=== PATIENT | female | born 1980 | race Caucasian/White ===

== ENCOUNTER 2017-01-31 19:18 | Emergency (ER) | payer OTHER ==
[2017-01-31 20:02] VITALS: BP 104/50
[2017-01-31] MEDS ORDERED: HYDROcodone/ACETAMIN 5-325 MG* 1 TAB PO ONE (20:24)
[2017-01-31] MEDS ORDERED: Ondansetron ODT TAB* 4 MG PO ONE (20:24)
--- NOTE | 2017-01-31 20:37 | UC ---
Complaint Female HPI - HPI Summary HPI Summary: 36 yo female with severe right flank pain and fever T max 103 nausea but no vomitng hx frequent kidney stones - History Of Current Complaint Chief Complaint: UCGeneralIllness Stated Complaint: RIGHT SIDE ABDOMINAL PAIN/BLOOD IN URINE Time Seen by Provider: 01/31/17 20:15 Hx Obtained From: Patient Hx Last Menstrual Period: 12/2014 Onset/Duration: Gradual Onset, Lasting Weeks, Worse Since - today markely worsened Timing: Constant, Lasting Hours Severity Initially: Mild Severity Currently: Severe Pain Intensity: 9 Pain Scale Used: 0-10 Numeric Character: Colicy Aggravating Factor(s): Nothing Associated Signs And Symptoms: Positive: Fever, Back Pain, Nausea - Allergies/Home Medications Allergies/Adverse Reactions: Allergies Allergy/AdvReac Type Severity Reaction Status Date / Time Acesulfame Potassium Allergy Intermediate Swelling Verified 01/31/17 20:02 [From Suboxone] Buprenorphine [From Suboxone] Allergy Intermediate Swelling Verified 01/31/17 20 :02 Cephalexin [From Keflex] Allergy Intermediate "MESSES Verified 01/31/17 20:02 WITH MY BREATHING" Fluoxetine [From Prozac] Allergy Intermediate Hallucinati Verified 01/31/17 20: 02 ons Ketorolac Tromethamine Allergy Intermediate "TONGUE Verified 01/31/17 20:02 [From Toradol] SWELL" Naloxone [From Suboxone] Allergy Intermediate Swelling Verified 01/31/17 20:02 Nitrofurantoin Allergy Intermediate "MESSES Verified 01/31/17 20:02 [From Macrobid] WITH MY BREATHING" Penicillins Allergy Mild Rash Verified 01/31/17 20:02 Tramadol [From Ultram] Allergy Mild Rash Verified 01/31/17 20:02 Hydromorphone Allergy Hives/Diff. Verified 01/31/17 20:02 Breathing/I tching Trazodone Allergy Difficulty Verified 01/31/17 20:02 Breathing/Wheezing PMH/Surg Hx/FS Hx/Imm Hx Previously Healthy: Yes Endocrine History Of: Denies: Diabetes, Thyroid Disease, Hyperthyroidism, Hypothyroidism, Dyslipidemia Cardiovascular History Of: Denies: Cardiac Disorders, Hypertension, Pacemaker/ICD, Myocardial Infarction , Congestive Heart Failure, Atrial Fibrillation, Deep Vein Thrombosis, Bleeding Disorders Respiratory History Of: Reports: Asthma Denies: COPD GI/ History Of: Reports: Gastroesophageal Reflux - She had Rommel's esophagitis, but had a fundoplication and off Rx., Kidney Stones Denies: Ulcer, Gastrointestinal Bleed, Gall Bladder Disease, Diverticulitis, Renal Disease, Urosepsis Neurological History Of: 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 She sees a therapist. Cancer History Of: Denies: Lung Cancer, Colorectal Cancer, Breast Cancer, Prostate Cancer, Cervical Cancer Other History Of: Negative For: HIV, Hepatitis B, Hepatitis C, Anticoagulant Therapy - Surgical History Surgical History: Yes Surgery Procedure, Year, and Place: CHOLECYSTECTOMY, L4 L5 REMOVAL, APPENDECTOMY, TONSILLECTOMY, FULL FACIAL RECONSTRUCTION/LASER SURGERY RENAL STONE recent abd surgery 01/2014 - [facility] FUNDOPLICATION;Hysterectomy 01/11/15; Rt PINKY - AMPULATED TO 1ST KNUCKLE - Family History Known Family History: Positive: Cardiac Disease, Hypertension, Diabetes, Other - kidney stones - Social History Alcohol Use: Rare Substance Use Type: Marijuana Substance Use Comment - Amount & Last Used: [facility] Smoking Status (MU): Heavy Every Day Tobacco Smoker Type: Cigarettes Amount Used/How Often: 1 ppd Length of Time of Smoking/Using Tobacco: >20 years Have You Smoked in the Last Year: Yes Household Exposure Type: Cigarettes - Immunization History Most Recent Influenza Vaccination: Review of Systems Constitutional: Fever, Chills Skin: Negative Eyes: Negative ENT: Negative Respiratory: Negative Cardiovascular: Negative Gastrointestinal: Abdominal Pain Genitourinary: Hematuria, Frequency Motor: Negative Neurovascular: Negative Musculoskeletal: Negative Neurological: Negative Psychological: Negative All Other Systems Reviewed And Are Negative: Yes Physical Exam Triage Information Reviewed: Yes Appearance: Well-Appearing, Well-Nourished, Pain Distress Vital Signs: Initial Vital Signs Temp 100.1 F 01/31/17 19:55 Pulse 61 01/31/17 19:55 Resp 18 01/31/17 19:55 BP 104/50 01/31/17 19:55 Pulse Ox 100 01/31/17 19:55 Vital Signs Reviewed: Yes Eyes: Positive: Conjunctiva Clear ENT: Positive: Hearing grossly normal. Negative: Nasal congestion, Nasal drainage, Trismus, Muffled/hoarse voice Neck: Positive: Supple, Nontender Respiratory: Positive: Lungs clear, Normal breath sounds, No respiratory distress, No accessory muscle use Cardiovascular: Positive: RRR, No Murmur Abdomen Description: Positive: CVA Tenderness (R). Negative: Nontender - tenderness rlq Bowel Sounds: Positive: Present Musculoskeletal: Positive: ROM Intact, No Edema Neurological: Positive: Alert Psychological Exam: Normal Skin Exam: Normal Complaint Female Dx - Course Course Of Treatment: declines EMS transfer. d/w ED physcian [facility]- no urologist application tester tonight , suggests pt go to facility with urologist - Differential Dx/Diagnosis Provider Diagnoses: rigth flank pain/hematuria. ? infected urolithiasis Discharge - Discharge Plan Condition: Stable Disposition: AGAINST MEDICAL ADVICE Referrals: Angelika Gomez MD [Primary Care Provider] -
== END 2017-01-31 20:45 | disposition left against medical advice (07) ==
LOC: UCCORT 19:18
DX: R10.31 Right lower quadrant pain (principal); R31.9 Hematuria, unspecified; R50.9 Fever, unspecified; R11.0 Nausea; Z87.442 Personal history of urinary calculi; Z32.02 Encounter for pregnancy test, result negative; J45.909 Unspecified asthma, uncomplicated; K21.9 Gastro-esophageal reflux disease without esophagitis; Z86.73 Personal history of transient ischemic attack (TIA), and cerebral infarction without residual deficits; Z90.49 Acquired absence of other specified parts of digestive tract; Z89.021 Acquired absence of right finger(s); Z88.1 Allergy status to other antibiotic agents; Z88.5 Allergy status to narcotic agent; Z88.0 Allergy status to penicillin; F17.210 Nicotine dependence, cigarettes, uncomplicated
CPT/HCPCS: 81003; 84702; 99213; G0463

== ENCOUNTER 2017-06-09 17:30 | Emergency (ER) | payer OTHER ==
--- NOTE | 2017-06-09 17:39 | UC ---
Dental HPI - HPI Summary HPI Summary: 36 YEAR OLD FEMALE PRESENTS WITH COMPLAINS OF MULTIPLE LOWER MOLAR ABSCESS - History of Current Complaint Stated Complaint: DENTAL COMPLAINT Time Seen by Provider: 06/09/17 17:33 Hx Obtained From: Patient Hx Last Menstrual Period: 12/2014 Onset/Duration: Gradual Onset Severity: Moderate Pain Scale Used: 0-10 Numeric - 7 Aggravating: Chewing Alleviating: Nothing - Allergies/Home Medications Allergies/Adverse Reactions: Allergies Allergy/AdvReac Type Severity Reaction Status Date / Time Acesulfame Potassium Allergy Intermediate Swelling Verified 06/09/17 17:40 [From Suboxone] Buprenorphine [From Suboxone] Allergy Intermediate Swelling Verified 06/09/17 17 :40 Cephalexin [From Keflex] Allergy Intermediate "MESSES Verified 06/09/17 17:40 WITH MY BREATHING" Fluoxetine [From Prozac] Allergy Intermediate Hallucinati Verified 06/09/17 17: 40 ons Naloxone [From Suboxone] Allergy Intermediate Swelling Verified 06/09/17 17:40 Nitrofurantoin Allergy Intermediate "MESSES Verified 06/09/17 17:40 [From Macrobid] WITH MY BREATHING" Penicillins Allergy Mild Rash Verified 06/09/17 17:40 Tramadol [From Ultram] Allergy Mild Rash Verified 06/09/17 17:40 Hydromorphone Allergy Hives/Diff. Verified 06/09/17 17:40 Breathing/I tching Trazodone Allergy Difficulty Verified 01/31/17 20:02 Breathing/Wheezing PMH/Surg Hx/FS Hx/Imm Hx Previously Healthy: Yes Other History Of: Negative For: HIV, Hepatitis B, Hepatitis C, Anticoagulant Therapy - Surgical History Surgical History: Yes Surgery Procedure, Year, and Place: CHOLECYSTECTOMY, L4 L5 REMOVAL, APPENDECTOMY, TONSILLECTOMY, FULL FACIAL RECONSTRUCTION/LASER SURGERY RENAL STONE recent abd surgery 01/2014 - [facility] FUNDOPLICATION;Hysterectomy 01/11/15; Rt PINKY - AMPULATED TO 1ST KNUCKLE - Family History Known Family History: Positive: Cardiac Disease, Hypertension, Diabetes, Other - kidney stones - Social History Alcohol Use: Rare Substance Use Type: Marijuana Substance Use Comment - Amount & Last Used: [facility] Smoking Status (MU): Heavy Every Day Tobacco Smoker Type: Cigarettes Amount Used/How Often: 1 ppd Length of Time of Smoking/Using Tobacco: >20 years Have You Smoked in the Last Year: Yes Household Exposure Type: Cigarettes - Immunization History Most Recent Influenza Vaccination: Review of Systems Constitutional: Negative Skin: Negative Eyes: Negative ENT: Dental Pain Respiratory: Negative Cardiovascular: Negative Gastrointestinal: Negative Genitourinary: Negative Motor: Negative Neurovascular: Negative Musculoskeletal: Negative Neurological: Negative Psychological: Negative All Other Systems Reviewed And Are Negative: Yes Physical Exam Triage Information Reviewed: Yes Eye Exam: Normal ENT Exam: Normal Dental: Positive: Abscess @ Neck exam: Normal Neck: Positive: 1 Respiratory Exam: Normal Cardiovascular Exam: Normal Abdominal Exam: Normal Musculoskeletal Exam: Normal Neurological Exam: Normal Psychological Exam: Normal Skin Exam: Normal Dental Complaint Course/Dx - Differential Dx/Diagnosis Differential Diagnosis/Dx: Dental Abscess Provider Diagnoses: DENTAL ABSCESS Discharge - Discharge Plan Condition: Stable Disposition: HOME Prescriptions: Acetaminophen [Tylenol] 650 mg PO Q6H PRN #100 cap PRN Reason: Pain Chlorhexidine MW 0.12% 473ML* [Peridex Mouth Wash 0.12%] 15 ml MT TID PC #1 btl Erythromycin TAB* 500 mg PO QID #40 tab Patient Education Materials: Dental Abscess (ED) Referrals: Angelika Gomez MD [Medical Doctor] - If Needed
[2017-06-09 17:56] VITALS: BP 119/72
== END 2017-06-09 18:03 | disposition home or self-care (01) ==
LOC: UCCORT 17:30
DX: K04.7 Periapical abscess without sinus (principal); Z88.1 Allergy status to other antibiotic agents; Z90.49 Acquired absence of other specified parts of digestive tract; Z88.5 Allergy status to narcotic agent; Z88.0 Allergy status to penicillin; Z88.8 Allergy status to other drugs, medicaments and biological substances; F12.90 Cannabis use, unspecified, uncomplicated; F17.210 Nicotine dependence, cigarettes, uncomplicated
CPT/HCPCS: 99212; G0463

== ENCOUNTER 2017-07-07 12:06 | Emergency (ER) | payer OTHER ==
[2017-07-07 12:26] VITALS: BP 128/81
--- NOTE | 2017-07-07 12:30 | UC ---
Respiratory Complaint HPI - HPI Summary HPI Summary: 36 year old female who smokes. Pt here w/ cough getting worse x1 week. States today she was short of breath from coughing. States about 2 weeks ago she had cold-like sx, runny nose/cough. Also had tooth pulled about 2 weeks ago and was rx'd penicillin. Used albuterol inhaler this morning 0830 w/ some relief- states she needs refill on inhaler. Also taking robitussin w/ no relief and nyquil qpm w/ some relief. Had another round of PCN 2 days ago and since then has had worsened cough and sinus pressure. No fever. Cough is the biggest concern she has. [ End ] - History of Current Complaint Chief Complaint: UCRespiratory Stated Complaint: SOB,COUGH,CONGESTION Time Seen by Provider: 07/07/17 12:27 Hx Obtained From: Patient Hx Last Menstrual Period: 12/2014 Onset/Duration: Gradual Onset Severity Initially: Mild Severity Currently: Moderate Aggravating Factors: Exertion Alleviating Factors: Bronchodilator - Allergies/Home Medications Allergies/Adverse Reactions: Allergies Allergy/AdvReac Type Severity Reaction Status Date / Time Acesulfame Potassium Allergy Intermediate Swelling Verified 07/07/17 12:18 [From Suboxone] Buprenorphine [From Suboxone] Allergy Intermediate Swelling Verified 07/07/17 12 :18 Cephalexin [From Keflex] Allergy Intermediate "MESSES Verified 07/07/17 12:18 WITH MY BREATHING" Fluoxetine [From Prozac] Allergy Intermediate Hallucinati Verified 07/07/17 12: 18 ons Naloxone [From Suboxone] Allergy Intermediate Swelling Verified 07/07/17 12:18 Nitrofurantoin Allergy Intermediate "MESSES Verified 07/07/17 12:18 [From Macrobid] WITH MY BREATHING" Tramadol [From Ultram] Allergy Mild Rash Verified 07/07/17 12:18 Hydromorphone Allergy Hives/Diff. Verified 07/07/17 12:18 Breathing/I tching Trazodone Allergy Difficulty Verified 07/07/17 12:18 Breathing/Wheezing PMH/Surg Hx/FS Hx/Imm Hx Previously Healthy: Yes Other History Of: Negative For: HIV, Hepatitis B, Hepatitis C, Anticoagulant Therapy - Surgical History Surgical History: Yes Surgery Procedure, Year, and Place: CHOLECYSTECTOMY, L4 L5 REMOVAL, APPENDECTOMY, TONSILLECTOMY, FULL FACIAL RECONSTRUCTION/LASER SURGERY RENAL STONE recent abd surgery 01/2014 - [facility] FUNDOPLICATION;Hysterectomy 01/11/15; Rt PINKY - AMPULATED TO [address] [place] [address] - Family History Known Family History: Positive: Cardiac Disease, Hypertension, Diabetes, Other - kidney stones - Social History Occupation: Unemployed Alcohol Use: Rare Substance Use Type: None Substance Use Comment - Amount & Last Used: "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 Smoking Status (MU): Heavy Every Day Tobacco Smoker Type: Cigarettes Amount Used/How Often: 1/2 ppd Length of Time of Smoking/Using Tobacco: >20 years Have You Smoked in the Last Year: Yes Household Exposure Type: Cigarettes Cessation Counseling: Patient Advised to Stop - Immunization History Most Recent Influenza Vaccination: NONE 2016 Review of Systems Constitutional: Fatigue ENT: Sore Throat, Ear Ache, Nasal Discharge, Sinus Congestion, Sinus Pain/ Tenderness Respiratory: Shortness Of Breath, Cough All Other Systems Reviewed And Are Negative: Yes Physical Exam Triage Information Reviewed: Yes Appearance: Well-Appearing, No Pain Distress, Well-Nourished Vital Signs: Initial Vital Signs Temp 96.6 F 07/07/17 12:19 Pulse 63 07/07/17 12:19 Resp 18 07/07/17 12:19 BP 128/81 07/07/17 12:19 Pulse Ox 100 07/07/17 12:19 Vital Signs Reviewed: Yes Eye Exam: Normal ENT Exam: Normal Dental Exam: Normal Neck exam: Normal Neck: Positive: 1 Respiratory Exam: Normal Cardiovascular Exam: Normal Musculoskeletal Exam: Normal Neurological Exam: Normal Psychological Exam: Normal Skin Exam: Normal UC Diagnostic Evaluation - Laboratory O2 Sat by Pulse Oximetry: 100 Respiratory Course/Dx - Course Course Of Treatment: essentially here for cough and med refil -- offer at this time and if Sx worsen then go to ED -- she is concerned about the ight time wheeze and requests medrol at this time as well -- she will start with the ANURADHA and tessalon and if warranted can start medrol - Differential Dx/Diagnosis Provider Diagnoses: asthma Discharge - Discharge Plan Condition: Good Disposition: HOME Prescriptions: Albuterol HFA INHALER* [Ventolin HFA Inhaler*] 1 puff INH Q6H PRN #1 mdi PRN Reason: Wheezing Benzonatate [TESSALON 200 MG CAP] 200 mg PO TID #20 cap Fluticasone NASAL SPRAY 50MCG* [Flonase NASAL SPRAY 50MCG*] 2 spray BOTH NARES DAILY #1 btl Methylprednisolone [Medrol Dosepak 4 MG*] 0 mg PO .SEE GARRET INSTRUCTION #1 tab Patient Education Materials: Asthma (ED) Referrals: ALIYAH Zimmerman [Primary Care Provider] - 3 Days
== END 2017-07-07 13:01 | disposition home or self-care (01) ==
LOC: UCCORT 12:06
DX: J45.909 Unspecified asthma, uncomplicated (principal); F17.210 Nicotine dependence, cigarettes, uncomplicated; Z88.5 Allergy status to narcotic agent; Z71.6 Tobacco abuse counseling
CPT/HCPCS: 99212; G0463

== ENCOUNTER 2017-08-01 20:27 | Emergency (ER) | payer OTHER ==
[2017-08-01 22:24] VITALS: BP 112/72
--- NOTE | 2017-08-01 22:25 | UC ---
Respiratory Complaint HPI - HPI Summary HPI Summary: Pt with a h/o asthma, tobacco use presents with cough and wheeze. pt states was treated approx 1 month ago for uri with medrol dose pack and tessalon pearls. Pt states felt better after approx 5 days. pt states over last 2 weeks sx return. Pt reports green, thick sputum, wheeze, cough. + sinus congestin and ear pain. Pt ahs used otc robitussin with little affect. Pt has an MDI at home. Pt denies rash. + sick contact. States was on pcn for tooth that did not help cough pt's meds reviewed this visit - History of Current Complaint Chief Complaint: UCRespiratory Stated Complaint: COUGH Time Seen by Provider: 08/01/17 22:25 Hx Obtained From: Patient Hx Last Menstrual Period: n/a Timing: Constant Severity Initially: Mild Severity Currently: Mild Character: Cough: Productive Alleviating Factors: Bronchodilator Associated Signs And Symptoms: Positive: Fever, URI, Nasal Congestion - Allergies/Home Medications Allergies/Adverse Reactions: Allergies Allergy/AdvReac Type Severity Reaction Status Date / Time Acesulfame Potassium Allergy Intermediate Swelling Verified 08/01/17 20:51 [From Suboxone] Buprenorphine [From Suboxone] Allergy Intermediate Swelling Verified 08/01/17 20 :51 Cephalexin [From Keflex] Allergy Intermediate "MESSES Verified 08/01/17 20:51 WITH MY BREATHING" Fluoxetine [From Prozac] Allergy Intermediate Hallucinati Verified 08/01/17 20: 51 ons Naloxone [From Suboxone] Allergy Intermediate Swelling Verified 08/01/17 20:51 Nitrofurantoin Allergy Intermediate "MESSES Verified 08/01/17 20:51 [From Macrobid] WITH MY BREATHING" Tramadol [From Ultram] Allergy Mild Rash Verified 08/01/17 20:51 Hydromorphone Allergy Hives/Diff. Verified 08/01/17 20:51 Breathing/I tching Trazodone Allergy Difficulty Verified 08/01/17 20:51 Breathing/Wheezing PMH/Surg Hx/FS Hx/Imm Hx Previously Healthy: Yes Respiratory History: Asthma Other History Of: Negative For: HIV, Hepatitis B, Hepatitis C, Anticoagulant Therapy - Surgical History Surgical History: Yes Surgery Procedure, Year, and Place: CHOLECYSTECTOMY, L4 L5 REMOVAL, APPENDECTOMY, TONSILLECTOMY, FULL FACIAL RECONSTRUCTION/LASER SURGERY RENAL STONE recent abd surgery 4//2014 - [facility] FUNDOPLICATION;Hysterectomy 01/11/15; Rt PINKY - AMPULATED TO 1ST KNUCKLE - Family History Known Family History: Positive: Cardiac Disease, Hypertension, Diabetes, Other - kidney stones - Social History Occupation: Employed Full-time Lives: With Family Alcohol Use: Rare Substance Use Type: None Substance Use Comment - Amount & Last Used: "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 Smoking Status (MU): Heavy Every Day Tobacco Smoker Type: Cigarettes Amount Used/How Often: 1/2 ppd Length of Time of Smoking/Using Tobacco: >20 years Have You Smoked in the Last Year: Yes Household Exposure Type: Cigarettes - Immunization History Most Recent Influenza Vaccination: NONE 2016 Review of Systems Constitutional: Fever ENT: Sore Throat, Sinus Congestion, Sinus Pain/Tenderness Respiratory: Cough, Other - wheeze Cardiovascular: Negative Musculoskeletal: Negative All Other Systems Reviewed And Are Negative: Yes Physical Exam Triage Information Reviewed: Yes Appearance: Well-Appearing - congested, No Pain Distress Vital Signs: Initial Vital Signs Temp 98 F 08/01/17 20:46 Pulse 70 08/01/17 20:46 Resp 18 08/01/17 20:46 BP 127/65 08/01/17 20:46 Pulse Ox 99 08/01/17 20:46 Eye Exam: Normal Eyes: Positive: Conjunctiva Clear ENT: Positive: Nasal congestion, TMs normal Dental Exam: Normal Neck exam: Normal Neck: Positive: Supple, Nontender Respiratory: Positive: Chest non-tender - coarsem intermittent cough, No respiratory distress, No accessory muscle use, Wheezing Cardiovascular Exam: Normal Abdominal Exam: Normal Abdomen Description: Positive: Nontender, No Organomegaly Musculoskeletal Exam: Normal Neurological Exam: Normal Psychological Exam: Normal Psychological: Positive: Normal Response To Family Skin Exam: Normal UC Diagnostic Evaluation - Laboratory O2 Sat by Pulse Oximetry: 99 Respiratory Course/Dx - Course Course Of Treatment: pt with productive cough and wheeze ongoing x 2 weeks. pt with history or tobacco use. recently ise PCN for dental infection. will start doxy, pred, mdi, tessaltasneem mathis - Differential Dx/Diagnosis Provider Diagnoses: acute bronchitis Discharge - Discharge Plan Condition: Stable Disposition: HOME Prescriptions: Benzonatate CAP* [Tessalon 100 MG CAP*] 100 mg PO TID PRN #15 cap PRN Reason: coughing DOXYcycline CAP(*) [DOXYcycline 100MG CAP(*)] 100 mg PO BID #13 cap predniSONE TAB* [Deltasone TAB*] 40 mg PO DAILY #8 tab Patient Education Materials: Acute Bronchitis (ED) Referrals: ALIYAH Zimmerman [Primary Care Provider] - Additional Instructions: - stay well hydrated. Drink plenty of non-alcoholic, non-caffinated beverages - Okay to take Robitussion or tessalon pearls for coughing - Take antibiotics as prescribed until gone - Take prednisone as prescribed - Use your inhaler every 4 today and tomorrow, and then as needed - work to decrease cigarette smoke - These infections are spread by oral secretions. Do not share eating or drinking utensils. Frequent hand washing is important. Clean items that may get your secretions on them such as cell phones, ipads, computer mouse, television remotes - - After you have been on antibiotics for 2 days - change your toothbrush and your pillowcase - contact your doctor to schedule a follow-up appointment.
[2017-08-01] MEDS ORDERED: DOXYcycline CAP(*) 100 MG PO ONE (22:32)
[2017-08-01] MEDS ORDERED: predniSONE TAB* 20 MG PO ONE (22:33)
== END 2017-08-01 22:44 | disposition home or self-care (01) ==
LOC: UCCORT 20:27
DX: J20.9 Acute bronchitis, unspecified (principal); J45.909 Unspecified asthma, uncomplicated; Z88.1 Allergy status to other antibiotic agents; Z88.5 Allergy status to narcotic agent; Z88.8 Allergy status to other drugs, medicaments and biological substances; F17.210 Nicotine dependence, cigarettes, uncomplicated
CPT/HCPCS: 99212; A9270-GY; G0463; J7512

== ENCOUNTER 2017-12-02 17:13 | Emergency (ER) | payer OTHER ==
[2017-12-02 20:00] VITALS: BP 129/74
--- NOTE | 2017-12-02 20:45 | UC ---
Respiratory Complaint HPI - HPI Summary HPI Summary: 37 yo female with a two day hx of cough/sore throat/right earache/myalgias and fever/chills - History of Current Complaint Chief Complaint: UCEar Stated Complaint: SORE THROAT, EAR PAIN Time Seen by Provider: 12/02/17 20:14 Hx Obtained From: Patient Hx Last Menstrual Period: 2 yr Onset/Duration: Sudden Onset, Lasting Days Severity Initially: Moderate Severity Currently: Severe Pain Intensity: 10 Pain Scale Used: 0-10 Numeric Character: Cough: Nonproductive Aggravating Factors: Nothing Alleviating Factors: Nothing Associated Signs And Symptoms: Positive: Fever, Chills, Nasal Congestion, Sinus Discomfort - Allergies/Home Medications Allergies/Adverse Reactions: Allergies Allergy/AdvReac Type Severity Reaction Status Date / Time MS Acesulfame Potassium Allergy Intermediate Swelling Verified 12/02/17 19:33 [From Suboxone] MS Buprenorphine Allergy Intermediate Swelling Verified 12/02/17 19:33 [From Suboxone] MS Cephalexin [From Keflex] Allergy Intermediate "MESSES Verified 12/02/17 19:33 WITH MY BREATHING" MS Fluoxetine [From Prozac] Allergy Intermediate Hallucinati Verified 12/02/17 19:33 ons MS Naloxone [From Suboxone] Allergy Intermediate Swelling Verified 12/02/17 19: 33 MS Nitrofurantoin Allergy Intermediate "MESSES Verified 12/02/17 19:33 [From Macrobid] WITH MY BREATHING" MS Tramadol [From Ultram] Allergy Mild Rash Verified 12/02/17 19:33 MS Hydromorphone Allergy Hives/Diff. Verified 12/02/17 19:33 [Hydromorphone] Breathing/I tching MS Trazodone [Trazodone] Allergy Difficulty Verified 12/02/17 19:33 Breathing/Wheezing Home Medications: Home Medications Ibuprofen TAB* [Motrin TAB* 400 MG] 400 mg PO Q6H PRN 12/02/17 [History Confirmed 12/02/17] PMH/Surg Hx/FS Hx/Imm Hx Previously Healthy: Yes Other History Of: Negative For: HIV, Hepatitis B, Hepatitis C, Anticoagulant Therapy - Surgical History Surgical History: Yes Surgery Procedure, Year, and Place: CHOLECYSTECTOMY, L4 L5 REMOVAL, APPENDECTOMY, TONSILLECTOMY, FULL FACIAL RECONSTRUCTION/LASER SURGERY RENAL STONE recent abd surgery 01/2014 - KATHY FUNDOPLICATION;Hysterectomy 01/11/15; Rt PINKY - AMPULATED TO 1ST KNUCKLE - Family History Known Family History: Positive: Cardiac Disease, Hypertension, Diabetes, Other - kidney stones - Social History Alcohol Use: Rare Substance Use Type: None Substance Use Comment - Amount & Last Used: "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 Smoking Status (MU): Heavy Every Day Tobacco Smoker Type: Cigarettes Amount Used/How Often: 1/2 ppd Length of Time of Smoking/Using Tobacco: >20 years Have You Smoked in the Last Year: Yes Household Exposure Type: Cigarettes - Immunization History Most Recent Influenza Vaccination: NONE 2016 Review of Systems Constitutional: Fever Skin: Negative Eyes: Negative ENT: Sore Throat, Ear Ache, Nasal Discharge, Sinus Congestion Respiratory: Cough Cardiovascular: Negative Gastrointestinal: Negative Genitourinary: Negative Motor: Negative Neurovascular: Negative Musculoskeletal: Myalgia Neurological: Negative Psychological: Negative Is Patient Immunocompromised?: No All Other Systems Reviewed And Are Negative: Yes Physical Exam Triage Information Reviewed: Yes Appearance: Well-Appearing, No Pain Distress, Well-Nourished Vital Signs: Initial Vital Signs Temp 98.5 F 12/02/17 19:39 Pulse 57 12/02/17 19:39 Resp 18 12/02/17 19:39 BP 129/74 12/02/17 19:39 Pulse Ox 100 12/02/17 19:39 Eyes: Positive: Conjunctiva Clear ENT: Positive: Hearing grossly normal, Pharyngeal erythema, Nasal congestion, TMs normal, Uvula midline. Negative: Tonsillar swelling, Tonsillar exudate, Trismus, Muffled voice, Hoarse voice Neck: Positive: Supple, Nontender, Enlarged Nodes @ - ant cerv Respiratory: Positive: Lungs clear, Normal breath sounds, No respiratory distress, No accessory muscle use Cardiovascular: Positive: RRR, No Murmur Musculoskeletal: Positive: ROM Intact, No Edema Neurological: Positive: Alert Psychological Exam: Normal Skin Exam: Normal UC Diagnostic Evaluation - Laboratory O2 Sat by Pulse Oximetry: 100 - normal/not hypoxic Respiratory Course/Dx - Course Course Of Treatment: rapid flu (-). strep(-) - Differential Dx/Diagnosis Provider Diagnoses: bronchitis Discharge - Discharge Plan Condition: Stable Disposition: HOME Patient Education Materials: Acute Bronchitis (ED) Referrals: ALIYAH Zimmerman [Primary Care Provider] - 4 Days (if not better)
[2017-12-02] MEDS ORDERED: Azithromycin TAB* 250 MG PO ONE (21:19)
== END 2017-12-02 21:57 | disposition home or self-care (01) ==
LOC: UCCORT 17:13
DX: J40 Bronchitis, not specified as acute or chronic (principal); F17.210 Nicotine dependence, cigarettes, uncomplicated
CPT/HCPCS: 87502; 87651; 99212; A9270-GY; G0463

== ENCOUNTER 2018-01-02 16:44 | Emergency (ER) | payer OTHER ==
[2018-01-02 17:51] VITALS: BP 116/66
--- NOTE | 2018-01-02 18:37 | UC ---
Knee Pain HPI - HPI Summary HPI Summary: Pt with right knee pain x 7 days. Pt states was walking down stairs at [facility] [place] and felt pain in right knee no fall. Pt states has had pain on lateral edge since. Pts states feels like it "might give out" Pt reports intermittent parenthesis down leg. No back or hip pain. no pain in ankle, hip, back. Pt has been applying heat. Pt walking with limp. No fall. taking motrin with little relief. no h/o similar injury Pt's medications reviewed this visit - History of Current Complaint Chief Complaint: UCLowerExtremity Stated Complaint: RIGHT KNEE COMPLAINT Time Seen by Provider: 01/02/18 18:11 Hx Obtained From: Patient Hx Last Menstrual Period: unknown ?: No Onset/Duration: Gradual Onset Severity Initially: Moderate Severity Currently: Moderate Pain Intensity: 8 Pain Scale Used: 0-10 Numeric Character: Sharp, Throbbing, Stiffness Aggravating Factor(s): Movement, Weight Bearing Alleviating Factor(s): Rest, Nothing Associated Signs And Symptoms: Positive: Weakness, Tingling. Negative: Swelling , Numbness - Allergies/Home Medications Allergies/Adverse Reactions: Allergies Allergy/AdvReac Type Severity Reaction Status Date / Time buprenorphine [From Suboxone] Allergy Swelling Verified 01/02/18 17:44 cephalexin [From Keflex] Allergy Difficulty Verified 01/02/18 17:44 Breathing/Wheezing fluoxetine [From Prozac] Allergy Hallucinati Verified 01/02/18 17:44 ons hydromorphone Allergy Hives/Diff. Verified 01/02/18 17:44 Breathing/I tching naloxone [From Suboxone] Allergy Swelling Verified 01/02/18 17:44 nitrofurantoin Allergy Difficulty Verified 01/02/18 17:44 [From Macrobid] Breathing tramadol [From Ultram] Allergy Rash Verified 01/02/18 17:44 trazodone Allergy Difficulty Verified 01/02/18 17:44 Breathing/Wheezing PMH/Surg Hx/FS Hx/Imm Hx Previously Healthy: Yes Other History Of: Negative For: HIV, Hepatitis B, Hepatitis C, Anticoagulant Therapy - Surgical History Surgical History: Yes Surgery Procedure, Year, and Place: CHOLECYSTECTOMY, L4 L5 REMOVAL, APPENDECTOMY, TONSILLECTOMY, FULL FACIAL RECONSTRUCTION/LASER SURGERY RENAL STONE recent abd surgery 01/2014 - [facility] FUNDOPLICATION;Hysterectomy 01/11/15; Rt PINKY - AMPULATED TO 1ST KNUCKLE - Family History Known Family History: Positive: Cardiac Disease, Hypertension, Diabetes, Other - kidney stones - Social History Occupation: Student Lives: With Family Alcohol Use: Rare Substance Use Type: None Substance Use Comment - Amount & Last Used: "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 Smoking Status (MU): Heavy Every Day Tobacco Smoker Type: Cigarettes Amount Used/How Often: 1/2 ppd Length of Time of Smoking/Using Tobacco: >20 years Have You Smoked in the Last Year: Yes Household Exposure Type: Cigarettes - Immunization History Most Recent Influenza Vaccination: NONE 2016 Review of Systems Constitutional: Negative Musculoskeletal: Decreased ROM, Other: - knee pain Neurological: Paresthesia All Other Systems Reviewed And Are Negative: Yes Physical Exam Triage Information Reviewed: Yes Appearance: Well-Appearing, No Pain Distress, Well-Nourished Vital Signs: Initial Vital Signs Temp 97.8 F 01/02/18 17:44 Pulse 55 01/02/18 17:44 Resp 16 01/02/18 17:44 BP 116/66 01/02/18 17:44 Pulse Ox 98 01/02/18 17:44 Vital Signs Reviewed: Yes Eye Exam: Normal Eyes: Positive: Conjunctiva Clear ENT: Positive: Hearing grossly normal Neck: Positive: Supple Respiratory: Positive: No respiratory distress, No accessory muscle use Cardiovascular: Positive: Other: - 2+ Dp, PT CBT <2 sec Musculoskeletal: Positive: Other: - + SLE + pain with flexion knee > 45 + flex.ext ankle without difficult Pain with palp along lateral joint line Neg anterior/posterior drawer Neurological Exam: Normal Neurological: Positive: Other: - + gross sensation throughout foot Psychological Exam: Normal Psychological: Positive: Normal Response To Family Skin Exam: Normal Diagnostics - Radiology No standard instances Radiology Interpretation Completed By: Radiologist - no acute Knee Pain Course/Dx - Course Course Of Treatment: Pt presents with pain in lateral aspect of right knee after feeling pull walking down step, no fall. pt with palpation lateral joint line. slight limp with ambulation. limited flexion second to pain. imaging. ice. steve. crutches. ortho f/u. motrin - Differential Dx/Diagnosis Provider Diagnoses: knee sprain Discharge - Discharge Plan Condition: Stable Disposition: HOME Patient Education Materials: Knee Sprain (ED) Referrals: ALIYAH Zimmerman [Primary Care Provider] - Cristóbal Charles MD [Medical Doctor] - Additional Instructions: -Okay to take ibuprofen (Advil, Motrin) every 6 hours for pain. Take with food. Do NOT take for more than 4-5 days - Use crutches until you can walk without pain or a limp or ar released by the orthopedic provider - wear steve wrap for support -Apply ice (20 min at a time) every 4 hours for 15 minutes while awake today and tomorrow - Keep leg elevated - this will help with swelling and pain -contact the orthopedic provider to schedule a follow-up appointment. Indicate you would like to be evaluated in the [place] office if this continues to be your preference
--- NOTE | 2018-01-02 18:49 | RAD ---
INDICATION: Right knee pain and buckling. TECHNIQUE: 4 views of the right knee were obtained. FINDINGS: The bones are in normal alignment. No joint effusion or fracture is seen. Joint spaces appear maintained. IMPRESSION: NO EVIDENCE FOR FRACTURE.
== END 2018-01-02 19:00 | disposition home or self-care (01) ==
LOC: UCCORT 16:44
DX: S83.91XA Sprain of unspecified site of right knee, initial encounter (principal); X58.XXXA Exposure to other specified factors, initial encounter; Y93.9 Activity, unspecified; Y92.9 Unspecified place or not applicable; R20.2 Paresthesia of skin; Z88.1 Allergy status to other antibiotic agents; Z88.5 Allergy status to narcotic agent; Z88.8 Allergy status to other drugs, medicaments and biological substances; F17.210 Nicotine dependence, cigarettes, uncomplicated
CPT/HCPCS: 99213; G0463

== ENCOUNTER 2018-01-15 10:51 | Emergency (ER) | payer OTHER ==
[2018-01-15 12:08] VITALS: BP 135/65
--- NOTE | 2018-01-15 12:26 | UC ---
General HPI - HPI Summary HPI Summary: pt is c/o "BV", describes as a discharge with odor x 3 days. hx BV in past and this is the same. denies risk/concern for std. also notes"my ovaries ache like i 'm due for aperiord". pt states had hysterectomy but still gets this pain x 3 days as well. pt states "i have stress hives as well" onset within past week. "i 've had them before". she attributes this to her father being ill. no fever, sob , cough. - History of Current Complaint Chief Complaint: UCGeneralIllness Stated Complaint: ABDOMINAL PAIN/SKIN COMPLAINT Time Seen by Provider: 01/15/18 12:17 Hx Obtained From: Patient Hx Last Menstrual Period: HYSTERECTOMY Onset/Duration: Gradual Onset Timing: Constant Pain Intensity: 4 Alleviating: nothing Associated Signs & Symptoms: Positive: Abdominal Pain - "ovaries". Negative: Back Pain, Cough, Dysuria, Fever, Nausea, SOB, Wheezing - Allergy/Home Medications Allergies/Adverse Reactions: Allergies Allergy/AdvReac Type Severity Reaction Status Date / Time buprenorphine [From Suboxone] Allergy Swelling Verified 01/02/18 17:44 cephalexin [From Keflex] Allergy Difficulty Verified 01/02/18 17:44 Breathing/Wheezing fluoxetine [From Prozac] Allergy Hallucinati Verified 01/02/18 17:44 ons hydromorphone Allergy Hives/Diff. Verified 01/02/18 17:44 Breathing/I tching naloxone [From Suboxone] Allergy Swelling Verified 01/02/18 17:44 nitrofurantoin Allergy Difficulty Verified 01/02/18 17:44 [From Macrobid] Breathing tramadol [From Ultram] Allergy Rash Verified 01/02/18 17:44 trazodone Allergy Difficulty Verified 01/02/18 17:44 Breathing/Wheezing Home Medications: Home Medications Albuterol HFA INHALER* [Ventolin HFA Inhaler*] 01/15/18 [History] Multivitamin with Minerals [One Daily Complete] 01/15/18 [History] PMH/Surg Hx/FS Hx/Imm Hx - Additional Past Medical History Additional PMH: BV, urticaria Other History Of: Negative For: HIV, Hepatitis B, Hepatitis C, Anticoagulant Therapy - Surgical History Surgical History: Yes Surgery Procedure, Year, and Place: CHOLECYSTECTOMY, L5 DISC REMOVAL, APPENDECTOMY, TONSILLECTOMY, FULL FACIAL RECONSTRUCTION/LASER SURGERY RENAL STONE recent abd surgery 01/2014 - KATH[facility] FUNDOPLICATION;Hysterectomy 01/11/15; Rt PINKY - AMPULATED TO 1ST KNUCKLE - Family History Known Family History: Positive: Cardiac Disease, Hypertension, Diabetes, Other - kidney stones - Social History Lives: With Family Alcohol Use: Rare Substance Use Type: None Substance Use Comment - Amount & Last Used: "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 Smoking Status (MU): Heavy Every Day Tobacco Smoker Type: Cigarettes Amount Used/How Often: 1/2 ppd Length of Time of Smoking/Using Tobacco: >20 years Have You Smoked in the Last Year: Yes Household Exposure Type: Cigarettes - Immunization History Most Recent Influenza Vaccination: NONE 2017 Vaccination Up to Date: Yes Review of Systems Constitutional: Negative Skin: Rash Eyes: Negative ENT: Negative Respiratory: Negative Cardiovascular: Negative Gastrointestinal: Negative Genitourinary: Vaginal/Penile Discharge Motor: Negative Neurovascular: Negative Musculoskeletal: Negative Neurological: Negative Psychological: Negative Is Patient Immunocompromised?: No All Other Systems Reviewed And Are Negative: Yes Physical Exam Triage Information Reviewed: Yes Appearance: Well-Appearing Vital Signs: Initial Vital Signs Temp 98.0 F 01/15/18 12:00 Pulse 51 01/15/18 12:00 Resp 18 01/15/18 12:00 BP 135/65 01/15/18 12:00 Pulse Ox 100 01/15/18 12:00 Vital Signs Reviewed: Yes Eye Exam: Normal ENT: Positive: Pharynx normal, TMs normal. Negative: Nasal congestion, Nasal drainage Neck: Positive: Supple, Nontender, No Lymphadenopathy Respiratory: Positive: Lungs clear, Normal breath sounds, No respiratory distress Cardiovascular: Positive: RRR, No Murmur, Pulses Normal Abdomen Description: Positive: Nontender, No Organomegaly, Soft. Negative: CVA Tenderness (R), CVA Tenderness (L), Distended, Guarding Bowel Sounds: Positive: Present Pelvic Exam: Positive: Other - PT REFUSED Musculoskeletal: Positive: ROM Intact Neurological: Positive: Alert Psychological: Positive: Age Appropriate Behavior Skin: Positive: rashes - scattered red raised wheels that maria g. no blistering , peeling and not petechial. skin otherwise pink, warm dry. Diagnostics - Laboratory Diagnostic Studies Completed/Ordered: u/a=trace blood Course/Dx - Course Course Of Treatment: non toxic. no acute abdomen. pt declined pelvic exam despite risk for missed pathology and denies any risk/concer std thus does not want testing. pt is s/p hysterectomy. rash is c/w hives and is very mild thus will tx otc benadryl. will tx for presumptive BV given subjective s/s's. no concern for uti. - Differential Dx - Multi-Symptom Provider Diagnoses: 1. BV by hx 2. hives 3. pelvic pain Discharge - Sign-Out/Discharge Documenting (check all that apply): Discharge - Discharge Plan Condition: Stable Disposition: HOME Prescriptions: metroNIDAZOLE VAGINAL 0.75%* 1 applic VAGINAL BEDTIME #1 tube Patient Education Materials: Bacterial Vaginosis (ED), Urticaria (ED), Pelvic Pain in Women (ED) Referrals: ALIYAH Zimmerman [Primary Care Provider] - 5 Days Additional Instructions: TAKE BENADRYL OVER THE COUNTER NEEDED FOR HIVES, RECHECK IMMEDIATELY FOR ANY WORSENING - Billing Disposition and Condition Condition: STABLE Disposition: HOME
== END 2018-01-15 12:53 | disposition home or self-care (01) ==
LOC: UCCORT 10:51
DX: N76.0 Acute vaginitis (principal); L50.9 Urticaria, unspecified; R10.2 Pelvic and perineal pain; Z88.1 Allergy status to other antibiotic agents; Z88.5 Allergy status to narcotic agent; Z88.8 Allergy status to other drugs, medicaments and biological substances; F17.210 Nicotine dependence, cigarettes, uncomplicated
CPT/HCPCS: 81003; 99212; G0463

== ENCOUNTER 2018-02-11 18:29 | Emergency (ER) | payer OTHER ==
--- OUTSIDE RECORDS SUMMARY | 2018-02-11 18:57 | XMS REPORT ---
:1980 External Reference #:[id number] Author Organization [facility] Address [address] [address] Phone [phone] Care Team Providers Name Role Phone Miguel Andrew MD Care Team Information Supervisor Blood Donor Recruiters Unavailable Hermilo Boucher PA Primary Care Physician Unavailable Payers Type Date Identification Numbers Payment Provider Subscriber Commercial Effective: Policy Number: Robert Tubbs 2011 [id number] Group Number: [id number] PayID: [id number] [place] [address] Problems Date Description Provider Status Onset: 01/25/2018 Current tear of medial cartilage AND/OR Ros Yo MD Active meniscus of knee Family History Date Family Member(s) Problem(s) Comments General Pancreatic Cancer General Hypertension General Diabetes General Osteoporosis General Thyroid Disease General Colon Cancer General Kidney Disease General Heart Disease Social History Type Date Description Comments Lives With Alone Occupation Currently Working ETOH Use Denies alcohol use Smoking Patient is a current smoker, smokes every day Exercise Type/Frequency Exercises sporadically Allergies, Adverse Reactions, Alerts Date Description Reaction Status Severity Comments 08/29/2011 Toradol active Breathing Difficulties 01/25/2018 Keflex active 01/25/2018 Penicillin active 01/25/2018 Suboxone active Medications Medication Date Status Form Strength Qnty SIG Indications Ordering Provider Proair HFA / Active Aerosol 108(90Bas As needed Ajann, 0000 e) JORGE Byrnes mcg/Act Epipen 2-Adilson / Active Solution 0.3mg/0.3 as directed Nolan, 0000 Auto-Inject ML MD Kartik Depo-Provera / Active Suspension 400mg/ml intramuscular Unknown 0000 q3mon Ibuprofen 00/00/ Active Tablets 200mg 400-600mg Unknown 200 0000 every 6 hours as needed for pain. Robaxin-750 08/29/ Hx Tablets 750mg 50tab 1-2 po q 8 hrs Thai M. 2010 - prn muscle Zupruk, M.D. 2013 Percocet 03/30/ Hx Tablets 5-325mg 40tab 1-2 po q4h prn Thai M. 2010 - pain Zupruk, M.D. 2013 [place] 02/09/ Hx Tablets 5-325mg 40tab 1-2 po q4h prn Thai M. 2010 - pain Zupruk, M.D. 2013 Dilaudid 02/02/ Hx Tablets 2mg 50tab 1-3 po q4h prn Thai M. 2010 pain Zupruk, M.D. 2013 Loratadine / Hx Tablets 10mg 1 po qd.. Bradley 0000 - Nhan 01/24/ JORGE Crews 2017 Vital Signs Date Vital Result Comment 01/25/2018 Height 67 inches 5'7" Weight 250.00 lb BP Systolic 122 mmHg BP Diastolic 76 mmHg Respiratory Rate 20 /min Body Temperature 97.0 F Pain Level 6 BMI (Body Mass Index) 39.2 kg/m2 07/09/2014 Height 67 inches 5'7" Weight 252.00 lb Heart Rate 58 /min BP Systolic Sitting 114 mmHg BP Diastolic Sitting 72 mmHg BMI (Body Mass Index) 39.5 kg/m2 Results Test Date Test Result H/L Range Note Laboratory test finding 03/03/2011 (HCG) Serum NEGATIVE Negative 1, 2 CBC No Diff 03/03/2011 White Blood Count 7.4 CUMM 4.8-10.8 1 Red Cell Count 4.44 CUMM 4.2-5.4 1 Hemoglobin 13.5 g/dL 12.0-16.0 1 Hematocrit 39 % 35-47 1 Mean Corpuscular Volume 89 um3 79-97 1 Mean Corpuscular Hemoglob 30 pg 27-31 1 Mean Corpuscular HGB Cone 34 g/dL 32-36 1 Redcell Distribution WDTH 15 % 10.5-15 1 Platelet Count 250 CUMM 150-450 1 Mean Platelet Volume 8.6 um3 7.4-10.4 1 Basic Metabolic Panel 03/03/2011 Sodium 139 mmol/L 135-145 1 Potassium 4.2 mmol/L 3.5-5.0 1 Chloride 108 mmol/L 101-111 1 Co2 (Carbon Dioxide) 25.0 mmol/L 22-32 1 Anion Gap 6.0 mmol/L 2-11 1, 3 Glucose 85 mg/dL 70-100 1 BUN 11 mg/dL 6-24 1 Creatinine 0.80 mg/dL 0.50-1.40 1 One Over Creatinine 1.20 1 BUN/Creatinine Ratio 13.8 8-20 1 Calcium 9.2 mg/dL 8.1-9.9 1 eGFR Non- 83.1 > 60 1 eGFR 106.9 > 60 1, 4 Protime 03/03/2011 Inr 1.03 0.82-1.17 1, 5 Protime 12.2 SEC 10.2-14.8 1, 6 Type And Screen (Pre-Adm) 03/03/2011 Patient Blood Type A NEGATIVE 1 Antibody Screen NEGATIVE 1 Specimen Discard Date 03/17/11 1, 7 Laboratory test finding 03/03/2011 PTT (Aptt) 28.7 25.15-38.53 1 Ua Stat 06/20/2009 Ua Color RED Appearance-Urine CLOUDY Specific [place]idental-Ur 1.026 1.010-1.030 Esterase-Urine 1+ Negative Nitrite NEGATIVE Negative Wyvjuxlmpavg-Qr-IEP NEGATIVE Negative Protein-Urine 3+ Negative PH-Urine 5.5 5-9 Blood-Urine 3+ Negative Ketones-Urine NEGATIVE Negative Bilirubin-Ur NEGATIVE Negative Glucose-Urine NEGATIVE Negative Ursc-1 06/20/2009 Ampicillin <=2 Amikacin <=2 Ciprofloxacin <=0.25 Ceftriaxone <=1 Cefazolin <=4 Nitrofurantoin <=16 Gentamicin <=1 Imipenem <=1 Levofloxacin <=0.12 Trimeth-Sulfa <=20 Ceftazidime <=1 Tigecycline <=0.5 Piperacillin/Tazobactam <=4 Urinalysis W/Microscopic Stat 06/20/2009 Ua Color RED Appearance-Urine CLOUDY Specific [place]-Ur 1.026 1.010-1.030 Esterase-Urine 1+ Negative Nitrite NEGATIVE Negative Vlxpkwgrbcbn-Zm-KNS NEGATIVE Negative Protein-Urine 3+ Negative PH-Urine 5.5 5-9 Blood-Urine 3+ Negative Ketones-Urine NEGATIVE Negative Bilirubin-Ur NEGATIVE Negative Glucose-Urine NEGATIVE Negative WBC-Urine 5-10 0-5 RBC-Urine TNTC 0-2 Epith Cells-Ur RARE Bacteria-Urine 3+ Ua Comments YEAST CBC With Electronic Diff Stat 06/20/2009 White Blood Count 14.6 CUMM High 4.8-10.8 Red Cell Count 4.83 CUMM 4.2-5.4 Hemoglobin 14.3 g/dL 12.0-16.0 Hematocrit 42 % 35-47 Mean Corpuscular Volume 86 um3 79-97 Mean Corpuscular Hemoglob 30 pg 27-31 Mean Corpuscular HGB Cone 35 g/dL 32-36 Redcell Distribution WDTH 13 % 10.5-15 Platelet Count 335 CUMM 150-450 Mean Platelet Volume 8.1 um3 7.4-10.4 Gran % 73.1 % 38-83 Lymph % 17.3 % Low 25-47 Mononuclear % 7.1 % 1-9 Eosinophil % 0.7 % 0-6 Basophil % 1.8 % 0-2 Abs Lymphs 2.5 1.0-4.8 Abs Mononuclear 1.0 High 0-0.8 Absolute Neutrophil Count 10.7 High 1.5-7.7 Abs Eosinophils 0.1 0-0.6 Abs Basophils 0.3 High 0-0.2 CMP Panel Stat 06/20/2009 Sodium 138 mmol/L 135-145 Potassium 3.8 mmol/L 3.5-5.0 Chloride 105 mmol/L 101-111 Co2 (Carbon Dioxide) 23.0 mmol/L 22-32 Anion Gap 10.0 mmol/L 2-11 8 Glucose 99 mg/dL 70-100 9 BUN 9 mg/dL 6-24 Creatinine 0.80 mg/dL 0.50-1.40 One Over Creatinine 1.20 BUN/Creatinine Ratio 11.3 8-20 Calcium 8.9 mg/dL 8.1-9.9 10 Total Protein 6.7 GM/DL 6.2-8.1 Albumin 4.0 GM/DL 3.6-5.4 Globulin 2.7 GM/DL 2-4 Albumin/Globulin Ratio 1.5 1-3 Bilirubin Total 0.4 mg/dL 0.4-1.5 11 Alkaline Phosphatase 66 U/L 30-110 Alt (SGPT) 14 U/L 14-54 Ast (Sgot) 14 U/L 12-42 eGFR Non- 89.5 > 60 eGFR 108.3 > 60 12 HCG Qualitative Stat 06/20/2009 Serum Qual HCG NEGATIVE Negative 13 Urine Culture & 06/20/2009 Urine Culture ESCHERICHIA COLI 14 Sensitivi Sensitivi Urine Qual 06/10/2009 Specific Occidental 1.020 1.010-1.030 Urine NEGATIVE Negative 15 Urinalysis W/Microscopic Stat 06/10/2009 Ua Color YELLOW Appearance-Urine TURBID Specific [place]-Ur 1.020 1.010-1.030 Esterase-Urine 1+ Negative Nitrite NEGATIVE Negative Watgkignxwbp-Tr-LXO NEGATIVE Negative Protein-Urine TRACE Negative PH-Urine 7.5 5-9 Blood-Urine 3+ Negative Ketones-Urine NEGATIVE Negative Bilirubin-Ur NEGATIVE Negative Glucose-Urine NEGATIVE Negative WBC-Urine 2-5 0-5 RBC-Urine 5-10 0-2 Epith Cells-Ur MODERATE Urine Culture & Sensitivi 06/10/2009 Urine Culture Sensitivi NF1 16 Urinalysis W/Microscopic Stat 06/08/2009 Ua Color YELLOW Appearance-Urine CLEAR Specific [place]-Ur 1.029 1.010-1.030 Esterase-Urine NEGATIVE Negative Nitrite NEGATIVE Negative Ndqaurvfjlwo-Nh-UDN NEGATIVE Negative Protein-Urine NEGATIVE Negative PH-Urine 5.5 5-9 Blood-Urine 2+ Negative Ketones-Urine TRACE Negative Bilirubin-Ur NEGATIVE Negative Glucose-Urine NEGATIVE Negative WBC-Urine 5-10 0-5 RBC-Urine 2-5 0-2 Mucus Urine SMALL Epith Cells-Ur MANY Bacteria-Urine 1+ Amorphous Sed-U TRACE CBC With Manual Diff Stat 06/08/2009 White Blood Count 13.6 CUMM High 4.8- 10.8 Red Cell Count 4.48 CUMM 4.2-5.4 Hemoglobin 13.3 g/dL 12.0-16.0 Hematocrit 39 % 35-47 Mean Corpuscular Volume 87 um3 79-97 Mean Corpuscular Hemoglob 30 pg 27-31 Mean Corpuscular HGB Cone 34 g/dL 32-36 Redcell Distribution WDTH 14 % 10.5-15 Platelet Count 299 CUMM 150-450 Mean Platelet Volume 8.0 um3 7.4-10.4 Polysegmented Neutrophil 74 % 38-83 Lymphocyte 24 % Low 25-47 Monocyte 1 % 0-13 Eosenophil 1 % 0-6 Absolute Neutrophil Count 10.0 Anisocytosis SLIGHT Comp Metabolic Panel 06/08/2009 Sodium 146 mmol/L High 135-145 Potassium 3.9 mmol/L 3.5-5.0 Chloride 114 mmol/L High 101-111 Co2 (Carbon Dioxide) 25.0 mmol/L 22-32 Anion Gap 7.0 mmol/L 2-11 17 Glucose 100 mg/dL 70-100 18 BUN 13 mg/dL 6-24 Creatinine 0.85 mg/dL 0.50-1.40 One Over Creatinine 1.10 BUN/Creatinine Ratio 15.3 8-20 Calcium 8.6 mg/dL 8.1-9.9 19 Total Protein 7.0 GM/DL 6.2-8.1 Albumin 3.7 GM/DL 3.6-5.4 Globulin 3.3 GM/DL 2-4 Albumin/Globulin Ratio 1.1 1-3 Bilirubin Total 0.5 mg/dL 0.4-1.5 20 Alkaline Phosphatase 58 U/L 30-110 Alt (SGPT) 15 U/L 14-54 Ast (Sgot) 25 U/L 12-42 eGFR Non- 83.5 > 60 eGFR 101.0 > 60 21 Basic Metabolic Panel Stat 05/07/2009 Sodium 140 mmol/L 135-145 Potassium 3.5 mmol/L 3.5-5.0 Chloride 106 mmol/L 101-111 Co2 (Carbon Dioxide) 26.0 mmol/L 22-32 Anion Gap 8.0 mmol/L 2-11 22 Glucose 103 mg/dL High 70-100 23 BUN 7 mg/dL 6-24 Creatinine 0.80 mg/dL 0.50-1.40 One Over Creatinine 1.20 BUN/Creatinine Ratio 8.8 8-20 Calcium 8.8 mg/dL 8.1-9.9 24 eGFR Non- 89.5 > 60 eGFR 108.3 > 60 25 CBC With Manual Diff Stat 05/07/2009 White Blood Count 11.3 CUMM High 4.8- 10.8 Red Cell Count 4.36 CUMM 4.2-5.4 Hemoglobin 12.6 g/dL 12.0-16.0 Hematocrit 38 % 35-47 Mean Corpuscular Volume 86 um3 79-97 Mean Corpuscular Hemoglob 29 pg 27-31 Mean Corpuscular HGB Cone 34 g/dL 32-36 Redcell Distribution WDTH 14 % 10.5-15 Platelet Count 257 CUMM 150-450 Mean Platelet Volume 7.8 um3 7.4-10.4 Polysegmented Neutrophil 79 % 38-83 Band Neutrophil 1 % 0-8 Lymphocyte 11 % Low 25-47 Monocyte 8 % 0-13 Atypical Lymph 1 % 0-6 Absolute Neutrophil Count 9.0 Anisocytosis SLIGHT Urinalysis W/Microscopic Stat 05/07/2009 Ua Color YELLOW Appearance-Urine CLEAR Specific [place]-Ur 1.015 1.010-1.030 Esterase-Urine NEGATIVE Negative Nitrite NEGATIVE Negative Smipisyxbtwt-Rw-XBZ NEGATIVE Negative Protein-Urine NEGATIVE Negative PH-Urine 6.0 5-9 Blood-Urine TRACE Negative Ketones-Urine NEGATIVE Negative Bilirubin-Ur NEGATIVE Negative Glucose-Urine NEGATIVE Negative WBC-Urine 0-2 0-5 RBC-Urine RARE 0-2 Mucus Urine SMALL Epith Cells-Ur MODERATE Bacteria-Urine 1+ Ua Stat 05/07/2009 Ua Color YELLOW Appearance-Urine CLEAR Specific [place]-Ur 1.015 1.010-1.030 Esterase-Urine NEGATIVE Negative Nitrite NEGATIVE Negative Hzbhtijxjkyn-St-HOO NEGATIVE Negative Protein-Urine NEGATIVE Negative PH-Urine 6.0 5-9 Blood-Urine TRACE Negative Ketones-Urine NEGATIVE Negative Bilirubin-Ur NEGATIVE Negative Glucose-Urine NEGATIVE Negative CBC With Manual Diff 03/29/2009 White Blood Count 9.0 CUMM 4.8-10.8 Red Cell Count 4.45 CUMM 4.2-5.4 Hemoglobin 12.8 g/dL 12.0-16.0 Hematocrit 38 % 35-47 Mean Corpuscular Volume 84 um3 79-97 Mean Corpuscular Hemoglob 29 pg 27-31 Mean Corpuscular HGB Cone 34 g/dL 32-36 Redcell Distribution WDTH 14 % 10.5-15 Platelet Count 308 CUMM 150-450 Mean Platelet Volume 8.0 um3 7.4-10.4 Polysegmented Neutrophil 67 % 38-83 Lymphocyte 25 % 25-47 Monocyte 6 % 0-13 Eosenophil 1 % 0-6 Basophil 1 % 0-2 Absolute Neutrophil Count 6.0 RBC Morphology NORMAL P33S 03/29/2009 Sodium 138 mmol/L 135-145 Potassium 4.7 mmol/L 3.5-5.0 Chloride 111 mmol/L 101-111 Co2 (Carbon Dioxide) 22.0 mmol/L 22-32 Anion Gap 5.0 mmol/L 2-11 26 Glucose 97 mg/dL 70-100 27 BUN 8 mg/dL 6-24 Creatinine 0.80 mg/dL 0.50-1.40 One Over Creatinine 1.20 BUN/Creatinine Ratio 10.0 8-20 Calcium 8.9 mg/dL 8.1-9.9 28 Total Protein 6.0 GM/DL Low 6.2-8.1 Albumin 3.7 GM/DL 3.6-5.4 Globulin 2.3 GM/DL 2-4 Albumin/Globulin Ratio 1.6 1-3 Bilirubin Total 0.5 mg/dL 0.4-1.5 29 Alkaline Phosphatase 61 U/L 30-110 Alt (SGPT) 11 U/L Low 14-54 Ast (Sgot) 13 U/L 12-42 Ua Stat 03/29/2009 Ua Color YELLOW Appearance-Urine CLOUDY Specific [place]-Ur 1.016 1.010-1.030 Esterase-Urine 1+ Negative Nitrite NEGATIVE Negative Dxppespxesev-Xd-VZK NEGATIVE Negative Protein-Urine NEGATIVE Negative PH-Urine 5.0 5-9 Blood-Urine TRACE Negative Ketones-Urine NEGATIVE Negative Bilirubin-Ur NEGATIVE Negative Glucose-Urine NEGATIVE Negative Urinalysis W/Microscopic Stat 03/29/2009 Ua Color YELLOW Appearance-Urine CLOUDY Specific [place]-Ur 1.016 1.010-1.030 Esterase-Urine 1+ Negative Nitrite NEGATIVE Negative Ivhrucqmruen-Ar-CES NEGATIVE Negative Protein-Urine NEGATIVE Negative PH-Urine 5.0 5-9 Blood-Urine TRACE Negative Ketones-Urine NEGATIVE Negative Bilirubin-Ur NEGATIVE Negative Glucose-Urine NEGATIVE Negative WBC-Urine 2-4 0-5 RBC-Urine 1-3 0-2 Mucus Urine SMALL Epith Cells-Ur 1-3 Bacteria-Urine 1+ Urine Culture & 03/29/2009 Urine Culture NF1 30 Sensitivi Sensitivi CBC With Electronic Diff 03/24/2009 White Blood Count 12.0 CUMM High 4.8- 10.8 31 Stat Red Cell Count 4.49 CUMM 4.2-5.4 31 Hemoglobin 12.7 g/dL 12.0-16.0 31 Hematocrit 38 % 35-47 31 Mean Corpuscular Volume 84 um3 79-97 31 Mean Corpuscular Hemoglob 28 pg 27-31 31 Mean Corpuscular HGB Cone 34 g/dL 32-36 31 Redcell Distribution WDTH 13 % 10.5-15 31 Platelet Count 315 CUMM 150-450 31 Mean Platelet Volume 8.0 um3 7.4-10.4 31 Gran % 68.3 % 38-83 31 Lymph % 22.3 % Low 25-47 31 Mononuclear % 8.1 % 1-9 31 Eosinophil % 0.9 % 0-6 31 Basophil % 0.4 % 0-2 31 Abs Lymphs 2.7 1.0-4.8 31 Abs Mononuclear 1.0 High 0-0.8 31 Absolute Neutrophil Count 8.2 High 1.5-7.7 31 Abs Eosinophils 0.1 0-0.6 31 Abs Basophils 0 0-0.2 31 Basic Metabolic Panel Stat 03/24/2009 Sodium 143 mmol/L 135-145 31 Potassium 3.9 mmol/L 3.5-5.0 31 Chloride 111 mmol/L 101-111 31 Co2 (Carbon Dioxide) 26.0 mmol/L 22-32 31 Anion Gap 6.0 mmol/L 2-11 31, 32 Glucose 119 mg/dL High 70-100 31, 33 BUN 10 mg/dL 6-24 31 Creatinine 0.90 mg/dL 0.50-1.40 31 One Over Creatinine 1.10 31 BUN/Creatinine Ratio 11.1 8-20 31 Calcium 8.6 mg/dL 8.1-9.9 31, 34 Urinalysis W/Microscopic Stat 03/24/2009 Ua Color RED Appearance-Urine TURBID Specific [place]-Ur 1.026 1.010-1.030 Esterase-Urine 3+ Negative Nitrite POSITIVE Negative Imrvjpxmtthm-Kk-YTQ NEGATIVE Negative Protein-Urine 3+ Negative PH-Urine 5.5 5-9 Blood-Urine 3+ Negative Ketones-Urine 2+ Negative Ictotest-Urine NEGATIVE Glucose-Urine NEGATIVE Negative WBC-Urine TNTC 0-5 RBC-Urine TNTC 0-2 Epith Cells-Ur FEW Laboratory test finding 03/24/2009 Urine Culture Sensitivi ESCHERICHIA COLI Ursc-1 03/24/2009 Ampicillin <=2 Amikacin <=2 Ciprofloxacin <=0.25 Cefazolin <=4 Nitrofurantoin <=16 Gentamicin <=1 Imipenem <=1 Levofloxacin <=0.25 Meropenem <=0.25 Trimeth-Sulfa <=20 Ceftazidime <=1 Tigecycline <=0.5 Piperacillin/Tazobactam <=4 CBC With Electronic Diff Stat 12/22/2008 White Blood Count 5.3 CUMM 4.8- 10.8 Red Cell Count 4.68 CUMM 4.2-5.4 Hemoglobin 13.6 g/dL 12.0-16.0 Hematocrit 39 % 35-47 Mean Corpuscular Volume 83 um3 79-97 Mean Corpuscular Hemoglob 29 pg 27-31 Mean Corpuscular HGB Cone 35 g/dL 32-36 Redcell Distribution WDTH 13 % 10.5-15 Platelet Count 252 CUMM 150-450 Mean Platelet Volume 8.0 um3 7.4-10.4 Gran % 56.3 % 38-83 Lymph % 29.6 % 25-47 Mononuclear % 12.6 % High 1-9 Eosinophil % 1.2 % 0-6 Basophil % 0.3 % 0-2 Abs Lymphs 1.6 1.0-4.8 Abs Mononuclear 0.7 0-0.8 Absolute Neutrophil Count 3.0 1.5-7.7 Abs Eosinophils 0.1 0-0.6 Abs Basophils 0 0-0.2 P33S 12/22/2008 Sodium 138 mmol/L 135-145 Potassium 3.3 mmol/L Low 3.5-5.0 Chloride 105 mmol/L 101-111 Co2 (Carbon Dioxide) 26.0 mmol/L 22-32 Anion Gap 7.0 mmol/L 2-11 35 Glucose 94 mg/dL 70-100 36 BUN 12 mg/dL 6-24 Creatinine 0.80 mg/dL 0.50-1.40 One Over Creatinine 1.20 BUN/Creatinine Ratio 15.0 8-20 Calcium 8.6 mg/dL 8.1-9.9 37 Total Protein 6.9 GM/DL 6.2-8.1 Albumin 3.5 GM/DL Low 3.6-5.4 Globulin 3.4 GM/DL 2-4 Albumin/Globulin Ratio 1.0 1-3 Bilirubin Total 0.5 mg/dL 0.4-1.5 Alkaline Phosphatase 51 U/L 30-110 Alt (SGPT) 21 U/L 14-54 Ast (Sgot) 20 U/L 12-42 Amylase Stat 12/22/2008 Amylase 32 U/L 30-125 Laboratory test finding 12/22/2008 Lipase 24 U/L 22-51 CBC With Manual Diff Stat 11/16/2008 White Blood Count 8.7 CUMM 4.8-10.8 Red Cell Count 4.49 CUMM 4.2-5.4 Hemoglobin 13.2 g/dL 12.0-16.0 Hematocrit 38 % 35-47 Mean Corpuscular Volume 84 um3 79-97 Mean Corpuscular Hemoglob 29 pg 27-31 Mean Corpuscular HGB Cone 35 g/dL 32-36 Redcell Distribution WDTH 14 % 10.5-15 Platelet Count 315 CUMM 150-450 Mean Platelet Volume 7.5 um3 7.4-10.4 Polysegmented Neutrophil 60 % 38-83 Lymphocyte 29 % 25-47 Monocyte 8 % 0-13 Eosenophil 1 % 0-6 Basophil 1 % 0-2 Atypical Lymph 1 % 0-6 Absolute Neutrophil Count 5.2 RBC Morphology NORMAL Laboratory test finding 11/16/2008 Troponin-I (TnI) 0.09 NG/ML High 0- 0.06 38 P33S 11/16/2008 Sodium 138 mmol/L 135-145 Potassium 3.9 mmol/L 3.5-5.0 Chloride 106 mmol/L 101-111 Co2 (Carbon Dioxide) 27.0 mmol/L 22-32 Anion Gap 5.0 mmol/L 2-11 39 Glucose 109 mg/dL High 70-100 40 BUN 14 mg/dL 6-24 Creatinine 0.65 mg/dL 0.50-1.40 One Over Creatinine 1.50 BUN/Creatinine Ratio 21.5 High 8-20 Calcium 8.7 mg/dL 8.1-9.9 41 Total Protein 6.7 GM/DL 6.2-8.1 Albumin 4.0 GM/DL 3.6-5.4 Globulin 2.7 GM/DL 2-4 Albumin/Globulin Ratio 1.5 1-3 Bilirubin Total 0.5 mg/dL 0.4-1.5 Alkaline Phosphatase 61 U/L 30-110 Alt (SGPT) 14 U/L 14-54 Ast (Sgot) 17 U/L 12-42 Laboratory test finding 11/16/2008 PTT (Aptt) Stat 22.8 20.1-28.2 42 Protime Stat 11/16/2008 Protime 11.8 10.9-13.3 Inr 0.95 43 Laboratory test finding 08/27/2008 Lipase 28 U/L 22-51 Ua Stat 08/27/2008 Ua Color YELLOW Appearance-Urine CLOUDY Specific [place]-Ur 1.033 High 1.010-1.030 Esterase-Urine NEGATIVE Negative Nitrite NEGATIVE Negative Erjkgtsocbuq-Mn-JST NEGATIVE Negative Protein-Urine NEGATIVE Negative PH-Urine 5.0 5-9 Blood-Urine 3+ Negative Ketones-Urine NEGATIVE Negative Bilirubin-Ur NEGATIVE Negative Glucose-Urine NEGATIVE Negative Urinalysis W/Microscopic Stat 08/27/2008 Ua Color YELLOW Appearance-Urine CLOUDY Specific [place]-Ur 1.033 High 1.010-1.030 Esterase-Urine NEGATIVE Negative Nitrite NEGATIVE Negative Wjfmbhpkvmdb-Dm-SMN NEGATIVE Negative Protein-Urine NEGATIVE Negative PH-Urine 5.0 5-9 Blood-Urine 3+ Negative Ketones-Urine NEGATIVE Negative Bilirubin-Ur NEGATIVE Negative Glucose-Urine NEGATIVE Negative WBC-Urine 0-2 0-5 RBC-Urine 10-15 0-2 Epith Cells-Ur FEW Bacteria-Urine 2+ P33S 08/27/2008 Sodium 137 mmol/L 135-145 Potassium 3.5 mmol/L 3.5-5.0 Chloride 103 mmol/L 101-111 Co2 (Carbon Dioxide) 26.0 mmol/L 22-32 Anion Gap 8.0 mmol/L 2-11 44 Glucose 104 mg/dL High 70-100 45 BUN 8 mg/dL 6-24 Creatinine 0.70 mg/dL 0.50-1.40 One Over Creatinine 1.40 BUN/Creatinine Ratio 11.4 8-20 Calcium 8.6 mg/dL 8.1-9.9 46 Total Protein 6.6 GM/DL 6.2-8.1 Albumin 3.7 GM/DL 3.6-5.4 Globulin 2.9 GM/DL 2-4 Albumin/Globulin Ratio 1.3 1-3 Bilirubin Total 0.7 mg/dL 0.4-1.5 Alkaline Phosphatase 67 U/L 30-110 Alt (SGPT) 16 U/L 14-54 Ast (Sgot) 18 U/L 12-42 CBC With Electronic Diff Stat 08/27/2008 White Blood Count 9.1 CUMM 4.8- 10.8 Red Cell Count 4.29 CUMM 4.2-5.4 Hemoglobin 12.4 g/dL 12.0-16.0 Hematocrit 36 % 35-47 Mean Corpuscular Volume 84 um3 79-97 Mean Corpuscular Hemoglob 29 pg 27-31 Mean Corpuscular HGB Cone 35 g/dL 32-36 Redcell Distribution WDTH 14 % 10.5-15 Platelet Count 306 CUMM 150-450 Mean Platelet Volume 7.8 um3 7.4-10.4 Gran % 68.7 % 38-83 Lymph % 20.3 % 20-45 Mononuclear % 9.1 % High 1-9 Eosinophil % 1.4 % 0-6 Basophil % 0.5 % 0-2 Abs Lymphs 1.9 1.0-4.8 Abs Mononuclear 0.8 0-0.8 Absolute Neutrophil Count 6.3 1.5-7.7 Abs Eosinophils 0.1 0-0.6 Abs Basophils 0 0-0.2 CBC With Manual Diff Stat 08/11/2008 White Blood Count 11.5 CUMM High 4.8- 10.8 Red Cell Count 4.61 CUMM 4.2-5.4 Hemoglobin 13.4 g/dL 12.0-16.0 Hematocrit 39 % 35-47 Mean Corpuscular Volume 83 um3 79-97 Mean Corpuscular Hemoglob 29 pg 27-31 Mean Corpuscular HGB Cone 35 g/dL 32-36 Redcell Distribution WDTH 14 % 10.5-15 Platelet Count 340 CUMM 150-450 Mean Platelet Volume 8.0 um3 7.4-10.4 Polysegmented Neutrophil 72 % 38-83 Band Neutrophil 2 % 0-8 Lymphocyte 23 % 5-47 Monocyte 1 % 0-13 Atypical Lymph 2 % 0-6 Absolute Neutrophil Count 8.5 RBC Morphology NORMAL Urinalysis W/Microscopic Stat 08/11/2008 Ua Color YELLOW Appearance-Urine CLEAR Specific [place]-Ur 1.014 1.010-1.030 Esterase-Urine NEGATIVE Negative Nitrite NEGATIVE Negative Nljbpqbvmixl-Ep-MJM NEGATIVE Negative Protein-Urine NEGATIVE Negative PH-Urine 7.0 5-9 Blood-Urine 1+ Negative Ketones-Urine NEGATIVE Negative Bilirubin-Ur NEGATIVE Negative Glucose-Urine NEGATIVE Negative WBC-Urine 5-10 0-5 RBC-Urine 0-2 0-2 Epith Cells-Ur MODERATE Bacteria-Urine 2+ Ua Stat 08/11/2008 Ua Color YELLOW Appearance-Urine CLEAR Specific [place]-Ur 1.014 1.010-1.030 Esterase-Urine NEGATIVE Negative Nitrite NEGATIVE Negative Ouyzrmsrcudr-Kv-ZQJ NEGATIVE Negative Protein-Urine NEGATIVE Negative PH-Urine 7.0 5-9 Blood-Urine 1+ Negative Ketones-Urine NEGATIVE Negative Bilirubin-Ur NEGATIVE Negative Glucose-Urine NEGATIVE Negative Basic Metabolic Panel Stat 08/11/2008 Sodium 140 mmol/L 135-145 Potassium 3.7 mmol/L 3.5-5.0 Chloride 107 mmol/L 101-111 Co2 (Carbon Dioxide) 25.0 mmol/L 22-32 Anion Gap 8.0 mmol/L 2-11 47 Glucose 98 mg/dL 70-100 48 BUN 10 mg/dL 6-24 Creatinine 1.0 mg/dL 0.5-1.4 One Over Creatinine 1.00 BUN/Creatinine Ratio 10.0 8-20 Calcium 8.6 mg/dL 8.1-9.9 49 1 SDS 18 2 If is still suspected, please repeat test after 48 to 72 hours. . 3 Anion gap measurement may be of limited value in the presence of any alkalosis, especially in a combined acid base disorder. . 4 Because ethnic data is not always readily available, this report includes an eGFR for both -Americans and non- Americans. The National Kidney Disease Education Program (NKDEP) does not endorse the use of the MDRD equation for patients that are not between the ages of 18 and 70, are , have extremes of body size, muscle mass, or nutritional status, or are non- or non-. According to the National Kidney Foundation, irrespective of diagnosis, the stage of the disease is based on the level of kidney function: Stage Description GFR(mL/min/1.73 m(2)) 1 Kidney damage with normal or decreased GFR 90 2 Kidney damage with mild decrease in GFR 60-89 3 Moderate decrease in GFR 30-59 4 Severe decrease in GFR 15-29 5 Kidney failure <15 (or dialysis) 5 Recommended INR for Patients on Oral Anticoagulants Prophylaxis 2.0 - 3.0 Treatment of thrombosis 2.0 - 3.0 Prevention of embolism 2.0 - 3.0 Prevention of embolism from prosthetic heart valves 2.5 - 3.5 6 DIAGNOSIS,TREATMENT,AND THERAPY MUST BE BASED ON THE INR VALUE ALONE. 7 PREADMISSION TESTING SAMPLES FOR BLOOD BANK WILL BE HELD FOR 14 DAYS FROM THE DATE OF COLLECTION *IF* THE FOLLOWING CRITERIA ARE MET: 1) THE PATIENT HAS *NOT* BEEN IN THE LAST 3 MONTHS. 2) THE PATIENT HAS *NOT* BEEN TRANSFUSED IN THE LAST 3 MONTHS. PREADMISSION TESTING SAMPLES WILL *NOT* BE HELD FOR 14 DAYS FROM PATIENTS WHO IN THE LAST 3 MONTHS: 1) HAVE BEEN 2) HAVE BEEN TRANSFUSED THESE PATIENTS *MUST* BE COLLECTED WITHIN 3 DAYS OF THE SURGERY DATE. 8 Anion gap measurement may be of limited value in the presence of any alkalosis, especially in a combined acid base disorder. . 9 Note change in reference range as of 06/12/08. The change was based on recommendations from the [place] [employer]. 10 Please note change in reference range effective 08 . 11 A metabolite of Naproxen, O-desmethylnaproxen, has been shown to interfere with the [place] method for measuring total bilirubin. Samples from patients who have taken Naproxen have shown spurious elevation in total bilirubin levels. 12 Because ethnic data is not always readily available, this report includes an eGFR for both -Americans and non- Americans. The National Kidney Disease Education Program (NKDEP) does not endorse the use of the MDRD equation for patients that are not between the ages of 18 and 70, are , have extremes of body size, muscle mass, or nutritional status, or are non- or non-. According to the [employer], irrespective of diagnosis, the stage of the disease is based on the level of kidney function: Stage Description GFR(mL/min/1.73 m(2)) 1 Kidney damage with normal or decreased GFR 90 2 Kidney damage with mild decrease in GFR 60-89 3 Moderate decrease in GFR 30-59 4 Severe decrease in GFR 15-29 5 Kidney failure <15 (or dialysis) 13 If is still suspected, please repeat test after 48 to 72 hours. . 14 CULTURE UNDER INCUBATION 15 If is still suspected, please repeat test after 48 to 72 hours. . 16 SPECIMEN CONTAINS NORMAL URETHRAL OR PERINEAL NARDA AND DOES NOT SUGGEST URINARY TRACT INFECTION 17 Anion gap measurement may be of limited value in the presence of any alkalosis, especially in a combined acid base disorder. . 18 Note change in reference range as of 06/12/08. The change was based on recommendations from the [place] [employer]. 19 Please note change in reference range effective 08 . 20 A metabolite of Naproxen, O-desmethylnaproxen, has been shown to interfere with the Jendrassik-Dirk method for measuring total bilirubin. Samples from patients who have taken Naproxen have shown spurious elevation in total bilirubin levels. 21 Because ethnic data is not always readily available, this report includes an eGFR for both -Americans and non- Americans. The National Kidney Disease Education Program (NKDEP) does not endorse the use of the MDRD equation for patients that are not between the ages of 18 and 70, are , have extremes of body size, muscle mass, or nutritional status, or are non- or non-. According to the National Kidney Foundation, irrespective of diagnosis, the stage of the disease is based on the level of kidney function: Stage Description GFR(mL/min/1.73 m(2)) 1 Kidney damage with normal or decreased GFR 90 2 Kidney damage with mild decrease in GFR 60-89 3 Moderate decrease in GFR 30-59 4 Severe decrease in GFR 15-29 5 Kidney failure <15 (or dialysis) 22 Anion gap measurement may be of limited value in the presence of any alkalosis, especially in a combined acid base disorder. . 23 Note change in reference range as of 06/12/08. The change was based on recommendations from the [place] [employer]. 24 Please note change in reference range effective 08 . 25 Because ethnic data is not always readily available, this report includes an eGFR for both -Americans and non- Americans. The National Kidney Disease Education Program (NKDEP) does not endorse the use of the MDRD equation for patients that are not between the ages of 18 and 70, are , have extremes of body size, muscle mass, or nutritional status, or are non- or non-. According to the National Kidney Foundation, irrespective of diagnosis, the stage of the disease is based on the level of kidney function: Stage Description GFR(mL/min/1.73 m(2)) 1 Kidney damage with normal or decreased GFR 90 2 Kidney damage with mild decrease in GFR 60-89 3 Moderate decrease in GFR 30-59 4 Severe decrease in GFR 15-29 5 Kidney failure <15 (or dialysis) 26 Anion gap measurement may be of limited value in the presence of any alkalosis, especially in a combined acid base disorder. . 27 Note change in reference range as of 06/12/08. The change was based on recommendations from the [place] [employer]. 28 Please note change in reference range effective 08 . 29 A metabolite of Naproxen, O-desmethylnaproxen, has been shown to interfere with the Jendrassik-[place] method for measuring total bilirubin. Samples from patients who have taken Naproxen have shown spurious elevation in total bilirubin levels. 30 SPECIMEN CONTAINS NORMAL URETHRAL OR PERINEAL NARDA AND DOES NOT SUGGEST URINARY TRACT INFECTION 31 COMMENTS? LOWER ABD PRESSURE, HX KIDNEY STONES 32 Anion gap measurement may be of limited value in the presence of any alkalosis, especially in a combined acid base disorder. . 33 Note change in reference range as of 06/12/08. The change was based on recommendations from the [place] [employer]. 34 Please note change in reference range effective 08 . 35 Anion gap measurement may be of limited value in the presence of any alkalosis, especially in a combined acid base disorder. . 36 Note change in reference range as of 06/12/08. The change was based on recommendations from the [place] [employer]. 37 Please note change in reference range effective 08 . 38 RESULTS VERIFIED BY REPEAT ANALYSIS ON THE SAME SAMPLE. REPEATED RESULT IS:0.07 VERBAL TO SHELIA BY LINETTE at 0846 on 11/16/08. Results read back accurately. New Reference Range and Interpretation effective 07/26/02 TnI (ng/ml) INTERPRETATION <0.06 ng/ml NOT SUPPORTIVE OF DIAGNOSIS OF MS 0.06 - 0.50 ng/ml INDETERMINATE: SUGGEST SERIAL STUDIES IF CLINICALLY INDICATED. > 0.5 ng/ml CONSISTENT WITH DIAGNOSIS OF MS . 39 Anion gap measurement may be of limited value in the presence of any alkalosis, especially in a combined acid base disorder. . 40 Note change in reference range as of 06/12/08. The change was based on recommendations from the [place] [employer]. 41 Please note change in reference range effective 08 . 42 PLEASE NOTE NEW REFERENCE RANGE EFFECTIVE 08. 43 JULIANNA VALUE=2.01 ( OF 09/28/07 Recommended INR for Patients on Oral Anticoagulants Prophylaxis 2.0 - 3.0 Treatment of thrombosis 2.0 - 3.0 Prevention of embolism 2.0 - 3.0 Prevention of embolism from prosthetic heart valves 2.5 - 3.5 44 Anion gap measurement may be of limited value in the presence of any alkalosis, especially in a combined acid base disorder. . 45 Note change in reference range as of 06/12/08. The change was based on recommendations from the [place] [employer]. 46 Please note change in reference range effective 08 . 47 Anion gap measurement may be of limited value in the presence of any alkalosis, especially in a combined acid base disorder. . 48 Note change in reference range as of 06/12/08. The change was based on recommendations from the [place] [employer]. 49 Please note change in reference range effective 08 . Procedures Date CPT Code Description Status 12/07/2013 35573 Treadmill Interp/Report Only Completed 12/07/2013 32458 Stress Test Supervsn W/Out I/R Completed 05/09/2013 92019 Nerve Conduction 03-04 Studies Completed 05/09/2013 96670 Needle Electromyography Each Extremity W/Related Completed Paraspinal Areas 03/09/2011 32064 Laminotomy W/Decomp NRV RT,One Interspace,Lumbar Completed Encounters Type Date Location Provider CPT E/M Dx Office Visit 01/25/2018 [facility] [place] [address] S83.241A 2:30p C.M.A. Office Visit 07/09/2014 [facility] Na[facility]enca 41165 722.52 11:30a Of [facility].DFany Office Visit 12/07/2013 [facility], 7[address] 786.50 10:47a arielle Tan [facility] N.PFany 530.85 300.4 V11.1 Office Visit 05/09/2013 3:00p [place] [place], 46195 782.0 [facility] Of Html Web Developer M.Daisy 728.85 723.1 346.10 Office Visit 02/28/2013 10:00a [place] [place], 03628 346.01 Neurolog[facility] Serv Of Html Web Developer M.Daisy 782.0 Office Visit 11/09/2011 9:15a [facility] [place], 16963 724.2 Bijan Gomez 723.1 338.4 Office Visit 09/29/2011 10:30a [facility] [place], 36301 724.2 Bijan Gomez 723.1 Office Visit 08/29/2011 3:00p [facility] [place] [address] 847.2 Pamela Garzon Office Visit 08/29/2011 10:00a [facility] [place], 63175 847.2 Of Bijan M.Daisy Office Visit 08/24/2011 2:30p [facility] [place], 98216 724.3 Of Bijan M.Daisy Office Visit 02/24/2011 2:30p [facility] [place], 25754 722.10 Of Bijan Gomez Office Visit 02/02/2011 2:15p [facility] [place], 39407 722.10 Of Bijan Gomez 305.1 Office Visit 01/12/2011 8:30a [facility] M.D. 31097 724.4 C.MArt Plan of Care Future Appointment(s):03/13/2018 11:15 am - [facility] MD at [facility] C.MArt01/25/2018 - Ros Yo, [id number] Oth tear of medial meniscus, current injury, r knee, initNew Therapy:Physical TherapyFollow up: Follow up: 1 month
[2018-02-11] MEDS ORDERED: NS 0.9% 1000 ML* 1,000 ML IV ONE (20:14)
[2018-02-11] MEDS ORDERED: Ondansetron INJ* 2 MG/ML VIAL IV ONE (20:14)
[2018-02-11] MEDS ORDERED: Ketorolac INJ* 30 MG/ML 1 ML VIAL IV PUSH ONE (20:14)
[2018-02-11 20:51] LABS: ABS Basophils 0.2 10^3/ul (0-0.2); ABS Eosinophils 0.1 10^3/ul (0-0.6); ABS Lymphocytes 3.8 10^3/ul (1.0-4.8); ABS Monocytes 1.1 10^3/ul (0-0.8); ABS Neutrophils 7.9 10^3/ul (1.5-7.7); ABS Nucleated RBC 0 10^3/ul; Eosinophil % 1.1 % (0-6); Hematocrit 38 % (35-47); Hemoglobin 12.8 g/dl (12.0-16.0); Lymphocyte % 28.7 % (25-47); Mean Corpuscular HGB Conc 34 g/dl (31-36); Mean Corpuscular Hemoglobin 30 pg (27-31); Mean Corpuscular Volume 88 fL (80-97); Mean Platelet Volume 7.9 um3 (7.4-10.4); Nucleated Red Blood Cells % 0; Platelet Count 258 10^3/ul (150-450); Red Blood Count 4.34 10^6/ul (4.0-5.4); Red Cell Distribution Width 14 % (10.5-15); White Blood Count 13.1 10^3/ul (3.5-10.8)
[2018-02-11 21:12] LABS: EGFR Non-African American 72.5 (>60)
--- NOTE | 2018-02-11 22:06 | RAD ---
Indication: Right flank pain. CT of the abdomen and pelvis was performed without oral or IV contrast administration. Coronal and sagittal reconstructed images were obtained. Comparison is made with previous exam dated April 06, 2005. The lung bases demonstrate no pleural fluid, nodules or masses. Heart is of normal size without evidence of pericardial effusion. Liver is normal in size. No focal lesions or intrahepatic ductal dilatation is noted. The patient is status post cholecystectomy. The spleen is normal in size. Calcification is noted in the dome of the spleen. Pancreas indicates no mass effect or ductal dilatation. The common duct is not dilated. No adrenal lesions are noted. The kidneys demonstrate no hydronephrosis. The retroperitoneal lymphadenopathy is noted. Dilated loops of bowel are noted. CT of the pelvis demonstrates no evidence of appendix. Small mesenteric lymph nodes are noted in the right lower quadrant. These were present as far back as April 06, 2005. No dilated loops of bowel are noted. No hernias are noted. There is right ovarian cyst measuring up to 18 mm. No free fluid is identified. Patient status post hysterectomy. IMPRESSION: No evidence of obstructive uropathy is noted. Patient has had a appendectomy. Right ovarian cyst measuring up to 18 mm. Mesenteric lymph nodes of uncertain significance in the right lower quadrant near the cecum. These were present as far back as April 06, 2005.
[2018-02-11 22:13] LABS: Urine Appearance Cloudy; Urine Blood 3+ (Negative); Urine Color Yellow; Urine Ketones Trace (Negative); Urine Protein Negative (Negative); Urine Specific Gravity 1.028 (1.010-1.030); Urine Urobilinogen Negative (Negative)
[2018-02-11] MEDS ORDERED: oxyCODONE/Acetamin 5/325 MG* TAB PO ONE (22:13)
[2018-02-11] MEDS ORDERED: Levofloxacin TAB* 250 MG PO ONE (22:14)
[2018-02-11 23:05] VITALS: BP 119/57
--- NOTE | 2018-02-12 05:00 | ED ---
Bryan Charles Nikita, scribed for Michael Hackett MD on 02/11/18 at 2026 . Abdominal Pain/Female - HPI Summary HPI Summary: This patient is a 37 year old F presenting to ED with a chief complaint of vomiting and abdominal pain since yesterday morning. The CC is described as starting with pain in the R flank yesterday morning that is radiating to the back and stabbing and in the LLQ that feels like pressure. The patient rates the pain 9/10 in severity. Symptoms aggravated by nothing. Symptoms alleviated by nothing. Patient reports nausea, vomiting since this morning), fever (103.2, took Ibuprofen), dysuria, and dark urine. Patient denies diarrhea and constipation. Patient reports she had PSHx for gall bladder and appendix. - History of Current Complaint Chief Complaint: EDFlankPain Stated Complaint: VOMITING/ABM PAIN Time Seen by Provider: 02/11/18 19:54 Hx Obtained From: Patient Hx Last Menstrual Period: HYSTERECTOMY Onset/Duration: Sudden Onset, Lasting Days, Still Present Timing: Constant Severity Initially: Severe Severity Currently: Severe Pain Intensity: 9 Pain Scale Used: 0-10 Numeric Location: Discrete At: LLQ, Flank - R Radiates to: Back - R flank radiates to the back Character: Sharp, Other: - pressure Aggravating Factor(s): Nothing Alleviating Factor(s): Nothing - took Ibuprofen for fever Associated Signs and Symptoms: Positive: Other: - Patient reports nausea, vomiting since this morning), fever (103.2, took Ibuprofen), dysuria, and dark urine. Patient denies diarrhea and constipation. Allergies/Adverse Reactions: Allergies Allergy/AdvReac Type Severity Reaction Status Date / Time buprenorphine [From Suboxone] Allergy Swelling Verified 02/11/18 18:42 cephalexin [From Keflex] Allergy Difficulty Verified 02/11/18 18:42 Breathing/Wheezing fluoxetine [From Prozac] Allergy Hallucinati Verified 02/11/18 18:42 ons ketorolac [From Toradol] Allergy Hives/Diff. Verified 02/11/18 18:42 Breathing/I tching naloxone [From Suboxone] Allergy Swelling Verified 02/11/18 18:42 nitrofurantoin Allergy Difficulty Verified 02/11/18 18:42 [From Macrobid] Breathing tramadol [From Ultram] Allergy Rash Verified 02/11/18 18:42 trazodone Allergy Difficulty Verified 02/11/18 18:42 Breathing/Wheezing PMH/Surg Hx/FS Hx/Imm Hx Endocrine/Hematology History: Reports: Hx Thyroid Disease - LUMP SHE IS SEEING SONYA FOR Denies: Hx Anticoagulant Therapy, Hx Diabetes Cardiovascular History: Reports: Hx Angina Denies: Hx Congestive Heart Failure, Hx Deep Vein Thrombosis, Hx Hypertension , Hx Myocardial Infarction, Hx Pacemaker/ICD Respiratory History: Reports: Hx Asthma Denies: Hx Chronic Obstructive Pulmonary Disease (COPD), Hx Lung Cancer GI History: Reports: Other GI Disorders - gerd barretts esophagus Denies: Hx Gall Bladder Disease, Hx Gastrointestinal Bleed, Hx Ulcer, Hx Urosepsis History: Reports: Hx Kidney Stones, Other Problems/Disorders - renal stones Denies: Hx Renal Disease Musculoskeletal History: Reports: Hx Back Problems Denies: Hx Rheumatoid Arthritis, Hx Osteoporosis Sensory History: Denies: Hx Hearing Aid Neurological History: Reports: Other Neuro Impairments/Disorders - anxiety and depression Denies: Hx Dementia, Hx Headaches, Hx Migraine, Hx Seizures, Hx Transient Ischemic Attacks (TIA) Psychiatric History: Reports: Hx Anxiety, Hx Depression - She has been off meds x 2 years. She sees a therapist., Hx Substance Abuse - Narcotics,heroin,cocaine : sober since 05/03 Denies: Hx Panic Disorder - Cancer History Cancer Type, Location and Year: Pre-cancer of espophagus-Tx with oral medication , Barretts Esophagus - RESOLVED WITH KATHY FUNDOPLICATION - Surgical History Surgery Procedure, Year, and Place: CHOLECYSTECTOMY, L5 DISC REMOVAL, APPENDECTOMY, TONSILLECTOMY, FULL FACIAL RECONSTRUCTION/LASER SURGERY RENAL STONE recent abd surgery 01/2014 - KATHY FUNDOPLICATION;Hysterectomy 01/11/15; Rt PINKY - AMPULATED TO [address] [place], [place] [id number] - Immunization History Date of Tetanus Vaccine: PT STATES UNSURE Date of Influenza Vaccine: NONE Infectious Disease History: Yes Infectious Disease History: Reports: Hx of Known/Suspected MRSA Denies: Hx Clostridium Difficile, Hx Hepatitis, Hx Human Immunodeficiency Virus (HIV), Hx Shingles, Hx Tuberculosis, History Other Infectious Disease, Traveled Outside the [place] in Last 30 Days - Family History Known Family History: Positive: Cardiac Disease, Hypertension, Diabetes, Other - kidney stones - Social History Alcohol Use: Rare Substance Use Type: Reports: None Substance Use Comment - Amount & Last Used: "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 Hx Tobacco Use: Yes Smoking Status (MU): Heavy Every Day Tobacco Smoker Type: Cigarettes Amount Used/How Often: 1/2 ppd Length of Time of Smoking/Using Tobacco: >20 years Have You Smoked in the Last Year: Yes Review of Systems Positive: Fever Positive: Abdominal Pain - R flank radiating to the back and LLQ pain, Vomiting , Nausea, Other - denies constipation. Negative: Diarrhea Positive: dysuria, other - dark urine All Other Systems Reviewed And Are Negative: Yes Physical Exam - Summary Physical Exam Summary: Appearance: Well appearing, no pain distress Skin: warm, dry, reflects adequate perfusion Head/face: normal Eyes: EOMI, DOMINGO ENT: normal, mucous membranes are normal Neck: supple, non-tender Respiratory: CTA, breath sounds present Cardiovascular: RRR, pulses symmetrical Abdomen: soft, mild R-sided CVA tenderness, mild R mid-abdominal pain Bowel Sounds: present Musculoskeletal: normal, strength/ROM intact Neuro: normal, sensory motor intact, A&Ox3 Triage Information Reviewed: Yes Vital Signs On Initial Exam: Initial Vitals Temp Pulse Resp BP Pulse Ox 98.1 F 66 16 131/72 93 02/11/18 18:43 02/11/18 18:43 02/11/18 18:43 02/11/18 18:43 02/11/18 18:43 Vital Signs Reviewed: Yes Diagnostics - Vital Signs Vital Signs Temp Pulse Resp BP Pulse Ox 02/11/18 18:43 98.1 F 66 16 131/72 93 - Laboratory Lab Results: Lab Results 02/11/18 02/11/18 02/11/18 Range/Units 20:40 20:40 20:40 WBC 13.1 H (3.5-10.8) 10^3/ul RBC 4.34 (4.0-5.4) 10^6/ul Hgb 12.8 (12.0-16.0) g/dl Hct 38 (35-47) % MCV 88 (80-97) fL MCH 30 (27-31) pg MCHC 34 (31-36) g/dl RDW 14 (10.5-15) % Plt Count 258 (150-450) 10^3/ul MPV 7.9 (7.4-10.4) um3 Neut % (Auto) 60.4 (38-83) % Lymph % (Auto) 28.7 (25-47) % Colbert % (Auto) 8.3 H (0-7) % Eos % (Auto) 1.1 (0-6) % Baso % (Auto) 1.5 (0-2) % Absolute Neuts (auto) 7.9 H (1.5-7.7) 10^3/ul Absolute Lymphs (auto) 3.8 (1.0-4.8) 10^3/ul Absolute Monos (auto) 1.1 H (0-0.8) 10^3/ul Absolute Eos (auto) 0.1 (0-0.6) 10^3/ul Absolute Basos (auto) 0.2 (0-0.2) 10^3/ul Absolute Nucleated RBC 0 10^3/ul Nucleated RBC % 0 Sodium 141 (139-145) mmol/L Potassium 3.8 (3.5-5.0) mmol/L Chloride 109 (101-111) mmol/L Carbon Dioxide 22 (22-32) mmol/L Anion Gap 10 (2-11) mmol/L BUN 15 (6-24) mg/dL Creatinine 0.87 (0.51-0.95) mg/dL Est GFR ( Amer) 93.2 (>60) Est GFR (Non-Af Amer) 72.5 (>60) BUN/Creatinine Ratio 17.2 (8-20) Glucose 95 (70-100) mg/dL Lactic Acid 0.6 (0.5-2.0) mmol/L Calcium 8.9 (8.6-10.3) mg/dL Total Bilirubin 0.20 (0.2-1.0) mg/dL AST 9 L (13-39) U/L ALT 7 (7-52) U/L Alkaline Phosphatase 48 (34-104) U/L C-Reactive Protein 14.59 H (< 5.00) mg/L Total Protein 6.3 L (6.4-8.9) g/dL Albumin 3.7 (3.2-5.2) g/dL Globulin 2.6 (2-4) g/dL Albumin/Globulin Ratio 1.4 (1-3) Lipase 26 (11.0-82.0) U/L Urine Color Urine Appearance Urine pH (5-9) Ur Specific [place] (1.010-1.030) Urine Protein (Negative) Urine Ketones (Negative) Urine Blood (Negative) Urine Nitrate (Negative) Urine Bilirubin (Negative) Urine Urobilinogen (Negative) Ur Leukocyte Esterase (Negative) Urine WBC (Auto) (Absent) Urine RBC (Auto) (Absent) Ur Squamous Epith Cells (Absent) Urine Bacteria (Absent) Urine Glucose (Negative) 02/11/18 Range/Units 21:50 WBC (3.5-10.8) 10^3/ul RBC (4.0-5.4) 10^6/ul Hgb (12.0-16.0) g/dl Hct (35-47) % MCV (80-97) fL MCH (27-31) pg MCHC (31-36) g/dl RDW (10.5-15) % Plt Count (150-450) 10^3/ul MPV (7.4-10.4) um3 Neut % (Auto) (38-83) % Lymph % (Auto) (25-47) % Colbert % (Auto) (0-7) % Eos % (Auto) (0-6) % Baso % (Auto) (0-2) % Absolute Neuts (auto) (1.5-7.7) 10^3/ul Absolute Lymphs (auto) (1.0-4.8) 10^3/ul Absolute Monos (auto) (0-0.8) 10^3/ul Absolute Eos (auto) (0-0.6) 10^3/ul Absolute Basos (auto) (0-0.2) 10^3/ul Absolute Nucleated RBC 10^3/ul Nucleated RBC % Sodium (139-145) mmol/L Potassium (3.5-5.0) mmol/L Chloride (101-111) mmol/L Carbon Dioxide (22-32) mmol/L Anion Gap (2-11) mmol/L BUN (6-24) mg/dL Creatinine (0.51-0.95) mg/dL Est GFR ( Amer) (>60) Est GFR (Non-Af Amer) (>60) BUN/Creatinine Ratio (8-20) Glucose (70-100) mg/dL Lactic Acid (0.5-2.0) mmol/L Calcium (8.6-10.3) mg/dL Total Bilirubin (0.2-1.0) mg/dL AST (13-39) U/L ALT (7-52) U/L Alkaline Phosphatase (34-104) U/L C-Reactive Protein (< 5.00) mg/L Total Protein (6.4-8.9) g/dL Albumin (3.2-5.2) g/dL Globulin (2-4) g/dL Albumin/Globulin Ratio (1-3) Lipase (11.0-82.0) U/L Urine Color Yellow Urine Appearance Cloudy Urine pH 5.0 (5-9) Ur Specific [place] 1.028 (1.010-1.030) Urine Protein Negative (Negative) Urine Ketones Trace A (Negative) Urine Blood 3+ A (Negative) Urine Nitrate Positive A (Negative) Urine Bilirubin Negative (Negative) Urine Urobilinogen Negative (Negative) Ur Leukocyte Esterase Negative (Negative) Urine WBC (Auto) Trace(0-5/hpf) (Absent) Urine RBC (Auto) 3+(>10/hpf) A (Absent) Ur Squamous Epith Cells Present A (Absent) Urine Bacteria 3+ A (Absent) Urine Glucose Negative (Negative) Result Diagrams: 02/11/18 20:40 02/11/18 20:40 Lab Statement: Any lab studies that have been ordered have been reviewed, and results considered in the medical decision making process. - CT abd/pel CT Interpretation Completed By: Radiologist - No evidence of obstructive uropathy is noted. Patient has had a appendectomy. Right ovarian cyst measuring up to 18 mm. Mesenteric lymph nodes of uncertain significance in the right lower quadrant near the cecum. These were present as far back as April 06, 2005. ED physician has reviewed this radiology report. Re-Evaluation - Re-Evaluation First Eval Re-Evaluation Time: 22:48 Comment: Discussed results and discharge plan with the patient. The patient feels better and would like a school note. Abdominal Pain Fem Course/Dx - Course Course Of Treatment: pt with mult allergies and apparent opiate dependency in past. Freq visits. States flank pain and fever with urinary sx. +UTI. Started Levaquin here. [place] much better following tx. CT neg for acute stone or perinephric stranding that would be c/w pyelo. D/C to f/u closely PMD. - Diagnoses Differential Diagnosis: Positive: Ovarian Cyst, Urinary Tract Infection, Other - generalized abdominal pain; pyelo; SBO Provider Diagnoses: Generalized abdominal pain, UTI (urinary tract infection) Discharge - Sign-Out/Discharge Documenting (check all that apply): Discharge - Discharge Plan Condition: Good Disposition: HOME Prescriptions: Levofloxacin TAB* [Levaquin TAB*] 500 mg PO DAILY #5 tab Phenazopyridine 200 mg (NF) [Pyridium 200 MG tab *] 200 mg PO TID #9 tab Patient Education Materials: Urinary Tract Infection in Women (ED) Forms: *School Release Referrals: ALIYAH Zimmerman [Primary Care Provider] - Additional Instructions: Drink plenty of water. Tylenol for fever. Return with fever, vomiting, worse or other concerns as discussed. The documentation as recorded by the Bryan orozco Nikita accurately reflects the service I personally performed and the decisions made by , Michael Hackett MD.
--- NOTE | 2018-02-14 12:46 | ED ---
Progress - Progress Note Progress Note: Patient's preliminary urine culture reveals greater than 100,000 Klebsiella pneumoniae. Patient was discharged on Levaquin. Pending final results. Re-Evaluation - Re-Evaluation First Eval Re-Evaluation Time: 22:48 Comment: Discussed results and discharge plan with the patient. The patient feels better and would like a school note. Course/Dx - Course Course Of Treatment: pt with mult allergies and apparent opiate dependency in past. Freq visits. States flank pain and fever with urinary sx. +UTI. Started Levaquin here. [place] much better following tx. CT neg for acute stone or perinephric stranding that would be c/w pyelo. D/C to f/u closely PMD. - Diagnoses Provider Diagnoses: Generalized abdominal pain, UTI (urinary tract infection) Discharge - Sign-Out/Discharge Documenting (check all that apply): Post-Discharge Follow Up - Discharge Plan Condition: Good Disposition: HOME Prescriptions: Levofloxacin TAB* [Levaquin TAB*] 500 mg PO DAILY #5 tab Phenazopyridine 200 mg (NF) [Pyridium 200 MG tab *] 200 mg PO TID #9 tab Patient Education Materials: Urinary Tract Infection in Women (ED) Forms: *School Release Referrals: ALIYAH Zimmerman [Primary Care Provider] - Additional Instructions: Drink plenty of water. Tylenol for fever. Return with fever, vomiting, worse or other concerns as discussed. - Billing Disposition and Condition Condition: GOOD Disposition: HOME
== END 2018-02-11 23:04 | disposition home or self-care (01) ==
LOC: ED 18:29
DX: N39.0 Urinary tract infection, site not specified (principal); R10.84 Generalized abdominal pain; F17.210 Nicotine dependence, cigarettes, uncomplicated; E07.9 Disorder of thyroid, unspecified; J45.909 Unspecified asthma, uncomplicated
CPT/HCPCS: 36415; 74176; 80053; 81003; 81015; 83605; 83690; 85025; 86140; 87077; 87086; 87186; 96360; 96374; 96375; 99283; A9270-GY; J1885; J2405

== ENCOUNTER 2018-03-03 09:24 | Emergency (ER) | payer OTHER ==
[2018-03-03] MEDS ORDERED: NS 0.9% 1000 ML* 2,000 ML IV ONE (09:51)
--- NOTE | 2018-03-03 10:12 | ED ---
Abdominal Pain/Female - HPI Summary HPI Summary: Patient here with nausea vomiting and diarrhea 4 days. She reports she is "peeing out of her butt". She is not sure where the water is coming from as she 's not had much to drink. She is bloated and gassy. Reports she had a fever today however took ibuprofen prior to arrival - temperature appears to be within normal limits this time. Tried Imodium yesterday for diarrhea however she reports the pill came out of rectum in its complete form. Has abdominal cramping and discomfort as soon as she eats or drinks anything followed by urgency to move her bowels. Discomfort is diffuse. Admits to mild vaginal irritation yesterday which she felt this was from stool splashing up into her vaginal area. Denies itching or irritation today. Denies vaginal discharge, urinary urgency, frequency, itching, flank pain. She does have a history of urinary tract infections however does not have symptoms that correlate with this today. She is status post hysterectomy sparing her ovaries. No sick contacts however she does admit she is under a good deal of stress. 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 She is status post cholecystectomy and appendectomy and no history of colitis. She has a remote history of significant GERD requiring Pravin fundoplication. Admits this is the first time she's vomited since that surgery. - History of Current Complaint Chief Complaint: EDAbdPain Stated Complaint: VOMITTING/FEVER Time Seen by Provider: 03/03/18 09:53 Hx Obtained From: Patient Hx Last Menstrual Period: HYSTERECTOMY Pain Intensity: 7 Allergies/Adverse Reactions: Allergies Allergy/AdvReac Type Severity Reaction Status Date / Time buprenorphine [From Suboxone] Allergy Swelling Verified 03/03/18 09:27 cephalexin [From Keflex] Allergy Difficulty Verified 03/03/18 09:27 Breathing/Wheezing fluoxetine [From Prozac] Allergy Hallucinati Verified 03/03/18 09:27 ons ketorolac [From Toradol] Allergy Hives/Diff. Verified 03/03/18 09:27 Breathing/I tching naloxone [From Suboxone] Allergy Swelling Verified 03/03/18 09:27 nitrofurantoin Allergy Difficulty Verified 03/03/18 09:27 [From Macrobid] Breathing tramadol [From Ultram] Allergy Rash Verified 03/03/18 09:27 trazodone Allergy Difficulty Verified 03/03/18 09:27 Breathing/Wheezing PMH/Surg Hx/FS Hx/Imm Hx Previously Healthy: Yes Endocrine/Hematology History: Reports: Hx Thyroid Disease - LUMP SHE IS SEEING SONYA FOR Denies: Hx Anticoagulant Therapy, Hx Diabetes Cardiovascular History: Reports: Hx Angina Denies: Hx Congestive Heart Failure, Hx Deep Vein Thrombosis, Hx Hypertension , Hx Myocardial Infarction, Hx Pacemaker/ICD Respiratory History: Reports: Hx Asthma Denies: Hx Chronic Obstructive Pulmonary Disease (COPD), Hx Lung Cancer GI History: Reports: Hx Gastroesophageal Reflux Disease - s/p Kathy Fundoplication, Other GI Disorders - gerd barretts esophagus Denies: Hx Gall Bladder Disease, Hx Gastrointestinal Bleed, Hx Ulcer, Hx Urosepsis History: Reports: Hx Kidney Stones - follows w/ urology, Other Problems/ Disorders - renal stones; uterine hysterectomy - ovaries still present Denies: Hx Renal Disease Musculoskeletal History: Reports: Hx Back Problems Denies: Hx Rheumatoid Arthritis, Hx Osteoporosis Sensory History: Denies: Hx Hearing Aid Neurological History: Reports: Other Neuro Impairments/Disorders - anxiety and depression Denies: Hx Dementia, Hx Headaches, Hx Migraine, Hx Seizures, Hx Transient Ischemic Attacks (TIA) Psychiatric History: Reports: Hx Anxiety, Hx Depression - She has been off meds x 2 years. She sees a therapist., Hx Substance Abuse - Narcotics,heroin,cocaine : sober since 05/03 Denies: Hx Panic Disorder - Cancer History Cancer Type, Location and Year: Pre-cancer of espophagus-Tx with oral medication , Barretts Esophagus - RESOLVED WITH KATHY FUNDOPLICATION - Surgical History Surgery Procedure, Year, and Place: CHOLECYSTECTOMY, L5 DISC REMOVAL, APPENDECTOMY, TONSILLECTOMY, FULL FACIAL RECONSTRUCTION/LASER SURGERY RENAL STONE recent abd surgery 01/2014 - KATHY FUNDOPLICATION;Hysterectomy 01/11/15; Rt PINKY - [facility] - Immunization History Date of Tetanus Vaccine: PT STATES UNSURE Date of Influenza Vaccine: NONE Infectious Disease History: No Infectious Disease History: Reports: Hx of Known/Suspected MRSA Denies: Hx Clostridium Difficile, Hx Hepatitis, Hx Human Immunodeficiency Virus (HIV), Hx Shingles, Hx Tuberculosis, History Other Infectious Disease, Traveled Outside the [place] in Last 30 Days - Family History Known Family History: Positive: Cardiac Disease, Hypertension, Diabetes, Other - kidney stones; mom - pancreatic CA - Social History Occupation: Student Alcohol Use: None Hx Substance Use: Yes Substance Use Type: Reports: Cocaine - "I prefer uppers", Heroin Substance Use Comment - Amount & Last Used: "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 Hx Tobacco Use: Yes Smoking Status (MU): Current Every Day Smoker Type: Cigarettes Amount Used/How Often: 1/2 ppd Length of Time of Smoking/Using Tobacco: >20 years Have You Smoked in the Last Year: Yes Review of Systems Positive: Fever. Negative: Chills, Fatigue Eyes: Negative ENT: Negative Cardiovascular: Negative Respiratory: Negative Positive: Abdominal Pain, Vomiting, Diarrhea, Nausea Musculoskeletal: Negative Skin: Negative Neurological: Negative Psychological: Other - stress All Other Systems Reviewed And Are Negative: Yes Physical Exam Triage Information Reviewed: Yes Vital Signs On Initial Exam: Initial Vitals Temp Pulse Resp BP Pulse Ox 97.4 F 61 16 134/67 99 03/03/18 09:27 03/03/18 09:27 03/03/18 09:27 03/03/18 09:27 03/03/18 09:27 Vital Signs Reviewed: Yes Appearance: Positive: Well-Appearing, Pain Distress - mild, Obese Skin: Positive: Skin Color Reflects Adequate Perfusion, Dry Head/Face: Positive: Normal Head/Face Inspection Eyes: Positive: Normal, EOMI, Conjunctiva Clear - anicteric sclera ENT: Positive: Normal ENT inspection, Hearing grossly normal, Pharynx normal - mucosa somewhat dry. Negative: Nasal congestion, Nasal drainage Neck: Positive: Supple Respiratory/Lung Sounds: Positive: Clear to Auscultation, Breath Sounds Present. Negative: Rales, Rhonchi, Wheezes Cardiovascular: Positive: Normal, RRR, S1, S2 Abdomen Description: Positive: Soft, Distended, Other: - diffuse mild TTP - no rebounding Bowel Sounds: Positive: Present Musculoskeletal: Positive: Normal, Strength/ROM Intact Neurological: Positive: Normal, Sensory/Motor Intact, Alert, Oriented to Person Place, Time, CN Intact II-III Psychiatric: Positive: Normal Diagnostics - Vital Signs Vital Signs Temp Pulse Resp BP Pulse Ox 03/03/18 09:58 97.7 F 03/03/18 09:27 97.4 F 61 16 134/67 99 - Laboratory Result Diagrams: 03/03/18 10:15 03/03/18 10:15 Lab Statement: Any lab studies that have been ordered have been reviewed, and results considered in the medical decision making process. Re-Evaluation - Re-Evaluation First Eval Change: Improved Second Eval Change: Improved - tolerating PO w/o difficulty Abdominal Pain Fem Course/Dx - Course Course Of Treatment: Patient presents with 4 day history of nausea vomiting diarrhea. She reports she had a fever today and took ibuprofen which has helped her fever. She continues to have abdominal bloating and excess gassiness. She was given Zofran ODT while here and after 500 mL of normal saline, she reports she's feeling much better like to try eating, perhaps some crackers. She declines further medication at this time as trying crackers seems to be more of a priority. Her labs are without acute findings and with symptoms improving, she may go home. Suspect viral GI infection. Encouraged supportive care and reviewed danger signs and symptoms of when to return to the emergency department. Patient agrees with plan. NOTE: Patient may have developed a secondary UTI - Will start Bactrim and sent for culture. Additionally patient was not able to provide a stool culture while here today. We'll give her supplies to collect this at home if diarrhea persists. - Diagnoses Provider Diagnoses: Viral gastroenteritis, UTI (urinary tract infection) Discharge - Sign-Out/Discharge Documenting (check all that apply): Discharge/Admit/Transfer - Discharge Plan Condition: Stable Disposition: HOME Prescriptions: Ondansetron ODT TAB* [Zofran 4 MG Odt TAB*] 8 mg PO Q8H PRN #6 tab.odt PRN Reason: Nausea Sulfamethox/Trimethoprim DS* [Bactrim DS 800/160 TAB*] 1 tab PO BID #6 tab Patient Education Materials: Urinary Tract Infection in Women (ED), Gastroenteritis (ED) Referrals: ALIYAH Zimmerman [Primary Care Provider] - Additional Instructions: You appear to have a viral infection of her gastrointestinal tract. This may be treated with supportive care such as sipping clear liquids (i.e. apple juice , water, Gatorade, lizzy jean-pierre, etc.). If you're able to tolerate these, he can advance to a bland diet such as saltine crackers, bananas, rice, applesauce, toast - they should help you to for a stool. She continued to have diarrhea, please collect a sample taken to PCPs office for testing. In addition to your gastrointestinal infection, he may have developed a secondary UTI. An antibiotic has been sent to your pharmacy. Please complete as directed. If urinary tract symptoms persist, follow up with her PCP for further testing. *You develop fever, chills, intractable vomiting or diarrhea, chest pain, abdominal pain, bloody stools, return to the emergency department - Billing Disposition and Condition Condition: STABLE Disposition: HOME
[2018-03-03 10:29] LABS: ABS Basophils 0 10^3/ul (0-0.2); ABS Eosinophils 0.1 10^3/ul (0-0.6); ABS Lymphocytes 1.1 10^3/ul (1.0-4.8); ABS Monocytes 1.1 10^3/ul (0-0.8); ABS Neutrophils 3.5 10^3/ul (1.5-7.7); ABS Nucleated RBC 0 10^3/ul; Eosinophil % 1.3 % (0-6); Hematocrit 39 % (35-47); Hemoglobin 13.3 g/dl (12.0-16.0); Lymphocyte % 19.6 % (25-47); Mean Corpuscular HGB Conc 35 g/dl (31-36); Mean Corpuscular Hemoglobin 30 pg (27-31); Mean Corpuscular Volume 86 fL (80-97); Mean Platelet Volume 8.4 um3 (7.4-10.4); Nucleated Red Blood Cells % 0; Platelet Count 191 10^3/ul (150-450); Red Blood Count 4.47 10^6/ul (4.0-5.4); Red Cell Distribution Width 14 % (10.5-15); White Blood Count 5.8 10^3/ul (3.5-10.8)
[2018-03-03 10:37] LABS: INR 1.06 (0.77-1.02)
[2018-03-03 10:48] LABS: EGFR Non-African American 79.9 (>60)
[2018-03-03] MEDS ORDERED: Ondansetron ODT TAB* 4 MG PO ONE (10:52)
[2018-03-03 11:16] LABS: Urine Appearance Cloudy; Urine Blood 3+ (Negative); Urine Color Amber; Urine Ketones Negative (Negative); Urine Protein 1+(30 mg/dL) (Negative); Urine Specific Gravity 1.029 (1.010-1.030); Urine Urobilinogen Negative (Negative)
[2018-03-03 12:09] VITALS: BP 118/63
--- NOTE | 2018-03-05 07:31 | PN ---
Progress Note - Progress Note Date of Service: 03/03/18 Note: Pt. seen in ER 03/03 for abd. pain. Urinalysis was suggestive of UTI and he was placed on Bactrim. Preliminary culture today is growing 75-100K klebsiella. Will wait for final susceptibility.
--- NOTE | 2018-03-06 08:34 | ED ---
Progress - Progress Note Progress Note: Patient's urine culture reveals 75-100,000 Klebsiella pneumoniae. She was prescribed Bactrim which appears to be effective against organism. No further treatment at this time. Re-Evaluation - Re-Evaluation First Eval Change: Improved Second Eval Change: Improved - tolerating PO w/o difficulty Course/Dx - Course Course Of Treatment: Patient presents with 4 day history of nausea vomiting diarrhea. She reports she had a fever today and took ibuprofen which has helped her fever. She continues to have abdominal bloating and excess gassiness. She was given Zofran ODT while here and after 500 mL of normal saline, she reports she's feeling much better like to try eating, perhaps some crackers. She declines further medication at this time as trying crackers seems to be more of a priority. Her labs are without acute findings and with symptoms improving, she may go home. Suspect viral GI infection. Encouraged supportive care and reviewed danger signs and symptoms of when to return to the emergency department. Patient agrees with plan. NOTE: Patient may have developed a secondary UTI - Will start Bactrim and sent for culture. Additionally patient was not able to provide a stool culture while here today. We'll give her supplies to collect this at home if diarrhea persists. - Diagnoses Provider Diagnoses: Viral gastroenteritis, UTI (urinary tract infection) Discharge - Sign-Out/Discharge Documenting (check all that apply): Post-Discharge Follow Up - Discharge Plan Condition: Stable Disposition: HOME Prescriptions: Ondansetron ODT TAB* [Zofran 4 MG Odt TAB*] 8 mg PO Q8H PRN #6 tab.odt PRN Reason: Nausea Sulfamethox/Trimethoprim DS* [Bactrim DS 800/160 TAB*] 1 tab PO BID #6 tab Patient Education Materials: Urinary Tract Infection in Women (ED), Gastroenteritis (ED) Referrals: ALIYAH Zimmerman [Primary Care Provider] - Additional Instructions: You appear to have a viral infection of her gastrointestinal tract. This may be treated with supportive care such as sipping clear liquids (i.e. apple juice , water, Gatorade, lizzy jean-pierre, etc.). If you're able to tolerate these, he can advance to a bland diet such as saltine crackers, bananas, rice, applesauce, toast - they should help you to for a stool. She continued to have diarrhea, please collect a sample taken to PCPs office for testing. In addition to your gastrointestinal infection, he may have developed a secondary UTI. An antibiotic has been sent to your pharmacy. Please complete as directed. If urinary tract symptoms persist, follow up with her PCP for further testing. *You develop fever, chills, intractable vomiting or diarrhea, chest pain, abdominal pain, bloody stools, return to the emergency department - Billing Disposition and Condition Condition: STABLE Disposition: HOME
== END 2018-03-03 12:07 | disposition home or self-care (01) ==
LOC: ED 09:24
DX: A08.4 Viral intestinal infection, unspecified (principal); N39.0 Urinary tract infection, site not specified; F17.210 Nicotine dependence, cigarettes, uncomplicated; Z88.5 Allergy status to narcotic agent; Z88.3 Allergy status to other anti-infective agents; Z88.8 Allergy status to other drugs, medicaments and biological substances
CPT/HCPCS: 36415; 80053; 81003; 81015; 82150; 83605; 83690; 84702; 85025; 85610; 85730; 86140; 86308; 87077; 87086; 87186; 96360; 99282; A9270-GY

== ENCOUNTER 2018-05-01 18:19 | Emergency (ER) | payer OTHER ==
--- NOTE | 2018-05-01 19:25 | ED ---
HPI Chest Pain - HPI Summary HPI Summary: Pt is 37 y/o F c/o CP located in the central chest radiating to the L upper back and jaw. Sudden pain onset a couple of hours ago. Associated Sxs: SOB. Pt reports she has had similar pains in the past. States last stress test was 2015 (2 years ago); Test was Negative. Pt has lots of stressors: She is a student; Dad in the hospital. - History of Current Complaint Chief Complaint: EDChestPainROMI Time Seen by Provider: 05/01/18 19:23 Hx Obtained From: Patient Hx Last Menstrual Period: HYSTERECTOMY Onset/Duration: Started Hours Ago - couple of hours ago, Still Present Timing: Constant Current Severity: Severe Pain Intensity: 8 Pain Scale Used: 0-10 Numeric Chest Pain Location: Mid Sternal Chest Pain Radiates: Yes Chest Pain Radiates To:: Back - LUQ, Jaw Aggravating Factor(s): Nothing Alleviating Factor(s): Nothing Associated Signs and Symptoms: Positive: Shortness of Breath - Allergy/Home Medications Allergies/Adverse Reactions: Allergies Allergy/AdvReac Type Severity Reaction Status Date / Time buprenorphine [From Suboxone] Allergy Swelling Verified 05/01/18 18:31 cephalexin [From Keflex] Allergy Difficulty Verified 05/01/18 18:31 Breathing/Wheezing fluoxetine [From Prozac] Allergy Hallucinati Verified 05/01/18 18:31 ons ketorolac [From Toradol] Allergy Hives/Diff. Verified 05/01/18 18:31 Breathing/I tching naloxone [From Suboxone] Allergy Swelling Verified 05/01/18 18:31 nitrofurantoin Allergy Difficulty Verified 05/01/18 18:31 [From Macrobid] Breathing tramadol [From Ultram] Allergy Rash Verified 05/01/18 18:31 trazodone Allergy Difficulty Verified 05/01/18 18:31 Breathing/Wheezing Home Medications: Home Medications NK [No Home Medications Reported] 05/01/18 [History Confirmed 05/01/18] PMH/Surg Hx/FS Hx/Imm Hx Endocrine/Hematology History: Reports: Hx Thyroid Disease - LUMP SHE IS SEEING SONYA FOR Denies: Hx Anticoagulant Therapy, Hx Diabetes Cardiovascular History: Reports: Hx Angina Denies: Hx Congestive Heart Failure, Hx Deep Vein Thrombosis, Hx Hypertension , Hx Myocardial Infarction, Hx Pacemaker/ICD Respiratory History: Reports: Hx Asthma Denies: Hx Chronic Obstructive Pulmonary Disease (COPD), Hx Lung Cancer GI History: Reports: Hx Gastroesophageal Reflux Disease - s/p Anthony Fundoplication, Other GI Disorders - gerd barretts esophagus Denies: Hx Gall Bladder Disease, Hx Gastrointestinal Bleed, Hx Ulcer, Hx Urosepsis History: Reports: Hx Kidney Stones - follows w/ urology, Other Problems/ Disorders - renal stones; uterine hysterectomy - ovaries still present Denies: Hx Renal Disease Musculoskeletal History: Reports: Hx Back Problems Denies: Hx Rheumatoid Arthritis, Hx Osteoporosis Sensory History: Denies: Hx Hearing Aid Neurological History: Reports: Other Neuro Impairments/Disorders - anxiety and depression Denies: Hx Dementia, Hx Headaches, Hx Migraine, Hx Seizures, Hx Transient Ischemic Attacks (TIA) Psychiatric History: Reports: Hx Anxiety, Hx Depression - She has been off meds x 2 years. She sees a therapist., Hx Substance Abuse - Narcotics,heroin,cocaine : sober since 05/03 Denies: Hx Panic Disorder - Cancer History Cancer Type, Location and Year: Pre-cancer of espophagus-Tx with oral medication , Barretts Esophagus - RESOLVED WITH ANTHONY FUNDOPLICATION - Surgical History Surgery Procedure, Year, and Place: CHOLECYSTECTOMY, L5 DISC REMOVAL, APPENDECTOMY, TONSILLECTOMY, FULL FACIAL RECONSTRUCTION/LASER SURGERY RENAL STONE recent abd surgery 01/2014 - ANTHONY FUNDOPLICATION;Hysterectomy 01/11/15; Rt PINKY - AMPULATED TO [address] [place] [address] - Immunization History Date of Tetanus Vaccine: PT STATES UNSURE Date of Influenza Vaccine: NONE Infectious Disease History: Yes Infectious Disease History: Reports: Hx of Known/Suspected MRSA Denies: Hx Clostridium Difficile, Hx Hepatitis, Hx Human Immunodeficiency Virus (HIV), Hx Shingles, Hx Tuberculosis, History Other Infectious Disease, Traveled Outside the [place] in Last 30 Days - Family History Known Family History: Positive: Cardiac Disease, Hypertension, Diabetes, Other - kidney stones; mom - pancreatic CA - Social History Occupation: Unemployed Lives: Dormitory/Roommates - friend Alcohol Use: None Hx Substance Use: Yes Substance Use Type: Reports: Cocaine - "I prefer uppers", Heroin Substance Use Comment - Amount & Last Used: "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 Hx Tobacco Use: Yes Smoking Status (MU): Current Every Day Smoker Type: Cigarettes Amount Used/How Often: 1/2 ppd Length of Time of Smoking/Using Tobacco: >20 years Have You Smoked in the Last Year: Yes Review of Systems Negative: Fever Positive: Chest Pain - central chest Positive: Shortness Of Breath All Other Systems Reviewed And Are Negative: Yes Physical Exam - Summary Physical Exam Summary: VITAL SIGNS: Reviewed. GENERAL: Patient is a well-developed and nourished female who is lying comfortable in the stretcher. Patient is not in any acute respiratory distress. HEAD AND FACE: No signs of trauma. No ecchymosis, hematomas or skull depressions. No sinus tenderness. EYES: PERRLA, EOMI x 2, No injected conjunctiva, no nystagmus. EARS: Hearing grossly intact. Ear canals and tympanic membranes are within normal limits. MOUTH: Oropharynx within normal limits. NECK: Supple, trachea is midline, no adenopathy, no JVD, no carotid bruit, no c- spine tenderness, neck with full ROM. CHEST: Symmetric, no tenderness at palpation LUNGS: Clear to auscultation bilaterally. No wheezing or crackles. CVS: Regular rate and rhythm, S1 and S2 present, no murmurs or gallops appreciated. ABDOMEN: Soft, non-tender. No signs of distention. No rebound no guarding, and no masses palpated. Bowel sounds are normal. EXTREMITIES: FROM in all major joints, no edema, no cyanosis or clubbing. NEURO: Alert and oriented x 3. No acute neurological deficits. Speech is normal and follows commands. SKIN: Dry and warm Psych: anxious Triage Information Reviewed: Yes Vital Signs On Initial Exam: Initial Vitals Temp Pulse Resp BP Pulse Ox 97.5 F 71 16 141/66 96 05/01/18 18:29 05/01/18 18:29 05/01/18 18:29 05/01/18 18:29 05/01/18 18:29 Vital Signs Reviewed: Yes Diagnostics - Vital Signs Vital Signs Temp Pulse Resp BP Pulse Ox 05/01/18 18:29 97.5 F 71 16 141/66 96 - Laboratory Lab Statement: Any lab studies that have been ordered have been reviewed, and results considered in the medical decision making process. - EKG 1824 Cardiac Rate: NL - 66 bpm EKG Rhythm: Sinus Rhythm Ectopy: PVCs EKG Interpretation: nml axis, nml interval, no ischemic changes Chest Pain Course/Dx - Course Assessment/Plan: Pt is 37 year-old F presents to the ED with a CC of midsternal CP radiating to jaw and upper back. Pt has had similar Sx's in past. Associated Sxs: SOB. An EKG reveals nml axis, nml interval, no ischemic changes with PVC' s. In the ED course, pt received Xanax which improved her sx. Patient will be discharged with recommended follow up from PCP. Pt is agreeable with this plan. - Diagnoses Provider Diagnoses: Anxiety Discharge - Sign-Out/Discharge Documenting (check all that apply): Patient Departure - D/C - Discharge Plan Condition: Stable Disposition: HOME Patient Education Materials: Anxiety (ED) Referrals: ALIYAH Zimmerman [Primary Care Provider] - 2 Days (Follow up with [facility]) Additional Instructions: Return to the Emergency Department for any changing or worsening symptoms.
[2018-05-01] MEDS ORDERED: ALPRAZolam TAB* 0.5 MG PO ONE (19:30)
[2018-05-01 20:20] VITALS: BP 122/63
== END 2018-05-01 20:20 | disposition home or self-care (01) ==
LOC: ED 18:19
DX: F41.9 Anxiety disorder, unspecified (principal); R07.89 Other chest pain; R06.02 Shortness of breath; F17.210 Nicotine dependence, cigarettes, uncomplicated; Z88.8 Allergy status to other drugs, medicaments and biological substances; Z88.3 Allergy status to other anti-infective agents
CPT/HCPCS: 93005; 99283; A9270-GY

== ENCOUNTER 2018-05-14 20:22 | Emergency (ER) | payer OTHER ==
[2018-05-14 21:56] LABS: Urine Appearance Cloudy; Urine Blood 3+ (Negative); Urine Color Yellow; Urine Ketones Negative (Negative); Urine Protein Negative (Negative); Urine Red Blood Cell 1+(3-5/hpf) (Absent); Urine Specific Gravity 1.006 (1.010-1.030); Urine Urobilinogen Negative (Negative); Urine White Blood Cell Trace(0-5/hpf) (Absent)
[2018-05-14 22:01] LABS: ABS Basophils 0.1 10^3/ul (0-0.2); ABS Eosinophils 0.2 10^3/ul (0-0.6); ABS Monocytes 0.9 10^3/ul (0-0.8); ABS Neutrophils 6.5 10^3/ul (1.5-7.7); ABS Nucleated RBC 0 10^3/ul; Eosinophil % 1.5 % (0-6); Hematocrit 41 % (35-47); Hemoglobin 13.9 g/dl (12.0-16.0); Lymphocyte % 28.1 % (25-47); Mean Corpuscular HGB Conc 34 g/dl (31-36); Mean Corpuscular Hemoglobin 30 pg (27-31); Mean Corpuscular Volume 88 fL (80-97); Mean Platelet Volume 8.8 um3 (7.4-10.4); Nucleated Red Blood Cells % 0; Platelet Count 315 10^3/ul (150-450); Red Blood Count 4.68 10^6/ul (4.00-5.40); Red Cell Distribution Width 14 % (10.5-15); White Blood Count 10.6 10^3/ul (3.5-10.8)
[2018-05-14] MEDS ORDERED: Ondansetron INJ* 2 MG/ML VIAL IV ONE (22:41)
[2018-05-14] MEDS ORDERED: Morphine VIAL* 4 MG/ML VIAL (1 ml vial) IV ONE (22:41)
[2018-05-14] MEDS ORDERED: Morphine INJ* 2 MG/ML 1 ML SYRINGE (TWO MG - NEW SYRINGE VERSION) ONE (22:50)
[2018-05-14] MEDS ORDERED: diPHENhydraMINE IV* 50 MG/ML 1 ml VIAL (BENADRYL) IV ONE (23:02)
[2018-05-14] MEDS ORDERED: NS 0.9% 1000 ML* 1,000 ML IV ONE (23:31)
[2018-05-14] MEDS ORDERED: Ciprofloxacin 400MG IVPREMIX(* 400 MG/200 ML BAG IVPB ONE (23:31)
[2018-05-15] MEDS ORDERED: Ibuprofen TAB* 800 MG PO ONE (00:17)
--- NOTE | 2018-05-15 00:28 | ED ---
GI/ HPI - HPI Summary HPI Summary: 37-year-old female presents with right flank pain for the past 2 days. She states that this feels similar to kidney she has had in the past. She also has history of pyelonephritis. She previously had her gallbladder, appendix, and uterus removed. She admits to nausea but denies any vomiting. She admits to dysuria. She admits to urgency and frequency. She admits to subjective fevers. She denies any vaginal discharge. No hematuria. No chest pain or shortness of breath. No diarrhea or constipation. She has tried some ibuprofen for pain with minimal relief. - History of Current Complaint Chief Complaint: EDFlankPain Time Seen by Provider: 05/14/18 22:29 Stated Complaint: RT SIDE PAIN/FEVER Hx Last Menstrual Period: HYSTERECTOMY Pain Intensity: 9 - Allergy/Home Medications Allergies/Adverse Reactions: Allergies Allergy/AdvReac Type Severity Reaction Status Date / Time buprenorphine [From Suboxone] Allergy Swelling Verified 05/14/18 20:31 cephalexin [From Keflex] Allergy Difficulty Verified 05/14/18 20:31 Breathing/Wheezing fluoxetine [From Prozac] Allergy Hallucinati Verified 05/14/18 20:31 ons ketorolac [From Toradol] Allergy Hives/Diff. Verified 05/14/18 20:31 Breathing/I tching naloxone [From Suboxone] Allergy Swelling Verified 05/14/18 20:31 nitrofurantoin Allergy Difficulty Verified 05/14/18 20:31 [From Macrobid] Breathing tramadol [From Ultram] Allergy Rash Verified 05/14/18 20:31 trazodone Allergy Difficulty Verified 05/14/18 20:31 Breathing/Wheezing PMH/Surg Hx/FS Hx/Imm Hx Endocrine/Hematology History: Reports: Hx Thyroid Disease - LUMP SHE IS SEEING SONYA FOR Denies: Hx Anticoagulant Therapy, Hx Diabetes Cardiovascular History: Reports: Hx Angina Denies: Hx Congestive Heart Failure, Hx Deep Vein Thrombosis, Hx Hypertension , Hx Myocardial Infarction, Hx Pacemaker/ICD Respiratory History: Reports: Hx Asthma Denies: Hx Chronic Obstructive Pulmonary Disease (COPD), Hx Lung Cancer GI History: Reports: Hx Gastroesophageal Reflux Disease - s/p Anthony Fundoplication, Other GI Disorders - gerd barretts esophagus Denies: Hx Gall Bladder Disease, Hx Gastrointestinal Bleed, Hx Ulcer, Hx Urosepsis History: Reports: Hx Kidney Stones - follows w/ urology, Other Problems/ Disorders - renal stones; uterine hysterectomy - ovaries still present Denies: Hx Renal Disease Musculoskeletal History: Reports: Hx Back Problems Denies: Hx Rheumatoid Arthritis, Hx Osteoporosis Sensory History: Denies: Hx Hearing Aid Neurological History: Reports: Other Neuro Impairments/Disorders - anxiety and depression Denies: Hx Dementia, Hx Headaches, Hx Migraine, Hx Seizures, Hx Transient Ischemic Attacks (TIA) Psychiatric History: Reports: Hx Anxiety, Hx Depression - She has been off meds x 2 years. She sees a therapist., Hx Substance Abuse - Narcotics,heroin,cocaine : sober since 05/03 Denies: Hx Panic Disorder - Cancer History Cancer Type, Location and Year: Pre-cancer of espophagus-Tx with oral medication , Barretts Esophagus - RESOLVED WITH ANTHONY FUNDOPLICATION - Surgical History Surgery Procedure, Year, and Place: CHOLECYSTECTOMY, L5 DISC REMOVAL, APPENDECTOMY, TONSILLECTOMY, FULL FACIAL RECONSTRUCTION/LASER SURGERY RENAL STONE recent abd surgery 01/2014 - ANTHONY FUNDOPLICATION;Hysterectomy 01/11/15; Rt PINKY - AMPULATED TO [address] [place] [address] - Immunization History Date of Tetanus Vaccine: PT STATES UNSURE Date of Influenza Vaccine: NONE Infectious Disease History: No Infectious Disease History: Reports: Hx of Known/Suspected MRSA Denies: Hx Clostridium Difficile, Hx Hepatitis, Hx Human Immunodeficiency Virus (HIV), Hx Shingles, Hx Tuberculosis, History Other Infectious Disease, Traveled Outside the [place] in Last 30 Days - Family History Known Family History: Positive: Cardiac Disease, Hypertension, Diabetes, Other - kidney stones; mom - pancreatic CA - Social History Alcohol Use: None Hx Substance Use: Yes Substance Use Type: Reports: Cocaine, Heroin Substance Use Comment - Amount & Last Used: "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 Hx Tobacco Use: Yes Smoking Status (MU): Current Every Day Smoker Type: Cigarettes Amount Used/How Often: 1/2 ppd Length of Time of Smoking/Using Tobacco: >20 years Have You Smoked in the Last Year: Yes Review of Systems Negative: Fever Negative: Chest Pain Negative: Shortness Of Breath Positive: Abdominal Pain, Nausea. Negative: Vomiting Positive: flank pain All Other Systems Reviewed And Are Negative: Yes Physical Exam Triage Information Reviewed: Yes Vital Signs On Initial Exam: Initial Vitals Temp Pulse Resp BP Pulse Ox 97.4 F 74 18 157/88 99 05/14/18 20:26 05/14/18 20:26 05/14/18 20:26 05/14/18 20:26 05/14/18 20:26 Vital Signs Reviewed: Yes Appearance: Positive: Well-Appearing Skin: Positive: Warm, Dry Head/Face: Positive: Normal Head/Face Inspection Eyes: Positive: Normal, Conjunctiva Clear ENT: Positive: Pharynx normal Respiratory/Lung Sounds: Positive: Clear to Auscultation, Breath Sounds Present Cardiovascular: Positive: Normal, RRR Abdomen Description: Positive: Soft, CVA Tenderness (R), Other: - tenderness RUQ and RLQ Musculoskeletal: Positive: Normal Neurological: Positive: Normal Psychiatric: Positive: Normal Diagnostics - Vital Signs Vital Signs Temp Pulse Resp BP Pulse Ox 05/14/18 23:06 52 138/84 98 05/14/18 23:00 65 97 05/14/18 22:53 16 05/14/18 22:37 47 121/83 96 05/14/18 22:36 53 96 05/14/18 20:26 97.4 F 74 18 157/88 99 - Laboratory Lab Results: Lab Results 05/14/18 05/14/18 05/14/18 Range/Units 21:29 21:39 21:39 WBC 10.6 (3.5-10.8) 10^3/ul RBC 4.68 (4.00-5.40) 10^6/ul Hgb 13.9 (12.0-16.0) g/dl Hct 41 (35-47) % MCV 88 (80-97) fL MCH 30 (27-31) pg MCHC 34 (31-36) g/dl RDW 14 (10.5-15) % Plt Count 315 (150-450) 10^3/ul MPV 8.8 (7.4-10.4) um3 Neut % (Auto) 61.4 (38-83) % Lymph % (Auto) 28.1 (25-47) % Caswell % (Auto) 8.0 H (0-7) % Eos % (Auto) 1.5 (0-6) % Baso % (Auto) 1.0 (0-2) % Absolute Neuts (auto) 6.5 (1.5-7.7) 10^3/ul Absolute Lymphs (auto) 3.0 (1.0-4.8) 10^3/ul Absolute Monos (auto) 0.9 H (0-0.8) 10^3/ul Absolute Eos (auto) 0.2 (0-0.6) 10^3/ul Absolute Basos (auto) 0.1 (0-0.2) 10^3/ul Absolute Nucleated RBC 0 10^3/ul Nucleated RBC % 0 Sodium 139 (135-145) mmol/L Potassium 4.2 (3.5-5.0) mmol/L Chloride 106 (101-111) mmol/L Carbon Dioxide 25 (22-32) mmol/L Anion Gap 8 (2-11) mmol/L BUN 13 (6-24) mg/dL Creatinine 1.04 H (0.51-0.95) mg/dL Est GFR ( Amer) 71.4 (>60) Est GFR (Non-Af Amer) 59.0 (>60) BUN/Creatinine Ratio 12.5 (8-20) Glucose 95 (70-100) mg/dL Lactic Acid (0.5-2.0) mmol/L Calcium 9.1 (8.6-10.3) mg/dL Total Bilirubin 0.20 (0.2-1.0) mg/dL AST 14 (13-39) U/L ALT 12 (7-52) U/L Alkaline Phosphatase 77 (34-104) U/L C-Reactive Protein 13.90 H (<8.01) mg/L Total Protein 7.5 (6.4-8.9) g/dL Albumin 4.3 (3.2-5.2) g/dL Globulin 3.2 (2-4) g/dL Albumin/Globulin Ratio 1.3 (1-3) Lipase 40 (11.0-82.0) U/L Beta HCG, Quant < 0.60 mIU/mL Urine Color Yellow Urine Appearance Cloudy Urine pH 7.0 (5-9) Ur Specific [place] 1.006 L (1.010-1.030) Urine Protein Negative (Negative) Urine Ketones Negative (Negative) Urine Blood 3+ A (Negative) Urine Nitrate Positive A (Negative) Urine Bilirubin Negative (Negative) Urine Urobilinogen Negative (Negative) Ur Leukocyte Esterase 1+ A (Negative) Urine WBC (Auto) Trace(0-5/hpf) (Absent) Urine RBC (Auto) 1+(3-5/hpf) A (Absent) Ur Squamous Epith Cells Present A (Absent) Urine Bacteria Absent (Absent) Urine Glucose Negative (Negative) 05/14/18 Range/Units 21:39 WBC (3.5-10.8) 10^3/ul RBC (4.00-5.40) 10^6/ul Hgb (12.0-16.0) g/dl Hct (35-47) % MCV (80-97) fL MCH (27-31) pg MCHC (31-36) g/dl RDW (10.5-15) % Plt Count (150-450) 10^3/ul MPV (7.4-10.4) um3 Neut % (Auto) (38-83) % Lymph % (Auto) (25-47) % Caswell % (Auto) (0-7) % Eos % (Auto) (0-6) % Baso % (Auto) (0-2) % Absolute Neuts (auto) (1.5-7.7) 10^3/ul Absolute Lymphs (auto) (1.0-4.8) 10^3/ul Absolute Monos (auto) (0-0.8) 10^3/ul Absolute Eos (auto) (0-0.6) 10^3/ul Absolute Basos (auto) (0-0.2) 10^3/ul Absolute Nucleated RBC 10^3/ul Nucleated RBC % Sodium (135-145) mmol/L Potassium (3.5-5.0) mmol/L Chloride (101-111) mmol/L Carbon Dioxide (22-32) mmol/L Anion Gap (2-11) mmol/L BUN (6-24) mg/dL Creatinine (0.51-0.95) mg/dL Est GFR ( Amer) (>60) Est GFR (Non-Af Amer) (>60) BUN/Creatinine Ratio (8-20) Glucose (70-100) mg/dL Lactic Acid 0.7 (0.5-2.0) mmol/L Calcium (8.6-10.3) mg/dL Total Bilirubin (0.2-1.0) mg/dL AST (13-39) U/L ALT (7-52) U/L Alkaline Phosphatase (34-104) U/L C-Reactive Protein (<8.01) mg/L Total Protein (6.4-8.9) g/dL Albumin (3.2-5.2) g/dL Globulin (2-4) g/dL Albumin/Globulin Ratio (1-3) Lipase (11.0-82.0) U/L Beta HCG, Quant mIU/mL Urine Color Urine Appearance Urine pH (5-9) Ur Specific Ell[place] (1.010-1.030) Urine Protein (Negative) Urine Ketones (Negative) Urine Blood (Negative) Urine Nitrate (Negative) Urine Bilirubin (Negative) Urine Urobilinogen (Negative) Ur Leukocyte Esterase (Negative) Urine WBC (Auto) (Absent) Urine RBC (Auto) (Absent) Ur Squamous Epith Cells (Absent) Urine Bacteria (Absent) Urine Glucose (Negative) Result Diagrams: 05/14/18 21:39 05/14/18 21:39 Lab Statement: Any lab studies that have been ordered have been reviewed, and results considered in the medical decision making process. - CT abd CT Interpretation: Positive (See Comments) - Little change from previous CT. No renal calculi evident. Right ovarian cyst measuring 2 cm with similar to previous. CT Interpretation Completed By: Radiologist RUDI Course/Dx - Course Course Of Treatment: 37-year-old female presents with right flank pain for the past 2 days. She states that this feels similar to kidney she has had in the past. She also has history of pyelonephritis. She previously had her gallbladder, appendix, and uterus removed. She admits to nausea but denies any vomiting. She admits to dysuria. She admits to urgency and frequency. She admits to subjective fevers. She denies any vaginal discharge. No hematuria. No chest pain or shortness of breath. No diarrhea or constipation. She has tried some ibuprofen for pain with minimal relief. On exam tenderness right flank. Tenderness right upper and lower quadrant. wbc normal. Urine shows UTI. CT abdomen shows no acute pathology. We'll treat as uti with cipro. patient understand and agrees with plan. - Diagnoses Differential Diagnoses - Female: Pyelonephritis, Urinary Tract Infection, Ureteral Calculi Provider Diagnoses: UTI (urinary tract infection), Flank pain Discharge - Sign-Out/Discharge Documenting (check all that apply): Patient Departure - Discharge Plan Condition: Good Disposition: HOME Prescriptions: Ciprofloxacin TAB* [Cipro 500 MG TAB*] 500 mg PO BID #14 tab Patient Education Materials: Urinary Tract Infection in Women (ED) Referrals: [facility] [Outside] Additional Instructions: Take antibiotic twice a day for 7 days Drink plenty of water Take Tylenol or ibuprofen every 6 hours as needed for pain and fever establish care with primary to follow up Return to ED if develop severe vomiting, or any new or worsening symptoms - Billing Disposition and Condition Condition: GOOD Disposition: Home
[2018-05-15 01:06] VITALS: BP 126/74
--- NOTE | 2018-05-15 07:54 | RAD ---
INDICATION: RIGHT flank pain. Post cholecystectomy, post appendectomy, history of urolithiasis, post fundoplication. COMPARISON: February 11, 2018 CT TECHNIQUE: Multidetector CT images were obtained from the lung bases to the ischial tuberosities. Evaluation of the viscera is limited without IV contrast. Multiplanar reformation. REPORT: VISUALIZED INFERIOR THORAX: Unremarkable. LIVER / GALLBLADDER / PANCREAS / SPLEEN:Post cholecystectomy. Negative for biliary dilatation. Unremarkable unenhanced liver, pancreas, and dominant spleen. Few splenules at the splenic hilum. ALIMENTARY TRACT: Small hiatal hernia without change. No additional abnormality of the unopacified upper GI tract. Unremarkable unopacified small bowel loops. Mild diverticulosis of the colon without findings of acute diverticulitis. Negative for ascites, free air, hernias. MESENTERIC: Physiologic activity only. ADRENAL / GENITOURINARY: Unremarkable adrenal glands. No CT abnormality of the unenhanced kidneys, ureters, or urinary bladder. Negative for urolithiasis or hydronephrosis. Pelvic phleboliths noted. Post hysterectomy. 1.7 cm water density follicular cyst of the RIGHT ovary. Unremarkable LEFT adnexal region. RETROPERITONEAL: Negative for lymphadenopathy. VASCULAR: Normal diameter abdominal aorta and iliac arteries with minimal calcific plaque. Physiologic distention of the IVC. BONES: A few scattered bone islands are noted at the pelvis. Advanced L5-S1 degenerative spondylosis with ankylosis and less marked facet joint osteoarthritis with resulting mild to moderate bilateral foraminal stenosis without change. Negative for suspicious osseous lesions. SOFT TISSUE: Physiologic activity only. IMPRESSION: #. Post cholecystectomy. #. Small hiatal hernia without change or secondary acute CT finding. #. Mild colonic diverticulosis without findings of acute diverticulitis. Post appendectomy. #. Negative for urolithiasis or obstructive uropathy. #. Small follicular cyst at the RIGHT ovary.
--- NOTE | 2018-05-17 08:59 | PN ---
Progress Note - Progress Note Date of Service: 05/17/18 Note: Pt. seen in ER 05/15 and dx with a UTI. She was started on Cipro. Urine culture today is growing >100,000 e. coli susceptible to Cipro. No change in treatment plan needed at this time.
== END 2018-05-15 01:05 | disposition home or self-care (01) ==
LOC: ED 20:22
DX: N39.0 Urinary tract infection, site not specified (principal); B96.20 Unspecified Escherichia coli [E. coli] as the cause of diseases classified elsewhere; R10.813 Right lower quadrant abdominal tenderness; R10.811 Right upper quadrant abdominal tenderness; R11.0 Nausea; K44.9 Diaphragmatic hernia without obstruction or gangrene; K57.30 Diverticulosis of large intestine without perforation or abscess without bleeding; N83.01 Follicular cyst of right ovary; Z87.442 Personal history of urinary calculi; Z90.710 Acquired absence of both cervix and uterus; Z90.49 Acquired absence of other specified parts of digestive tract; Z88.1 Allergy status to other antibiotic agents; Z88.5 Allergy status to narcotic agent; Z82.49 Family history of ischemic heart disease and other diseases of the circulatory system; Z83.3 Family history of diabetes mellitus; Z84.1 Family history of disorders of kidney and ureter; Z80.0 Family history of malignant neoplasm of digestive organs; F17.210 Nicotine dependence, cigarettes, uncomplicated
CPT/HCPCS: 36415; 74176; 80053; 81003; 81015; 83605; 83690; 84702; 85025; 86140; 87077; 87086; 87186; 96365; 96375; 99283; A9270-GY; J0744; J1200; J2270; J2405

== ENCOUNTER 2018-05-18 19:14 | Emergency (ER) | payer OTHER ==
--- NOTE | 2018-05-18 19:37 | ED ---
Abdominal Pain/Female - HPI Summary HPI Summary: A 37 y/o F presents to ED with severe R-sided abd pain with initial onset a few weeks ago and worsening last night. Pt was last seen at [facility] on 05/14/2018, pt was given Cipro. Associated sx: R flank pain, urinary retention, subjective fever, chills, vaginal "pressure". Pt is having n/v/d since beginning the Cipro. Pt passed a kidney stone recently and has an extensive PMHx: kidney stones. Sees a urologist in [place]. 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 Allergies discussed. Pt notes a past substance abuse hx. This is ernesto, Donald Gomez, documenting for attending Dr. Francis MD. - History of Current Complaint Chief Complaint: EDAbdPain Stated Complaint: VOMITING/DIARHEA Time Seen by Provider: 05/18/18 19:31 Hx Obtained From: Patient Hx Last Menstrual Period: HYSTERECTOMY Onset/Duration: Lasting Hours - worsening last night, Still Present Timing: Constant Severity Initially: Moderate Severity Currently: Severe Pain Intensity: 9 Pain Scale Used: 0-10 Numeric Location: Diffuse - R-sided Radiates: Yes Radiates to: Flank - R Associated Signs and Symptoms: Positive: Fever, Urinary Symptoms - retention, Nausea, Vomiting, Diarrhea, Other: - chills, vaginal "pressure", R flank pain Allergies/Adverse Reactions: Allergies Allergy/AdvReac Type Severity Reaction Status Date / Time buprenorphine [From Suboxone] Allergy Swelling Verified 05/14/18 20:31 cephalexin [From Keflex] Allergy Difficulty Verified 05/14/18 20:31 Breathing/Wheezing ketorolac [From Toradol] Allergy Hives/Diff. Verified 05/14/18 20:31 Breathing/I tching naloxone [From Suboxone] Allergy Swelling Verified 05/14/18 20:31 nitrofurantoin Allergy Difficulty Verified 05/14/18 20:31 [From Macrobid] Breathing tramadol [From Ultram] Allergy Rash Verified 05/14/18 20:31 trazodone Allergy Difficulty Verified 05/14/18 20:31 Breathing/Wheezing fluoxetine [From Prozac] AdvReac Hallucinati Verified 05/18/18 20:52 ons Home Medications: Home Medications Albuterol HFA INHALER* [Ventolin HFA Inhaler*] 2 puff INH Q4H PRN 05/18/18 [ History Confirmed 05/18/18] PMH/Surg Hx/FS Hx/Imm Hx Previously Healthy: No Endocrine/Hematology History: Reports: Hx Thyroid Disease - LUMP SHE IS SEEING SONYA FOR Denies: Hx Anticoagulant Therapy, Hx Diabetes Cardiovascular History: Reports: Hx Angina Denies: Hx Congestive Heart Failure, Hx Deep Vein Thrombosis, Hx Hypertension , Hx Myocardial Infarction, Hx Pacemaker/ICD Respiratory History: Reports: Hx Asthma Denies: Hx Chronic Obstructive Pulmonary Disease (COPD), Hx Lung Cancer GI History: Reports: Hx Gastroesophageal Reflux Disease - s/p Kathy Fundoplication, Other GI Disorders - gerd barretts esophagus Denies: Hx Gall Bladder Disease, Hx Gastrointestinal Bleed, Hx Ulcer, Hx Urosepsis History: Reports: Hx Kidney Stones - follows w/ urology, Other Problems/ Disorders - renal stones; uterine hysterectomy - ovaries still present Denies: Hx Renal Disease Musculoskeletal History: Reports: Hx Back Problems Denies: Hx Rheumatoid Arthritis, Hx Osteoporosis Sensory History: Denies: Hx Hearing Aid Neurological History: Reports: Other Neuro Impairments/Disorders - anxiety and depression Denies: Hx Dementia, Hx Headaches, Hx Migraine, Hx Seizures, Hx Transient Ischemic Attacks (TIA) Psychiatric History: Reports: Hx Anxiety, Hx Depression - She has been off meds x 2 years. She sees a therapist., Hx Substance Abuse - Narcotics,heroin,cocaine : sober since 05/03 Denies: Hx Panic Disorder - Cancer History Cancer Type, Location and Year: Pre-cancer of espophagus-Tx with oral medication , Barretts Esophagus - RESOLVED WITH KATHY FUNDOPLICATION - Surgical History Surgery Procedure, Year, and Place: CHOLECYSTECTOMY, L5 DISC REMOVAL, APPENDECTOMY, TONSILLECTOMY, FULL FACIAL RECONSTRUCTION/LASER SURGERY RENAL STONE recent abd surgery 01/2014 - KATHY FUNDOPLICATION;Hysterectomy 01/11/15; Rt PINKY - [facility] - Immunization History Date of Tetanus Vaccine: PT STATES UNSURE Date of Influenza Vaccine: NONE Infectious Disease History: No Infectious Disease History: Reports: Hx of Known/Suspected MRSA Denies: Hx Clostridium Difficile, Hx Hepatitis, Hx Human Immunodeficiency Virus (HIV), Hx Shingles, Hx Tuberculosis, History Other Infectious Disease, Traveled Outside the [place] in Last 30 Days - Family History Known Family History: Positive: Cardiac Disease, Hypertension, Diabetes, Other - kidney stones; mom - pancreatic CA - Social History Occupation: Unemployed, Student Lives: With Family Alcohol Use: None Hx Substance Use: Yes Substance Use Type: Reports: Cocaine, Heroin Substance Use Comment - Amount & Last Used: "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 Hx Tobacco Use: Yes Smoking Status (MU): Current Every Day Smoker Type: Cigarettes Amount Used/How Often: 1/2 ppd Length of Time of Smoking/Using Tobacco: >20 years Have You Smoked in the Last Year: Yes Review of Systems Positive: Fever - subjective, Chills Positive: Abdominal Pain - R-sided, Vomiting, Diarrhea, Nausea Positive: flank pain - R, other - urinary retention, vaginal "pressure" All Other Systems Reviewed And Are Negative: Yes Physical Exam - Summary Physical Exam Summary: Appearance: Well-appearing, Well-nourished, lying in bed comfortably Skin: Warm, dry, no obvious rash Eyes: sclera anicteric, no conjunctival pallor ENT: mucous membranes moist, pharynx appears normal Neck: Supple, nontender Respiratory: Clear to auscultation, no signs of respiratory distress Cardiovascular: Normal S1, S2. No murmurs. Normal distal pulses in tibial and radial bilaterally. Abdomen: Soft, R-sided abd tenderness, normal active bowel sounds present Musculoskeletal: Normal, Strength/ROM Intact Neurological: A&Ox3, awake and alert, mentation is normal, speech is fluent and appropriate Psychiatric: affect is normal, does not appear anxious or depressed Triage Information Reviewed: Yes Vital Signs On Initial Exam: Initial Vitals Temp Pulse Resp BP Pulse Ox 98.4 F 61 20 169/97 98 05/18/18 19:23 05/18/18 19:23 05/18/18 19:23 05/18/18 19:23 05/18/18 19:23 Vital Signs Reviewed: Yes Diagnostics - Vital Signs Vital Signs Temp Pulse Resp BP Pulse Ox 05/18/18 19:23 98.4 F 61 20 169/97 98 - Laboratory Result Diagrams: 05/18/18 20:29 05/18/18 20:30 Lab Statement: Any lab studies that have been ordered have been reviewed, and results considered in the medical decision making process. Abdominal Pain Fem Course/Dx - Course Course Of Treatment: This is a 37-year-old woman with a recent history of right flank pain, diagnosed as pyelonephritis. Urine culture from that visit a few days ago is growing Escherichia coli sensitive to Cipro as well as all the other antibiotics in the panel. She presents now with persistent pain with nausea and vomiting. There is an underlying issue regarding her past history of substance abuse, and the nurse has had a discussion with her about the advisability of avoiding opioids for her pain. I'm told she is in agreement with this and really does not want to be admitted at this point. Given that she is generally stable otherwise at believe it is reasonable for her to go home. Her urinalysis seems to be improving and since the isolate is sensitive to Cipro and would discontinue that for now. - Diagnoses Provider Diagnoses: Pyelonephritis, History of opioid abuse - Provider Notifications Discussed Care Of Patient With: Christian Segura - hospitalist Time Discussed With Above Provider: 20:49 Instructed by Provider To: MD Will See In ED Discharge - Sign-Out/Discharge Documenting (check all that apply): Patient Departure - Discharge Plan Condition: Fair Disposition: HOME Patient Education Materials: Kidney Infection (ED) Referrals: No Primary Care Phys,NOPCP [Primary Care Provider] - Additional Instructions: Continue the Cipro for now. He may take several more days. Pain to improve dramatically as kidney infections are fairly deep seeded and do not respond as quickly as one might expect and many situations. - Billing Disposition and Condition Condition: FAIR Disposition: Home
[2018-05-18] MEDS ORDERED: Lactated Ringers 1000 ml Bag*IV.FLUID IV ONE (19:45)
[2018-05-18] MEDS ORDERED: Morphine VIAL* 4 MG/ML VIAL (1 ml vial) IV ONE (19:47)
[2018-05-18] MEDS ORDERED: Ondansetron INJ* 2 MG/ML VIAL IV ONE (19:47)
[2018-05-18] MEDS ORDERED: cefTRIAXone(*) 1 GM in NS 0.9% 50 ML* 50 ML IVPB ONE (19:51)
[2018-05-18] MEDS ORDERED: Morphine INJ* 2 MG/ML 1 ML SYRINGE (TWO MG - NEW SYRINGE VERSION) ONE (20:31)
[2018-05-18 20:37] LABS: ABS Basophils 0.1 10^3/ul (0-0.2); ABS Eosinophils 0.1 10^3/ul (0-0.6); ABS Lymphocytes 2.8 10^3/ul (1.0-4.8); ABS Monocytes 0.9 10^3/ul (0-0.8); ABS Neutrophils 7.5 10^3/ul (1.5-7.7); ABS Nucleated RBC 0 10^3/ul; Hematocrit 40 % (35-47); Hemoglobin 13.3 g/dl (12.0-16.0); Lymphocyte % 24.2 % (25-47); Mean Corpuscular HGB Conc 34 g/dl (31-36); Mean Corpuscular Hemoglobin 29 pg (27-31); Mean Corpuscular Volume 86 fL (80-97); Mean Platelet Volume 8.4 um3 (7.4-10.4); Nucleated Red Blood Cells % 0; Platelet Count 287 10^3/ul (150-450); Red Cell Distribution Width 14 % (10.5-15); White Blood Count 11.5 10^3/ul (3.5-10.8)
[2018-05-18] MEDS ORDERED: Morphine VIAL* 10 MG/ML 1 ML VIAL ONE (20:45)
[2018-05-18 20:51] LABS: INR 0.96 (0.77-1.02)
[2018-05-18 20:56] LABS: EGFR Non-African American 57.7 (>60)
[2018-05-18] MEDS ORDERED: diPHENhydraMINE PO* 50 MG PO ONE (21:20)
[2018-05-18 21:55] LABS: Urine Appearance Cloudy; Urine Blood 3+ (Negative); Urine Color Yellow; Urine Ketones Negative (Negative); Urine Protein 1+(30 mg/dL) (Negative); Urine Red Blood Cell 2+(6-10/hpf) (Absent); Urine Specific Gravity 1.025 (1.010-1.030); Urine Urobilinogen Negative (Negative); Urine White Blood Cell Trace(0-5/hpf) (Absent)
[2018-05-18] MEDS ORDERED: Acetaminophen TAB* 325 MG PO PRN (22:43)
[2018-05-18 23:25] VITALS: BP 121/53
--- NOTE | 2018-05-19 21:32 | RAD ---
INDICATION: Right flank pain. Request for limited right kidney COMPARISON: CT May 14, 2018 TECHNIQUE: Longitudinal and transverse scans of the right kidney were obtained. FINDINGS: Kidneys: The right kidney is normal in size and echogenicity. No renal masses, calculi, or hydronephrosis is seen. The right kidney measures 11.4 x 4.8 x 5.3. Limited imaging of the left kidney shows no abnormalities. Other: The right ureteral jet is not seen. The bladder is nearly empty. IMPRESSION: NEGATIVE RIGHT RENAL SONOGRAM. RIGHT URETERAL JET IS NOT DOCUMENTED BUT THE BLADDER IS EMPTY.
== END 2018-05-18 23:21 | disposition home or self-care (01) ==
LOC: ED 19:14
DX: N12 Tubulo-interstitial nephritis, not specified as acute or chronic (principal); F11.11 Opioid abuse, in remission; R10.84 Generalized abdominal pain; R11.2 Nausea with vomiting, unspecified; R50.9 Fever, unspecified; R33.9 Retention of urine, unspecified; R19.7 Diarrhea, unspecified; F17.210 Nicotine dependence, cigarettes, uncomplicated
CPT/HCPCS: 36415; 76775; 80053; 81003; 81015; 83605; 85025; 85610; 87040; 87086; 96365; 96374; 99283; A9270-GY; J0696; J2270; J2405

== ENCOUNTER 2018-05-25 14:45 | Emergency (ER) | payer OTHER ==
[2018-05-25 15:07] VITALS: BP 128/80
[2018-05-25] MEDS ORDERED: Ibuprofen TAB* 600 MG PO ONE (15:26)
--- NOTE | 2018-05-25 15:51 | RAD ---
HISTORY: Punched wall COMPARISONS: None relevant VIEWS: 4, Frontal, lateral, and oblique views of the right hand FINDINGS: BONE DENSITY: Normal. BONES: There is no displaced fracture. The patient is status post amputation of the fifth digit distal to the PIP joint. JOINTS: There is no arthropathy. ALIGNMENT: There is no dislocation. SOFT TISSUES: Unremarkable. OTHER FINDINGS: None. IMPRESSION: NO ACUTE OSSEOUS INJURY. IF SYMPTOMS PERSIST, RECOMMEND REPEAT IMAGING.
--- NOTE | 2018-05-25 15:52 | RAD ---
HISTORY: punched wall COMPARISONS: None VIEWS: 2, Frontal and lateral views of the right forearm FINDINGS: BONE DENSITY: Normal. BONES: There is no displaced fracture. JOINTS: There is no arthropathy. ALIGNMENT: There is no dislocation. SOFT TISSUES: Unremarkable. OTHER FINDINGS: None. IMPRESSION: NO ACUTE OSSEOUS INJURY. IF SYMPTOMS PERSIST, RECOMMEND REPEAT IMAGING.
--- NOTE | 2018-05-25 16:37 | UC ---
Upper Extremity HPI - HPI Summary HPI Summary: Patient is a 37-year-old female presenting to the with complaint of right hand and forearm injury after punching a beam while angry yesterday. She endorses worsening pain to the ulnar side of the hand and wrist with radiation up into the elbow. Denies any ecchymosis. Denies any numbness, however endorses tingling. She has taken ibuprofen without relief. She is also stating she is having a tough time with her father currently being very ill and has a psych history. She denies any SI/HI. She is concerned over her 5 year sobriety, however she states she has good support system through her best friend and at home who are also sober. - History of Current Complaint Chief Complaint: UCUpperExtremity Stated Complaint: WRIST INJURY Time Seen by Provider: 05/25/18 14:52 Hx Obtained From: Patient Hx Last Menstrual Period: HYSTERECTOMY ?: No Onset/Duration: Sudden Onset Severity Initially: Moderate Severity Currently: Moderate Pain Intensity: 10 Pain Scale Used: 0-10 Numeric Location Of Pain: Is Discrete @ - dorsum of the R wrist Related History: Dominant Hand Right - Risk Factors Non-Orthopedic Risk Factor: Negative DVT Risk Factors: Negative Septic Arthritis Risk Factor: Negative Compartment Syndrome Risk Factors: Pain - Allergies/Home Medications Allergies/Adverse Reactions: Allergies Allergy/AdvReac Type Severity Reaction Status Date / Time buprenorphine [From Suboxone] Allergy Swelling Verified 05/25/18 15:08 cephalexin [From Keflex] Allergy Difficulty Verified 05/25/18 15:08 Breathing/Wheezing ketorolac [From Toradol] Allergy Hives/Diff. Verified 05/25/18 15:08 Breathing/I tching naloxone [From Suboxone] Allergy Swelling Verified 05/25/18 15:08 nitrofurantoin Allergy Difficulty Verified 05/25/18 15:08 [From Macrobid] Breathing tramadol [From Ultram] Allergy Rash Verified 05/25/18 15:08 trazodone Allergy Difficulty Verified 05/25/18 15:08 Breathing/Wheezing fluoxetine [From Prozac] AdvReac Hallucinati Verified 05/25/18 15:08 ons PMH/Surg Hx/FS Hx/Imm Hx Previously Healthy: Yes Other History Of: Negative For: HIV, Hepatitis B, Hepatitis C, Anticoagulant Therapy - Surgical History Surgical History: Yes Surgery Procedure, Year, and Place: CHOLECYSTECTOMY, L5 DISC REMOVAL, APPENDECTOMY, TONSILLECTOMY, FULL FACIAL RECONSTRUCTION/LASER SURGERY RENAL STONE recent abd surgery 01/2014 - KATHY FUNDOPLICATION;Hysterectomy 01/11/15; Rt PINKY - AMPULATED TO [address] [facility] - Family History Known Family History: Positive: Cardiac Disease, Hypertension, Diabetes, Other - kidney stones; mom - pancreatic CA - Social History Occupation: Employed Full-time Lives: With Family Alcohol Use: None Substance Use Type: Cocaine, Heroin Substance Use Comment - Amount & Last Used: "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 Smoking Status (MU): Current Every Day Smoker Type: Cigarettes Amount Used/How Often: 2 ppd Length of Time of Smoking/Using Tobacco: >20 years Have You Smoked in the Last Year: Yes Household Exposure Type: Cigarettes - Immunization History Most Recent Influenza Vaccination: NONE 2016 Vaccination Up to Date: Yes Review of Systems Constitutional: Negative Skin: Negative Respiratory: Negative Cardiovascular: Negative Motor: Decreased ROM - d/t pain Neurovascular: Negative Musculoskeletal: Arthralgia Neurological: Negative Psychological: Depressed Is Patient Immunocompromised?: No All Other Systems Reviewed And Are Negative: Yes Physical Exam Triage Information Reviewed: Yes Appearance: Well-Appearing, No Pain Distress, Well-Nourished Vital Signs: Initial Vital Signs Temp 97.7 F 05/25/18 14:58 Pulse 70 05/25/18 14:58 Resp 18 05/25/18 14:58 BP 128/80 05/25/18 14:58 Pulse Ox 98 05/25/18 14:58 Vital Signs Reviewed: Yes Eye Exam: Normal Neck exam: Normal Neck: Positive: Supple, No Lymphadenopathy Respiratory Exam: Normal Respiratory: Positive: Chest non-tender, Lungs clear Musculoskeletal: Positive: ROM Intact Neurological Exam: Normal Neurological: Positive: Alert Psychological: Positive: Consolable Skin Exam: Normal Upper Extremity Course/Dx - Course Course Of Treatment: Discussed current psych issues with patient. She continues to deny any SI/HI. X-ray obtained of the forearm and hand which show no acute osseous injuries or other findings. Guillermo wrap to the hand with good relief. Encouraged ibuprofen. Ibuprofen given here in the UC. - Differential Dx/Diagnosis Provider Diagnoses: Wrist Sprain Discharge - Sign-Out/Discharge Documenting (check all that apply): Patient Departure - Discharge Plan Condition: Stable Disposition: HOME Prescriptions: LORazepam TAB(*) [Ativan 1 MG TAB (*)] 1 mg PO Q8H PRN #3 tab MDD 3 PRN Reason: Anxiety Patient Education Materials: Wrist Injury (ED) Referrals: Kartik Francisco MD [Primary Care Provider] - Additional Instructions: Tylenol and ibuprofen up to three times daily - use intermittently - Billing Disposition and Condition Condition: STABLE Disposition: Home
== END 2018-05-25 16:20 | disposition home or self-care (01) ==
LOC: UCEAST 14:45
DX: S63.501A Unspecified sprain of right wrist, initial encounter (principal); W22.09XA Striking against other stationary object, initial encounter; Y93.89 Activity, other specified; Y92.9 Unspecified place or not applicable; Z88.1 Allergy status to other antibiotic agents; Z88.6 Allergy status to analgesic agent; Z88.8 Allergy status to other drugs, medicaments and biological substances; F17.210 Nicotine dependence, cigarettes, uncomplicated
CPT/HCPCS: 99212; A9270-GY; G0463

== ENCOUNTER 2018-05-28 13:02 | Emergency (ER) | payer OTHER ==
[2018-05-28 13:44] LABS: ABS Basophils 0 10^3/ul (0-0.2); ABS Eosinophils 0.1 10^3/ul (0-0.6); ABS Lymphocytes 2.9 10^3/ul (1.0-4.8); ABS Neutrophils 8.8 10^3/ul (1.5-7.7); ABS Nucleated RBC 0 10^3/ul; Eosinophil % 0.9 % (0-6); Hematocrit 41 % (35-47); Hemoglobin 13.4 g/dl (12.0-16.0); Lymphocyte % 22.4 % (25-47); Mean Corpuscular HGB Conc 33 g/dl (31-36); Mean Corpuscular Hemoglobin 29 pg (27-31); Mean Corpuscular Volume 88 fL (80-97); Mean Platelet Volume 8.4 um3 (7.4-10.4); Nucleated Red Blood Cells % 0.1; Platelet Count 275 10^3/ul (150-450); Red Blood Count 4.66 10^6/ul (4.00-5.40); Red Cell Distribution Width 14 % (10.5-15); White Blood Count 12.8 10^3/ul (3.5-10.8)
--- NOTE | 2018-05-28 13:48 | ED ---
Psychiatric Complaint - HPI Summary HPI Summary: This is scribe Casey Martinez documenting for attending Dr. Derrick Rodriguez MD. A 37 y/o female presents to ED c/o SI and HI induced by recent stress. Currently in the ED room, the patient seems agitated, frustrated and is not laying down on stretcher and is tearful. As per triage, "Pt comes in stressed out and says her father just yesterday and she is having hard issues with the step mother. Pt states she is unsure of SI but having thoughts of hurting the step-mom". According to the patient, she lost her father yesterday and her step-mother is trying to take "my home". Patient noted that she lives there and her father promised her the house after he past away. her father from sepsis as when he went down to [place], [place], he had severe back problems. He was sent for surgery when his appendix blew up and "blew a hole in his bowel" which lead to infection. A week later he still had infection , but soon after that he was fine. Three weeks ago, he was brought home and he was doing great, however, 3 nights ago the sepsis came back. She believes that his (her step-mother) killed her father. She feels, his "bitch " killed her father by giving his hydromorphone every 10-15 minutes when it was suppose to be given every 2 hours. She stated that she told hospice this, but no one is listening to her. Her father's is on Monday or and she would like to go if she is held here. She went to and told the staff or MD that she was starving herself as she cannot eat. She vomits any water or food intake. She also told the staff that she wants to cut herself as she "cannot deal with it anymore". She noted that she does have SI because "it is the only good option" and has HI towards step-mother, however, "I promosed myself that I wouldn't". Her cannot be in ED today because he is on his way to ED as he cannot breathe. - History Of Current Complaint Chief Complaint: EDMentalHealth Time Seen by Provider: 05/28/18 13:18 Hx Obtained From: Patient Hx Last Menstrual Period: HYSTERECTOMY Onset/Duration: Gradual Onset, Lasting Days, Still Present Timing: Constant Character: Manic, Angry, Frustrated Aggravating Factor(s): Recent Stress Alleviating Factor(s): Nothing Associated Signs And Symptoms: Positive: Appetite Change Has Suicidal: Reports: Thoughts Has Homicidal: Reports: Thoughts - Allergies/Home Medications Allergies/Adverse Reactions: Allergies Allergy/AdvReac Type Severity Reaction Status Date / Time buprenorphine [From Suboxone] Allergy Swelling Verified 05/25/18 15:08 cephalexin [From Keflex] Allergy Difficulty Verified 05/25/18 15:08 Breathing/Wheezing ketorolac [From Toradol] Allergy Hives/Diff. Verified 05/25/18 15:08 Breathing/I tching naloxone [From Suboxone] Allergy Swelling Verified 05/25/18 15:08 nitrofurantoin Allergy Difficulty Verified 05/25/18 15:08 [From Macrobid] Breathing tramadol [From Ultram] Allergy Rash Verified 05/25/18 15:08 trazodone Allergy Difficulty Verified 05/25/18 15:08 Breathing/Wheezing fluoxetine [From Prozac] AdvReac Hallucinati Verified 05/25/18 15:08 ons PMH/Surg Hx/FS Hx/Imm Hx Endocrine/Hematology History: Reports: Hx Thyroid Disease - LUMP SHE IS SEEING SONYA FOR Denies: Hx Anticoagulant Therapy, Hx Diabetes Cardiovascular History: Reports: Hx Angina Denies: Hx Congestive Heart Failure, Hx Deep Vein Thrombosis, Hx Hypertension , Hx Myocardial Infarction, Hx Pacemaker/ICD Respiratory History: Reports: Hx Asthma Denies: Hx Chronic Obstructive Pulmonary Disease (COPD), Hx Lung Cancer GI History: Reports: Hx Gastroesophageal Reflux Disease - s/p Kathy Fundoplication, Other GI Disorders - gerd barretts esophagus Denies: Hx Gall Bladder Disease, Hx Gastrointestinal Bleed, Hx Ulcer, Hx Urosepsis History: Reports: Hx Kidney Stones - follows w/ urology, Other Problems/ Disorders - renal stones; uterine hysterectomy - ovaries still present Denies: Hx Renal Disease Musculoskeletal History: Reports: Hx Back Problems Denies: Hx Rheumatoid Arthritis, Hx Osteoporosis Sensory History: Denies: Hx Hearing Aid Neurological History: Reports: Other Neuro Impairments/Disorders - anxiety and depression Denies: Hx Dementia, Hx Headaches, Hx Migraine, Hx Seizures, Hx Transient Ischemic Attacks (TIA) Psychiatric History: Reports: Hx Anxiety, Hx Depression - She has been off meds x 2 years. She sees a therapist., Hx Substance Abuse - Narcotics,heroin,cocaine : sober since 05/03 Denies: Hx Panic Disorder - Cancer History Cancer Type, Location and Year: Pre-cancer of espophagus-Tx with oral medication , Barretts Esophagus - RESOLVED WITH KATHY FUNDOPLICATION - Surgical History Surgery Procedure, Year, and Place: CHOLECYSTECTOMY, L5 DISC REMOVAL, APPENDECTOMY, TONSILLECTOMY, FULL FACIAL RECONSTRUCTION/LASER SURGERY RENAL STONE recent abd surgery 01/2014 - KATHY FUNDOPLICATION;Hysterectomy 01/11/15; Rt PINKY - AMPULATED TO [address] [place] [address] - Immunization History Date of Tetanus Vaccine: PT STATES UNSURE Date of Influenza Vaccine: NONE Infectious Disease History: No Infectious Disease History: Reports: Hx of Known/Suspected MRSA Denies: Hx Clostridium Difficile, Hx Hepatitis, Hx Human Immunodeficiency Virus (HIV), Hx Shingles, Hx Tuberculosis, History Other Infectious Disease, Traveled Outside the [place] in Last 30 Days - Family History Known Family History: Positive: Cardiac Disease, Hypertension, Diabetes, Other - kidney stones; mom - pancreatic CA - Social History Alcohol Use: None Hx Substance Use: Yes Substance Use Type: Reports: Cocaine, Heroin Substance Use Comment - Amount & Last Used: "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 Hx Tobacco Use: Yes Smoking Status (MU): Current Every Day Smoker Type: Cigarettes Amount Used/How Often: 2 ppd Length of Time of Smoking/Using Tobacco: >20 years Have You Smoked in the Last Year: Yes Review of Systems Negative: Fever, Chills Negative: Erythema Negative: Sore Throat Negative: Chest Pain Negative: Shortness Of Breath, Cough Positive: Vomiting. Negative: Abdominal Pain, Nausea Negative: dysuria, hematuria Negative: Myalgia, Edema Negative: Rash Neurological: Other - NEGATIVE: Dizziness Psychological: Other - POSITIVE: SI and HI All Other Systems Reviewed And Are Negative: Yes Physical Exam - Summary Physical Exam Summary: Constitutional: Well-developed, Well-nourished, Alert. (-) Distressed. Patient is tearful. Skin: Warm, Dry HENT: Normocephalic; Atraumatic Eyes: Conjunctiva normal Neck: Musculoskeletal ROM normal neck. (-) JVD, (-) Stridor, (-) Tracheal deviation Cardio: Rhythm regular, rate normal, Heart sounds normal; Intact distal pulses; The pedal pulses are 2+ and symmetric. Radial pulses are 2+ and symmetric. (-) Murmur Pulmonary/Chest wall: Effort normal. (-) Respiratory distress, (-) Wheezes, (-) Rales Abd: Soft, (-) epigastric tenderness, (-) Distension, (-) Guarding, (-) Rebound Musculoskeletal: (-) Edema Lymph: (-) Cervical adenopathy Neuro: Alert, Oriented x3 Psych: Patient is anxious appearing. Triage Information Reviewed: Yes Vital Signs On Initial Exam: Initial Vitals Temp Pulse Resp BP Pulse Ox 98 F 63 16 153/94 98 05/28/18 13:13 05/28/18 13:13 05/28/18 13:13 05/28/18 13:13 05/28/18 13:13 Vital Signs Reviewed: Yes Diagnostics - Vital Signs Vital Signs Temp Pulse Resp BP Pulse Ox 05/28/18 13:13 98 F 63 16 153/94 98 - Laboratory Lab Results: Lab Results 05/28/18 Range/Units 13:34 WBC 12.8 H (3.5-10.8) 10^3/ul RBC 4.66 (4.00-5.40) 10^6/ul Hgb 13.4 (12.0-16.0) g/dl Hct 41 (35-47) % MCV 88 (80-97) fL MCH 29 (27-31) pg MCHC 33 (31-36) g/dl RDW 14 (10.5-15) % Plt Count 275 (150-450) 10^3/ul MPV 8.4 (7.4-10.4) um3 Neut % (Auto) 69.0 (38-83) % Lymph % (Auto) 22.4 L (25-47) % [place] % (Auto) 7.5 H (0-7) % Eos % (Auto) 0.9 (0-6) % Baso % (Auto) 0.2 (0-2) % Absolute Neuts (auto) 8.8 H (1.5-7.7) 10^3/ul Absolute Lymphs (auto) 2.9 (1.0-4.8) 10^3/ul Absolute Monos (auto) 1.0 H (0-0.8) 10^3/ul Absolute Eos (auto) 0.1 (0-0.6) 10^3/ul Absolute Basos (auto) 0 (0-0.2) 10^3/ul Absolute Nucleated RBC 0 10^3/ul Nucleated RBC % 0.1 Result Diagrams: 05/28/18 13:34 05/28/18 13:34 Lab Statement: Any lab studies that have been ordered have been reviewed, and results considered in the medical decision making process. - Ultrasound No standard instances Ultrasound Interpretation Completed By: Radiologist - Renal US: No hydronephrosis of the right kidney is noted. ED physician reviewed this radiology report. Course/Dx - Course Course Of Treatment: A 37 y/o female presents to ED c/o SI and HI induced by recent stress. Currently in the ED room, the patient seems agitated, frustrated and is not laying down on stretcher and is tearful. As per triage, "Pt comes in stressed out and says her father just yesterday and she is having hard issues with the step mother. Pt states she is unsure of SI but having thoughts of hurting the step-mom". According to the patient, she lost her father yesterday and her step-mother is trying to take "my home". Patient noted that she lives there and her father promised her the house after he past away. A Renal US revealed no hydronephrosis of the right kidney is noted. In the ED course, the patient received Nicotine Mouth Piece, Nicotine Inhaler and Zofran. After MHE, patient care was discussed with Dr. Mcintosh who recommends discharging patient. Patient will be discharged with a diagnosis of depression and grief reaction. Patient is to follow up with [facility] tomorrow. Patient is agreeable with this plan. - Differential Dx/Clinical Impression Provider Diagnosis: Depression, Grief reaction - Physician Notifications Discussed Care Of Patient With: Joseph Mcintosh Time Discussed With Above Provider: 20:15 Instructed by Provider To: Other - Recommends discharging patient. Discharge - Sign-Out/Discharge Documenting (check all that apply): Patient Departure - DISCHARGE - Discharge Plan Condition: Stable Disposition: HOME Patient Education Materials: Grief and Loss (ED), Depression (ED) Referrals: [facility] [Outside] - 1 Day (Please go tomorrow morning to have a walk-in intake appointment to try to establish services.) Kartik Francisco MD [Primary Care Provider] - Additional Instructions: RETURN TO ED FOR ANY NEW OR WORSENING SYMPTOMS.
[2018-05-28] MEDS ORDERED: Ondansetron ODT TAB* 4 MG PO ONE (14:03)
[2018-05-28 14:04] LABS: EGFR Non-African American 77.6 (>60)
[2018-05-28 14:26] LABS: Urine Appearance Cloudy; Urine Blood 1+ (Negative); Urine Color Yellow; Urine Ketones Negative (Negative); Urine Protein Negative (Negative); Urine Red Blood Cell 2+(6-10/hpf) (Absent); Urine Specific Gravity 1.021 (1.010-1.030); Urine Urobilinogen Negative (Negative); Urine White Blood Cell Trace(0-5/hpf) (Absent)
--- NOTE | 2018-05-28 14:45 | RAD ---
Indication: Right flank pain. Real-time sonography of the kidneys was performed. The right kidney measures 11.1 x 3.9 x 5.3 cm. No hydronephrosis is noted. IMPRESSION: No hydronephrosis of the right kidney is noted.
[2018-05-28] MEDS ORDERED: Mouth Piece, Nicotine* 1 EACH CARTRIDGE INH PRN (19:21)
[2018-05-28] MEDS ORDERED: Nicotine Inhaler* 10 MG AMP INH ONE (19:21)
[2018-05-28] MEDS ORDERED: Mouth Piece, Nicotine* 1 EACH CARTRIDGE ONE (19:25)
[2018-05-28 20:31] VITALS: BP 131/68
== END 2018-05-28 20:29 | disposition home or self-care (01) ==
LOC: ED 13:02
DX: F32.9 Major depressive disorder, single episode, unspecified (principal); F43.20 Adjustment disorder, unspecified; R11.10 Vomiting, unspecified; F17.210 Nicotine dependence, cigarettes, uncomplicated; Z88.5 Allergy status to narcotic agent; Z88.8 Allergy status to other drugs, medicaments and biological substances
CPT/HCPCS: 36415; 76775; 80053; 80307; 80320; 80329; 81003; 81015; 84443; 85025; 87086; 99285; A9270-GY; G0480

== ENCOUNTER 2018-05-31 19:34 | Inpatient (IN) | payer OTHER ==
--- NOTE | 2018-05-31 20:16 | ED ---
Altered Mental Status - HPI Summary HPI Summary: This is scribe Murray Delgado documenting for attending Kaveh Blanco MD. This patient is a 37 year old F presenting to [facility] with a chief complaint of SI and HI with a plan since 05/27/2018. She reports that her father on 02/2018, and her fathers has made it so she must vacate her own home in less than 30 days. Because of this, her HI is towards her fathers . Patient reports feeling tired, depressed, and having SIB (cutting herself). She was here on 05/28/2018 and given a MHE. Patient has a PMHx of SI and drug addiction. She last struggled with SI and drug addiction in 2012. Patient has not taken any medications today. I, Dr. Blanco, personally performed the services described in this documentation as scribed in my presence and it is both accurate and complete. - History Of Current Complaint Chief Complaint: EDMentalHealth Stated Complaint: MHE/SI Time Seen by Provider: 05/31/18 19:54 Hx Obtained From: Patient Hx Last Menstrual Period: HYSTERECTOMY Onset/Duration: Still Present - Since 05/27/2018 Associated Signs And Symptoms: Positive: Recently Depressed Has Suicidal: With A Plan Has Homicidal: With A Plan - Allergies/Home Medications Allergies/Adverse Reactions: Allergies Allergy/AdvReac Type Severity Reaction Status Date / Time buprenorphine [From Suboxone] Allergy Swelling Verified 05/25/18 15:08 cephalexin [From Keflex] Allergy Difficulty Verified 05/25/18 15:08 Breathing/Wheezing ketorolac [From Toradol] Allergy Hives/Diff. Verified 05/25/18 15:08 Breathing/I tching naloxone [From Suboxone] Allergy Swelling Verified 05/25/18 15:08 nitrofurantoin Allergy Difficulty Verified 05/25/18 15:08 [From Macrobid] Breathing tramadol [From Ultram] Allergy Rash Verified 05/25/18 15:08 trazodone Allergy Difficulty Verified 05/25/18 15:08 Breathing/Wheezing fluoxetine [From Prozac] AdvReac Hallucinati Verified 05/25/18 15:08 ons Home Medications: Home Medications NK [No Home Medications Reported] 05/31/18 [History Confirmed 05/31/18] PMH/Surg Hx/FS Hx/Imm Hx Endocrine/Hematology History: Reports: Hx Thyroid Disease - LUMP SHE IS SEEING SONYA FOR Denies: Hx Anticoagulant Therapy, Hx Diabetes Cardiovascular History: Reports: Hx Angina Denies: Hx Congestive Heart Failure, Hx Deep Vein Thrombosis, Hx Hypertension , Hx Myocardial Infarction, Hx Pacemaker/ICD Respiratory History: Reports: Hx Asthma Denies: Hx Chronic Obstructive Pulmonary Disease (COPD), Hx Lung Cancer GI History: Reports: Hx Gastroesophageal Reflux Disease - s/p Kathy Fundoplication, Other GI Disorders - gerd barretts esophagus Denies: Hx Gall Bladder Disease, Hx Gastrointestinal Bleed, Hx Ulcer, Hx Urosepsis History: Reports: Hx Kidney Stones - follows w/ urology, Other Problems/ Disorders - renal stones; uterine hysterectomy - ovaries still present Denies: Hx Renal Disease Musculoskeletal History: Reports: Hx Back Problems Denies: Hx Rheumatoid Arthritis, Hx Osteoporosis Sensory History: Denies: Hx Hearing Aid Neurological History: Reports: Other Neuro Impairments/Disorders - anxiety and depression Denies: Hx Dementia, Hx Headaches, Hx Migraine, Hx Seizures, Hx Transient Ischemic Attacks (TIA) Psychiatric History: Reports: Hx Anxiety, Hx Depression - She has been off meds x 2 years. She sees a therapist., Hx Substance Abuse - Narcotics,heroin,cocaine : sober since 05/03 Denies: Hx Eating Disorder, Hx Panic Disorder, Hx of Violent Episodes Against Others - Cancer History Cancer Type, Location and Year: Pre-cancer of espophagus-Tx with oral medication , Barretts Esophagus - RESOLVED WITH KATHY FUNDOPLICATION - Surgical History Surgery Procedure, Year, and Place: CHOLECYSTECTOMY, L5 DISC REMOVAL, APPENDECTOMY, TONSILLECTOMY, FULL FACIAL RECONSTRUCTION/LASER SURGERY RENAL STONE recent abd surgery 01/2014 - KATHY FUNDOPLICATION;Hysterectomy 01/11/15; Rt PINKY - AMPULATED TO [address] [place] [address] - Immunization History Date of Tetanus Vaccine: PT STATES UNSURE Date of Influenza Vaccine: NONE Infectious Disease History: No Infectious Disease History: Reports: Hx of Known/Suspected MRSA Denies: Hx Clostridium Difficile, Hx Hepatitis, Hx Human Immunodeficiency Virus (HIV), Hx Shingles, Hx Tuberculosis, History Other Infectious Disease, Traveled Outside the [place] in Last 30 Days - Family History Known Family History: Positive: Cardiac Disease, Hypertension, Diabetes, Other - kidney stones; mom - pancreatic CA - Social History Occupation: Unemployed Lives: With Family Alcohol Use: None Hx Substance Use: Yes Substance Use Type: Reports: Cocaine, Heroin Substance Use Comment - Amount & Last Used: "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 Hx Tobacco Use: Yes Smoking Status (MU): Current Every Day Smoker Type: Cigarettes Amount Used/How Often: 2 ppd Length of Time of Smoking/Using Tobacco: >20 years Have You Smoked in the Last Year: Yes Review of Systems Positive: Fatigue Positive: Depressed, Other - SIB, HI, SI All Other Systems Reviewed And Are Negative: Yes Physical Exam - Summary Physical Exam Summary: Appearance: Well-appearing, Well-nourished, lying in bed comfortable Skin: Warm, dry, no obvious rash Eyes: sclera anicteric, no conjunctival pallor ENT: mucous membranes moist Neck: deferred Respiratory: No signs of respiratory distress Cardiovascular: Appears well perfused, pulses are nml Abdomen: deferred Musculoskeletal: Moving all 4 extremities without obvious discomfort Neurological: Awake and alert, mentation is normal, speech is fluent and appropriate Psychiatric: affect is normal, does not appear anxious or depressed Triage Information Reviewed: Yes Vital Signs On Initial Exam: Initial Vitals Temp Pulse Resp BP Pulse Ox 98.3 F 79 16 149/100 97 05/31/18 19:39 05/31/18 19:39 05/31/18 19:39 05/31/18 19:39 05/31/18 19:39 Vital Signs Reviewed: Yes Diagnostics - Vital Signs Vital Signs Temp Pulse Resp BP Pulse Ox 05/31/18 19:39 98.3 F 79 16 149/100 97 - Laboratory Lab Statement: Any lab studies that have been ordered have been reviewed, and results considered in the medical decision making process. Altered Mental Statu Course/Dx - Course Assessment/Plan: 20:18 Patient has been cleared for MHE - Diagnoses Provider Diagnoses: Adjustment disorder Discharge - Sign-Out/Discharge Documenting (check all that apply): Patient Departure - Voluntary status admittance to Mike Capone MD - Discharge Plan Condition: Stable Disposition: [facility]ITTED TO [facility]
[2018-05-31 20:27] LABS: Urine Appearance Cloudy; Urine Blood 2+ (Negative); Urine Color Yellow; Urine Ketones Trace (Negative); Urine Protein Negative (Negative); Urine Red Blood Cell 2+(6-10/hpf) (Absent); Urine Specific Gravity 1.028 (1.010-1.030); Urine Urobilinogen Negative (Negative); Urine White Blood Cell Trace(0-5/hpf) (Absent)
[2018-05-31] MEDS ORDERED: hydrOXYzine HCL TAB* 50 MG PO ONE (22:38)
[2018-06-01] MEDS ORDERED: Al Hydrox/Mg Hydrox/Simet LIQ* 30 ML UDC PO PRN (00:13)
[2018-06-01] MEDS ORDERED: Albuterol HFA INHALER* 8 gm MDI INH PRN (00:14)
[2018-06-01] MEDS: Vitamin THERAPEUTIC TAB PO SCH (07:56)
[2018-06-01] MEDS ORDERED: Mouth Piece, Nicotine* 1 EACH CARTRIDGE ONE (09:03)
[2018-06-01] MEDS: Nicotine Inhaler* 10 MG AMP INH PRN ×3 (09:06→20:38)
[2018-06-01] MEDS: Nicotine GUM* 2 MG PO PRN ×2 (09:07→17:24)
[2018-06-01] MEDS: hydrOXYzine HCL TAB* 50 MG PO PRN ×2 (09:33→17:23)
--- NOTE | 2018-06-01 16:51 | HP ---
HISTORY AND PHYSICAL: DATE OF ADMISSION: 05/31/18. PROVIDER: Shannan Barger NP, in Psychiatry SUPERVISING PHYSICIAN: Mike Capone MD* (dictated by Shannan Barger NP). JUSTIFICATION FOR ADMISSION: The patient is in need of 24-hour supervision and care secondary to suicidal and homicidal ideation. 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 Anali has had many options of following up in the community at the [facility], but she has chosen not to do that consistently. Recently, her father on , she believes that her step-mother hastened his by giving him too much Morphine and not caring for his pressure ulcers. In the meantime, her father was in the hospice the entire time and was dying. Stressors include that she has been kicked out of the house and will not have a place to live in 30 days, that her car insurance is due for which she does not have any money, that her father is , her mother 16 years ago. She does worry about a lot of things. She is highly anxious. She is quite tense. She is incredibly irritable and she is not sleeping well. The rest of the day today she spent lying in her bed following our interview. PAST PSYCHIATRIC HISTORY: She was admitted once in 1999 to [facility]. She was admitted 2 different times here at [facility]. She is in the past has been seen at [facility]. She has plans for suicide. She has plans for homicide. She plans to kill her step-mother in at least 5 different ways including snapping her neck, running her over with the car, tying her to a tree and cutting her, scaring her so that she will have a heart attack. PAST MEDICAL HISTORY: Significant for many, many urinary tract infections. She visits the ED almost every month at times multiple times a month. FAMILY HISTORY: On her mom and dad's side, she said that mom and dad were not ill. She said her sister and aunts are all "nuts. We all have agoraphobia, my niece too." SUBSTANCE ABUSE: She smokes 3 packs of cigarettes a day. She does not drink alcohol anymore. 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 She is involved in AA. SOCIAL HISTORY: She just got . 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 She wants to be a CPS worker and is in [employer] [employer] for human services. She is taking 5 or 6 classes this semester. She has been sober 5 years. She stopped opiates, using heroin and snorting pills and using cocaine, because she saw people . She states she cut herself yesterday. REVIEW OF SYMPTOMS: The patient reports feeling fatigued. She denies shortness of breath, heat or cold intolerance, chest pain or abdominal pain. She denies neurological symptoms. She denies fevers or changes in weight. PHYSICAL EXAMINATION Vital Signs: Blood pressure is 102/56, temperature is 97.6, pulse 53, respirations 16, O2 sat 99%, blood pressure 126/67. LABORATORY DATA: As far as laboratory data, white blood cells are little high at 12.8, monocytes, absolute neutrophils and absolute monocytes are high. AST is low. ALT is normal. A1c is 5.4. Triglycerides are 121, cholesterol 152, LDL cholesterol 104, HDL cholesterol 24.1. Her urine has trace ketones, contains blood, and squamous epithelial cells are present. There is a presumptive positive for benzodiazepine because she bought them on the street and said "they even me out." MENTAL STATUS EXAM: Anali is a 37-year-old woman who appears older than her stated age. She is obese. She is wearing black outfit with yellow hospital socks. She has blonde hair pulled back in a ponytail. She is cooperative. She is irritable and her speech is normal rate, tone and volume. She appears to be dysphoric, but mostly because she is so furious with her step-mother. She has a full range of affect. She is not tearful. She is homicidal and suicidal at this time. She is not having hallucinations. Her insight is fair. Her judgement is poor. She is alert and oriented x3. DIAGNOSIS: Coello I: Anxiety disorder, NOS. Coello II: Antisocial personality disorder, and borderline personality disorder. IMPRESSION: This is a 37-year-old woman with poor impulse control, who has cut herself recently and is suicidal and homicidal in the wake of her father's on Monday. PLAN: The patient is admitted to the adult behavioral health unit and placed on q.15 minute checks for her own safety. She is encouraged to participate in supportive milieu, individual and group therapies. Estimated length of stay is 5 to 7 days. We will titrate medications efficacy and monitor for mood and thought content. Discharge planning will involve family involvement and her outpatient providers. SHANNAN BARGER, JORGE [id number]/CPS #: [id number] HEATHER
[2018-06-01] MEDS ORDERED: Mouth Piece, Nicotine* 1 EACH CARTRIDGE INH ONE (22:10)
[2018-06-02] MEDS: Vitamin THERAPEUTIC TAB PO SCH (08:39)
[2018-06-02] MEDS: hydrOXYzine HCL TAB* 50 MG PO PRN (08:39)
[2018-06-02] MEDS: Nicotine PATCH 21 MG/24 HR* PATCH TRANSDERM SCH (09:04)
[2018-06-02] MEDS: Nicotine Inhaler* 10 MG AMP INH PRN (09:06)
[2018-06-02] MEDS: hydrOXYzine HCL TAB* 25 MG PO PRN ×3 (13:50→21:35)
[2018-06-02] MEDS ORDERED: hydrOXYzine HCL TAB* 50 MG PO PRN (14:00)
[2018-06-02] MEDS ORDERED: Ibuprofen TAB* 400 MG PO PRN (14:44)
[2018-06-02] MEDS: Nicotine GUM* 2 MG PO PRN (18:15)
[2018-06-02] MEDS ORDERED: diPHENhydraMINE PO* 25 MG PO PRN (18:41)
--- NOTE | 2018-06-02 18:59 | PN ---
Subjective - Subjective Date of Service: 06/02/18 Service Type: 87409 Hosp care 15 min low complexity Subjective: Shelbie didn't offer any psychiatric complaints today but reports that she has severe insomnia for which she takes Benadryl with good response. Denies SI, HI, hallucinations or delusions. Objective - Appearance Appearance: Healthy Appearing, Obese Dysmorphic Features: No Hygiene: Normal Grooming: Fairly Well Kept - Behavior Psychomotor Activities: Normal Exhibits Abnormal Movement: No - Attitude and Relatedness Attitude and Relatedness: Appropriate Eye Contact: Good - Speech Quality: Unpressured Latencies: Normal Quantity: Appropriate - Mood Patient's Decription of Mood: "Fine" - Affect Observed Affect: Non-labile Affect Consistent with: Euthymia - Thought Process Patient's Thought Process: Coherent, Goal Directed Thought Content: No Passive Wish, No Suicidal Planning, No Homicidal Ideation, No Paranoid Ideation - Sensorium Experiencing Hallucinations: No, Sensorium is Clear Type of Hallucinations: Visual: No, Auditory: No, Command: No - Level of Consciousness Level of Consciousness: Alert Orientation: Yes Intact, Yes Orientated to Time, Yes Orientated to Place, Yes Orientated to Person - Impulse Control Impulse Control: Intact - Insight and Judgement Insight and Judgement: Poor - Group Participation Particating in Group Activities: Yes - Medication Management Medication Management Adherence: Yes Assessment - Assessment Merits Inpatient Hospitalization: For Immediate Safety, For Stabilization, For Discharge Planning Clinical Impression: Asymptomatic psychiatrically. Plan - Plan Treatment Plan: Name: SHELBIE HEREDIA Birthdate: 1980 [id number] Medications: Current Medications Acetaminophen (Tylenol Tab*) 650 mg PO Q4H PRN PRN Reason: PAIN or TEMP > 101 F Al Hydrox/Mg Hydrox/Simethicone (Maalox Plus*) 30 ml PO Q4H PRN PRN Reason: INDIGESTION Albuterol (Ventolin Hfa Inhaler*) 2 puff INH Q4H PRN PRN Reason: ASTHMA Diphenhydramine HCl (Benadryl Po*) 25 mg PO ONCE PRN PRN Reason: INSOMNIA Hydroxyzine HCl (Atarax Tab*) 25 mg PO Q4H PRN PRN Reason: ANXIETY Last Admin: 06/02/18 18:17 Dose: 25 mg Ibuprofen (Motrin Tab*) 400 mg PO Q6H PRN PRN Reason: PAIN Last Admin: 06/02/18 16:40 Dose: 400 mg Multivitamins (Theragran Tab*) 1 tab PO DAILY [facility] Last Admin: 06/02/18 08:39 Dose: 1 tab Nicotine (Nicotine Inhaler*) 10 mg INH Q2H PRN PRN Reason: CRAVING Last Admin: 06/02/18 09:06 Dose: 10 mg Nicotine (Nicotine Patch 21 Mg/24 Hr*) 1 patch TRANSDERM DAILY@0800 [facility] Last Admin: 06/02/18 09:04 Dose: 1 patch Nicotine Polacrilex (Nicotine Gum*) 2 mg PO Q2H PRN PRN Reason: CRAVING Last Admin: 06/02/18 18:15 Dose: 2 mg - Discharge Plan Discharge Plan: Outpatient Follow Up Outpatient Program: [facility]
[2018-06-03] MEDS: Nicotine PATCH 21 MG/24 HR* PATCH TRANSDERM SCH (08:13)
[2018-06-03] MEDS: hydrOXYzine HCL TAB* 25 MG PO PRN ×4 (08:14→21:14)
[2018-06-03] MEDS: Vitamin THERAPEUTIC TAB PO SCH (08:15)
[2018-06-03] MEDS: Nicotine GUM* 2 MG PO PRN (09:21)
[2018-06-03] MEDS: Nicotine Inhaler* 10 MG AMP INH PRN (12:52)
[2018-06-03] MEDS ORDERED: diPHENhydraMINE PO* 25 MG PO SCH (21:00)
[2018-06-04] MEDS: hydrOXYzine HCL TAB* 25 MG PO PRN (08:38)
[2018-06-04] MEDS: Nicotine GUM* 2 MG PO PRN ×2 (08:38→15:02)
[2018-06-04] MEDS: Vitamin THERAPEUTIC TAB PO SCH (08:38)
[2018-06-04] MEDS: Nicotine PATCH 21 MG/24 HR* PATCH TRANSDERM SCH (08:39)
[2018-06-04] MEDS: hydrOXYzine HCL TAB* 50 MG PO PRN ×3 (11:25→19:09)
--- NOTE | 2018-06-04 15:57 | PN ---
Subjective - Subjective Date of Service: 06/04/18 Service Type: [id number] Hosp care 25 min moderate complexity Subjective: Shelbie discusses her fury with her stepmother and her despair at having lost both parents. She is also frustrated to a nearly murderous level with other people in her life who are not living up to her standards of decency or humanity. She continues to worry about homelessness and her sometimes fleeting desire to use heroin again. She remains suicidal and homicidal and has spent time plotting both. Objective - Appearance Appearance: Obese Dysmorphic Features: No Hygiene: Normal Grooming: Fairly Well Kept - Behavior Psychomotor Activities: Normal Exhibits Abnormal Movement: No - Attitude and Relatedness Attitude and Relatedness: Irritable Eye Contact: Good - Speech Quality: Pressured Latencies: Normal Quantity: Appropriate - Mood Patient's Decription of Mood: "Angry" - Affect Observed Affect: Tense Affect Consistent with: Dysphoria - Thought Process Patient's Thought Process: Goal Directed Thought Content: Yes Passive Wish, Yes Suicidal Planning, Yes Homicidal Ideation, No Paranoid Ideation - Sensorium Experiencing Hallucinations: No, Sensorium is Clear Type of Hallucinations: Visual: No, Auditory: No, Command: No - Level of Consciousness Level of Consciousness: Alert Orientation: Yes Intact, Yes Orientated to Time, Yes Orientated to Place, Yes Orientated to Person - Impulse Control Impulse Control: Impaired - Insight and Judgement Insight and Judgement: Poor - Group Participation Particating in Group Activities: Yes - Medication Management Medication Management Adherence: Yes - Additional Observations Comments: Shelbie agreed today to take medications. She also stated that hydroxyzine was helpful, but not helpful enough. She is tired of feeling so angry. She agreed to therapy and possibly a pool table mechanic consult to discuss her grief and anger. Assessment - Assessment Merits Inpatient Hospitalization: For Immediate Safety, For Discharge Planning Clinical Impression: Shelbie demonstrates traits of both borderline and antisocial personality disorders. She continues to endorse violent thoughts toward others and herself. She is not assessed as being safe to discharge at this time due to her homicidal and suicidal thoughts. Plan - Plan Treatment Plan: Name: SHELBIE HEREDIA Birthdate: 1980 [id number] Continued Medication Management: Start Medication Medications: Current Medications Acetaminophen (Tylenol Tab*) 650 mg PO Q4H PRN PRN Reason: PAIN or TEMP > 101 F Al Hydrox/Mg Hydrox/Simethicone (Maalox Plus*) 30 ml PO Q4H PRN PRN Reason: INDIGESTION Albuterol (Ventolin Hfa Inhaler*) 2 puff INH Q4H PRN PRN Reason: ASTHMA Hydroxyzine HCl (Atarax Tab*) 50 mg PO Q4H PRN PRN Reason: ANXIETY Last Admin: 06/04/18 15:02 Dose: 50 mg Mirtazapine (Remeron Tab*) 15 mg PO BEDTIME [facility] Multivitamins (Theragran Tab*) 1 tab PO DAILY [facility] Last Admin: 06/04/18 08:38 Dose: 1 tab Nicotine (Nicotine Inhaler*) 10 mg INH Q2H PRN PRN Reason: CRAVING Last Admin: 06/03/18 12:52 Dose: 10 mg Nicotine (Nicotine Patch 21 Mg/24 Hr*) 1 patch TRANSDERM DAILY@0800 [facility] Last Admin: 06/04/18 08:39 Dose: 1 patch Nicotine Polacrilex (Nicotine Gum*) 2 mg PO Q2H PRN PRN Reason: CRAVING Last Admin: 06/04/18 15:02 Dose: 2 mg - Discharge Plan Discharge Plan: Outpatient Follow Up Outpatient Program: [facility] Additional Comments: Shelbie agreed to medication today in addition to the hydroxyzine that she was taking. Hydroxyzine was increased to 50 mg q4 hours. Mirtazepine 15 mg was started to address anxiety, depression, and sleep. The potential negatives were discussed and she agreed to try.
[2018-06-04] MEDS: Nicotine Inhaler* 10 MG AMP INH PRN (16:41)
[2018-06-04] MEDS: Acetaminophen TAB* 325 MG PO PRN (19:09)
[2018-06-04] MEDS: Mirtazapine TAB* 15 MG PO SCH (20:44)
[2018-06-05] MEDS: Nicotine PATCH 21 MG/24 HR* PATCH TRANSDERM SCH (08:29)
[2018-06-05] MEDS: Vitamin THERAPEUTIC TAB PO SCH (08:29)
[2018-06-05] MEDS: Nicotine Inhaler* 10 MG AMP INH PRN (08:30)
[2018-06-05] MEDS: hydrOXYzine HCL TAB* 50 MG PO PRN ×4 (08:32→20:45)
--- NOTE | 2018-06-05 11:47 | PN ---
Subjective - Subjective Date of Service: 06/05/18 Service Type: [id number] Hosp care 25 min moderate complexity Subjective: Shelbie discusses that she is still so angry with her stepmother that she would like to snap her neck. Part of this anger is related to feeling grief for her father. Part of it is related to Shelbie's perception that she is not getting what is financially hers. She feels like this is "my childhood home" and she needs to get "my mother's bertha glasses." Shelbie is unable to separate her fury and grief from her hunger to be financially better situated in light of her father's . She also is turning some of this anger inward and is considering harming herself. Objective - Appearance Appearance: Healthy Appearing, Obese Dysmorphic Features: No Hygiene: Normal Grooming: Fairly Well Kept - Behavior Psychomotor Activities: Normal Exhibits Abnormal Movement: No - Attitude and Relatedness Attitude and Relatedness: Irritable Eye Contact: Good - Speech Quality: Unpressured Latencies: Normal Quantity: Copious - Mood Patient's Decription of Mood: "Terrible" - Affect Observed Affect: Labile Affect Consistent with: Dysphoria - Thought Process Patient's Thought Process: Coherent, Tangential Thought Content: Yes Suicidal Planning, Yes Homicidal Ideation, No Passive Wish, No Paranoid Ideation - Sensorium Experiencing Hallucinations: No, Sensorium is Clear Type of Hallucinations: Visual: No, Auditory: No, Command: No - Level of Consciousness Level of Consciousness: Alert Orientation: Yes Intact, Yes Orientated to Time, Yes Orientated to Place, Yes Orientated to Person - Impulse Control Impulse Control: Impaired - Insight and Judgement Insight and Judgement: Fair - Group Participation Particating in Group Activities: Yes - Medication Management Medication Management Adherence: Yes - Additional Observations Comments: Shelbie agreed today to take medications. She also stated that hydroxyzine was helpful, but not helpful enough. She is tired of feeling so angry. She agreed to therapy and possibly a general assignment reporter consult to discuss her grief and anger. We increased hydroxyzine to 50 mg with good effect. We also started mirtazapine 15 mg QHS, which she states helped her sleep much better. She also reports that she is less depressed and anxious. Assessment - Assessment Merits Inpatient Hospitalization: For Immediate Safety, For Discharge Planning Clinical Impression: Shelbie demonstrates traits of both borderline and antisocial personality disorders. She continues to endorse violent thoughts toward others and herself. She is not assessed as being safe to discharge at this time due to her homicidal and suicidal thoughts. The suicidal thoughts are fading slightly, but she remains homicidal toward her stepmother. A SAFE Act was entered yesterday. Duty to warn is also an issue and the phone number of her step mother will be obtained. Plan - Plan Treatment Plan: Name: SHELBIE HEREDIA Birthdate: 1980 [id number] Medications: Current Medications Acetaminophen (Tylenol Tab*) 650 mg PO Q4H PRN PRN Reason: PAIN or TEMP > 101 F Last Admin: 06/04/18 19:09 Dose: 650 mg Al Hydrox/Mg Hydrox/Simethicone (Maalox Plus*) 30 ml PO Q4H PRN PRN Reason: INDIGESTION Albuterol (Ventolin Hfa Inhaler*) 2 puff INH Q4H PRN PRN Reason: ASTHMA Hydroxyzine HCl (Atarax Tab*) 50 mg PO Q4H PRN PRN Reason: ANXIETY Last Admin: 06/05/18 08:32 Dose: 50 mg Mirtazapine (Remeron Tab*) 15 mg PO BEDTIME [facility] Last Admin: 06/04/18 20:44 Dose: 15 mg Multivitamins (Theragran Tab*) 1 tab PO DAILY [facility] Last Admin: 06/05/18 08:29 Dose: 1 tab Nicotine (Nicotine Inhaler*) 10 mg INH Q2H PRN PRN Reason: CRAVING Last Admin: 06/05/18 08:30 Dose: 10 mg Nicotine (Nicotine Patch 21 Mg/24 Hr*) 1 patch TRANSDERM DAILY@0800 [facility] Last Admin: 06/05/18 08:29 Dose: 1 patch Nicotine Polacrilex (Nicotine Gum*) 2 mg PO Q2H PRN PRN Reason: CRAVING Last Admin: 06/04/18 15:02 Dose: 2 mg - Discharge Plan Discharge Plan: Outpatient Follow Up Outpatient Program: [facility] Additional Comments: Shelbie agreed to medication today in addition to the hydroxyzine that she was taking. Hydroxyzine was increased to 50 mg q4 hours. Mirtazepine 15 mg was started to address anxiety, depression, and sleep. Her windows and doors installer is coming on Monday or . More discussion will take place regarding the role of anger in grief.
[2018-06-05] MEDS: Mirtazapine TAB* 15 MG PO SCH (20:44)
[2018-06-05] MEDS: Acetaminophen TAB* 325 MG PO PRN (20:44)
[2018-06-06] MEDS: Vitamin THERAPEUTIC TAB PO SCH (08:42)
[2018-06-06] MEDS: Nicotine PATCH 21 MG/24 HR* PATCH TRANSDERM SCH (08:42)
[2018-06-06] MEDS: hydrOXYzine HCL TAB* 50 MG PO PRN ×3 (08:45→21:27)
[2018-06-06] MEDS: Nicotine Inhaler* 10 MG AMP INH PRN (13:39)
--- NOTE | 2018-06-06 16:22 | PN ---
Subjective - Subjective Date of Service: 06/06/18 Service Type: [id number] Hosp care 25 min moderate complexity Subjective: Shelbie had an epiphany last night. She determined that she is not homicidal any longer because she realized that she gets angry with every woman who marries into the family. Essentially, the women who in take the place that Shelbie held as caregiver and Shelbie resents this. Shelbie speaks with lightness and energy when describing this and details her plans to finish this semester of school and live with a friend and then move to [place] to start life again. When Shelbie's of less than a month comes for visiting hour, he states he would rather she stay a while longer so that he will be more comfortable and convinced of this change. While they have this discussion, there is a significant amount of dysfunctional interchange that may have been the for the benefit of Orly Mckeon and for me. Although we had considered sending her home today, the incendiary power of her anger and the uncertainty of her left us with the better choice of retaining her for at least half a day. Objective - Appearance Appearance: Well Developed/Nourished, Obese Dysmorphic Features: No Hygiene: Normal Grooming: Well Kept - Behavior Psychomotor Activities: Normal Exhibits Abnormal Movement: No - Attitude and Relatedness Attitude and Relatedness: Irritable Eye Contact: Fair - Speech Quality: Pressured Latencies: Normal Quantity: Copious - Mood Patient's Decription of Mood: "Upset" - Affect Observed Affect: Labile Affect Consistent with: Dysphoria - Thought Process Patient's Thought Process: Coherent Thought Content: No Passive Wish, No Suicidal Planning, No Homicidal Ideation, No Paranoid Ideation - Sensorium Experiencing Hallucinations: No, Sensorium is Clear Type of Hallucinations: Visual: No, Auditory: No, Command: No - Level of Consciousness Level of Consciousness: Agitated Orientation: Yes Intact, Yes Orientated to Time, Yes Orientated to Place, Yes Orientated to Person - Impulse Control Impulse Control: Tenuous - Insight and Judgement Insight and Judgement: Fair - Group Participation Particating in Group Activities: Yes - Medication Management Medication Management Adherence: Yes - Additional Observations Comments: Shelbie agreed to take medications. She also stated that hydroxyzine was helpful, but not helpful enough. She is tired of feeling so angry. She agreed to therapy and possibly a teacher of the visually impaired consult to discuss her grief and anger. We increased hydroxyzine to 50 mg with good effect. We also started mirtazapine 15 mg QHS, which she states helped her sleep much better. She also reports that she is less depressed and anxious. She appears to easily become angered and from there becomes accusatory. Assessment - Assessment Merits Inpatient Hospitalization: For Immediate Safety, For Discharge Planning, Pending Safe DC Plan Clinical Impression: Shelbie demonstrates traits of both borderline and antisocial personality disorders. A SAFE Act was entered yesterday. Duty to warn is also an issue and the phone number of her step mother was obtained ([phone]; Heike michi Zhoumaurizio Herrera ). I spoke with her at 1500 today (06/06/18). Heike was not surprised to hear from me and only wanted to know when she would be discharged so that they could arrange when she would get her belongings. Shelbie reports no longer being homicidal or suicidal. Plan - Plan Treatment Plan: Name: SHELBIE HEREDIA Birthdate: 1980 [id number] Medications: Current Medications Acetaminophen (Tylenol Tab*) 650 mg PO Q4H PRN PRN Reason: PAIN or TEMP > 101 F Last Admin: 06/05/18 20:44 Dose: 650 mg Al Hydrox/Mg Hydrox/Simethicone (Maalox Plus*) 30 ml PO Q4H PRN PRN Reason: INDIGESTION Albuterol (Ventolin Hfa Inhaler*) 2 puff INH Q4H PRN PRN Reason: ASTHMA Hydroxyzine HCl (Atarax Tab*) 50 mg PO Q4H PRN PRN Reason: ANXIETY Last Admin: 06/06/18 13:39 Dose: 50 mg Mirtazapine (Remeron Tab*) 15 mg PO BEDTIME [facility] Last Admin: 06/05/18 20:44 Dose: 15 mg Multivitamins (Theragran Tab*) 1 tab PO DAILY [facility] Last Admin: 06/06/18 08:42 Dose: 1 tab Nicotine (Nicotine Inhaler*) 10 mg INH Q2H PRN PRN Reason: CRAVING Last Admin: 06/06/18 13:39 Dose: 10 mg Nicotine (Nicotine Patch 21 Mg/24 Hr*) 1 patch TRANSDERM DAILY@0800 [facility] Last Admin: 06/06/18 08:42 Dose: 1 patch Nicotine Polacrilex (Nicotine Gum*) 2 mg PO Q2H PRN PRN Reason: CRAVING Last Admin: 06/04/18 15:02 Dose: 2 mg - Discharge Plan Discharge Plan: Outpatient Follow Up Additional Comments: Shelbie agreed to medication today in addition to the hydroxyzine that she was taking. Hydroxyzine was increased to 50 mg q4 hours. Mirtazepine 15 mg was started to address anxiety, depression, and sleep. Her retail sales teammate is coming on Monday or . She will be discharged tomorrow.
[2018-06-06] MEDS: Mirtazapine TAB* 15 MG PO SCH (21:26)
[2018-06-06] MEDS: Acetaminophen TAB* 325 MG PO PRN (21:26)
[2018-06-07] MEDS: Nicotine PATCH 21 MG/24 HR* PATCH TRANSDERM SCH (08:34)
[2018-06-07] MEDS: Vitamin THERAPEUTIC TAB PO SCH (08:34)
[2018-06-07] MEDS: hydrOXYzine HCL TAB* 50 MG PO PRN (08:34)
[2018-06-07 09:12] VITALS: BP 131/42
[2018-06-07] MEDS: Nicotine GUM* 2 MG PO PRN (11:05)
[2018-06-07] MEDS: Nicotine Inhaler* 10 MG AMP INH PRN (11:05)
--- NOTE | 2018-06-07 11:46 | PN ---
[facility]: Group Therapy Note - Service Type Service Type: 10403 Group Psychotherapy - Cognitive Behavioral Group Therapy ( CBT):Patient was attentive and participatory in CBT programming this morning, and remained in good behavioral control. Patient expressed positive insights regarding relevant treatment interventions and goals.
--- NOTE | 2018-06-08 17:56 | DS ---
CC: [facility] * DISCHARGE SUMMARY: DATE OF ADMISSION: 05/31/18 DATE OF DISCHARGE: 06/08/18 PROVIDER: Shannan Barger NP in Psychiatry. 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 Mcdougal II: Borderline personality disorder. CONDITION AT THE TIME OF DISCHARGE: Improved. Psychiatrically cleared. Stable. She participated in groups and was social with peers. Her is now agreeable to discharge, although he did want to wait, so we waited an extra day. She has done well here psychiatrically. She tolerated her new medications well and she will attend [facility]. MENTAL STATUS EXAM: At the time of discharge, Anali is calm, cooperative and makes good eye contact. She is alert and oriented x3. Grooming is good. Speech pace is slightly rapid. Thought processes are logical. She is not psychotic or delusional. She denies AH, VH, SI and HI. Her insight is fair. Her judgement is good. She is willing to follow up and she is urged to see a therapist. DISCHARGE INSTRUCTIONS TO THE PATIENT: A. Medications: Anali is discharged on, 1. Albuterol 2 puffs q. 4 hours p.r.n. asthma. 2. Hydroxyzine 50 mg q. 4 hours p.r.n. anxiety. 3. Mirtazapine 15 mg p.o. at bedtime. B. Diet: Regular. C. Activities: As tolerated. Anali is a smoker. She has decided to refuse referral to the [facility] Smokers' Quitline. If she decides to access the service in the future, she can contact the Quitline at [phone]. There are no studies pending at the time of discharge. D. Followup care: She has appointments with [facility] to see a therapist and then a prescriber. E. Substance abuse followup: Not indicated as Anali states she has been cleaned from drugs for 5 years. It should be noted that she did take benzodiazepines that she bought off the street because they "even her out." She did not advocate for them except for the first day during her inpatient stay. HOSPITAL COURSE: A. Chief Complaint: "I buried my dad yesterday. I think my stepmom killed him." The patient is a 37-year-old female with a history of axis II cluster B traits and anxiety who arrives, brought in by car on a voluntary status after threatening to snap the neck of her stepmother and if she does not do that to kill herself. Anali has had many options of following up in the community at [facility] but she has chosen not to do that consistently. Recently her father on 05/27/18. She believes that her step-mother hastened his by giving him too much morphine and not caring for his pressure ulcers. In the meantime, her father was in the hospice the entire time and was dying. Stressors include that she has been kicked out of the house and will not have a place to live in 30 days and her car insurance is due for which she does not have any money that her father is . Her mother 16 years ago. She does worry about things a lot of those a lot of time. She is highly anxious. She is quite tense. She is incredibly irritable and she is not sleeping well. Rest of the day today she spent lying in bed following our interview. B. Psychiatric treatment was rendered: Anali was admitted to the adult behavioral unit and placed on 15-minute checks for safety. She did well in the unit and went to groups. She interacted with peers well. She tolerated the medication starts of hydroxyzine and mirtazapine. We anticipated discharging her a day before her eventual discharge, but her had concerns about her level of anger and we did keep her a day longer to help her calm down. So, we met with him; a Osteopathy Doctor consult was entered to help her with her grief. She has improved and her anger is more under control. Her anxiety is better controlled by hydroxyzine. Her sleep has improved with mirtazapine and she reports she feels stabilized by the mirtazapine. SHANNAN BARGER, JORGE [id number]/[facility] #: [id number] HEATHER
== END 2018-06-07 12:35 | disposition home or self-care (01) | DRG 755 ==
LOC: ED 19:34 → BSU 22:10
PROVIDERS: ADMIT Psychiatry & Neurology Psychiatry; ATTEND Psychiatry & Neurology Psychiatry
PROC: GZHZZZZ Group Psychotherapy (ICD-10-PCS; principal; 2018-06-07)
DX: F43.25 Adjustment disorder with mixed disturbance of emotions and conduct (principal); R45.851 Suicidal ideations; F60.3 Borderline personality disorder; F41.9 Anxiety disorder, unspecified; R45.850 Homicidal ideations; F17.210 Nicotine dependence, cigarettes, uncomplicated; J45.909 Unspecified asthma, uncomplicated; E66.9 Obesity, unspecified; K21.9 Gastro-esophageal reflux disease without esophagitis; F32.9 Major depressive disorder, single episode, unspecified; Z82.49 Family history of ischemic heart disease and other diseases of the circulatory system; Z83.3 Family history of diabetes mellitus; Z87.440 Personal history of urinary (tract) infections; Z81.8 Family history of other mental and behavioral disorders; Z87.442 Personal history of urinary calculi; Z90.710 Acquired absence of both cervix and uterus; Z80.0 Family history of malignant neoplasm of digestive organs; Z84.1 Family history of disorders of kidney and ureter; Z56.0 Unemployment, unspecified; Z68.37 Body mass index [BMI] 37.0-37.9, adult
CPT/HCPCS: 36415; 80061; 80307; 81003; 81015; 83036; 87086; 99222; 99231; 99232; 99238; 99285; A9270-GY

== ENCOUNTER 2018-06-17 17:41 | Emergency (ER) | payer OTHER ==
[2018-06-17] MEDS ORDERED: Ondansetron ODT TAB* 4 MG SL ONE (19:46)
[2018-06-17] MEDS ORDERED: NS 0.9% 1000 ML* 1,000 ML IV ONE (20:07)
[2018-06-17] MEDS ORDERED: Morphine INJ* 2 MG/ML 1 ML SYRINGE (TWO MG - NEW SYRINGE VERSION) IV ONE (20:07)
[2018-06-17] MEDS ORDERED: Ondansetron INJ* 2 MG/ML VIAL IV ONE (20:07)
--- NOTE | 2018-06-17 20:40 | ED ---
Abdominal Pain/Female - HPI Summary HPI Summary: A 37 y/o female accompanied by a friend presents to ED c/o right flank abdominal pain reaching 9/10 in severity. In the ED room, the patient has a pulse of 64 BPM, O2 saturation of 97% and blood pressure of 11/64. As per triage , pt has had flank pain for 3 days then developed n/v and painful urination". According to the patient, she has been experiencing right flank abdominal pain for the past 3 days. She noted that the pain is intermittent. She denies any hematuria, but she does have a burning sensation with vaginal smell. As per friend, the patient has been in an out [place] [facility] for past 2 months, coming in every 2 weeks. No CAT scan was done in previous visits, did have US. PMHx of kidney stones, appendicitis and cholecystectomy. SHx of smoking, no ETOH. - History of Current Complaint Chief Complaint: EDFlankPain Stated Complaint: VOMITING/ABD PAIN Time Seen by Provider: 06/17/18 19:52 Hx Obtained From: Patient Hx Last Menstrual Period: HYSTERECTOMY Onset/Duration: Sudden Onset, Lasting Days, Still Present Timing: Intermittent Episode Lasting Severity Initially: Severe Severity Currently: Severe Pain Intensity: 9 Pain Scale Used: 0-10 Numeric Location: Flank - Right Radiates: No Aggravating Factor(s): Nothing Alleviating Factor(s): Nothing Associated Signs and Symptoms: Positive: Nausea, Vomiting. Negative: Fever Allergies/Adverse Reactions: Allergies Allergy/AdvReac Type Severity Reaction Status Date / Time buprenorphine [From Suboxone] Allergy Swelling Verified 06/17/18 18:07 cephalexin [From Keflex] Allergy Difficulty Verified 06/17/18 18:07 Breathing/Wheezing ketorolac [From Toradol] Allergy Hives/Diff. Verified 06/17/18 18:07 Breathing/I tching naloxone [From Suboxone] Allergy Swelling Verified 06/17/18 18:07 nitrofurantoin Allergy Difficulty Verified 06/17/18 18:07 [From Macrobid] Breathing tramadol [From Ultram] Allergy Rash Verified 06/17/18 18:07 trazodone Allergy Difficulty Verified 06/17/18 18:07 Breathing/Wheezing fluoxetine [From Prozac] AdvReac Hallucinati Verified 06/17/18 18:07 ons PMH/Surg Hx/FS Hx/Imm Hx Endocrine/Hematology History: Reports: Hx Thyroid Disease - LUMP SHE IS SEEING SONYA FOR, Hx Anemia Denies: Hx Anticoagulant Therapy, Hx Diabetes Cardiovascular History: Reports: Hx Angina Denies: Hx Congestive Heart Failure, Hx Deep Vein Thrombosis, Hx Hypertension , Hx Myocardial Infarction, Hx Pacemaker/ICD Respiratory History: Reports: Hx Asthma Denies: Hx Chronic Obstructive Pulmonary Disease (COPD), Hx Lung Cancer GI History: Reports: Hx Gastroesophageal Reflux Disease - s/p Kathy Fundoplication, Hx Hiatal Hernia, Other GI Disorders - gerd barretts esophagus Denies: Hx Gall Bladder Disease, Hx Gastrointestinal Bleed, Hx Ulcer, Hx Urosepsis History: Reports: Hx Kidney Stones, Other Problems/Disorders - renal stones Denies: Hx Renal Disease Musculoskeletal History: Reports: Hx Back Problems Denies: Hx Rheumatoid Arthritis, Hx Osteoporosis Sensory History: Denies: Hx Contacts or Glasses, Hx Hearing Aid Opthamlomology History: Denies: Hx Contacts or Glasses Neurological History: Reports: Other Neuro Impairments/Disorders - anxiety and depression Denies: Hx Dementia, Hx Headaches, Hx Migraine, Hx Seizures, Hx Transient Ischemic Attacks (TIA) Psychiatric History: Reports: Hx Anxiety, Hx Depression - She has been off meds x 2 years. She sees a therapist., Hx Inpatient Treatment, Hx Community Mental Health Tx, Hx Bipolar Disorder, Hx Substance Abuse - Narcotics,heroin,cocaine: sober since 05/03 Denies: Hx Eating Disorder, Hx Panic Disorder, Hx of Violent Episodes Against Others - Cancer History Cancer Type, Location and Year: Pre-cancer of espophagus-Tx with oral medication , Barretts Esophagus - RESOLVED WITH KATHY FUNDOPLICATION - Surgical History Surgery Procedure, Year, and Place: CHOLECYSTECTOMY, L5 DISC REMOVAL, APPENDECTOMY, TONSILLECTOMY, FULL FACIAL RECONSTRUCTION/LASER SURGERY RENAL STONE recent abd surgery 01/2014 - KATHY FUNDOPLICATION;Hysterectomy 01/11/15; Rt PINKY - AMPULATED TO [address] [place] [address] - Immunization History Date of Tetanus Vaccine: PT STATES UNSURE Date of Influenza Vaccine: NONE Infectious Disease History: No Infectious Disease History: Reports: Hx of Known/Suspected MRSA Denies: Hx Clostridium Difficile, Hx Hepatitis, Hx Human Immunodeficiency Virus (HIV), Hx Shingles, Hx Tuberculosis, History Other Infectious Disease, Traveled Outside the [place] in Last 30 Days - Family History Known Family History: Positive: Cardiac Disease, Hypertension, Diabetes, Other - kidney stones; mom - pancreatic CA - Social History Alcohol Use: Rare Hx Substance Use: Yes Substance Use Type: Reports: Cocaine, Heroin Substance Use Comment - Amount & Last Used: "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 Hx Tobacco Use: Yes Smoking Status (MU): Heavy Every Day Tobacco Smoker Type: Cigarettes Amount Used/How Often: 2 ppd Length of Time of Smoking/Using Tobacco: >20 years Have You Smoked in the Last Year: Yes Review of Systems Negative: Fever Positive: Abdominal Pain, Vomiting, Nausea Genitourinary: Other - POSITIVE: Vaginal odor Positive: burning. Negative: hematuria All Other Systems Reviewed And Are Negative: Yes Physical Exam - Summary Physical Exam Summary: Appearance: Well appearing, no pain distress Skin: warm, dry, reflects adequate perfusion Head/face: normal Eyes: EOMI, DOMINGO ENT: normal Neck: supple, non-tender Respiratory: CTA, breath sounds present Cardiovascular: RRR, pulses symmetrical Abdomen: tenderness in right flank, soft Bowel: present Musculoskeletal: normal, strength/ROM intact Neuro: normal, sensory motor intact, A&Ox3 Triage Information Reviewed: Yes Vital Signs On Initial Exam: Initial Vitals Temp Pulse Resp BP Pulse Ox 98 F 75 18 135/83 98 06/17/18 18:08 06/17/18 18:08 06/17/18 18:08 06/17/18 18:08 06/17/18 18:08 Vital Signs Reviewed: Yes Diagnostics - Vital Signs Vital Signs Temp Pulse Resp BP Pulse Ox 06/17/18 18:08 98 F 75 18 135/83 98 - Laboratory Result Diagrams: 06/17/18 19:46 06/17/18 19:46 Lab Statement: Any lab studies that have been ordered have been reviewed, and results considered in the medical decision making process. Abdominal Pain Fem Course/Dx - Course Course Of Treatment: A 37 y/o female accompanied by a friend presents to ED c/o right flank abdominal pain reaching 9/10 in severity. According to the patient, she has been experiencing right flank abdominal pain for the past 3 days. She noted that the pain is intermittent. She denies any hematuria, but she does have a burning sensation with vaginal smell. Blood work was done. In the ED course, the patient received Morphine, Zofran and IV fluids. Patient will be signed out to Dr. Kaveh Blanco, awaiting CT/AP, pending disposition at 2200 on 06/17/2018. - Diagnoses Provider Diagnoses: Abdominal pain Discharge - Sign-Out/Discharge Documenting (check all that apply): Sign-Out Patient Signing out patient TO: Kaveh Blanco Receiving patient FROM: Christofer Abraham - Discharge Plan Condition: Stable Referrals: Kartik Francisco MD [Primary Care Provider] - - Billing Disposition and Condition Condition: STABLE - Attestation Statements Document Initiated by Scribe: Yes Documenting Scribe: Casey Martinez Provider For Whom Paco is Documenting (Include Credential): Christofer Abraham MD Scribe Attestation: Casey Charles, scribed for Christofer Abraham MD on 06/17/18 at 2142. Scribe Documentation Reviewed: Yes Provider Attestation: The documentation as recorded by the Casey orozco accurately reflects the service I personally performed and the decisions made by , Christofer Abraham MD
[2018-06-17 20:46] LABS: ABS Basophils 0.1 10^3/ul (0-0.2); ABS Eosinophils 0.1 10^3/ul (0-0.6); ABS Lymphocytes 3.3 10^3/ul (1.0-4.8); ABS Neutrophils 7.6 10^3/ul (1.5-7.7); ABS Nucleated RBC 0 10^3/ul; Eosinophil % 1.2 % (0-6); Hematocrit 36 % (35-47); Hemoglobin 12.4 g/dl (12.0-16.0); Mean Corpuscular HGB Conc 34 g/dl (31-36); Mean Corpuscular Hemoglobin 30 pg (27-31); Mean Corpuscular Volume 87 fL (80-97); Mean Platelet Volume 7.9 um3 (7.4-10.4); Nucleated Red Blood Cells % 0; Platelet Count 289 10^3/ul (150-450); Red Blood Count 4.19 10^6/ul (4.00-5.40); Red Cell Distribution Width 14 % (10.5-15); White Blood Count 12.1 10^3/ul (3.5-10.8)
[2018-06-17 21:02] LABS: EGFR Non-African American 73.5 (>60)
--- NOTE | 2018-06-17 22:17 | ED ---
Progress - Progress Note Progress Note: Pending CT A/P - Results/Orders Results/Orders: CT A/P:No acute abnormality involving the abdomen or pelvis. 3.1 cm enhancing posterior right hepatic mass. Recommend follow-up abdominal CT or MR in 6 months for patients with low risk of malignancy, multiphasic MR for average risk patients and core biopsy for high risk patients. Dr. Blanco has reviewed this report. Re-Evaluation - Re-Evaluation First Eval Re-Evaluation Time: 23:47 Change: Unchanged Comment: This is a 37-year-old woman with a significant history of mental health problems as well as urinary tract infections. She came to the ED today thinking she had a UTI based on dysuria. Her urinalysis shows just red blood cells. A CT scan was ordered by the disposition. That is notable for a approximately 3 cm enhancing mass in the right lobe of the liver. I have gone over prior scans, and this finding was not commented on by the radiologist. However the most recent scan I am able to see what appears to be this lesion. It appears to have increased somewhat in size, although it is so faint on the prior scan that is difficult to be certain. In any event, I explained all this to the patient and asked her to speak with her primary care doctor for a referral to a liver specialist. They may wish to have this lesion biopsied. I can't imagine that it is causing her pain however. Despite the lack of pyuria on her urinalysis, I am putting her on antibiotics pending urine culture results mainly based on her symptom otology. Course/Dx - Course Course Of Treatment: A 37 y/o female accompanied by a friend presents to ED c/o right flank abdominal pain reaching 9/10 in severity. According to the patient, she has been experiencing right flank abdominal pain for the past 3 days. She noted that the pain is intermittent. She denies any hematuria, but she does have a burning sensation with vaginal smell. Blood work was done. In the ED course, the patient received Morphine, Zofran and IV fluids. Patient will be signed out to Dr. Kaveh Blanco, awaiting CT/AP, pending disposition at 2200 on 06/17/2018. - Diagnoses Provider Diagnoses: Abdominal pain Discharge - Sign-Out/Discharge Documenting (check all that apply): Receiving Sign-Out Signing out patient TO: Kaveh Blanco Receiving patient FROM: Christofer Abraham - Discharge Plan Condition: Stable Prescriptions: Sulfamethox/Trimethoprim DS* [Bactrim DS 800/160 TAB*] 1 tab PO BID #14 tab Patient Education Materials: Urinary Tract Infection in Women (ED) Referrals: Kartik Francisco MD [Primary Care Provider] - Additional Instructions: Your CT scan shows a lesion on the liver that will need followup. Your PCP should arrange a referral to a liver/GI specialist for consideration of biopsy of this, vs perhaps an MR study of some sort. That decision is best made by a specialist. Based on your symptoms, I have prescribed an antibiotic for suspected UTI, but if the culture turns up negative you can stop the antibiotic - Attestation Statements Document Initiated by Paco: Yes Documenting Scribe: Shoaib Montero Provider For Whom Paco is Documenting (Include Credential): Dr. Kaveh Blanco MD Scribe Attestation: I, Shoaib Montero, scribed for Dr. Kaveh Blanco MD on 06/17/18 at 2411.
[2018-06-17 22:21] LABS: Urine Appearance Cloudy; Urine Blood 2+ (Negative); Urine Color Yellow; Urine Ketones Negative (Negative); Urine Protein Negative (Negative); Urine Red Blood Cell 1+(3-5/hpf) (Absent); Urine Specific Gravity 1.026 (1.010-1.030); Urine Urobilinogen Negative (Negative); Urine White Blood Cell Trace(0-5/hpf) (Absent)
[2018-06-17] MEDS ORDERED: Iodixanol* (CONTRAST) 320 MG/ML 100 ML SDV IV ONE (22:21)
[2018-06-17] MEDS ORDERED: Morphine VIAL* 4 MG/ML VIAL (1 ml vial) IV ONE (23:25)
--- NOTE | 2018-06-17 23:32 | RAD ---
EXAM: CT Abdomen and Pelvis With Intravenous Contrast EXAM DATE/TIME: 06/17/2018 10:26 PM CLINICAL HISTORY: 37 years old, female; Pain; Abdominal pain; Flank; Right; Prior surgery; Surgery date: 6+ months; Surgery type: Appy, choley; Additional info: Abd pain/diverticulitis TECHNIQUE: Axial computed tomography images of the abdomen and pelvis with intravenous contrast. All CT scans at this facility use at least one of these dose optimization techniques: automated exposure control; mA and/or kV adjustment per patient size (includes targeted exams where dose is matched to clinical indication); or iterative reconstruction. Coronal and sagittal reformatted images were created and reviewed. CONTRAST: 130 mL of QLQO520 administered intravenously. COMPARISON: A/P WO CT ABD/PEL W/O 05/14/2018 10:47 PM FINDINGS: Lung bases: Unremarkable. No mass. No consolidation. Mediastinum: Moderate hiatal hernia. ABDOMEN: Liver: Enhancing posterior right hepatic mass measuring 3.1 cm Hepatomegaly measuring 21 cm. Gallbladder and bile ducts: Previous cholecystectomy. No ductal dilation. Pancreas: Unremarkable. No mass. No ductal dilation. Spleen: Unremarkable. No splenomegaly. Adrenals: Unremarkable. No mass. Kidneys and ureters: Unremarkable. No solid mass. No hydronephrosis. Stomach and bowel: Unremarkable. No obstruction. No mucosal thickening. PELVIS: Appendix: Suspect previous appendectomy. Bladder: Urinary bladder is underdistended. Reproductive: Previous hysterectomy. ABDOMEN and PELVIS: Intraperitoneal space: Unremarkable. No free air. No significant fluid collection. Bones/joints: Degenerative changes at L5-S1 No acute fracture. No dislocation. Soft tissues: Unremarkable. Vasculature: Several phleboliths within the pelvis. Mild vascular calcification. No abdominal aortic aneurysm. Lymph nodes: Unremarkable. No enlarged lymph nodes. IMPRESSION: No acute abnormality involving the abdomen or pelvis. 3.1 cm enhancing posterior right hepatic mass. Recommend follow-up abdominal CT or MR in 6 months for patients with low risk of malignancy, multiphasic MR for average risk patients and core biopsy for high risk patients. Nonemergent findings as above.
[2018-06-18 00:26] VITALS: BP 124/74
[2018-06-18] MEDS ORDERED: Morphine INJ* 2 MG/ML 1 ML SYRINGE (TWO MG - NEW SYRINGE VERSION) IV ONE (01:00)
== END 2018-06-18 00:23 | disposition home or self-care (01) ==
LOC: ED 17:41
DX: R10.9 Unspecified abdominal pain (principal); R11.2 Nausea with vomiting, unspecified; R30.9 Painful micturition, unspecified; R16.0 Hepatomegaly, not elsewhere classified; Z88.1 Allergy status to other antibiotic agents; Z88.5 Allergy status to narcotic agent; Z88.8 Allergy status to other drugs, medicaments and biological substances; F17.210 Nicotine dependence, cigarettes, uncomplicated
CPT/HCPCS: 36415; 74177; 80048; 80076; 81003; 81015; 83690; 84702; 85025; 87086; 96374; 96375; 96376; 99283; A9270-GY; J2270; J2405; Q9967

== ENCOUNTER 2018-06-24 16:10 | Emergency (ER) | payer OTHER ==
[2018-06-24 16:31] VITALS: BP 124/77
--- NOTE | 2018-06-24 16:45 | UC ---
Skin Complaint HPI - HPI Summary HPI Summary: raised itchy red rash hands feet and upper left arm--has been present for a couple of days--partner does not have any similar symptoms, no systemic complaints - History of Current Complaint Chief Complaint: UCSkin Time Seen by Provider: 06/24/18 16:43 Stated Complaint: RASH Hx Obtained From: Patient Hx Last Menstrual Period: hyster ?: No Onset/Duration: Sudden Onset, Lasting Days - 2, Still Present Timing: Constant Pain Intensity: 0 Location: Diffuse Character: Pruritus, Redness, Raised Aggravating Factor(s): Nothing Alleviating Factor(s): Nothing Associated Signs & Symptoms: Positive: Rash - Allergy/Home Medications Allergies/Adverse Reactions: Allergies Allergy/AdvReac Type Severity Reaction Status Date / Time buprenorphine [From Suboxone] Allergy Swelling Verified 06/24/18 16:24 cephalexin [From Keflex] Allergy Difficulty Verified 06/24/18 16:24 Breathing/Wheezing ketorolac [From Toradol] Allergy Hives/Diff. Verified 06/24/18 16:24 Breathing/I tching naloxone [From Suboxone] Allergy Swelling Verified 06/24/18 16:24 nitrofurantoin Allergy Difficulty Verified 06/24/18 16:24 [From Macrobid] Breathing orange juice Allergy Difficulty Verified 06/24/18 16:24 Breathing tramadol [From Ultram] Allergy Rash Verified 06/24/18 16:24 trazodone Allergy Difficulty Verified 06/24/18 16:24 Breathing/Wheezing fluoxetine [From Prozac] AdvReac Hallucinati Verified 06/24/18 16:24 ons Review of Systems Constitutional: Negative Skin: Rash Eyes: Negative ENT: Negative Respiratory: Negative Cardiovascular: Negative Gastrointestinal: Negative Genitourinary: Negative Motor: Negative Neurovascular: Negative Musculoskeletal: Negative Neurological: Negative Psychological: Negative Is Patient Immunocompromised?: No All Other Systems Reviewed And Are Negative: Yes PMH/Surg Hx/FS Hx/Imm Hx Previously Healthy: No Respiratory History: Asthma Psychological History: Depression Other History Of: Negative For: HIV, Hepatitis B, Hepatitis C, Anticoagulant Therapy - Surgical History Surgical History: Yes Surgery Procedure, Year, and Place: CHOLECYSTECTOMY, L5 DISC REMOVAL, APPENDECTOMY, TONSILLECTOMY, FULL FACIAL RECONSTRUCTION, LASER SURGERY RENAL STONE recent abd surgery 01/2014 - KATHY FUNDOPLICATION;Hysterectomy 3/22/15; Rt PINKY - AMPUTATED TO [address] [place] - Family History Known Family History: Positive: Cardiac Disease, Hypertension, Diabetes, Other - kidney stones; mom - pancreatic CA - Social History Occupation: Student Lives: With Family Alcohol Use: Rare Substance Use Type: None Substance Use Comment - Amount & Last Used: "clean for 5 years" Smoking Status (MU): Heavy Every Day Tobacco Smoker Type: Cigarettes Amount Used/How Often: 2 ppd Length of Time of Smoking/Using Tobacco: >20 years Have You Smoked in the Last Year: Yes Household Exposure Type: Cigarettes - Immunization History Most Recent Influenza Vaccination: 2011 Most Recent Pneumonia Vaccination: 2011 Vaccination Up to Date: Yes Physical Exam Triage Information Reviewed: Yes Appearance: Well-Appearing, No Pain Distress, Well-Nourished Vital Signs: Initial Vital Signs Temp 98.5 F 06/24/18 16:21 Pulse 65 06/24/18 16:21 Resp 18 06/24/18 16:21 BP 124/77 06/24/18 16:21 Pulse Ox 99 06/24/18 16:21 Vital Signs Reviewed: Yes Eye Exam: Normal Eyes: Positive: Conjunctiva Clear ENT Exam: Normal ENT: Positive: Normal ENT inspection, Hearing grossly normal. Negative: Trismus , Muffled voice, Hoarse voice Dental Exam: Normal Neck exam: Normal Neck: Positive: Supple, Nontender Respiratory Exam: Normal Respiratory: Positive: Chest non-tender, Lungs clear, Normal breath sounds, No respiratory distress, No accessory muscle use Cardiovascular Exam: Normal Cardiovascular: Positive: RRR, No Murmur, Pulses Normal, Brisk Capillary Refill Musculoskeletal Exam: Normal Musculoskeletal: Positive: Strength Intact, ROM Intact, No Edema Neurological Exam: Normal Neurological: Positive: Alert, Muscle Tone Normal Psychological Exam: Normal Skin: Positive: rashes Course/Dx - Course Course Of Treatment: cool compress, benadryl, hydrocortisone , follow with pcp rpn - Diagnoses Provider Diagnoses: contact dermititis, rash, nicotine dependant Discharge - Sign-Out/Discharge Documenting (check all that apply): Patient Departure All imaging exams completed and their final reports reviewed: No Studies - Discharge Plan Condition: Stable Disposition: HOME Patient Education Materials: Diphenhydramine (By mouth), Hydrocortisone (On the skin), How to Stop Smoking (ED), Contact Dermatitis (ED), Cold Compress or Soak (ED) Referrals: Kartik Francisco MD [Primary Care Provider] - If Needed Additional Instructions: Per institutional requirements, I have reviewed the chart, however, I was not consulted specifically or made aware of this patient by the midlevel provider. I did not personally evaluate, interact with , or disposition this patient. - Billing Disposition and Condition Condition: STABLE Disposition: Home
== END 2018-06-24 17:02 | disposition home or self-care (01) ==
LOC: UCEAST 16:10
DX: L25.9 Unspecified contact dermatitis, unspecified cause (principal); Z89.021 Acquired absence of right finger(s); Z88.1 Allergy status to other antibiotic agents; Z88.5 Allergy status to narcotic agent; Z88.8 Allergy status to other drugs, medicaments and biological substances; F17.210 Nicotine dependence, cigarettes, uncomplicated
CPT/HCPCS: 99211; G0463

== ENCOUNTER 2018-07-19 13:38 | Emergency (ER) | payer OTHER ==
[2018-07-19 14:00] VITALS: BP 122/71
--- NOTE | 2018-07-19 14:02 | UC ---
Ear Complaint HPI - HPI Summary HPI Summary: 37 y/o female presents to the urgent care c/o b/L ear pain for the past week. Pt reports Hx of recurrent ear infections in the past. She has nasal congestion w/ clear nasal discharge, fatigue and mild sore throat. Pain is 9/10 worse in the left ear associated w/ decrease hearing and mild dizziness. Pt has taken Ibuprofen on and off to alleviate pain. Pt denies fever, SOB, tinnitus, chest pain, abdominal pain, N/V/D. - History of Current Complaint Chief Complaint: UCEar Stated Complaint: EAR PAIN SORE THROAT Time Seen by Provider: 07/19/18 14:00 Hx Obtained From: Patient Hx Last Menstrual Period: hyster ?: No Onset/Duration: Gradual Onset, Lasting Weeks - 1 week, Still Present, Worse Since - today Severity Initially: Mild Severity Currently: Moderate Pain Intensity: 9 Pain Scale Used: 0-10 Numeric Aggravating Factors: Other - touch Alleviating Factors: OTC Meds Associated Signs/Symptoms: Positive: Hearing Loss, URI Symptoms - Allergies/Home Medications Allergies/Adverse Reactions: Allergies Allergy/AdvReac Type Severity Reaction Status Date / Time buprenorphine [From Suboxone] Allergy Swelling Verified 07/19/18 13:53 cephalexin [From Keflex] Allergy Difficulty Verified 07/19/18 13:53 Breathing/Wheezing ketorolac [From Toradol] Allergy Hives/Diff. Verified 07/19/18 13:53 Breathing/I tching naloxone [From Suboxone] Allergy Swelling Verified 07/19/18 13:53 nitrofurantoin Allergy Difficulty Verified 07/19/18 13:53 [From Macrobid] Breathing orange juice Allergy Difficulty Verified 07/19/18 13:53 Breathing tramadol [From Ultram] Allergy Rash Verified 07/19/18 13:53 trazodone Allergy Difficulty Verified 07/19/18 13:53 Breathing/Wheezing fluoxetine [From Prozac] AdvReac Hallucinati Verified 07/19/18 13:53 ons PMH/Surg Hx/FS Hx/Imm Hx Previously Healthy: Yes Respiratory History: Asthma Other Respiratory History: recurrent ear infections Cancer History: Cervical Cancer Other Cancer History: throat cancer Other History Of: Negative For: HIV, Hepatitis B, Hepatitis C, Anticoagulant Therapy - Surgical History Surgical History: Yes Surgery Procedure, Year, and Place: CHOLECYSTECTOMY, L5 DISC REMOVAL, APPENDECTOMY, TONSILLECTOMY, FULL FACIAL RECONSTRUCTION, LASER SURGERY RENAL STONE recent abd surgery 01/2014 - KATHY FUNDOPLICATION;Hysterectomy 01/11/15; Rt PINKY - AMPUTATED TO [facility] [place] - Family History Known Family History: Positive: Cardiac Disease, Hypertension, Diabetes, Other - kidney stones; mom - pancreatic CA - Social History Occupation: Employed Full-time Lives: With Family Alcohol Use: Rare Substance Use Type: None Substance Use Comment - Amount & Last Used: "clean for 5 years" Smoking Status (MU): Heavy Every Day Tobacco Smoker Type: Cigarettes Amount Used/How Often: 1 ppd Length of Time of Smoking/Using Tobacco: >20 years Have You Smoked in the Last Year: Yes Household Exposure Type: Cigarettes - Immunization History Most Recent Influenza Vaccination: 2011 Most Recent Pneumonia Vaccination: 2011 Vaccination Up to Date: Yes Review of Systems Constitutional: Negative Skin: Negative Eyes: Negative ENT: Sore Throat, Ear Ache - B/L ear pain, Nasal Discharge, Sinus Congestion Respiratory: Negative Cardiovascular: Negative Gastrointestinal: Negative Genitourinary: Negative Motor: Negative Neurovascular: Negative Musculoskeletal: Negative Neurological: Headache Psychological: Negative Is Patient Immunocompromised?: No All Other Systems Reviewed And Are Negative: Yes Physical Exam - Summary Physical Exam Summary: Vital signs: reviewed General: well developed, well nourished obese female sitting in the examining table w/o any apparent distress Skin: [place], warm and dry, no evidence of atopic dermatitis, psoriasis, seborrhea. HEENT: -Head: atraumatic, non tender; no scalp dermatitis. -Eyes: sclera and conjunctiva clear, PERRLA, EOMI -Ears: no pre- or postauricular lymphadenopathy or erythema; LF external ear canal clear and LF TM injected w/ erythema and yellowish discharge. RT external ear canal clear, Rt TM WNL.Good light reflex. No fluid level, vesicles , or bullae. No perforation. -Nose/Face: erythematous and edematous nasal mucosa with clear rhinorrhea, no frontal or maxillary sinus tender to palpation. -Mouth/Throat: Mucous membrane moist, posterior pharynx clear, no erythema or exudates. Neck: supple, FROM, nontender, no lymphadenopathy, no meningismus. Chest: Clear to auscultation, normal breath sounds Abd: soft, Bowel sounds active, Nontender. Back: no spinal or CVAT Neuro: A&O x4, GCS 15, no focal neuro deficits, normal behavior for age. Triage Information Reviewed: Yes Vital Signs: Initial Vital Signs Temp 97.8 F 07/19/18 13:55 Pulse 68 07/19/18 13:55 Resp 20 07/19/18 13:55 BP 122/71 07/19/18 13:55 Pulse Ox 98 07/19/18 13:55 Ear Complaint Course/Dx - Course Course Of Treatment: 37 y/o female presents to the urgent care c/o b/L ear pain for the past week. Pt reports Hx of recurrent ear infections in the past. She has nasal congestion w/ clear nasal discharge, fatigue and mild sore throat. Pain is 9/10 worse in the left ear associated w/ decrease hearing and mild dizziness. Pt has taken Ibuprofen on and off to alleviate pain. Pt denies fever , SOB, tinnitus, chest pain, abdominal pain, N/V/D. Hx obtained. Pt w/ left otitis media on examination.Rapid strep negative. Pt Rx Amoxicillin PO and Ibuprofen PO prn. Pt Advised if symptoms do not improve or worsen to return to the urgent care or f/u with PCP or ENT Dr Arellano for further management. PT understood and agreed with D/C instructions - Differential Dx/Diagnosis Differential Diagnosis/HQI/PQRI: Cerumen Impaction, Otitis Externa, Otitis Media , Perforated TM, Pharyngitis Provider Diagnoses: 1- Left otitis media. 2- Otalgia Discharge - Sign-Out/Discharge Documenting (check all that apply): Patient Departure - D/c home All imaging exams completed and their final reports reviewed: No Studies - Discharge Plan Condition: Stable Disposition: HOME Prescriptions: Amoxicillin PO (*) [Amoxicillin 400 MG/5 ML SUSP*] 11 ml PO BID #220 ml Ibuprofen TAB* [Motrin TAB* 800 MG] 800 mg PO Q6H PRN #30 tab PRN Reason: otalgia Patient Education Materials: Ear Infection (ED) Referrals: Kartik Francisco MD [Primary Care Provider] - 3 Days Additional Instructions: 1- Please take the full course of the antibiotic to avoid resistance. 2-Please take ibuprofen PO q6-8hrs prn as instructed after meals to alleviate pain and swelling. Increase fluid intake, eat well, rest and avoid strenuous exercise 3-If symptoms do not improve or worsen please return to the urgent care or f/u with your PCP in 2-3 days for further evaluation and treatment. - Billing Disposition and Condition Condition: STABLE Disposition: Home - Attestation Statements Provider Attestation: I was available for consult. This patient was seen by the HOLLY. The patient was not presented to, seen by, or examined by me. -Marii
== END 2018-07-19 14:40 | disposition home or self-care (01) ==
LOC: UCEAST 13:38
DX: H66.92 Otitis media, unspecified, left ear (principal); H92.03 Otalgia, bilateral; R09.81 Nasal congestion; R53.83 Other fatigue; J02.9 Acute pharyngitis, unspecified; Z88.1 Allergy status to other antibiotic agents; Z88.5 Allergy status to narcotic agent; Z88.8 Allergy status to other drugs, medicaments and biological substances; Z89.021 Acquired absence of right finger(s); F17.210 Nicotine dependence, cigarettes, uncomplicated
CPT/HCPCS: 87651; 99212; G0463

== ENCOUNTER 2018-08-01 16:28 | Observation (INO) | payer OTHER ==
[2018-08-01 17:20] LABS: ABS Basophils 0.1 10^3/ul (0-0.2); ABS Eosinophils 0.1 10^3/ul (0-0.6); ABS Lymphocytes 2.8 10^3/ul (1.0-4.8); ABS Monocytes 0.9 10^3/ul (0-0.8); ABS Neutrophils 9.3 10^3/ul (1.5-7.7); ABS Nucleated RBC 0 10^3/ul; Eosinophil % 0.7 % (0-6); Hematocrit 42 % (35-47); Hemoglobin 14.1 g/dl (12.0-16.0); Lymphocyte % 21.3 % (25-47); Mean Corpuscular HGB Conc 34 g/dl (31-36); Mean Corpuscular Hemoglobin 29 pg (27-31); Mean Corpuscular Volume 87 fL (80-97); Mean Platelet Volume 7.9 um3 (7.4-10.4); Nucleated Red Blood Cells % 0; Platelet Count 293 10^3/ul (150-450); Red Cell Distribution Width 15 % (10.5-15); White Blood Count 13.3 10^3/ul (3.5-10.8)
[2018-08-01 17:34] LABS: EGFR Non-African American 63.2 (>60)
--- NOTE | 2018-08-01 18:35 | RAD ---
INDICATION: Left-sided chest pain x3 days COMPARISON: Chest x-ray dated April 12, 2016 TECHNIQUE: Single AP view of the chest was obtained. FINDINGS: The heart and mediastinum exhibit normal size and contour. The lungs are grossly clear. There is no evidence of a large pleural effusion. Visualized bones are normal for the patient's age. IMPRESSION: No radiographic evidence for acute cardiopulmonary abnormality on this single AP view chest x-ray.
--- NOTE | 2018-08-01 21:31 | ED ---
HPI Chest Pain - HPI Summary HPI Summary: The pt is a 37 y/o [facility] c/o sharp intermittent CP since 3 days ago worsened today. She notes LOC, sore throat, LUE numbness and pallor but denies cough. The CP rated 8/10 in severity at its worst, radiates to the LUE and back, and is unchanged by position. - History of Current Complaint Chief Complaint: EDChestPainROMI Time Seen by Provider: 08/01/18 19:25 Hx Obtained From: Patient Hx Last Menstrual Period: hyster Onset/Duration: Started Days Ago - 3 days Timing: Intermittent Current Severity: Severe Pain Intensity: 8 Pain Scale Used: 0-10 Numeric Chest Pain Location: Diffuse Chest Pain Radiates: Yes Chest Pain Radiates To:: Back, Arm - LUE Character: Sharp/Stabbing Aggravating Factor(s): Other: - Psychological stress Alleviating Factor(s): Nothing Associated Signs and Symptoms: Positive: Negative - Cough, Chest Pain, Recent Stress, Numbness - In the LUE, Syncope - 1 episode, Other: - Pallor - Additional Pertinent History Primary Care Physician: [id number] - Allergy/Home Medications Allergies/Adverse Reactions: Allergies Allergy/AdvReac Type Severity Reaction Status Date / Time buprenorphine [From Suboxone] Allergy Swelling Verified 08/01/18 16:31 cephalexin [From Keflex] Allergy Difficulty Verified 08/01/18 16:31 Breathing/Wheezing ketorolac [From Toradol] Allergy Hives/Diff. Verified 08/01/18 16:31 Breathing/I tching naloxone [From Suboxone] Allergy Swelling Verified 08/01/18 16:31 nitrofurantoin Allergy Difficulty Verified 08/01/18 16:31 [From Macrobid] Breathing orange juice Allergy Difficulty Verified 08/01/18 16:31 Breathing tramadol [From Ultram] Allergy Rash Verified 08/01/18 16:31 trazodone Allergy Difficulty Verified 08/01/18 16:31 Breathing/Wheezing fluoxetine [From Prozac] AdvReac Hallucinati Verified 08/01/18 16:31 ons Home Medications: Home Medications Albuterol Sulfate [Ventolin Hfa] 2 puff INH Q4HR PRN 08/01/18 [History Confirmed 08/01/18] Zolpidem Tartrate [Ambien] 10 mg PO BEDTIME 08/01/18 [History Confirmed 08/01/18 ] hydrOXYzine HCL TAB* [Atarax TAB 50 MG *] 50 mg PO BEDTIME 08/01/18 [History Confirmed 08/01/18] PMH/Surg Hx/FS Hx/Imm Hx Previously Healthy: No Endocrine/Hematology History: Reports: Hx Thyroid Disease - LUMP SHE IS SEEING SONYA FOR, Hx Anemia Denies: Hx Anticoagulant Therapy, Hx Diabetes Cardiovascular History: Reports: Hx Angina Denies: Hx Congestive Heart Failure, Hx Deep Vein Thrombosis, Hx Hypertension , Hx Myocardial Infarction, Hx Pacemaker/ICD Respiratory History: Reports: Hx Asthma Denies: Hx Chronic Obstructive Pulmonary Disease (COPD), Hx Lung Cancer GI History: Reports: Hx Gastroesophageal Reflux Disease - s/p Kathy Fundoplication, Hx Hiatal Hernia, Other GI Disorders - gerd barretts esophagus Denies: Hx Gall Bladder Disease, Hx Gastrointestinal Bleed, Hx Ulcer, Hx Urosepsis History: Reports: Hx Kidney Stones, Other Problems/Disorders - renal stones Denies: Hx Renal Disease - "decreased right kidney function" per pt. Musculoskeletal History: Reports: Hx Back Problems Denies: Hx Rheumatoid Arthritis, Hx Osteoporosis Sensory History: Denies: Hx Contacts or Glasses, Hx Hearing Aid Opthamlomology History: Denies: Hx Contacts or Glasses Neurological History: Reports: Other Neuro Impairments/Disorders - anxiety and depression Denies: Hx Dementia, Hx Headaches, Hx Migraine, Hx Seizures, Hx Transient Ischemic Attacks (TIA) Psychiatric History: Reports: Hx Anxiety, Hx Depression - She has been off meds x 2 years. She sees a therapist., Hx Inpatient Treatment, Hx Community Mental Health Tx, Hx Bipolar Disorder, Hx Substance Abuse - Narcotics,heroin,cocaine: sober since 05/03 Denies: Hx Eating Disorder, Hx Panic Disorder, Hx of Violent Episodes Against Others - Cancer History Cancer Type, Location and Year: Pre-cancer of espophagus-Tx with oral medication , Barretts Esophagus - RESOLVED WITH KATHY FUNDOPLICATION - Surgical History Surgery Procedure, Year, and Place: CHOLECYSTECTOMY, L5 DISC REMOVAL, APPENDECTOMY, TONSILLECTOMY, FULL FACIAL RECONSTRUCTION, LASER SURGERY RENAL STONE recent abd surgery 01/2014 - KATHY FUNDOPLICATION;Hysterectomy 01/11/15; Rt PINKY - AMPUTATED TO [facility] - Immunization History Date of Tetanus Vaccine: PT STATES UNSURE Date of Influenza Vaccine: NONE Infectious Disease History: No Infectious Disease History: Reports: Hx of Known/Suspected MRSA Denies: Hx Clostridium Difficile, Hx Hepatitis, Hx Human Immunodeficiency Virus (HIV), Hx Shingles, Hx Tuberculosis, History Other Infectious Disease, Traveled Outside the [place] in Last 30 Days - Family History Known Family History: Positive: Cardiac Disease, Hypertension, Diabetes, Other - kidney stones; mom - pancreatic CA - Social History Occupation: Employed Full-time Lives: With Family Alcohol Use: None Hx Substance Use: Yes Substance Use Type: Reports: None Substance Use Comment - Amount & Last Used: "clean for 5 years" Hx Tobacco Use: Yes Smoking Status (MU): Heavy Every Day Tobacco Smoker Type: Cigarettes Amount Used/How Often: 1 ppd Length of Time of Smoking/Using Tobacco: >20 years Have You Smoked in the Last Year: Yes Review of Systems Positive: Sore Throat Positive: Chest Pain Negative: Cough Skin: Other - Positive: Pallor Positive: Numbness - LUE , Syncope - 1 episode All Other Systems Reviewed And Are Negative: Yes Physical Exam - Summary Physical Exam Summary: Constitutional: Well-developed, Well-nourished, Alert. (-) Distressed Skin: Warm, Dry HENT: Normocephalic; Atraumatic Eyes: Conjunctiva normal Neck: Musculoskeletal ROM normal neck. (-) JVD, (-) Stridor, (-) Tracheal deviation Cardio: Rhythm regular, rate normal, Heart sounds normal; Intact distal pulses; The pedal pulses are 2+ and symmetric. Radial pulses are 2+ and symmetric. (-) Murmur Pulmonary/Chest wall: Effort normal. (-) Respiratory distress, (-) Wheezes, (-) Rales Abd: Soft, (-) epigastric tenderness, (-) Distension, (-) Guarding, (-) Rebound Musculoskeletal: (-) Edema Lymph: (-) Cervical adenopathy Neuro: Alert, Oriented x3 Psych: Mood and affect Normal Triage Information Reviewed: Yes Vital Signs On Initial Exam: Initial Vitals Temp Pulse Resp BP Pulse Ox 99.1 F 90 18 134/101 96 08/01/18 16:29 08/01/18 16:29 08/01/18 16:29 08/01/18 16:29 08/01/18 16:29 Vital Signs Reviewed: Yes Diagnostics - Vital Signs Vital Signs Temp Pulse Resp BP Pulse Ox 08/01/18 20:01 68 14 135/64 96 08/01/18 20:00 68 24 95 08/01/18 19:01 67 25 99/56 94 08/01/18 19:00 66 18 96 08/01/18 18:59 68 17 96 08/01/18 16:29 99.1 F 90 18 134/101 96 - Laboratory Lab Results: Lab Results 08/01/18 08/01/18 08/01/18 Range/Units 17:07 17:10 17:10 WBC 13.3 H (3.5-10.8) 10^3/ul RBC 4.80 (4.00-5.40) 10^6/ul Hgb 14.1 (12.0-16.0) g/dl Hct 42 (35-47) % MCV 87 (80-97) fL MCH 29 (27-31) pg MCHC 34 (31-36) g/dl RDW 15 (10.5-15) % Plt Count 293 (150-450) 10^3/ul MPV 7.9 (7.4-10.4) um3 Neut % (Auto) 70.1 (38-83) % Lymph % (Auto) 21.3 L (25-47) % [place] % (Auto) 6.9 (0-7) % Eos % (Auto) 0.7 (0-6) % Baso % (Auto) 1.0 (0-2) % Absolute Neuts (auto) 9.3 H (1.5-7.7) 10^3/ul Absolute Lymphs (auto) 2.8 (1.0-4.8) 10^3/ul Absolute Monos (auto) 0.9 H (0-0.8) 10^3/ul Absolute Eos (auto) 0.1 (0-0.6) 10^3/ul Absolute Basos (auto) 0.1 (0-0.2) 10^3/ul Absolute Nucleated RBC 0 10^3/ul Nucleated RBC % 0 D-Dimer, Quantitative (Less Than 230) ng/mL Sodium 141 (135-145) mmol/L Potassium 3.7 (3.5-5.0) mmol/L Chloride 111 (101-111) mmol/L Carbon Dioxide 25 (22-32) mmol/L Anion Gap 5 (2-11) mmol/L BUN 12 (6-24) mg/dL Creatinine 0.98 H (0.51-0.95) mg/dL Est GFR ( Amer) 76.4 (>60) Est GFR (Non-Af Amer) 63.2 (>60) BUN/Creatinine Ratio 12.2 (8-20) Glucose 129 H (70-100) mg/dL Lactic Acid 1.1 (0.5-2.0) mmol/L Calcium 9.2 (8.6-10.3) mg/dL Total Bilirubin 0.20 (0.2-1.0) mg/dL AST 11 L (13-39) U/L ALT 11 (7-52) U/L Alkaline Phosphatase 66 (34-104) U/L Troponin I 0.00 (<0.04) ng/mL Total Protein 6.7 (6.4-8.9) g/dL Albumin 4.0 (3.2-5.2) g/dL Globulin 2.7 (2-4) g/dL Albumin/Globulin Ratio 1.5 (1-3) 08/01/18 08/01/18 Range/Units 19:30 19:45 WBC (3.5-10.8) 10^3/ul RBC (4.00-5.40) 10^6/ul Hgb (12.0-16.0) g/dl Hct (35-47) % MCV (80-97) fL MCH (27-31) pg MCHC (31-36) g/dl RDW (10.5-15) % Plt Count (150-450) 10^3/ul MPV (7.4-10.4) um3 Neut % (Auto) (38-83) % Lymph % (Auto) (25-47) % [place] % (Auto) (0-7) % Eos % (Auto) (0-6) % Baso % (Auto) (0-2) % Absolute Neuts (auto) (1.5-7.7) 10^3/ul Absolute Lymphs (auto) (1.0-4.8) 10^3/ul Absolute Monos (auto) (0-0.8) 10^3/ul Absolute Eos (auto) (0-0.6) 10^3/ul Absolute Basos (auto) (0-0.2) 10^3/ul Absolute Nucleated RBC 10^3/ul Nucleated RBC % D-Dimer, Quantitative < 200 (Less Than 230) ng/mL Sodium (135-145) mmol/L Potassium (3.5-5.0) mmol/L Chloride (101-111) mmol/L Carbon Dioxide (22-32) mmol/L Anion Gap (2-11) mmol/L BUN (6-24) mg/dL Creatinine (0.51-0.95) mg/dL Est GFR ( Amer) (>60) Est GFR (Non-Af Amer) (>60) BUN/Creatinine Ratio (8-20) Glucose (70-100) mg/dL Lactic Acid (0.5-2.0) mmol/L Calcium (8.6-10.3) mg/dL Total Bilirubin (0.2-1.0) mg/dL AST (13-39) U/L ALT (7-52) U/L Alkaline Phosphatase (34-104) U/L Troponin I 0.00 (<0.04) ng/mL Total Protein (6.4-8.9) g/dL Albumin (3.2-5.2) g/dL Globulin (2-4) g/dL Albumin/Globulin Ratio (1-3) Result Diagrams: 08/01/18 17:10 08/01/18 17:07 Lab Statement: Any lab studies that have been ordered have been reviewed, and results considered in the medical decision making process. - Radiology CXR Radiology Interpretation Completed By: Radiologist - IMPRESSION: No radiographic evidence for acute cardiopulmonary abnormality on this single AP view chest x-ray. The ED physician reviewed this radiology report. Chest Pain Course/Dx - Course Course Of Treatment: A 37 year-old F presents to the ED with a CC of sharp intermittent CP since 3 days ago worsened today. She notes LOC, sore throat, LUE numbness and pallor but denies cough. The CP radiates to the LUE and back, and is unchanged by position. A physical exam is unremarkable. A CXR is unremarkable. An EKG is unremarkable. In the ED course, the pt was given ASA 324 mg PO which improved the symptoms. I discussed the care of the pt with Dr. Lauren Martinez MD. Patient will be admitted with a final Dx of unspecified CP. Given cardiac risk factors an in-patient stress test should be performed. Pt is agreeable with this plan. Allergies noted. - Diagnoses Provider Diagnoses: Chest pain, unspecified Discharge - Sign-Out/Discharge Documenting (check all that apply): Patient Departure - Admit - Discharge Plan Condition: Stable Disposition: ADMITTED TO [facility] Referrals: Kartik Francisco MD [Primary Care Provider] - - Attestation Statements Document Initiated by Scribe: Yes Documenting Scribe: Jazzmine Hubbard Provider For Whom Scribe is Documenting (Include Credential): Dr. Derrick Rodriguez MD Scribe Attestation: Jazzmine Charles , scribed for Dr. Derrick Rodriguez MD on 08/01/18 at 2318.
[2018-08-01] MEDS ORDERED: Aspirin 81 mg CHEW TAB* 81 MG TAB.CHEW PO ONE (22:06)
[2018-08-02] MEDS ORDERED: NS 0.9% 1000 ML* 1,000 ML IV SCH (00:30)
[2018-08-02] MEDS ORDERED: Albuterol HFA INHALER* 8 gm MDI INH PRN (00:56)
[2018-08-02] MEDS ORDERED: Acetaminophen TAB* 325 MG PO PRN (01:32)
[2018-08-02] MEDS: Enoxaparin(*) 40 MG/0.4 ML SYR SUBCUT SCH (01:49)
[2018-08-02] MEDS: Zolpidem TAB* 10 MG PO SCH ×2 (01:51→22:46)
[2018-08-02] MEDS: Mirtazapine TAB* 15 MG PO SCH ×2 (01:51→22:46)
[2018-08-02] MEDS: hydrOXYzine HCL TAB* 50 MG PO SCH ×2 (01:52→22:46)
[2018-08-02] MEDS: Nitroglycerin 2% OINT* 1 GM PAK TOPICAL SCH ×4 (01:53→20:07)
[2018-08-02] MEDS: Aspirin EC TAB* 325 MG PO SCH (07:59)
--- NOTE | 2018-08-02 08:30 | ADMNOTE ---
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 her chest pain then started to radiate down to her left lower ext and her finger started to feel numb---> seeking medical attention. chest pain described intermittantly sharp chest pain 10/10 prior to admission but was 7-8/10 when seen. pt says she passed out twice for few second witnessed by her uncle and her friend. got asa 325 in the er. initial ekg neg and trop twice neg. hx of ivda with heroine and sniffed cocaine but has been clean for 6.5 yrs still uses marijuana Family History: Findings - dad + cad Social History: Findings - cig smoke one ppd no etoh hx of ivda as above still uses marijuana currently is a student and comes from home Past Medical History: Findings - phx tia at age 27 mood disorder with both anxiety and depression hx of suicide attempts twice with tylenol meds 05/2018 and her med back in 2001 not suicidal bipolar family hx of cad cig smoker hole in the heart gerd s/p jorge fundoscopy pshx lb surgery s/p cholecystectomy s/ p hysterectomy s/p appy Review of Systems - Measurements Intake and Output: Intake and Output Last 24 Hours 07/31/18 08/01/18 08/02/18 08/03/18 06:59 06:59 06:59 06:59 Intake Total 0 Output Total 0 Balance 0 Weight 248 lb 9.6 oz Intake: Oral 0 Output: Urine 0 Other: # Bowel Movements 0 - Review of Systems General Comments: 10/03 ros with pt please refer to hpi Objective Active Medications: Acetaminophen (Tylenol Tab*) 650 mg PO Q6H PRN PRN Reason: PAIN Last Admin: 08/02/18 01:50 Dose: 650 mg Albuterol (Ventolin Hfa Inhaler*) 2 puff INH Q4HR PRN PRN Reason: SHORTNESS OF BREATH Aspirin (Ecotrin Ec Tab*) 325 mg PO DAILY [facility] Last Admin: 08/02/18 07:59 Dose: 325 mg Enoxaparin Sodium (Lovenox(*)) 40 mg SUBCUT Q24H [facility] Last Admin: 08/02/18 01:49 Dose: 40 mg Hydroxyzine HCl (Atarax Tab*) 50 mg PO BEDTIME [facility] Last Admin: 08/02/18 01:52 Dose: 50 mg Sodium Chloride (Ns 0.9% 1000 Ml*) 1,000 mls @ 125 mls/hr IV PER RATE [facility] Last Admin: 08/02/18 02:03 Dose: 125 mls/hr Ibuprofen (Motrin Tab*) 600 mg PO Q6H PRN PRN Reason: PAIN Mirtazapine (Remeron Tab*) 15 mg PO BEDTIME [facility] Last Admin: 08/02/18 01:51 Dose: 15 mg Nitroglycerin (Nitroglycerin 2% Oint*) 0.5 inch TOPICAL Q6H [facility] Last Admin: 08/02/18 08:08 Dose: Not Given Zolpidem Tartrate (Ambien Tab*) 10 mg PO BEDTIME [facility] Last Admin: 08/02/18 01:51 Dose: 10 mg Vital Signs - 8 hr 08/02/18 08/02/18 08/02/18 00:30 01:00 01:45 Temperature 0 F 96.9 F Pulse Rate 0 63 Respiratory 16 0 16 Rate Blood Pressure 133/81 0/0 117/62 (mmHg) O2 Sat by Pulse 0 99 Oximetry 08/02/18 08/02/18 04:03 07:14 Temperature 96.8 F 97.3 F Pulse Rate 69 47 Respiratory 16 16 Rate Blood Pressure 109/61 98/52 (mmHg) O2 Sat by Pulse 96 98 Oximetry Oxygen Devices in Use Now: None Eyes: No Scleral Icterus, PERRLA Ears/Nose/Mouth/Throat: NL Teeth, Lips, Gums, Clear Oropharnyx, Mucous Membranes Moist Neck: NL Appearance and Movements; NL JVP, Trachea Midline, No Thyroid Enlargement, Masses Respiratory: Symmetrical Chest Expansion and Respiratory Effort, Clear to Auscultation Cardiovascular: NL Sounds; No Murmurs; No JVD, RRR, No Edema Abdominal: NL Sounds; No Tenderness; No Distention Extremities: No Edema, No Clubbing, Cyanosis Skin: No Rash or Ulcers Neurological: Alert and Oriented x 3, NL Sensation, NL Muscle Strength and Tone Result Diagrams: 08/03/18 06:24 08/03/18 06:24 Additional Lab and Data: Lab Results 08/01/18 08/01/18 08/01/18 Range/Units 17:07 17:10 17:10 WBC 13.3 H (3.5-10.8) 10^3/ul RBC 4.80 (4.00-5.40) 10^6/ul Hgb 14.1 (12.0-16.0) g/dl Hct 42 (35-47) % MCV 87 (80-97) fL MCH 29 (27-31) pg MCHC 34 (31-36) g/dl RDW 15 (10.5-15) % Plt Count 293 (150-450) 10^3/ul MPV 7.9 (7.4-10.4) um3 Neut % (Auto) 70.1 (38-83) % Lymph % (Auto) 21.3 L (25-47) % [place] % (Auto) 6.9 (0-7) % Eos % (Auto) 0.7 (0-6) % Baso % (Auto) 1.0 (0-2) % Absolute Neuts (auto) 9.3 H (1.5-7.7) 10^3/ul Absolute Lymphs (auto) 2.8 (1.0-4.8) 10^3/ul Absolute Monos (auto) 0.9 H (0-0.8) 10^3/ul Absolute Eos (auto) 0.1 (0-0.6) 10^3/ul Absolute Basos (auto) 0.1 (0-0.2) 10^3/ul Absolute Nucleated RBC 0 10^3/ul Nucleated RBC % 0 D-Dimer, Quantitative (Less Than 230) ng/mL Sodium 141 (135-145) mmol/L Potassium 3.7 (3.5-5.0) mmol/L Chloride 111 (101-111) mmol/L Carbon Dioxide 25 (22-32) mmol/L Anion Gap 5 (2-11) mmol/L BUN 12 (6-24) mg/dL Creatinine 0.98 H (0.51-0.95) mg/dL Est GFR ( Amer) 76.4 (>60) Est GFR (Non-Af Amer) 63.2 (>60) BUN/Creatinine Ratio 12.2 (8-20) Glucose 129 H (70-100) mg/dL Lactic Acid 1.1 (0.5-2.0) mmol/L Calcium 9.2 (8.6-10.3) mg/dL Total Bilirubin 0.20 (0.2-1.0) mg/dL AST 11 L (13-39) U/L ALT 11 (7-52) U/L Alkaline Phosphatase 66 (34-104) U/L Troponin I 0.00 (<0.04) ng/mL Total Protein 6.7 (6.4-8.9) g/dL Albumin 4.0 (3.2-5.2) g/dL Globulin 2.7 (2-4) g/dL Albumin/Globulin Ratio 1.5 (1-3) 08/01/18 08/01/18 Range/Units 19:30 19:45 WBC (3.5-10.8) 10^3/ul RBC (4.00-5.40) 10^6/ul Hgb (12.0-16.0) g/dl Hct (35-47) % MCV (80-97) fL MCH (27-31) pg MCHC (31-36) g/dl RDW (10.5-15) % Plt Count (150-450) 10^3/ul MPV (7.4-10.4) um3 Neut % (Auto) (38-83) % Lymph % (Auto) (25-47) % [place] % (Auto) (0-7) % Eos % (Auto) (0-6) % Baso % (Auto) (0-2) % Absolute Neuts (auto) (1.5-7.7) 10^3/ul Absolute Lymphs (auto) (1.0-4.8) 10^3/ul Absolute Monos (auto) (0-0.8) 10^3/ul Absolute Eos (auto) (0-0.6) 10^3/ul Absolute Basos (auto) (0-0.2) 10^3/ul Absolute Nucleated RBC 10^3/ul Nucleated RBC % D-Dimer, Quantitative < 200 (Less Than 230) ng/mL Sodium (135-145) mmol/L Potassium (3.5-5.0) mmol/L Chloride (101-111) mmol/L Carbon Dioxide (22-32) mmol/L Anion Gap (2-11) mmol/L BUN (6-24) mg/dL Creatinine (0.51-0.95) mg/dL Est GFR ( Amer) (>60) Est GFR (Non-Af Amer) (>60) BUN/Creatinine Ratio (8-20) Glucose (70-100) mg/dL Lactic Acid (0.5-2.0) mmol/L Calcium (8.6-10.3) mg/dL Total Bilirubin (0.2-1.0) mg/dL AST (13-39) U/L ALT (7-52) U/L Alkaline Phosphatase (34-104) U/L Troponin I 0.00 (<0.04) ng/mL Total Protein (6.4-8.9) g/dL Albumin (3.2-5.2) g/dL Globulin (2-4) g/dL Albumin/Globulin Ratio (1-3) Microbiology and Other Data: Microbiology 08/02/18 06:00 Nasal Screen MRSA (PCR) - Final Nasal Mrsa Not Detected EKG Data: ekg ns no acute st t changes Assess/Plan/Problems-Billing Assessment: 37 yr old wf with family hx of cad tia at age 27 hx of " a hole in the heart " presented to er with c/o of chest pain radiating down left ue with finger numbness for three days - Patient Problems (1) Chest pain Status: Acute Code(s): R07.9 - CHEST PAIN, UNSPECIFIED SNOMED Code(s): 62095750 Comment: cp r/o acs tele with vandana stress ordered for am asa 325 says she has a hole in heart recently ---> echo with bubble study since she has hx of tia an a patent maribel ovale is a concern - consider to do orthostatic due to very bried blackout twice for twice (2) Cigar smoker Status: Acute Code(s): F17.290 - NICOTINE DEPENDENCE, OTHER TOBACCO PRODUCT, UNCOMPLICATED SNOMED Code(s): 31992856 Comment: supportive care (3) Bipolar disorder Status: Acute Comment: supportive care outpt meds as tolerated (4) Borderline personality disorder Status: Acute Code(s): F60.3 - BORDERLINE PERSONALITY DISORDER SNOMED Code(s ): 22543844 Comment: supportive care
[2018-08-02] MEDS: Ibuprofen TAB* 600 MG PO PRN ×2 (09:32→15:50)
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
[2018-08-02] MEDS ORDERED: Mouth Piece, Nicotine* 1 EACH CARTRIDGE INH PRN (16:15)
[2018-08-02] MEDS ORDERED: Nicotine Inhaler* 10 MG AMP INH PRN (16:15)
[2018-08-02] MEDS: Nystatin TOP POWDER* 15 GM BTL TOPICAL SCH (22:47)
[2018-08-03] MEDS: Nitroglycerin 2% OINT* 1 GM PAK TOPICAL SCH ×3 (00:07→13:38)
[2018-08-03] MEDS: Enoxaparin(*) 40 MG/0.4 ML SYR SUBCUT SCH (00:09)
[2018-08-03 06:47] LABS: ABS Basophils 0 10^3/ul (0-0.2); ABS Eosinophils 0.1 10^3/ul (0-0.6); ABS Lymphocytes 2.2 10^3/ul (1.0-4.8); ABS Monocytes 0.7 10^3/ul (0-0.8); ABS Neutrophils 5.3 10^3/ul (1.5-7.7); ABS Nucleated RBC 0 10^3/ul; Eosinophil % 1.6 % (0-6); Hematocrit 39 % (35-47); Hemoglobin 12.8 g/dl (12.0-16.0); Lymphocyte % 26.4 % (25-47); Mean Corpuscular HGB Conc 33 g/dl (31-36); Mean Corpuscular Hemoglobin 29 pg (27-31); Mean Corpuscular Volume 87 fL (80-97); Nucleated Red Blood Cells % 0.1; Platelet Count 230 10^3/ul (150-450); Red Blood Count 4.45 10^6/ul (4.00-5.40); Red Cell Distribution Width 14 % (10.5-15); White Blood Count 8.4 10^3/ul (3.5-10.8)
[2018-08-03 07:12] LABS: EGFR Non-African American 87.4 (>60)
[2018-08-03 09:15] VITALS: BP 117/66
[2018-08-03] MEDS: Nystatin TOP POWDER* 15 GM BTL TOPICAL SCH (10:21)
[2018-08-03] MEDS: Aspirin EC TAB* 325 MG PO SCH (10:21)
--- NOTE | 2018-08-03 10:33 | ECHO ---
Patient: SHELBIE HEREDIA [facility] Rec#: [id number] : 1980 Date: 08/03/2018 Age: 37y Height: 173 cm / 68.1 in Weight: 113 kg / 249.1 lbs Sex: F BSA: 2.25 Room#: [facility] Admit Date#: 08/02/2018 Type: Inpatient Referring: Lauren Martinez Reading: Turner Castellon MD Senior Front End Engineer: Shavon Morales RDCS,RDMS CC: Kartik Francisco MD Transthoracic Echocardiogram Indication: CVA, CP BP: 121/68 HR: 50 Rhythm: Bradycardia Findings History: TIA, smoker, IVDA, mutisubstance use, hole in heart Technical Comments: The study quality is good. Left Ventricle: The left ventricular chamber size is normal. Global left ventricular wall motion and contractility are within normal limits. There is normal left ventricular systolic function. The estimated ejection fraction is 55-60%. Normal left ventricular diastolic filling is observed. Left Atrium: The left atrial chamber size is normal. Right Ventricle: The right ventricular chamber size and systolic function are within normal limits. Right Atrium: The right atrial cavity size is normal. A patent foramen ovale is not demonstrated with color Doppler and agitated contrast. Aortic Valve: The aortic valve is trileaflet. There is no evidence of aortic valve thickening. Systolic excursion of the aortic valve is normal. There is no evidence of aortic regurgitation. There is no evidence of aortic stenosis. Mitral Valve: The mitral valve leaflets appear normal. There is a trace of mitral regurgitation. Tricuspid Valve: The tricuspid valve leaflets are normal. There is trace tricuspid regurgitation. Unable to estimate the right ventricular systolic pressure. Pulmonic Valve: The pulmonic valve appears normal. There is no evidence of pulmonic regurgitation. There is no pulmonic stenosis. Pericardium: There is no significant pericardial effusion. Aorta: The aortic root appears normal. There is no dilatation of the aortic arch. Pulmonary Artery: The main pulmonary artery appears normal. Venous: The inferior vena cava appears normal in size. There is a greater than 50% respiratory change in the inferior vena cava dimension. Contrast: Intravenous agitated saline contrast was used to assess intracardiac shunting. Conclusions There is normal left ventricular systolic function. The estimated left ventricular ejection fraction is 55-60%. Global left ventricular wall motion and contractility are within normal limits. Normal cardiac chamber sizes. Functionally benign heart valves. A patent foramen ovale is not demonstrated with color Doppler and agitated contrast. Since the prior echocardiogram completed 11/17/08, there appears to be little change. Measurements Name Value Normal Range RVIDd (AP) 2D 3.1 cm (0.9 - 2.6) RVDdMajor (2D) 2.4 cm (2.2 - 4.4) RAd ISD 4CH 4.8 cm (3.4 - 4.9) RA (A4C)W 3.3 cm (2.9 - 4.6) IVSd (2D) 1.1 cm (0.6 - 1) LVPWd (2D) 1.1 cm (0.6 - 1) LVIDd (2D) 4.4 cm (3.6 - 5.4) LVIDs (2D) 2.3 cm - LV FS (2D) 47 % (25 - 45) Aortic Annulus 2.3 cm (1.4 - 2.6) Ao root diameter (2D) 3.1 cm (2.1 - 3.5) Ascending Ao 3.2 cm (2.1 - 3.4) Aortic arch 2.8 cm (1.8 - 3.4) LA dimension (AP) 2D 3.9 cm (2.3 - 3.8) LAd ISD 4CH 5.6 cm (2.9 - 5.3) LA ISD 4CH W 4.2 cm (2.5 - 4.5) Name Value Normal Range LA ESV BP (A/L) index 29 ml/m2 - Name Value Normal Range MV E-wave Vmax 0.9 m/sec - MV deceleration time 172 msec - MV A-wave Vmax 0.6 m/sec - MV E:A ratio 1.6 ratio - P. vein S-wave Vmax 0.7 m/sec - P. vein D-wave Vmax 0.5 m/sec - P. vein S:D Vmax ratio 1.2 ratio - P. vein A-wave duration 124 msec - LV septal e' Vmax 0.08 m/sec - LV lateral e' Vmax 0.1 m/sec - LV E:e' septal ratio 12 ratio - LV E:e' lateral ratio 9 ratio - Name Value Normal Range AV Vmax 1.4 m/sec - AV VTI 34.5 cm - AV peak gradient 8 mmHg - AV mean gradient 4 mmHg - LVOT Vmax 1.2 m/sec - LVOT VTI 27 cm - LVOT peak gradient 6 mmHg - LVOT mean gradient 3 mmHg - AARON Vmax 0.9 m/sec - Name Value Normal Range RAP 3 mmHg - IVC diameter 2 cm - Name Value Normal Range PV Vmax 0.7 m/sec - PV peak gradient 2 mmHg -
--- NOTE | 2018-08-03 13:23 | RAD ---
HISTORY: chest pain COMPARISONS: None TECHNIQUE: A 1 day stress/rest myocardial perfusion study was performed, with pharmacologic stress. The stress portion was monitored by Dr. Moise. Gated SPECT imaging was performed, with CT-based attenuation correction DOSE: Stress: Technetium 99m tetrofosmin, 25.6 millicuries, injected at 11:42 AM on August 03, 2018 Rest: Technetium 99m tetrofosmin, 10.7 millicuries, injected at 7:05 AM on August 03, 2018 Pharmacologic agent: Lexiscan FINDINGS: CARDIAC MONITORING: No EKG changes of ischemia with stress EF: 61 % TID: 1.18 MOTION: Normal motion, with normal wall thickening. PERFUSION: There is a small fixed defect of the anterior wall. There is no definite reversible defect OTHER: None IMPRESSION: SMALL FIXED DEFECT OF THE ANTERIOR WALL SUGGESTIVE OF AN AREA OF PREVIOUS INFARCT. NO REVERSIBILITY TO SUGGEST ISCHEMIA. ASSESSMENT: LOW RISK. Based on imaging criteria from ACC/AHA 2002. Guideline Update for the Management of Patient's with Chronic Stable Angina, table 23. Noninvasive Risk Stratification.
[2018-08-03] MEDS ORDERED: Regadenoson* 0.4 MG/5 ML SYRINGE ONE (13:42)
--- NOTE | 2018-08-04 10:25 | DS ---
CC: Dr. Kartik Francisco DISCHARGE SUMMARY: DATE OF ADMISSION: 08/01/18 DATE OF DISCHARGE: 08/03/18 PRIMARY CARE PROVIDER: Dr. Kartik Francisco. DISCHARGE DIAGNOSIS: Chest pain, likely musculoskeletal. SECONDARY DIAGNOSES: 1. Anxiety. 2. Depression. 3. Recurrent urinary tract infections. 4. Tobacco abuse. 5. Obesity with a body mass index of 38. MEDICATION LIST: 1. Hydroxyzine 50 mg p.o. at bedtime. 2. Zolpidem 10 mg p.o. at bedtime. 3. Albuterol sulfate 2 puffs inhaled q.4 hours p.r.n. shortness of breath. 4. Mirtazapine 15 mg p.o. at bedtime. New medications: 1. Nystatin powder to abdominal fold rash b.i.d. 2. Acetaminophen 650 mg p.o. q.6 hours p.r.n. pain. HOSPITAL COURSE: Mrs. Tubbs is a 37-year-old lady with a past medical history as stated above that presented to the emergency room with 4 days of anterior left chest wall pain with some nausea. Of n ote, it is the fact the patient is going through a very stressful time in her life with the recent pa ssing of her dad and other family issues. For more details about her presentation, I refer you to he r history and physical. The patient's EKG showed sinus bradycardia at 57 beats per minute and had no ischemic changes. Seria l troponins were negative. The impression was that her pain was likely musculoskeletal, as it was re producible on chest wall palpation, but the patient does have a family history of coronary disease an d risk factors herself. The patient had a transthoracic echocardiogram that showed a normal left ventricular systolic functio n with ejection fraction of 55% to 60% with global left ventricular wall motion contractility within normal limits, functionally benign heart valves. The patient underwent initially exercise nuclear med stress test that was later on switched to a phar macological stress test. The study showed a small fixed defect of the anterior wall suggestive of an area of previous infarct and no reversibility to suggest ischemia. The assessment was a low-risk te st. This result was discussed with Cardiology and the impression is that the small fixed defect like ly represents an artifact considering her history and her echocardiogram showing no wall motion abnor malities. The patient is medically stable. She will be discharged home today to follow up with Dr. Francisco as o utpatient. PHYSICAL EXAMINATION: Vital Signs: Temperature 97.9, heart rate 61, respiratory rate 16, oxygen sat uration 100% on room air, blood pressure is 117/66. General: The patient is a pleasant lady, anxious , lying in bed, in no acute distress. CVS: Normal S1, S2. Regular rate and rhythm. Chest: Breath sounds present bilaterally with no added sounds. Extremities: No edema. Neuro: She is alert and o riented x3. Able to move all 4 extremities. DIET: Regular diet. ACTIVITIES: As tolerated. DISPOSITION: To home. STATUS WHILE IN THE HOSPITAL: Observation. Please keep in mind this is a summarized version of this patient's hospital stay. If you need more in formation, please feel free to call me at [phone] or please obtain the full medical records. TIME SPENT: Approximately 45 minutes was spent to complete this discharge. [id number]/CPS #: [id number]
== END 2018-08-03 15:58 | disposition home or self-care (01) ==
LOC: ED 16:28 → MEDTELE 08-02 00:17
PROVIDERS: ADMIT Internal Medicine; ATTEND Internal Medicine
DX: R07.9 Chest pain, unspecified (principal); F41.9 Anxiety disorder, unspecified; F32.9 Major depressive disorder, single episode, unspecified; N39.0 Urinary tract infection, site not specified; F17.210 Nicotine dependence, cigarettes, uncomplicated; E66.9 Obesity, unspecified; Z68.38 Body mass index [BMI] 38.0-38.9, adult; R51 Headache
CPT/HCPCS: 36415; 71045; 78452; 80048; 80053; 83605; 84484; 85025; 85379; 87641; 93005; 93017; 93306; 96374; 99285; A9270-GY; A9502; G0378; J1650; J2785

== ENCOUNTER → 2018-11-20 17:18 | Emergency (ER) | payer OTHER ==
--- NOTE | 2018-11-20 20:29 | ED ---
Lower Extremity - HPI Summary HPI Summary: Pt is a 37 y/o female brought in by EMS who presents to the ED s/p fall. She slipped on ice at 16:00 today outside her car, and twisted her right ankle. Pt was not able to bear weight at the time, and did not take any medications for pain. She now reports 10/10 in severity pain, and some numbness to her toes. She has a hx of a trimalleolar fracture to the same ankle 14 years ago, but has not had any ankle issues since. - History of Current Complaint Chief Complaint: EDExtremityLower Stated Complaint: RIGHT ANKLE INJURY Time Seen by Provider: 11/20/18 19:56 Hx Obtained From: Patient Hx Last Menstrual Period: hyster Mechanism Of Injury: Fall From A Standing Position - slipped on ice Onset/Duration: Still Present - 16:00 today Severity Currently: Severe Pain Intensity: 10 Pain Scale Used: 0-10 Numeric Timing: Constant Location: Is Discrete @ - right ankle Aggravating Factor(s): Weight Bearing Able to Bear Weight: No Related History: Other - right trimalleolar fracture - Allergies/Home Medications Allergies/Adverse Reactions: Allergies Allergy/AdvReac Type Severity Reaction Status Date / Time buprenorphine [From Suboxone] Allergy Swelling Verified 09/16/18 00:08 cephalexin [From Keflex] Allergy Difficulty Verified 09/16/18 00:08 Breathing/Wheezing ketorolac [From Toradol] Allergy Hives/Diff. Verified 09/16/18 00:08 Breathing/I tching naloxone [From Suboxone] Allergy Swelling Verified 09/16/18 00:08 nitrofurantoin Allergy Difficulty Verified 09/16/18 00:08 [From Macrobid] Breathing orange juice Allergy Difficulty Verified 09/16/18 00:08 Breathing tramadol [From Ultram] Allergy Rash Verified 09/16/18 00:08 trazodone Allergy Difficulty Verified 09/16/18 00:08 Breathing/Wheezing fluoxetine [From Prozac] AdvReac Hallucinati Verified 09/16/18 00:08 ons PMH/Surg Hx/FS Hx/Imm Hx Endocrine/Hematology History: Reports: Hx Thyroid Disease - LUMP SHE IS SEEING SONYA FOR, Hx Anemia Denies: Hx Anticoagulant Therapy, Hx Diabetes Cardiovascular History: Reports: Hx Angina Denies: Hx Congestive Heart Failure, Hx Deep Vein Thrombosis, Hx Hypercholesterolemia, Hx Hypertension, Hx Myocardial Infarction, Hx Pacemaker/ ICD Respiratory History: Reports: Hx Asthma Denies: Hx Chronic Obstructive Pulmonary Disease (COPD), Hx Lung Cancer GI History: Reports: Hx Gastroesophageal Reflux Disease - s/p Kathy Fundoplication, Hx Hiatal Hernia, Other GI Disorders - gerd barretts esophagus Denies: Hx Gall Bladder Disease, Hx Gastrointestinal Bleed, Hx Ulcer, Hx Urosepsis History: Reports: Hx Kidney Stones, Other Problems/Disorders - renal stones Denies: Hx Renal Disease - "decreased right kidney function" per pt. Musculoskeletal History: Reports: Hx Back Problems, Hx of Fracture(s) - right trimalleolar Denies: Hx Rheumatoid Arthritis, Hx Osteoporosis Sensory History: Denies: Hx Contacts or Glasses, Hx Hearing Aid Opthamlomology History: Denies: Hx Contacts or Glasses Neurological History: Reports: Other Neuro Impairments/Disorders - anxiety and depression Denies: Hx Dementia, Hx Headaches, Hx Migraine, Hx Seizures, Hx Transient Ischemic Attacks (TIA) Psychiatric History: Reports: Hx Anxiety, Hx Depression - She has been off meds x 2 years. She sees a therapist., Hx Inpatient Treatment, Hx Community Mental Health Tx, Hx Bipolar Disorder, Hx Substance Abuse - Narcotics,heroin,cocaine: sober since 05/03 Denies: Hx Eating Disorder, Hx Panic Disorder, Hx of Violent Episodes Against Others - Cancer History Cancer Type, Location and Year: Pre-cancer of espophagus-Tx with oral medication , Barretts Esophagus - RESOLVED WITH KATHY FUNDOPLICATION - Surgical History Surgery Procedure, Year, and Place: CHOLECYSTECTOMY, L5 DISC REMOVAL, APPENDECTOMY, TONSILLECTOMY, FULL FACIAL RECONSTRUCTION, LASER SURGERY RENAL STONE recent abd surgery 01/2014 - KATHY FUNDOPLICATION;Hysterectomy 01/11/15; Rt PINKY - AMPUTATED TO [address] [place] [address] - Immunization History Date of Tetanus Vaccine: unk Date of Influenza Vaccine: none Infectious Disease History: No Infectious Disease History: Reports: Hx of Known/Suspected MRSA Denies: Hx Clostridium Difficile, Hx Hepatitis, Hx Human Immunodeficiency Virus (HIV), Hx Shingles, Hx Tuberculosis, History Other Infectious Disease, Traveled Outside the [place] in Last 30 Days - Family History Known Family History: Positive: Cardiac Disease, Hypertension, Diabetes, Other - kidney stones; mom - pancreatic CA - Social History Alcohol Use: None Hx Substance Use: Yes Substance Use Type: Reports: None Substance Use Comment - Amount & Last Used: "clean for 5 years" Hx Tobacco Use: Yes Smoking Status (MU): Heavy Every Day Tobacco Smoker Type: Cigarettes Amount Used/How Often: 1 ppd Length of Time of Smoking/Using Tobacco: >20 years Have You Smoked in the Last Year: Yes Review of Systems Positive: Arthralgia - right ankle Positive: Numbness - right toes All Other Systems Reviewed And Are Negative: Yes Physical Exam - Summary Physical Exam Summary: Appearance: Well appearing, no pain distress Skin: warm, dry, reflects adequate perfusion Head/face: normal Eyes: EOMI, DOMINGO ENT: mucous membranes moist Neck: supple, non-tender Respiratory: CTA, breath sounds present Cardiovascular: RRR, pulses symmetrical Abdomen: non-tender, soft Bowel Sounds: present Musculoskeletal: tenderness and swelling to right anterior talofibular ligament , mild tenderness to lateral malleolus, no tenderness of medial malleolus, no metatarsal or scaphoid tenderness Neuro: normal, sensory motor intact, A&Ox3 Triage Information Reviewed: Yes Vital Signs On Initial Exam: Initial Vitals Temp Pulse Resp BP Pulse Ox 97.9 F 71 16 138/89 96 11/20/18 17:23 11/20/18 17:23 11/20/18 17:23 11/20/18 17:23 11/20/18 17:23 Vital Signs Reviewed: Yes Procedures - Procedure Summary Procedure Summary: GUILLERMO wrap and air splint application to right ankle. Diagnostics - Vital Signs Vital Signs Temp Pulse Resp BP Pulse Ox 11/20/18 19:18 99.6 F 68 16 125/79 98 11/20/18 17:23 97.9 F 71 16 138/89 96 - Laboratory Lab Statement: Any lab studies that have been ordered have been reviewed, and results considered in the medical decision making process. - Radiology Foot XR Radiology Interpretation Completed By: ED Physician Summary of Radiographic Findings: No acute findings. Pending official radiology report. Ankle XR Radiology Interpretation Completed By: ED Physician Summary of Radiographic Findings: No acute findings. Pending official radiology report. Lower Extremity Course/Dx - Course Course Of Treatment: Nurse's notes reviewed. X-rays negative. Guillermo, stirrup splint placed. Patient able to ambulate without crutches. Follow-up as needed. - Diagnoses Differential Diagnosis/HQI/PQRI: Positive: Fracture (Closed), Sprain, Strain Provider Diagnoses: Ankle sprain Discharge - Sign-Out/Discharge Documenting (check all that apply): Patient Departure - Discharge - Discharge Plan Condition: Improved Disposition: HOME Patient Education Materials: Ankle Sprain (ED), Ankle Stirrup Splint (ED) Referrals: Kartik Francisco MD [Primary Care Provider] - Additional Instructions: Rest, ice, Tylenol for discomfort and elevate it rest. Move the ankle through range of motion every hour while awake. Weight-bear as tolerated. Return if worse, new symptoms or other concerns. Follow up with your family doctor in one week if still having pain. - Billing Disposition and Condition Condition: IMPROVED Disposition: Home - Attestation Statements Document Initiated by Paco: Yes Documenting Scribe: Jyothi Price Provider For Whom Paco is Documenting (Include Credential): Michael Hackett MD Scribe Attestation: Jyotih Charles, scribed for Michael Hackett MD on 11/21/18 at 0111. Scribe Documentation Reviewed: Yes Provider Attestation: The documentation as recorded by the Jyothi orozco accurately reflects the service I personally performed and the decisions made by Michael cardenas MD Status of Scribe Document: Viewed
[2018-11-20 21:04] VITALS: BP 133/89
== END | disposition home or self-care (01) ==
LOC: ED 17:18
DX: S93.401A Sprain of unspecified ligament of right ankle, initial encounter (principal); W18.49XA Other slipping, tripping and stumbling without falling, initial encounter; Y92.9 Unspecified place or not applicable; Z89.021 Acquired absence of right finger(s); Z88.1 Allergy status to other antibiotic agents; Z88.5 Allergy status to narcotic agent; Z88.8 Allergy status to other drugs, medicaments and biological substances; F17.210 Nicotine dependence, cigarettes, uncomplicated
CPT/HCPCS: 99283

== ENCOUNTER → 2018-12-06 00:52 | Emergency (ER) | payer OTHER ==
[~2018-12-06 00:52] MED LIST: Metoclopramide IV* 5 MG/ML 2 ML VIAL IV SLOW PU ONE; Morphine VIAL* 10 MG/ML 1 ML VIAL IV ONE; NS 0.9% 1000 ML** 2,000 ML IV ONE
--- NOTE | 2018-12-06 01:26 | ED ---
Abdominal Pain/Female - HPI Summary HPI Summary: This patient is a 38 year old F presenting to ED with a chief complaint of R flank pain since 1 week ago. She says that she passed 2 stones 2 days ago. The patient rates the pain 10/10 in severity. Symptoms aggravated by nothing. Symptoms alleviated by nothing. Prior treatment includes Ibuprofen at 2000 on . Patient reports fever (103F) and N/V. Sees Dr. Morfin for hx of kidney stones. Has been seeing him for past 6 months to 1 year. PMHx of stents (7 since she was 1 years old, last one was on the R side about 2 years ago). - History of Current Complaint Stated Complaint: BACK PAIN Time Seen by Provider: 12/06/18 01:16 Hx Obtained From: Patient Hx Last Menstrual Period: hyster Onset/Duration: Sudden Onset, Lasting Weeks - 1 week ago, Still Present Timing: Constant Severity Initially: Severe Severity Currently: Severe Pain Intensity: 10 Pain Scale Used: 0-10 Numeric Location: Flank - right Aggravating Factor(s): Nothing Alleviating Factor(s): Nothing Associated Signs and Symptoms: Positive: Fever, Nausea, Vomiting Allergies/Adverse Reactions: Allergies Allergy/AdvReac Type Severity Reaction Status Date / Time buprenorphine [From Suboxone] Allergy Swelling Verified 09/16/18 00:08 cephalexin [From Keflex] Allergy Difficulty Verified 09/16/18 00:08 Breathing/Wheezing ketorolac [From Toradol] Allergy Hives/Diff. Verified 09/16/18 00:08 Breathing/I tching naloxone [From Suboxone] Allergy Swelling Verified 09/16/18 00:08 nitrofurantoin Allergy Difficulty Verified 09/16/18 00:08 [From Macrobid] Breathing orange juice Allergy Difficulty Verified 09/16/18 00:08 Breathing tramadol [From Ultram] Allergy Rash Verified 09/16/18 00:08 trazodone Allergy Difficulty Verified 09/16/18 00:08 Breathing/Wheezing fluoxetine [From Prozac] AdvReac Hallucinati Verified 09/16/18 00:08 ons PMH/Surg Hx/FS Hx/Imm Hx Endocrine/Hematology History: Reports: Hx Thyroid Disease - LUMP SHE IS SEEING SONYA FOR, Hx Anemia Denies: Hx Anticoagulant Therapy, Hx Diabetes Cardiovascular History: Reports: Hx Angina Denies: Hx Congestive Heart Failure, Hx Deep Vein Thrombosis, Hx Hypercholesterolemia, Hx Hypertension, Hx Myocardial Infarction, Hx Pacemaker/ ICD Respiratory History: Reports: Hx Asthma Denies: Hx Chronic Obstructive Pulmonary Disease (COPD), Hx Lung Cancer GI History: Reports: Hx Gastroesophageal Reflux Disease - s/p Kathy Fundoplication, Hx Hiatal Hernia, Other GI Disorders - gerd barretts esophagus Denies: Hx Gall Bladder Disease, Hx Gastrointestinal Bleed, Hx Ulcer, Hx Urosepsis History: Reports: Hx Kidney Stones, Other Problems/Disorders - renal stones Denies: Hx Renal Disease - "decreased right kidney function" per pt. Musculoskeletal History: Reports: Hx Back Problems Denies: Hx Rheumatoid Arthritis, Hx Osteoporosis Sensory History: Denies: Hx Contacts or Glasses, Hx Hearing Aid Opthamlomology History: Denies: Hx Contacts or Glasses Neurological History: Reports: Other Neuro Impairments/Disorders - anxiety and depression Denies: Hx Dementia, Hx Headaches, Hx Migraine, Hx Seizures, Hx Transient Ischemic Attacks (TIA) Psychiatric History: Reports: Hx Anxiety, Hx Depression - She has been off meds x 2 years. She sees a therapist., Hx Inpatient Treatment, Hx Community Mental Health Tx, Hx Bipolar Disorder, Hx Substance Abuse - Narcotics,heroin,cocaine: sober since 05/03 Denies: Hx Eating Disorder, Hx Panic Disorder, Hx of Violent Episodes Against Others - Cancer History Cancer Type, Location and Year: Pre-cancer of espophagus-Tx with oral medication , Barretts Esophagus - RESOLVED WITH KATHY FUNDOPLICATION - Surgical History Surgery Procedure, Year, and Place: CHOLECYSTECTOMY, L5 DISC REMOVAL, APPENDECTOMY, TONSILLECTOMY, FULL FACIAL RECONSTRUCTION, LASER SURGERY RENAL STONE recent abd surgery 01/2014 - KATHY FUNDOPLICATION;Hysterectomy 01/11/15; Rt PINKY - AMPUTATED TO [address] [place] [address] - Immunization History Date of Tetanus Vaccine: unk Date of Influenza Vaccine: none Infectious Disease History: No Infectious Disease History: Reports: Hx of Known/Suspected MRSA Denies: Hx Clostridium Difficile, Hx Hepatitis, Hx Human Immunodeficiency Virus (HIV), Hx Shingles, Hx Tuberculosis, History Other Infectious Disease, Traveled Outside the [place] in Last 30 Days - Family History Known Family History: Positive: Cardiac Disease, Hypertension, Diabetes, Other - kidney stones; mom - pancreatic [place] - Social History Alcohol Use: None Hx Substance Use: Yes Substance Use Type: Reports: None Substance Use Comment - Amount & Last Used: "clean for 5 years" Hx Tobacco Use: Yes Smoking Status (MU): Heavy Every Day Tobacco Smoker Type: Cigarettes Amount Used/How Often: 1 ppd Length of Time of Smoking/Using Tobacco: >20 years Have You Smoked in the Last Year: Yes Review of Systems Positive: Fever - 103F Positive: Abdominal Pain - R flank pain, Vomiting, Nausea All Other Systems Reviewed And Are Negative: Yes Physical Exam - Summary Physical Exam Summary: VITAL SIGNS: Reviewed. GENERAL: Patient is a morbidly obese FEMALE who is lying comfortable in the stretcher. Patient is not in any acute respiratory distress. HEAD AND FACE: No signs of trauma. No ecchymosis, hematomas or skull depressions. No sinus tenderness. EYES: PERRLA, EOMI x 2, No injected conjunctiva, no nystagmus. EARS: Hearing grossly intact. Ear canals and tympanic membranes are within normal limits. MOUTH: Oropharynx within normal limits. NECK: Supple, trachea is midline, no adenopathy, no JVD, no carotid bruit, no c- spine tenderness, neck with full ROM. CHEST: Symmetric, no tenderness at palpation LUNGS: Clear to auscultation bilaterally. No wheezing or crackles. CVS: Regular rate and rhythm, S1 and S2 present, no murmurs or gallops appreciated. ABDOMEN: Soft, RLQ and R CVA tenderness. No signs of distention. No rebound no guarding, and no masses palpated. Bowel sounds are normal. EXTREMITIES: FROM in all major joints, no edema, no cyanosis or clubbing. NEURO: Alert and oriented x 3. No acute neurological deficits. Speech is normal and follows commands. SKIN: Dry and warm Triage Information Reviewed: Yes Vital Signs On Initial Exam: Initial Vitals Temp Pulse Resp BP Pulse Ox 98.4 F 54 18 123/64 97 12/06/18 01:14 12/06/18 01:14 12/06/18 01:14 12/06/18 01:14 12/06/18 01:14 Vital Signs Reviewed: Yes Diagnostics - Vital Signs Vital Signs Temp Pulse Resp BP Pulse Ox 12/06/18 01:14 98.4 F 54 18 123/64 97 - Laboratory Result Diagrams: 12/06/18 01:36 12/06/18 01:36 Lab Statement: Any lab studies that have been ordered have been reviewed, and results considered in the medical decision making process. - CT CT abd/pel CT Interpretation Completed By: Radiologist Summary of CT Findings: 1. Multiple prominent ileocecal lymph nodes which may be due to mesenteric adenitis. 2. A moderate hiatal hernia. 3. Hepatomegaly. Previously seen enhancing right hepatic mass is not appreciated on noncontrast study. ED physician has reviewed this radiology report. Re-Evaluation - Re-Evaluation First Eval Re-Evaluation Time: 03:21 Comment: Discussed CT results and plan for discharge with the patient. Abdominal Pain Fem Course/Dx - Course Course Of Treatment: This patient is a 38 year old F presenting to ED with a chief complaint of R flank pain since [address] abd/pel reveals 1. Multiple prominent ileocecal lymph nodes which may be due to mesenteric adenitis. 2. A moderate hiatal hernia. 3. Hepatomegaly. Previously seen enhancing right hepatic mass is not appreciated on noncontrast study. This patient will be discharged with dx of flank pain. Patient understands and agrees with this plan. - Diagnoses Differential Diagnosis: Positive: Other - flank pain Provider Diagnoses: Flank pain Discharge - Sign-Out/Discharge Documenting (check all that apply): Patient Departure - discharge Patient Received Moderate/Deep Sedation with Procedure: No - Discharge Plan Condition: Stable Disposition: HOME Patient Education Materials: Flank Pain (ED) Referrals: Kartik Francisco MD [Primary Care Provider] - (Follow up in 1-2 days.) Additional Instructions: RETURN TO THE EMERGENCY DEPARTMENT FOR CHANGING OR WORSENING SYMPTOMS. FOLLOW UP WITH PCP IN 1-2 DAYS. - Attestation Statements Document Initiated by Scribe: Yes Documenting Scribe: Dillon Adams Provider For Whom Paco is Documenting (Include Credential): Kaylee Ramos MD Scribe Attestation: Dillon Charles, scribed for Kaylee Ramos MD on 12/06/18 at 0320. Status of Scribe Document: Ready
[2018-12-06 02:13] LABS: ABS Basophils 0.1 10^3/ul (0-0.2); ABS Eosinophils 0.1 10^3/ul (0-0.6); ABS Lymphocytes 2.4 10^3/ul (1.0-4.8); ABS Monocytes 0.8 10^3/ul (0-0.8); ABS Nucleated RBC 0 10^3/ul; Eosinophil % 1.1 %; Hematocrit 38 % (35-47); Hemoglobin 12.8 g/dl (12.0-16.0); Lymphocyte % 28.6 %; Mean Corpuscular HGB Conc 33 g/dl (31-36); Mean Corpuscular Hemoglobin 29 pg (27-31); Mean Corpuscular Volume 87 fL (80-97); Mean Platelet Volume 8.4 fL (7.4-10.4); Nucleated Red Blood Cells % 0; Platelet Count 277 10^3/ul (150-450); Red Blood Count 4.43 10^6/ul (4.00-5.40); Red Cell Distribution Width 14 % (10.5-15); White Blood Count 8.3 10^3/ul (3.5-10.8)
[2018-12-06 02:29] LABS: ALT 8 U/L (7-52); AST 8 U/L (13-39); Albumin 3.8 g/dL (3.2-5.2); Albumin/Globulin Ratio 1.4 (1-3); Alkaline Phosphatase 60 U/L (34-104); Anion Gap 7 mmol/L (2-11); BUN/Creatinine Ratio 16.9 (8-20); Blood Urea Nitrogen 15 mg/dL (6-24); C Reactive Protein 10.02 mg/L (<8.01); CO2 Carbon Dioxide 26 mmol/L (22-32); Chloride 107 mmol/L (101-111); EGFR Non-African American 70.2 (>60); Globulin 2.7 g/dL (2-4); Glucose 100 mg/dL (70-100); Magnesium 2.2 mg/dL (1.9-2.7); Potassium 3.7 mmol/L (3.5-5.0); Sodium 140 mmol/L (135-145); Total Protein 6.5 g/dL (6.4-8.9)
[2018-12-06 02:36] LABS: HCG Pregnancy < 0.60 mIU/mL
[2018-12-06 02:57] LABS: Urine Appearance Cloudy; Urine Bacteria Absent (Absent); Urine Bilirubin Negative (Negative); Urine Blood 1+ (Negative); Urine Color Yellow; Urine Glucose Negative (Negative); Urine Ketones Negative (Negative); Urine Nitrite Negative (Negative); Urine Protein Negative (Negative); Urine Red Blood Cell 1+(3-5/hpf) (Absent); Urine Specific Gravity 1.028 (1.010-1.030); Urine Squamous Epithelial Cell Present (Absent); Urine Urobilinogen Negative (Negative); Urine White Blood Cell Trace(0-5/hpf) (Absent)
[2018-12-06 03:37] VITALS: BP 119/75
== END | disposition home or self-care (01) ==
LOC: ED 00:52
DX: R10.9 Unspecified abdominal pain (principal); F32.9 Major depressive disorder, single episode, unspecified; F41.9 Anxiety disorder, unspecified; J45.909 Unspecified asthma, uncomplicated; K21.9 Gastro-esophageal reflux disease without esophagitis; Z87.442 Personal history of urinary calculi; Z96.0 Presence of urogenital implants; F17.210 Nicotine dependence, cigarettes, uncomplicated
CPT/HCPCS: 36415; 74176; 80053; 81003; 81015; 83605; 83690; 83735; 84702; 85025; 86140; 87040; 87086; 96361; 96374; 96375; 99283; J2270; J2765

== ENCOUNTER 2018-12-15 15:33 | Emergency (ER) | payer OTHER ==
[2018-12-15] MEDS ORDERED: NS 0.9% 1000 ML** 1,000 ML IV ONE (16:23)
[2018-12-15] MEDS ORDERED: Ondansetron INJ* 2 MG/ML VIAL IV ONE (16:24)
--- NOTE | 2018-12-15 16:50 | ED ---
Influenza-Like Illness - HPI Summary HPI Summary: Pt. is a 38 y.o female who presents to the ER for numerous complaints. Pt. c.o flu like sxs of body aches, h/a, fever/chills x several days. She also notes abd. pain and one episode of vomiting and mild diarrhea. Pt. denies CP, sob, urinary sxs, cough. Pt. seen in ED frequently. Pt. has not taken any tylenol or motrin. Sxs are mild in severity. No current modifying factors. - History of Current Complaint Chief Complaint: EDFluSymptoms Time Seen by Provider: 12/15/18 15:50 Hx Obtained From: Patient - Allergy/Home Medications Allergies/Adverse Reactions: Allergies Allergy/AdvReac Type Severity Reaction Status Date / Time buprenorphine [From Suboxone] Allergy Swelling Verified 09/16/18 00:08 cephalexin [From Keflex] Allergy Difficulty Verified 09/16/18 00:08 Breathing/Wheezing ketorolac [From Toradol] Allergy Hives/Diff. Verified 09/16/18 00:08 Breathing/I tching naloxone [From Suboxone] Allergy Swelling Verified 09/16/18 00:08 nitrofurantoin Allergy Difficulty Verified 09/16/18 00:08 [From Macrobid] Breathing orange juice Allergy Difficulty Verified 09/16/18 00:08 Breathing tramadol [From Ultram] Allergy Rash Verified 09/16/18 00:08 trazodone Allergy Difficulty Verified 09/16/18 00:08 Breathing/Wheezing fluoxetine [From Prozac] AdvReac Hallucinati Verified 09/16/18 00:08 ons PMH/Surg Hx/FS Hx/Imm Hx Previously Healthy: Yes Endocrine/Hematology History: Reports: Hx Thyroid Disease - LUMP SHE IS SEEING SONYA FOR, Hx Anemia Denies: Hx Anticoagulant Therapy, Hx Diabetes Cardiovascular History: Reports: Hx Angina Denies: Hx Congestive Heart Failure, Hx Deep Vein Thrombosis, Hx Hypercholesterolemia, Hx Hypertension, Hx Myocardial Infarction, Hx Pacemaker/ ICD Respiratory History: Reports: Hx Asthma Denies: Hx Chronic Obstructive Pulmonary Disease (COPD), Hx Lung Cancer GI History: Reports: Hx Gastroesophageal Reflux Disease - s/p Anthony Fundoplication, Hx Hiatal Hernia, Other GI Disorders - gerd barretts esophagus Denies: Hx Gall Bladder Disease, Hx Gastrointestinal Bleed, Hx Ulcer, Hx Urosepsis History: Reports: Hx Kidney Stones, Other Problems/Disorders - renal stones Denies: Hx Renal Disease - "decreased right kidney function" per pt. Musculoskeletal History: Reports: Hx Back Problems Denies: Hx Rheumatoid Arthritis, Hx Osteoporosis Sensory History: Denies: Hx Contacts or Glasses, Hx Hearing Aid Opthamlomology History: Denies: Hx Contacts or Glasses Neurological History: Reports: Other Neuro Impairments/Disorders - anxiety and depression Denies: Hx Dementia, Hx Headaches, Hx Migraine, Hx Seizures, Hx Transient Ischemic Attacks (TIA) Psychiatric History: Reports: Hx Anxiety, Hx Depression - She has been off meds x 2 years. She sees a therapist., Hx Inpatient Treatment, Hx Community Mental Health Tx, Hx Bipolar Disorder, Hx Substance Abuse - Narcotics,heroin,cocaine: sober since 05/03 Denies: Hx Eating Disorder, Hx Panic Disorder, Hx of Violent Episodes Against Others - Cancer History Cancer Type, Location and Year: Pre-cancer of espophagus-Tx with oral medication , Barretts Esophagus - RESOLVED WITH ANTHONY FUNDOPLICATION - Surgical History Surgery Procedure, Year, and Place: CHOLECYSTECTOMY, L5 DISC REMOVAL, APPENDECTOMY, TONSILLECTOMY, FULL FACIAL RECONSTRUCTION, LASER SURGERY RENAL STONE recent abd surgery 01/2014 - ANTHONY FUNDOPLICATION;Hysterectomy 01/11/15; Rt PINKY - AMPUTATED TO [address] [place] [address] - Immunization History Date of Tetanus Vaccine: unk Date of Influenza Vaccine: none Infectious Disease History: Unable to Obtain/Confirm Infectious Disease History: Reports: Hx of Known/Suspected MRSA Denies: Hx Clostridium Difficile, Hx Hepatitis, Hx Human Immunodeficiency Virus (HIV), Hx Shingles, Hx Tuberculosis, History Other Infectious Disease, Traveled Outside the [place] in Last 30 Days - Family History Known Family History: Positive: Cardiac Disease, Hypertension, Diabetes, Other - kidney stones; mom - pancreatic [place] - Social History Occupation: Employed Full-time Lives: With Family Alcohol Use: None Hx Substance Use: Yes Substance Use Type: Reports: None Substance Use Comment - Amount & Last Used: clean x 7 years Hx Tobacco Use: Yes Smoking Status (MU): Heavy Every Day Tobacco Smoker Type: Cigarettes Amount Used/How Often: 1 ppd Length of Time of Smoking/Using Tobacco: >20 years Have You Smoked in the Last Year: Yes Review of Systems Positive: Fever, Chills Eyes: Negative Positive: Nasal Discharge Cardiovascular: Negative Respiratory: Negative Positive: Abdominal Pain, Vomiting, Diarrhea, Nausea Genitourinary: Negative Positive: Myalgia Skin: Negative Positive: Headache All Other Systems Reviewed And Are Negative: Yes Physical Exam Triage Information Reviewed: Yes Vital Signs On Initial Exam: Initial Vitals Pulse Pulse Ox 66 97 12/15/18 15:40 12/15/18 15:40 Vital Signs Reviewed: Yes Appearance: Positive: Well-Appearing - Pt. lying in bed in NAD. Friend present. Skin: Positive: Warm, Dry Head/Face: Positive: Normal Head/Face Inspection Eyes: Positive: Normal, EOMI ENT: Positive: Pharynx normal, TMs normal Neck: Positive: Supple Respiratory/Lung Sounds: Positive: Clear to Auscultation, Breath Sounds Present Cardiovascular: Positive: Normal, RRR Abdomen Description: Positive: Other: - Obese. Abd. is soft with tenderness to epigastric region. No rebound tenderness of guarding. Neurological: Positive: Normal, CN Intact II-III Psychiatric: Positive: Affect/Mood Appropriate Diagnostics - Vital Signs Vital Signs Temp Pulse Resp BP Pulse Ox 12/15/18 15:42 97.5 F 65 14 138/80 97 12/15/18 15:40 66 97 - Laboratory Result Diagrams: 12/15/18 17:08 12/15/18 17:08 Lab Statement: Any lab studies that have been ordered have been reviewed, and results considered in the medical decision making process. Flu Symptom Course/Dx - Course Course Of Treatment: Pt. presenting with above sxs. She is afebrile with stable vs. Basic labs and flu ordered. Pt given iv fluids and zofran. Blood work unremarkable. Flu is positive. Outside of window for tamiflu. On reexam pt. feeling better. tolerating po fluids. Advised tylenol or motrin for pain and fever as directed. increases fluilds and rest. To f.u with pcp and return to er if sxs change or worsen. Pt. understands and agrees with plan. - Diagnoses Differential Diagnosis/HQI/PQRI: Positive: Influenza, Upper Respiratory Infection Provider Diagnoses: Influenza Discharge - Sign-Out/Discharge Documenting (check all that apply): Patient Departure Patient Received Moderate/Deep Sedation with Procedure: No - Discharge Plan Condition: Improved Disposition: HOME Patient Education Materials: Influenza (ED) Forms: *School Release, *Work Release Referrals: Kartik Francisco MD [Primary Care Provider] - Additional Instructions: Schedule a follow up appointment with PCP Tylenol or Motrin for pain as directed Increase fluids and rest Return to ER If symptoms change or worsen - Billing Disposition and Condition Condition: IMPROVED Disposition: Home
[2018-12-15 17:16] LABS: Influenza A Molecular POSITIVE (Negative)
[2018-12-15 17:26] LABS: ABS Basophils 0 10^3/ul (0-0.2); ABS Eosinophils 0.1 10^3/ul (0-0.6); ABS Lymphocytes 1.8 10^3/ul (1.0-4.8); ABS Monocytes 1.3 10^3/ul (0-0.8); ABS Neutrophils 3.9 10^3/ul (1.5-7.7); ABS Nucleated RBC 0 10^3/ul; Eosinophil % 0.9 %; Hematocrit 40 % (35-47); Hemoglobin 13.3 g/dl (12.0-16.0); Mean Corpuscular HGB Conc 33 g/dl (31-36); Mean Corpuscular Hemoglobin 29 pg (27-31); Mean Corpuscular Volume 87 fL (80-97); Mean Platelet Volume 8.6 fL (7.4-10.4); Nucleated Red Blood Cells % 0; Platelet Count 220 10^3/ul (150-450); Red Blood Count 4.65 10^6/ul (4.00-5.40); Red Cell Distribution Width 15 % (10.5-15)
[2018-12-15 17:40] LABS: ALT 9 U/L (7-52); AST 11 U/L (13-39); Albumin 3.8 g/dL (3.2-5.2); Albumin/Globulin Ratio 1.5 (1-3); Alkaline Phosphatase 62 U/L (34-104); Anion Gap 4 mmol/L (2-11); BUN/Creatinine Ratio 12.6 (8-20); Blood Urea Nitrogen 11 mg/dL (6-24); CO2 Carbon Dioxide 28 mmol/L (22-32); Calcium 8.7 mg/dL (8.6-10.3); Chloride 107 mmol/L (101-111); EGFR African American 87.3 (>60); EGFR Non-African American 72.1 (>60); Globulin 2.5 g/dL (2-4); Glucose 91 mg/dL (70-100); Sodium 139 mmol/L (135-145); Total Protein 6.3 g/dL (6.4-8.9)
[2018-12-15 17:47] LABS: HCG Pregnancy < 0.60 mIU/mL
[2018-12-15 18:24] VITALS: BP 130/65
== END 2018-12-15 18:25 | disposition home or self-care (01) ==
LOC: ED 15:33
DX: J11.1 Influenza due to unidentified influenza virus with other respiratory manifestations (principal); R50.9 Fever, unspecified; R10.9 Unspecified abdominal pain; R11.2 Nausea with vomiting, unspecified; R19.7 Diarrhea, unspecified; F17.210 Nicotine dependence, cigarettes, uncomplicated
CPT/HCPCS: 36415; 80053; 84702; 85025; 96374; 99282; J2405

== ENCOUNTER 2018-12-31 15:11 | Emergency (ER) | payer OTHER ==
--- NOTE | 2018-12-31 15:42 | ED ---
HPI Cardiac - HPI Summary HPI Summary: Patient is a 38 y/o F presenting to ED with complaints of right sided neck pain with radiation down right arm, right hand fingertip numbness, "fast" palpitations, and left sided chest pain. She states that right sided neck pain has been present for the past few days, notes that pain initially radiated just to her right shoulder but has progressively begun to radiate down her entire right arm. She states that some time after midnight today, patient began to experience left sided chest pain with palpitations. Patient also reports some numbness of fingertips at right hand. She reports some slight SOB earlier as well. Cough, fever, and chills are denied. FMHx of cardiac disease. On triage, pain is rated 9/10. Nothing is noted to aggravate/alleviate Sx. Home medications and allergies are reviewed. - History of Current Complaint Chief Complaint: EDChestPainROMI Stated Complaint: CHEST PAIN Time Seen by Provider: 12/31/18 15:29 Hx Obtained From: Patient Hx Last Menstrual Period: hyster Onset/Duration: Started Hours Ago - chest pain and palpitations, Started Days Ago - right neck pain, Still Present Timing: Constant, Lasting Hours - chest pain and palpitations, Lasting Days - right neck pain Current Severity: Severe - 9/10 Pain Intensity: 9 Pain Scale Used: 0-10 Numeric - 9/10 Chest Pain Location: Left Anterior Chest Pain Radiates: Yes Chest Pain Radiates To:: Other - patient reports right neck pain with radiation down right arm Character: Fast Aggravating Factor(s): Nothing Alleviating Factor(s): Nothing Associated Signs and Symptoms: Positive: Chest Pain, Numbness - right hand fingertips, Shortness of Breath, Palpitations, Other: - POSITIVE - RIGHT SIDED NECK PAIN WITH RADIATION DOWN RIGHT ARM. Negative: Fever, Chills, Cough, Productive Cough, Nonproductive Cough - Additional Pertinent History Primary Care Physician: [id number] - Allergy/Home Medications Allergies/Adverse Reactions: Allergies Allergy/AdvReac Type Severity Reaction Status Date / Time buprenorphine [From Suboxone] Allergy Swelling Verified 09/16/18 00:08 cephalexin [From Keflex] Allergy Difficulty Verified 09/16/18 00:08 Breathing/Wheezing ketorolac [From Toradol] Allergy Hives/Diff. Verified 09/16/18 00:08 Breathing/I tching naloxone [From Suboxone] Allergy Swelling Verified 09/16/18 00:08 nitrofurantoin Allergy Difficulty Verified 09/16/18 00:08 [From Macrobid] Breathing orange juice Allergy Difficulty Verified 09/16/18 00:08 Breathing tramadol [From Ultram] Allergy Rash Verified 09/16/18 00:08 trazodone Allergy Difficulty Verified 09/16/18 00:08 Breathing/Wheezing fluoxetine [From Prozac] AdvReac Hallucinati Verified 09/16/18 00:08 ons PMH/Surg Hx/FS Hx/Imm Hx Endocrine/Hematology History: Reports: Hx Thyroid Disease - LUMP SHE IS SEEING SONYA FOR, Hx Anemia Denies: Hx Anticoagulant Therapy, Hx Diabetes Cardiovascular History: Reports: Hx Angina Denies: Hx Congestive Heart Failure, Hx Deep Vein Thrombosis, Hx Hypercholesterolemia, Hx Hypertension, Hx Myocardial Infarction, Hx Pacemaker/ ICD Respiratory History: Reports: Hx Asthma Denies: Hx Chronic Obstructive Pulmonary Disease (COPD), Hx Lung Cancer GI History: Reports: Hx Gastroesophageal Reflux Disease - s/p Kathy Fundoplication, Hx Hiatal Hernia, Other GI Disorders - gerd barretts esophagus Denies: Hx Gall Bladder Disease, Hx Gastrointestinal Bleed, Hx Ulcer, Hx Urosepsis History: Reports: Hx Kidney Stones, Other Problems/Disorders - renal stones Denies: Hx Renal Disease - "decreased right kidney function" per pt. Musculoskeletal History: Reports: Hx Back Problems Denies: Hx Rheumatoid Arthritis, Hx Osteoporosis Sensory History: Denies: Hx Contacts or Glasses, Hx Hearing Aid Opthamlomology History: Denies: Hx Contacts or Glasses Neurological History: Reports: Other Neuro Impairments/Disorders - anxiety and depression Denies: Hx Dementia, Hx Headaches, Hx Migraine, Hx Seizures, Hx Transient Ischemic Attacks (TIA) Psychiatric History: Reports: Hx Anxiety, Hx Depression - She has been off meds x 2 years. She sees a therapist., Hx Inpatient Treatment, Hx Community Mental Health Tx, Hx Bipolar Disorder, Hx Substance Abuse - Narcotics,heroin,cocaine: sober since 05/03 Denies: Hx Eating Disorder, Hx Panic Disorder, Hx of Violent Episodes Against Others - Cancer History Cancer Type, Location and Year: Pre-cancer of espophagus-Tx with oral medication , Barretts Esophagus - RESOLVED WITH KATHY FUNDOPLICATION - Surgical History Surgery Procedure, Year, and Place: CHOLECYSTECTOMY, L5 DISC REMOVAL, APPENDECTOMY, TONSILLECTOMY, FULL FACIAL RECONSTRUCTION, LASER SURGERY RENAL STONE recent abd surgery 01/2014 - KATHY FUNDOPLICATION;Hysterectomy 01/11/15; Rt PINKY - AMPUTATED TO [facility] - Immunization History Date of Tetanus Vaccine: unk Date of Influenza Vaccine: none Infectious Disease History: No Infectious Disease History: Reports: Hx of Known/Suspected MRSA Denies: Hx Clostridium Difficile, Hx Hepatitis, Hx Human Immunodeficiency Virus (HIV), Hx Shingles, Hx Tuberculosis, History Other Infectious Disease, Traveled Outside the [place] in Last 30 Days - Family History Known Family History: Positive: Cardiac Disease, Hypertension, Diabetes, Other - kidney stones; mom - pancreatic CA - Social History Alcohol Use: None Hx Substance Use: Yes Substance Use Type: Reports: None Substance Use Comment - Amount & Last Used: clean x 7 years Hx Tobacco Use: Yes Smoking Status (MU): Heavy Every Day Tobacco Smoker Type: Cigarettes Amount Used/How Often: 1 ppd Length of Time of Smoking/Using Tobacco: >20 years Have You Smoked in the Last Year: Yes Review of Systems Negative: Fever, Chills Positive: Palpitations, Chest Pain Positive: Shortness Of Breath. Negative: Cough Musculoskeletal: Other - POSITIVE - RIGHT SIDED NECK PAIN WITH RADIATION DOWN RIGHT ARM Positive: Numbness - right hand fingertips All Other Systems Reviewed And Are Negative: Yes Physical Exam - Summary Physical Exam Summary: Constitutional: Well-developed, Well-nourished, Alert. (-) Distressed Skin: Warm, Dry HENT: Normocephalic; Atraumatic Eyes: Conjunctiva normal Neck: Musculoskeletal ROM normal neck. (-) JVD, (-) Stridor, (-) Tracheal deviation Cardio: Rhythm regular, rate normal, Heart sounds normal; Intact distal pulses; The pedal pulses are 2+ and symmetric. Radial pulses are 2+ and symmetric. (-) Murmur Pulmonary/Chest wall: Effort normal. (-) Respiratory distress, (-) Wheezes, (-) Rales Abd: Soft, (-) tenderness, (-) Distension, (-) Guarding, (-) Rebound Musculoskeletal: Tenderness over right neck and shoulder that is not reproducible, but palpation of neck reproduces paraesthesia (-) Edema Lymph: (-) Cervical adenopathy Neuro: Alert, Oriented x3 Psych: Mood and affect Normal Triage Information Reviewed: Yes Vital Signs On Initial Exam: Initial Vitals Temp Pulse Resp BP Pulse Ox 98.7 F 75 18 142/88 98 12/31/18 15:18 12/31/18 15:18 12/31/18 15:18 12/31/18 15:18 12/31/18 15:18 Vital Signs Reviewed: Yes Diagnostics - Vital Signs Vital Signs Temp Pulse Resp BP Pulse Ox 12/31/18 15:18 98.7 F 75 18 142/88 98 - Laboratory Result Diagrams: 12/31/18 16:42 12/31/18 16:42 Lab Statement: Any lab studies that have been ordered have been reviewed, and results considered in the medical decision making process. - Radiology chest x-ray Radiology Interpretation Completed By: Radiologist Summary of Radiographic Findings: IMPRESSION: NO EVIDENCE FOR ACUTE DISEASE. THIS REPORT WAS REVIEWED BY DR. WU. - EKG 1347 Cardiac Rate: Tachycardia - rate of 111 BPM EKG Rhythm: Sinus Tachycardia Summary of EKG Findings: EKG showed sinus tachycardia with rate of 111 BPM, normal OH, normal QRS, normal QTc, incomplete RBBB, non-specific ST. Disposition - Course Course Of Treatment: Patient is a 38 y/o F presenting to ED with complaints of right sided neck pain with radiation down right arm, right hand fingertip numbness, "fast" palpitations, and left sided chest pain. She states that right sided neck pain has been present for the past few days, notes that pain initially radiated just to her right shoulder but has progressively begun to radiate down her entire right arm. She states that some time after midnight today, patient began to experience left sided chest pain with palpitations. Patient also reports some numbness of fingertips at right hand. She reports some slight SOB earlier as well. Cough, fever, and chills are denied. FMHx of cardiac disease. On physical exam, tenderness over right neck and shoulder that is not reproducible, but palpation of neck reproduces paraesthesia. EKG showed sinus tachycardia with rate of 111 BPM, normal OH, normal QRS, normal QTc , incomplete RBBB, non-specific ST. CXR IMPRESSION: NO EVIDENCE FOR ACUTE DISEASE. Labs showed WBC 11.2, absolute monos 1.0, carbon dioxide 19, glucose 103, lactic acid 0.8, calcium 8.4, total bilirubin 0.10, AST 9, ALT 5. First trop 0.02, second trop 0.00. During ED course, patient received Flexeril 10 mg PO ONCE. Patient will be discharged to home and follow up with PCP. - Diagnoses Provider Diagnoses: Chest pain, Neck strain Discharge - Sign-Out/Discharge Documenting (check all that apply): Patient Departure - discharge Patient Received Moderate/Deep Sedation with Procedure: No - Discharge Plan Condition: Good Disposition: HOME Prescriptions: Cyclobenzaprine TAB* [Flexeril 10 MG TAB*] 10 mg PO TID #20 tab MDD 3 Patient Education Materials: Chest Pain (ED), Cervical Strain (ED) Print Language: SETSWANA Referrals: Kartik Francisco MD [Primary Care Provider] - 2 Days Additional Instructions: Return to ED for any new or worsening symptoms. Follow up with primary care physician within 2 days. - Billing Disposition and Condition Condition: GOOD Disposition: Home - Attestation Statements Document Initiated by Kennedye: Yes Documenting Scribe: DIMA TOLEDO Provider For Whom Paco is Documenting (Include Credential): VAN CAPPS MD Scribe Attestation: DIMA Charles, scribed for VAN WU MD on 12/31/18 at 2158. Scribe Documentation Reviewed: Yes Provider Attestation: The documentation as recorded by the DIMA orozco accurately reflects the service I personally performed and the decisions made by me, VAN WU MD Status of Scribe Document: Viewed
[2018-12-31 16:53] LABS: ABS Basophils 0.2 10^3/ul (0-0.2); ABS Eosinophils 0.2 10^3/ul (0-0.6); ABS Lymphocytes 2.6 10^3/ul (1.0-4.8); ABS Neutrophils 7.3 10^3/ul (1.5-7.7); ABS Nucleated RBC 0 10^3/ul; Eosinophil % 1.4 %; Hematocrit 41 % (35-47); Hemoglobin 13.4 g/dl (12.0-16.0); Lymphocyte % 23.3 %; Mean Corpuscular HGB Conc 33 g/dl (31-36); Mean Corpuscular Hemoglobin 29 pg (27-31); Mean Corpuscular Volume 88 fL (80-97); Mean Platelet Volume 8.5 fL (7.4-10.4); Nucleated Red Blood Cells % 0; Platelet Count 294 10^3/ul (150-450); Red Blood Count 4.67 10^6/ul (4.00-5.40); Red Cell Distribution Width 15 % (10.5-15); White Blood Count 11.2 10^3/ul (3.5-10.8)
[2018-12-31 17:08] LABS: Albumin 3.6 g/dL (3.2-5.2); Calcium 8.4 mg/dL (8.6-10.3); Total Bilirubin 0.1 mg/dL (0.2-1.0)
[2018-12-31 17:14] LABS: Albumin/Globulin Ratio 1.3 (1-3); BUN/Creatinine Ratio 18.2 (8-20); EGFR African American 86.1 (>60); EGFR Non-African American 71.2 (>60); Globulin 2.8 g/dL (2-4); Total Protein 6.4 g/dL (6.4-8.9)
[2018-12-31 17:24] LABS: Troponin I 0.02 ng/mL (<0.04)
[2018-12-31 17:28] LABS: Potassium 4.2 mmol/L (3.5-5.0)
[2018-12-31] MEDS ORDERED: Cyclobenzaprine TAB* 10 MG PO ONE (19:44)
[2018-12-31 20:11] VITALS: BP 115/59
== END 2018-12-31 20:12 | disposition home or self-care (01) ==
LOC: ED 15:11
DX: S16.1XXA Strain of muscle, fascia and tendon at neck level, initial encounter (principal); R07.9 Chest pain, unspecified; F17.210 Nicotine dependence, cigarettes, uncomplicated; K21.9 Gastro-esophageal reflux disease without esophagitis; Z87.442 Personal history of urinary calculi; R00.0 Tachycardia, unspecified; I45.10 Unspecified right bundle-branch block; X58.XXXA Exposure to other specified factors, initial encounter; Y92.9 Unspecified place or not applicable
CPT/HCPCS: 36415; 71045; 80053; 83605; 84484; 85025; 93005; 99282; A9270-GY

== ENCOUNTER 2019-02-16 20:55 | Emergency (ER) | payer OTHER ==
[2019-02-16 21:08] VITALS: BP 150/77
--- NOTE | 2019-02-16 21:18 | UC ---
Minor Trauma HPI - HPI Summary HPI Summary: fell and hit here head last night (3am) on a shelf---states she had a 15 sec LOC ---pain below left eye feels nauseated---but was able to eat [employer] but after got nauseated--states she does not just feel right also c/o right wrist pain-- -some distal tenderness no deformity and has full ROM - History of Current Complaint Chief Complaint: UCHeadInjury Stated Complaint: FACE INJURY Time Seen by Provider: 02/16/19 21:08 Hx Obtained From: Patient Hx Last Menstrual Period: hysterectomy ?: No Onset/Duration: Sudden Onset, Still Present Pain Intensity: 7 Pain Scale Used: 0-10 Numeric Mechanism Of Injury: Blunt Trauma, Fall From A Standing Position Aggravating Factor(s): Nothing Alleviating Factor(s): Nothing Associated Signs And Symptoms: Positive: Loss Of Consciousness - Allergies/Home Medications Allergies/Adverse Reactions: Allergies Allergy/AdvReac Type Severity Reaction Status Date / Time buprenorphine [From Suboxone] Allergy Swelling Verified 02/16/19 21:08 cephalexin [From Keflex] Allergy Difficulty Verified 02/16/19 21:08 Breathing/Wheezing ketorolac [From Toradol] Allergy Hives/Diff. Verified 02/16/19 21:08 Breathing/I tching naloxone [From Suboxone] Allergy Swelling Verified 02/16/19 21:08 nitrofurantoin Allergy Difficulty Verified 02/16/19 21:08 [From Macrobid] Breathing orange juice Allergy Difficulty Verified 02/16/19 21:08 Breathing tramadol [From Ultram] Allergy Rash Verified 02/16/19 21:08 trazodone Allergy Difficulty Verified 02/16/19 21:08 Breathing/Wheezing fluoxetine [From Prozac] AdvReac Hallucinati Verified 02/16/19 21:08 ons Home Medications: Home Medications Ibuprofen TAB* [Motrin TAB* 800 MG] 800 mg PO Q8H PRN 02/16/19 [History Confirmed 02/16/19] PMH/Surg Hx/FS Hx/Imm Hx Previously Healthy: No - chronic pain, JAILENE in remission Other History Of: Negative For: HIV, Hepatitis B, Hepatitis C, Anticoagulant Therapy - Surgical History Surgical History: Yes Surgery Procedure, Year, and Place: CHOLECYSTECTOMY, L5 DISC REMOVAL, APPENDECTOMY, TONSILLECTOMY, FULL FACIAL RECONSTRUCTION, LASER SURGERY RENAL STONE recent abd surgery 01/2014 - KATHY FUNDOPLICATION;Hysterectomy 01/11/15; Rt PINKY - AMPUTATED TO [address] [place] [address] - Family History Known Family History: Positive: Cardiac Disease, Hypertension, Diabetes, Other - kidney stones; mom - pancreatic CA - Social History Occupation: Employed Part-time, Student Lives: With Family Alcohol Use: None Substance Use Type: None Substance Use Comment - Amount & Last Used: clean x 7 years Smoking Status (MU): Heavy Every Day Tobacco Smoker Type: Cigarettes Amount Used/How Often: 1 ppd Length of Time of Smoking/Using Tobacco: >20 years Have You Smoked in the Last Year: Yes Household Exposure Type: Cigarettes - Immunization History Most Recent Influenza Vaccination: 2011 Most Recent Pneumonia Vaccination: 2011 Vaccination Up to Date: Yes Review of Systems All Other Systems Reviewed And Are Negative: Yes Constitutional: Positive: Negative Skin: Positive: Negative Eyes: Positive: Negative ENT: Positive: Negative Respiratory: Positive: Negative Cardiovascular: Positive: Negative Gastrointestinal: Positive: Nausea Genitourinary: Positive: Negative Motor: Positive: Negative Neurovascular: Positive: Negative Musculoskeletal: Positive: Arthralgia Neurological: Positive: Headache Psychological: Positive: Negative Is Patient Immunocompromised?: Yes Physical Exam Triage Information Reviewed: Yes Appearance: No Pain Distress, Well-Nourished, Obese Vital Signs: Initial Vital Signs Temp 98.0 F 02/16/19 21:01 Pulse 68 02/16/19 21:01 Resp 16 02/16/19 21:01 BP 150/77 02/16/19 21:01 Pulse Ox 97 02/16/19 21:01 Vital Signs Reviewed: Yes Eye Exam: Normal Eyes: Positive: Conjunctiva Clear ENT Exam: Normal ENT: Positive: Normal ENT inspection, Hearing grossly normal, Pharynx normal. Negative: Trismus, Muffled voice, Hoarse voice Neck exam: Other Neck: Positive: Supple, No Lymphadenopathy, Tenderness @ - muscle tenderness Respiratory Exam: Normal Respiratory: Positive: Chest non-tender, No respiratory distress, No accessory muscle use Cardiovascular Exam: Normal Cardiovascular: Positive: RRR, Pulses Normal, Brisk Capillary Refill Musculoskeletal Exam: Normal Musculoskeletal: Positive: Strength Intact, ROM Intact, No Edema Neurological Exam: Normal Neurological: Positive: Alert, Muscle Tone Normal Psychological Exam: Normal Skin Exam: Normal Minor Trauma Course/Dx - Course Course Of Treatment: will send to ED for further assessment--with driving - Differential Dx/Diagnosis Provider Diagnosis: Head injury due to trauma, Wrist pain, right Discharge - Sign-Out/Discharge Documenting (check all that apply): Patient Departure All imaging exams completed and their final reports reviewed: No Studies - Discharge Plan Condition: Stable Disposition: HOME-RECOMMEND TO ED Patient Education Materials: Head Injury (ED), Hypertension (ED) Referrals: Kartik Francisco MD [Primary Care Provider] - 2 Weeks - Billing Disposition and Condition Condition: STABLE Disposition: Home-Recommend to ED
== END 2019-02-16 21:20 | disposition home health service (06) ==
LOC: UCEAST 20:55
DX: S06.9X1A Unspecified intracranial injury with loss of consciousness of 30 minutes or less, initial encounter (principal); M25.531 Pain in right wrist; R11.0 Nausea; W18.00XA Striking against unspecified object with subsequent fall, initial encounter; Y92.9 Unspecified place or not applicable; Z89.021 Acquired absence of right finger(s); Z88.1 Allergy status to other antibiotic agents; Z88.5 Allergy status to narcotic agent; Z88.8 Allergy status to other drugs, medicaments and biological substances; F17.210 Nicotine dependence, cigarettes, uncomplicated
CPT/HCPCS: 99212; G0463

== ENCOUNTER 2019-02-16 21:43 | Emergency (ER) | payer OTHER ==
[2019-02-17] MEDS ORDERED: Butalb/Acetamin/Caff TAB* 1 TAB PO ONE (00:19)
--- NOTE | 2019-02-17 00:36 | ED ---
Head Injury - HPI Summary HPI Summary: This patient is a 38 year old F presenting to ED with a chief complaint of intermittent JO s/p fall where she tripped on a clothes rack and hit her head on a bookshelf on 02/16/19 at 0300. She experienced loss of consciousness for several minutes and was shaken awake by her . After wakening, patient began experiencing JO above the eyes radiating to the temples and then behind the ear bilaterally. She also has right wrist pain, intermittent nausea and vomiting x1, back pain, and dizziness. She rates her pain 8/10 in severity and aching. She took Ibuprofen at 1700 yesterday. PMHx of thyroid disease, anemia, angina, asthma, GERD, hiatal hernia, GERD Barretts esophagus, renal calculi, anxiety, depression, bipolar disorder, substance abuse, known/suspected MRSA, and pre-cancer of esophagus. PSHx of cholecystectomy, appendectomy, tonsillectomy, full facial reconstruction, laser surgery renal stone, Kathy fundoplication, hysterectomy, and pinky amputation. FHx DM, cardiac disease, HTN , renal calculi, and pancreatic CA from mom. She rarely drinks EtOH, has previously used narcotics, heroin, and cocaine, and smokes cigarettes daily. - History Of Current Complaint Chief Complaint: EDHeadInjury Stated Complaint: HEAD INJURY PER PT Time Seen by Provider: 02/17/19 00:10 Hx Obtained From: Patient Hx Last Menstrual Period: hysterectomy Mechanism Of Injury: Fall From A Standing Position - Tripping over clothes rack and hitting head on bookshelf Onset/Duration: Started Hours Ago - 0300 yesterday morning, Still Present Onset of Pain: Post Accident Severity Currently: Severe Pain Intensity: 8 Pain Scale Used: 0-10 Numeric Location of Head Injury: Frontal Location: Radiates To: - To temples and behind the ears Character: Aching Associated Signs And Symptoms: LOC Duration Unknown, Nausea, Vomiting, Headache , Other: - Back pain, dizziness - Allergies/Home Medications Allergies/Adverse Reactions: Allergies Allergy/AdvReac Type Severity Reaction Status Date / Time buprenorphine [From Suboxone] Allergy Swelling Verified 02/16/19 21:51 cephalexin [From Keflex] Allergy Difficulty Verified 02/16/19 21:51 Breathing/Wheezing ketorolac [From Toradol] Allergy Hives/Diff. Verified 02/16/19 21:51 Breathing/I tching naloxone [From Suboxone] Allergy Swelling Verified 02/16/19 21:51 nitrofurantoin Allergy Difficulty Verified 02/16/19 21:51 [From Macrobid] Breathing orange juice Allergy Difficulty Verified 02/16/19 21:51 Breathing tramadol [From Ultram] Allergy Rash Verified 02/16/19 21:51 trazodone Allergy Difficulty Verified 02/16/19 21:51 Breathing/Wheezing fluoxetine [From Prozac] AdvReac Hallucinati Verified 02/16/19 21:51 ons PMH/Surg Hx/FS Hx/Imm Hx Endocrine/Hematology History: Reports: Hx Thyroid Disease - LUMP SHE IS SEEING SONYA FOR, Hx Anemia Denies: Hx Anticoagulant Therapy, Hx Diabetes Cardiovascular History: Reports: Hx Angina Denies: Hx Congestive Heart Failure, Hx Deep Vein Thrombosis, Hx Hypercholesterolemia, Hx Hypertension, Hx Myocardial Infarction, Hx Pacemaker/ ICD Respiratory History: Reports: Hx Asthma Denies: Hx Chronic Obstructive Pulmonary Disease (COPD), Hx Lung Cancer GI History: Reports: Hx Gastroesophageal Reflux Disease - s/p Kathy Fundoplication, Hx Hiatal Hernia, Other GI Disorders - gerd barretts esophagus Denies: Hx Gall Bladder Disease, Hx Gastrointestinal Bleed, Hx Ulcer, Hx Urosepsis History: Reports: Hx Kidney Stones, Other Problems/Disorders - renal stones Denies: Hx Renal Disease - "decreased right kidney function" per pt. Musculoskeletal History: Reports: Hx Back Problems Denies: Hx Rheumatoid Arthritis, Hx Osteoporosis Sensory History: Denies: Hx Contacts or Glasses, Hx Hearing Aid Opthamlomology History: Denies: Hx Contacts or Glasses Neurological History: Reports: Other Neuro Impairments/Disorders - anxiety and depression Denies: Hx Dementia, Hx Headaches, Hx Migraine, Hx Seizures, Hx Transient Ischemic Attacks (TIA) Psychiatric History: Reports: Hx Anxiety, Hx Depression - She has been off meds x 2 years. She sees a therapist., Hx Inpatient Treatment, Hx Community Mental Health Tx, Hx Bipolar Disorder Denies: Hx Eating Disorder, Hx Panic Disorder, Hx of Violent Episodes Against Others - Cancer History Cancer Type, Location and Year: Pre-cancer of espophagus-Tx with oral medication , Barretts Esophagus - RESOLVED WITH KATHY FUNDOPLICATION - Surgical History Surgery Procedure, Year, and Place: CHOLECYSTECTOMY, L5 DISC REMOVAL, APPENDECTOMY, TONSILLECTOMY, FULL FACIAL RECONSTRUCTION, LASER SURGERY RENAL STONE recent abd surgery 01/2014 - KATHY FUNDOPLICATION;Hysterectomy 01/11/15; Rt PINKY - [facility] - Immunization History Date of Tetanus Vaccine: unk Date of Influenza Vaccine: none Infectious Disease History: No Infectious Disease History: Reports: Hx of Known/Suspected MRSA Denies: Hx Clostridium Difficile, Hx Hepatitis, Hx Human Immunodeficiency Virus (HIV), Hx Shingles, Hx Tuberculosis, History Other Infectious Disease, Traveled Outside the [place] in Last 30 Days - Family History Known Family History: Positive: Cardiac Disease, Hypertension, Diabetes, Other - kidney stones; mom - pancreatic CA - Social History Alcohol Use: Rare Hx Substance Use: Yes - Sober since 05/03 Substance Use Type: Reports: Cocaine, Heroin, Other - Narcotics Substance Use Comment - Amount & Last Used: clean x 7 years Hx Tobacco Use: Yes Smoking Status (MU): Heavy Every Day Tobacco Smoker Type: Cigarettes Amount Used/How Often: 1 ppd Length of Time of Smoking/Using Tobacco: >20 years Have You Smoked in the Last Year: Yes Review of Systems Positive: Vomiting, Nausea Positive: Other - Back pain, Right wrist pain Positive: Headache - Above eyes, radiating to temples and behind ears bilaterally All Other Systems Reviewed And Are Negative: Yes Physical Exam - Summary Physical Exam Summary: Appearance: Well appearing, no pain distress Skin: warm, dry, reflects adequate perfusion Head/face: normal Eyes: EOMI, DOMINGO ENT: tenderness over orbits Neck: supple, non-tender Respiratory: CTA, breath sounds present Cardiovascular: RRR, pulses symmetrical Abdomen: non-tender, soft Musculoskeletal: muscle spasm of neck, tenderness over right wrist, strength/ ROM intact Neuro: normal, sensory motor intact, A&Ox3, no neurological deficits GCS: 15 Triage Information Reviewed: Yes Vital Signs On Initial Exam: Initial Vitals Temp Pulse Resp BP Pulse Ox 98.3 F 68 16 130/67 96 02/16/19 21:49 02/16/19 21:49 02/16/19 21:49 02/16/19 21:49 02/16/19 21:49 Vital Signs Reviewed: Yes Diagnostics - Vital Signs Vital Signs Temp Pulse Resp BP Pulse Ox 02/16/19 21:49 98.3 F 68 16 130/67 96 - Laboratory Lab Statement: Any lab studies that have been ordered have been reviewed, and results considered in the medical decision making process. - Radiology Right wrist X-ray Radiology Interpretation Completed By: ED Physician Summary of Radiographic Findings: No fractures. Pending official radiology review. Wrist X-ray Radiology Interpretation Completed By: ED Physician Summary of Radiographic Findings: No fractures. Pending official radiology review. - CT CT Head CT Interpretation Completed By: Radiologist Summary of CT Findings: No acute intracranial abnormality. Dr. Abraham has reviewed this radiology report. C-spine CT CT Interpretation Completed By: Radiologist Summary of CT Findings: 1. No acute findings. 2. Mild to moderate right neural foraminal narrowing at C6-7. 3. A 1.0 cm round sclerotic lesion in the posterior aspect of the the C3 vertebral body, of uncertain etiology. Dr. Abraham has reviewed this radiology report. Re-Evaluation - Re-Evaluation First Eval Re-Evaluation Time: 02:23 Comment: Discussed results with the patient and plan for discharge. Patient understands and agrees with this plan. Head Injury Course/Dx Course Of Treatment: This patient is a 38 year old F presenting to ED with a chief complaint of intermittent JO s/p fall where she tripped on a clothes rack and hit her head on a bookshelf on 02/16/19 at 0300. During ED course, patient received Fioricet 2 TAB. Right wrist XR revealed no fractures. CT head revealed no acute intracranial abnormality. CT C-spine revealed 1. No acute findings. 2. Mild to moderate right neural foraminal narrowing at C6-7. 3. A 1.0 cm round sclerotic lesion in the posterior aspect of the the C3 vertebral body, of uncertain etiology. Patient will be discharged home with dx head injury and headache. Patient understands and agrees with this plan. - Diagnoses Differential Diagnosis/HQI/PQRI: Cervical Sprain, Concussion With LOC, Other - Head injury, Headache Provider Diagnoses: Head injury, Headache Discharge - Sign-Out/Discharge Documenting (check all that apply): Patient Departure - Discharge Patient Received Moderate/Deep Sedation with Procedure: No - Discharge Plan Condition: Stable Disposition: HOME Prescriptions: Butalb/Acetamin/Caff TAB* [Fioricet TAB*] 1 tab PO Q6H PRN #12 tab MDD 3 PRN Reason: Pain Patient Education Materials: Head Injury (ED), Acute Headache (ED) Referrals: Kartik Francisco MD [Primary Care Provider] - 3 Days Additional Instructions: RETURN TO THE EMERGENCY DEPARTMENT FOR ANY CHANGING OR WORSENING SYMPTOMS. - Billing Disposition and Condition Condition: STABLE Disposition: Home - Attestation Statements Document Initiated by Paco: Yes Documenting Scribe: Dillon Adams Provider For Whom Paco is Documenting (Include Credential): Christofer Abraham MD Scribe Attestation: Dillon Charles, scribed for Christofer Abraham MD on 02/17/19 at 0258. Scribe Documentation Reviewed: Yes Provider Attestation: The documentation as recorded by the Dillon orozco accurately reflects the service I personally performed and the decisions made by , Christofer Abraham MD Status of Scribe Document: Viewed
[2019-02-17 02:56] VITALS: BP 127/66
== END 2019-02-17 02:45 | disposition home or self-care (01) ==
LOC: ED 21:43
DX: S09.90XA Unspecified injury of head, initial encounter (principal); W01.0XXA Fall on same level from slipping, tripping and stumbling without subsequent striking against object, initial encounter; Y93.01 Activity, walking, marching and hiking; E07.9 Disorder of thyroid, unspecified; M89.9 Disorder of bone, unspecified; M48.02 Spinal stenosis, cervical region; J45.909 Unspecified asthma, uncomplicated; K21.9 Gastro-esophageal reflux disease without esophagitis; K44.9 Diaphragmatic hernia without obstruction or gangrene; F41.9 Anxiety disorder, unspecified; F31.9 Bipolar disorder, unspecified; F17.210 Nicotine dependence, cigarettes, uncomplicated; Z88.8 Allergy status to other drugs, medicaments and biological substances; Z88.3 Allergy status to other anti-infective agents
CPT/HCPCS: 70450; 72125; 99283; A9270-GY

== ENCOUNTER 2019-03-07 22:32 | Emergency (ER) | payer OTHER ==
--- NOTE | 2019-03-08 00:06 | ED ---
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 She denies any known injury. She notes swelling of the left knee but denies bruising. Her pain is worse with standing, walking, and flexion but is better with extension. She denies numbness , tingling, and redness of the joint. Denies previous injury of the left knee. She denies any other complaints at this time. - History of Current Complaint Chief Complaint: EDExtremityLower Stated Complaint: LT KNEE INJURY PER PT Time Seen by Provider: 03/07/19 23:38 Hx Obtained From: Patient Hx Last Menstrual Period: hysterectomy Onset/Duration: Days Severity Initially: Mild Pain Intensity: 9 Timing: Constant Associated Signs And Symptoms: Positive: Swelling. Negative: Redness, Bruising Aggravating Factor(s): Standing, Ambulation, Movement, Stairs Alleviating Factor(s): Nothing Able to Bear Weight: Yes - Allergies/Home Medications Allergies/Adverse Reactions: Allergies Allergy/AdvReac Type Severity Reaction Status Date / Time buprenorphine [From Suboxone] Allergy Swelling Verified 03/07/19 22:49 cephalexin [From Keflex] Allergy Difficulty Verified 03/07/19 22:49 Breathing/Wheezing ketorolac [From Toradol] Allergy Hives/Diff. Verified 03/07/19 22:49 Breathing/I tching naloxone [From Suboxone] Allergy Swelling Verified 03/07/19 22:49 nitrofurantoin Allergy Difficulty Verified 03/07/19 22:49 [From Macrobid] Breathing orange juice Allergy Difficulty Verified 03/07/19 22:49 Breathing tramadol [From Ultram] Allergy Rash Verified 03/07/19 22:49 trazodone Allergy Difficulty Verified 03/07/19 22:49 Breathing/Wheezing fluoxetine [From Prozac] AdvReac Hallucinati Verified 03/07/19 22:49 ons PMH/Surg Hx/FS Hx/Imm Hx Endocrine/Hematology History: Reports: Hx Thyroid Disease - LUMP SHE IS SEEING SONYA FOR, Hx Anemia Denies: Hx Anticoagulant Therapy, Hx Diabetes Cardiovascular History: Reports: Hx Angina Denies: Hx Congestive Heart Failure, Hx Deep Vein Thrombosis, Hx Hypercholesterolemia, Hx Hypertension, Hx Myocardial Infarction, Hx Pacemaker/ ICD Respiratory History: Reports: Hx Asthma Denies: Hx Chronic Obstructive Pulmonary Disease (COPD), Hx Lung Cancer GI History: Reports: Hx Gastroesophageal Reflux Disease - s/p Anthony Fundoplication, Hx Hiatal Hernia, Other GI Disorders - gerd barretts esophagus Denies: Hx Gall Bladder Disease, Hx Gastrointestinal Bleed, Hx Ulcer, Hx Urosepsis History: Reports: Hx Kidney Stones, Other Problems/Disorders - renal stones Denies: Hx Renal Disease - "decreased right kidney function" per pt. Musculoskeletal History: Reports: Hx Back Problems Denies: Hx Rheumatoid Arthritis, Hx Osteoporosis Sensory History: Denies: Hx Contacts or Glasses, Hx Hearing Aid Opthamlomology History: Denies: Hx Contacts or Glasses Neurological History: Reports: Other Neuro Impairments/Disorders - anxiety and depression Denies: Hx Dementia, Hx Headaches, Hx Migraine, Hx Seizures, Hx Transient Ischemic Attacks (TIA) Psychiatric History: Reports: Hx Anxiety, Hx Depression - She has been off meds x 2 years. She sees a therapist., Hx Inpatient Treatment, Hx Community Mental Health Tx, Hx Bipolar Disorder, Hx Substance Abuse - Narcotics,heroin,cocaine: sober since 05/03 Denies: Hx Eating Disorder, Hx Panic Disorder, Hx of Violent Episodes Against Others - Cancer History Cancer Type, Location and Year: Pre-cancer of espophagus-Tx with oral medication , Barretts Esophagus - RESOLVED WITH ANTHONY FUNDOPLICATION - Surgical History Surgery Procedure, Year, and Place: CHOLECYSTECTOMY, L5 DISC REMOVAL, APPENDECTOMY, TONSILLECTOMY, FULL FACIAL RECONSTRUCTION, LASER SURGERY RENAL STONE recent abd surgery 01/2014 - ANTHONY FUNDOPLICATION;Hysterectomy 01/11/15; Rt PINKY - AMPUTATED TO [address] [place] [address] - Immunization History Date of Tetanus Vaccine: 2018 Date of Influenza Vaccine: none Infectious Disease History: No Infectious Disease History: Reports: Hx of Known/Suspected MRSA Denies: Hx Clostridium Difficile, Hx Hepatitis, Hx Human Immunodeficiency Virus (HIV), Hx Shingles, Hx Tuberculosis, History Other Infectious Disease, Traveled Outside the [place] in Last 30 Days - Family History Known Family History: Positive: Cardiac Disease, Hypertension, Diabetes, Other - kidney stones; mom - pancreatic CA - Social History Alcohol Use: Rare Hx Substance Use: Yes - Sober since 05/03 Substance Use Type: Reports: Cocaine, Heroin, Other Substance Use Comment - Amount & Last Used: clean x 7 years Hx Tobacco Use: Yes Smoking Status (MU): Heavy Every Day Tobacco Smoker Type: Cigarettes Amount Used/How Often: 1 ppd Length of Time of Smoking/Using Tobacco: >20 years Have You Smoked in the Last Year: Yes Review of Systems Negative: Fever, Chills Positive: Arthralgia - Left knee, unknown injury. Negative: Rash, Bruising Negative: Weakness, Paresthesia, Numbness All Other Systems Reviewed And Are Negative: Yes Physical Exam Triage Information Reviewed: Yes Vital Signs On Initial Exam: Initial Vitals Temp Pulse Resp BP Pulse Ox 98.2 F 72 16 100/72 97 03/07/19 22:43 03/07/19 22:43 03/07/19 22:43 03/07/19 22:43 03/07/19 22:43 Vital Signs Reviewed: Yes Appearance: Positive: Well-Appearing, No Pain Distress Skin: Positive: Warm, Dry Head/Face: Positive: Normal Head/Face Inspection Eyes: Positive: Normal ENT: Positive: Normal ENT inspection Respiratory/Lung Sounds: Positive: Clear to Auscultation, Breath Sounds Present Cardiovascular: Positive: Normal, RRR Abdomen Description: Negative: Distended Musculoskeletal: Positive: Other - Left knee ROM limited d/t pain. Extension intact, flexion is limited. No erythema, edema, ecchymosis. Tenderness to palpation diffusely. neg ballotments Neurological: Positive: Normal Psychiatric: Positive: Normal Diagnostics - Vital Signs Vital Signs Temp Pulse Resp BP Pulse Ox 03/07/19 22:43 98.2 F 72 16 100/72 97 - Laboratory Lab Statement: Any lab studies that have been ordered have been reviewed, and results considered in the medical decision making process. - Radiology knee Radiology Interpretation Completed By: ED Physician Summary of Radiographic Findings: no fracture Lower Extremity Course/Dx - Course Course Of Treatment: 38-year-old female presents with left knee pain today. She denies any injury. pain is worse when she bends it. On exam tenderness diffusely over left knee. Neurovascular intact. X-ray read as normal. gave knee immbolizer as needed. Told to treat conservatively with rice. told if no improvement to follow up with primary. Patient understands and agrees plan. - Diagnoses Differential Diagnosis/HQI/PQRI: Positive: Fracture (Closed), Sprain, Strain Provider Diagnoses: Left knee pain Discharge - Sign-Out/Discharge Documenting (check all that apply): Patient Departure Patient Received Moderate/Deep Sedation with Procedure: No - Discharge Plan Condition: Good Disposition: HOME Patient Education Materials: Knee Pain (ED) Referrals: Kartik Francisco MD [Primary Care Provider] - Additional Instructions: Use immobilizer as needed Ice, elevate, Ibuprofen or Tylenol every 6 hours for pain Follow up with primary if no improvement Return to ED if develop any new or worsening symptoms - Billing Disposition and Condition Condition: GOOD Disposition: Home
[2019-03-08 00:57] VITALS: BP 130/78
== END 2019-03-08 00:55 | disposition home or self-care (01) ==
LOC: ED 22:32
DX: M25.562 Pain in left knee (principal); F17.210 Nicotine dependence, cigarettes, uncomplicated; Z86.39 Personal history of other endocrine, nutritional and metabolic disease; K21.9 Gastro-esophageal reflux disease without esophagitis; Z87.442 Personal history of urinary calculi; Z86.14 Personal history of Methicillin resistant Staphylococcus aureus infection
CPT/HCPCS: 99282

== ENCOUNTER 2019-03-12 23:51 | Emergency (ER) | payer OTHER ==
[2019-03-13 00:31] LABS: ABS Basophils 0.1 10^3/ul (0-0.2); ABS Eosinophils 0.1 10^3/ul (0-0.6); ABS Lymphocytes 3.1 10^3/ul (1.0-4.8); ABS Monocytes 0.7 10^3/ul (0-0.8); ABS Neutrophils 6.2 10^3/ul (1.5-7.7); Eosinophil % 0.9 %; Hematocrit 38 % (35-47); Hemoglobin 12.5 g/dL (12.0-16.0); Lymphocyte % 30.6 %; Mean Corpuscular HGB Conc 33 g/dL (31-36); Mean Corpuscular Hemoglobin 29 pg (27-31); Mean Corpuscular Volume 88 fL (80-97); Nucleated Red Blood Cells % 0.1; Platelet Count 247 10^3/uL (150-450); Red Blood Count 4.27 10^6 /uL (3.70-4.87); Red Cell Distribution Width 14 % (10.5-15); White Blood Count 10.2 10^3/uL (3.5-10.8)
[2019-03-13 00:38] LABS: INR 1.03 (0.82-1.09)
[2019-03-13 00:51] LABS: Albumin 3.8 g/dL (3.2-5.2); Albumin/Globulin Ratio 1.5 (1-3); BUN/Creatinine Ratio 11.1 (8-20); C Reactive Protein 10.48 mg/L (<8.01); Calcium 8.2 mg/dL (8.6-10.3); EGFR African American 94.8 (>60); EGFR Non-African American 78.3 (>60); Globulin 2.6 g/dL (2-4); Potassium 3.6 mmol/L (3.5-5.0); Total Bilirubin 0.3 mg/dL (0.2-1.0); Total Protein 6.4 g/dL (6.4-8.9)
[2019-03-13 00:53] LABS: Troponin I 0.01 ng/mL (<0.04)
[2019-03-13] MEDS ORDERED: Ondansetron INJ* 2 MG/ML VIAL IV ONE (01:29)
[2019-03-13] MEDS ORDERED: Hyoscyamine TAB* 0.125 MG PO ONE (01:48)
--- NOTE | 2019-03-13 01:51 | ED ---
Complex/Multi-Sys Presentation - HPI Summary HPI Summary: Patient is a 38 y/o F presenting to ED via EMS with complaints of JO and abdominal pain. She reports abdominal pain has been present for the past few days but worsened at 1200 03/12/19. Patient notes onset of JO at this time as well. She went to work, took ibuprofen with relief in pain until around 1700 , when pain returned and progressively worsened, with the pain currently being rated 9/10. Abdominal pain is located at lower abdomen/suprapubic area with radiation to back. She denies fever but reports increased thirst and dark colored, malodorous urine, nausea. She is a current smoker, Hx of hysterectomy, appendectomy, cholecystectomy, L5 surgery. EMS provided Zofran to patient. On triage, pain is rated 9/10, nothing is noted to aggravate/alleviate Sx. Home medications and allergies are reviewed. - History Of Current Complaint Chief Complaint: EDAbdPain Time Seen by Provider: 03/13/19 00:03 Hx Obtained From: Patient Onset/Duration: Lasting Days, Still Present, Worse Since Timing: Constant, Days Severity Currently: Moderate Severity Initially: Severe Location: Pain At: - head, lower abd, suprapubic area Character: Typical Headache Aggravating Factor(s): nothing Alleviating Factor(s): nothing Associated Signs And Symptoms: Positive: Headache, Nausea, Abdominal Pain, Other - increased thirst and dark, malodorous urin are endorsed. Negative: Fever - Allergies/Home Medications Allergies/Adverse Reactions: Allergies Allergy/AdvReac Type Severity Reaction Status Date / Time buprenorphine [From Suboxone] Allergy Swelling Verified 03/13/19 00:08 cephalexin [From Keflex] Allergy Difficulty Verified 03/13/19 00:08 Breathing/Wheezing ketorolac [From Toradol] Allergy Hives/Diff. Verified 03/13/19 00:08 Breathing/I tching naloxone [From Suboxone] Allergy Swelling Verified 03/13/19 00:08 nitrofurantoin Allergy Difficulty Verified 03/13/19 00:08 [From Macrobid] Breathing orange juice Allergy Difficulty Verified 03/13/19 00:08 Breathing tramadol [From Ultram] Allergy Rash Verified 03/13/19 00:08 trazodone Allergy Difficulty Verified 03/13/19 00:08 Breathing/Wheezing fluoxetine [From Prozac] AdvReac Hallucinati Verified 03/13/19 00:08 ons PMH/Surg Hx/FS Hx/Imm Hx Endocrine/Hematology History: Reports: Hx Thyroid Disease - LUMP SHE IS SEEING SONYA FOR, Hx Anemia Denies: Hx Anticoagulant Therapy, Hx Diabetes Cardiovascular History: Reports: Hx Angina Denies: Hx Congestive Heart Failure, Hx Deep Vein Thrombosis, Hx Hypercholesterolemia, Hx Hypertension, Hx Myocardial Infarction, Hx Pacemaker/ ICD Respiratory History: Reports: Hx Asthma Denies: Hx Chronic Obstructive Pulmonary Disease (COPD), Hx Lung Cancer GI History: Reports: Hx Gastroesophageal Reflux Disease - s/p Kathy Fundoplication, Hx Hiatal Hernia, Other GI Disorders - gerd barretts esophagus Denies: Hx Gall Bladder Disease, Hx Gastrointestinal Bleed, Hx Ulcer, Hx Urosepsis History: Reports: Hx Kidney Stones, Other Problems/Disorders - renal stones Denies: Hx Renal Disease - "decreased right kidney function" per pt. Musculoskeletal History: Reports: Hx Back Problems Denies: Hx Rheumatoid Arthritis, Hx Osteoporosis Sensory History: Denies: Hx Contacts or Glasses, Hx Hearing Aid Opthamlomology History: Denies: Hx Contacts or Glasses Neurological History: Reports: Other Neuro Impairments/Disorders - anxiety and depression Denies: Hx Dementia, Hx Headaches, Hx Migraine, Hx Seizures, Hx Transient Ischemic Attacks (TIA) Psychiatric History: Reports: Hx Anxiety, Hx Depression - She has been off meds x 2 years. She sees a therapist., Hx Inpatient Treatment, Hx Community Mental Health Tx, Hx Bipolar Disorder, Hx Substance Abuse - Narcotics,heroin,cocaine: sober since 05/03 Denies: Hx Eating Disorder, Hx Panic Disorder, Hx of Violent Episodes Against Others - Cancer History Cancer Type, Location and Year: Pre-cancer of espophagus-Tx with oral medication , Barretts Esophagus - RESOLVED WITH KATHY FUNDOPLICATION - Surgical History Surgery Procedure, Year, and Place: CHOLECYSTECTOMY, L5 DISC REMOVAL, APPENDECTOMY, TONSILLECTOMY, FULL FACIAL RECONSTRUCTION, LASER SURGERY RENAL STONE recent abd surgery 01/2014 - KATHY FUNDOPLICATION;Hysterectomy 01/11/15; Rt PINKY - AMPUTATED TO [facility] [facility] - Immunization History Date of Tetanus Vaccine: 2018 Date of Influenza Vaccine: none Infectious Disease History: No Infectious Disease History: Reports: Hx of Known/Suspected MRSA Denies: Hx Clostridium Difficile, Hx Hepatitis, Hx Human Immunodeficiency Virus (HIV), Hx Shingles, Hx Tuberculosis, History Other Infectious Disease, Traveled Outside the [place] in Last 30 Days - Family History Known Family History: Positive: Cardiac Disease, Hypertension, Diabetes, Other - kidney stones; mom - pancreatic CA - Social History Alcohol Use: Rare Hx Substance Use: Yes - Sober since 05/03 Substance Use Type: Reports: Cocaine, Heroin, Other Substance Use Comment - Amount & Last Used: clean x 7 years Hx Tobacco Use: Yes Smoking Status (MU): Heavy Every Day Tobacco Smoker Type: Cigarettes Amount Used/How Often: 1 ppd Length of Time of Smoking/Using Tobacco: >20 years Have You Smoked in the Last Year: Yes Review of Systems Constitutional: Other - POSITIVE - INCREASED THIRST Negative: Fever Positive: Abdominal Pain, Nausea Genitourinary: Other - POSITIVE - DARK, MALODOROUS URINE Positive: Headache All Other Systems Reviewed And Are Negative: Yes Physical Exam - Summary Physical Exam Summary: Appearance: well appearing, no pain distress, obese Skin: warm, dry, reflects adequate perfusion Head/face: normal Eyes: EOMI, DOMINGO ENT: mucous membranes moist Neck: supple, non-tender Respiratory: CTA, breath sounds present Cardiovascular: RRR, pulses symmetrical Abdomen: CVA tenderness, tender at left lower - mid quadrant, soft Bowel Sounds: present Musculoskeletal: normal, strength/ROM intact Neuro: normal, sensory motor intact, A&Ox3 Triage Information Reviewed: Yes Vital Signs On Initial Exam: Initial Vitals Temp Pulse Resp BP Pulse Ox 98.3 F 60 16 154/76 99 03/13/19 00:01 03/13/19 00:01 03/13/19 00:01 03/13/19 00:01 03/13/19 00:01 Vital Signs Reviewed: Yes Diagnostics - Vital Signs Vital Signs Temp Pulse Resp BP Pulse Ox 03/13/19 00:01 98.3 F 60 16 154/76 99 - Laboratory Lab Results: Lab Results 03/13/19 03/13/19 03/13/19 Range/Units 00:25 00:25 00:25 WBC 10.2 (3.5-10.8) 10^3/uL RBC 4.27 (3.70-4.87) 10^6 /uL Hgb 12.5 (12.0-16.0) g/dL Hct 38 (35-47) % MCV 88 (80-97) fL MCH 29 (27-31) pg MCHC 33 (31-36) g/dL RDW 14 (10.5-15) % Plt Count 247 (150-450) 10^3/uL MPV 8.0 (7.4-10.4) fL Neut % (Auto) 60.6 % Lymph % (Auto) 30.6 % Reeves % (Auto) 7.0 % Eos % (Auto) 0.9 % Baso % (Auto) 0.9 % Absolute Neuts (auto) 6.2 (1.5-7.7) 10^3/ul Absolute Lymphs (auto) 3.1 (1.0-4.8) 10^3/ul Absolute Monos (auto) 0.7 (0-0.8) 10^3/ul Absolute Eos (auto) 0.1 (0-0.6) 10^3/ul Absolute Basos (auto) 0.1 (0-0.2) 10^3/ul Absolute Nucleated RBC 0.0 10^3/ul Nucleated RBC % 0.1 INR (Anticoag Therapy) (0.82-1.09) Sodium 140 (135-145) mmol/L Potassium 3.6 (3.5-5.0) mmol/L Chloride 111 (101-111) mmol/L Carbon Dioxide 24 (22-32) mmol/L Anion Gap 5 (2-11) mmol/L BUN 9 (6-24) mg/dL Creatinine 0.81 (0.51-0.95) mg/dL Est GFR ( Amer) 94.8 (>60) Est GFR (Non-Af Amer) 78.3 (>60) BUN/Creatinine Ratio 11.1 (8-20) Glucose 92 (70-100) mg/dL Lactic Acid 0.6 (0.5-2.0) mmol/L Calcium 8.2 L (8.6-10.3) mg/dL Total Bilirubin 0.30 (0.2-1.0) mg/dL AST 8 L (13-39) U/L ALT 8 (7-52) U/L Alkaline Phosphatase 56 (34-104) U/L Troponin I 0.01 (<0.04) ng/mL C-Reactive Protein 10.48 H (<8.01) mg/L Total Protein 6.4 (6.4-8.9) g/dL Albumin 3.8 (3.2-5.2) g/dL Globulin 2.6 (2-4) g/dL Albumin/Globulin Ratio 1.5 (1-3) Lipase 24 (11.0-82.0) U/L 03/13/19 Range/Units 00:25 WBC (3.5-10.8) 10^3/uL RBC (3.70-4.87) 10^6 /uL Hgb (12.0-16.0) g/dL Hct (35-47) % MCV (80-97) fL MCH (27-31) pg MCHC (31-36) g/dL RDW (10.5-15) % Plt Count (150-450) 10^3/uL MPV (7.4-10.4) fL Neut % (Auto) % Lymph % (Auto) % Reeves % (Auto) % Eos % (Auto) % Baso % (Auto) % Absolute Neuts (auto) (1.5-7.7) 10^3/ul Absolute Lymphs (auto) (1.0-4.8) 10^3/ul Absolute Monos (auto) (0-0.8) 10^3/ul Absolute Eos (auto) (0-0.6) 10^3/ul Absolute Basos (auto) (0-0.2) 10^3/ul Absolute Nucleated RBC 10^3/ul Nucleated RBC % INR (Anticoag Therapy) 1.03 (0.82-1.09) Sodium (135-145) mmol/L Potassium (3.5-5.0) mmol/L Chloride (101-111) mmol/L Carbon Dioxide (22-32) mmol/L Anion Gap (2-11) mmol/L BUN (6-24) mg/dL Creatinine (0.51-0.95) mg/dL Est GFR ( Amer) (>60) Est GFR (Non-Af Amer) (>60) BUN/Creatinine Ratio (8-20) Glucose (70-100) mg/dL Lactic Acid (0.5-2.0) mmol/L Calcium (8.6-10.3) mg/dL Total Bilirubin (0.2-1.0) mg/dL AST (13-39) U/L ALT (7-52) U/L Alkaline Phosphatase (34-104) U/L Troponin I (<0.04) ng/mL C-Reactive Protein (<8.01) mg/L Total Protein (6.4-8.9) g/dL Albumin (3.2-5.2) g/dL Globulin (2-4) g/dL Albumin/Globulin Ratio (1-3) Lipase (11.0-82.0) U/L Result Diagrams: 03/13/19 00:25 03/13/19 00:25 Lab Statement: Any lab studies that have been ordered have been reviewed, and results considered in the medical decision making process. - CT abd/pel ct CT Interpretation Completed By: Radiologist Summary of CT Findings: 1. Mild mucosal thickening of the distal stomach and proximal small bowel which is nonspecific however may be seen in gastroenteritis. 2. A moderate hiatal hernia. 3. Hepatomegaly. 4. A 3.2 cm left adnexal cyst. 5. Severe degenerative changes at L5-S1. THIS REPORT WAS REVIEWED BY DR. ARNOLD. - EKG 0015 Cardiac Rate: Bradycardia - RATE OF 51 BPM EKG Rhythm: Sinus Bradycardia ST Segment: Normal Summary of EKG Findings: EKG showed sinus bradycardia with rate of 51 BPM, normal axis, normal intervals, normal ST. Re-Evaluation - Re-Evaluation First Eval Re-Evaluation Time: 01:17 Comment: Results of labs and tests were discussed. At this time, the patient notes that she has been exposed to a co-worker with gastroenteritis. Patient is agreeable with discharge to home and PCP follow up. Complex Multi-Symp Course/Dx Course Of Treatment: Patient with nausea and vague symptoms with some left- sided abdominal discomfort. CT scan is indicative of gastroenteritis. She is feeling better with treatment here. She will continue on outpatient Zofran and Levsin. 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 - Diagnoses Differential Diagnoses/HQI/PQRI: Metabolic Abnormality, Urinary Tract Infection , Other - Diverticulitis, constipation, colitis Provider Diagnoses: Gastroenteritis, Left sided abdominal pain Discharge - Sign-Out/Discharge Documenting (check all that apply): Patient Departure - discharge Patient Received Moderate/Deep Sedation with Procedure: No - Discharge Plan Condition: Improved Disposition: HOME Prescriptions: Hyoscyamine Sulfate [Levsin-Sl] 0.125 mg SL Q4H PRN #20 tab.subl PRN Reason: abdominal cramping Ondansetron ODT TAB* [Zofran 4 MG Odt TAB*] 4 mg PO Q8H PRN #12 tab.odt PRN Reason: Nausea Patient Education Materials: Gastroenteritis (ED) Referrals: Kartik Francisco MD [Primary Care Provider] - Additional Instructions: [place] diet, drink plenty of fluids. Call your doctor first thing in the morning to schedule follow-up. Return with unable to keep down fluids, high fever, increased pain, worse or other concerns. - Billing Disposition and Condition Condition: IMPROVED Disposition: Home - Attestation Statements Document Initiated by Paco: Yes Documenting Scribe: DIMA TOLEDO Provider For Whom Paco is Documenting (Include Credential): KIT ARNOLD MD Scribe Attestation: IDIMA, scribed for KIT ARNOLD MD on 03/13/19 at 0433. Scribe Documentation Reviewed: Yes Provider Attestation: The documentation as recorded by the DIMA orozco accurately reflects the service I personally performed and the decisions made by me, KIT ARNOLD MD Status of Scribe Document: Viewed
[2019-03-13 02:11] VITALS: BP 124/74
[2019-03-13 02:40] LABS: Urine Appearance Clear; Urine Bilirubin Negative (Negative); Urine Blood 1+ (Negative); Urine Color Yellow; Urine Glucose Negative (Negative); Urine Ketones Negative (Negative); Urine Nitrite Negative (Negative); Urine Protein Negative (Negative); Urine Specific Gravity 1.035 (1.010-1.030); Urine Urobilinogen Negative (Negative)
== END 2019-03-13 02:10 | disposition home or self-care (01) ==
LOC: ED 23:51
DX: K52.9 Noninfective gastroenteritis and colitis, unspecified (principal); R51 Headache; R10.9 Unspecified abdominal pain; R11.0 Nausea; K21.9 Gastro-esophageal reflux disease without esophagitis; Z87.442 Personal history of urinary calculi; Z86.39 Personal history of other endocrine, nutritional and metabolic disease; F17.210 Nicotine dependence, cigarettes, uncomplicated; Z86.14 Personal history of Methicillin resistant Staphylococcus aureus infection
CPT/HCPCS: 36415; 74176; 80053; 81003; 81015; 83605; 83690; 84484; 85025; 85610; 86140; 93005; 96374; 99283; A9270-GY; J2405

== ENCOUNTER 2019-03-26 19:52 | Emergency (ER) | payer OTHER ==
[2019-03-26] MEDS ORDERED: Ondansetron INJ* 2 MG/ML VIAL IV ONE (20:00)
[2019-03-26] MEDS ORDERED: NS 0.9% 1000 ML** 2,000 ML IV ONE (20:00)
--- NOTE | 2019-03-26 20:15 | ED ---
Complex/Multi-Sys Presentation - HPI Summary HPI Summary: The patient is a 38 year old F brought in by EMS to [facility] with a chief complaint of R sided weakness and tingling since Monday03/23/19. The pt reports being under lots of stress recently due to a break-up with my . The patient stated that since she broke up with him she has had nausea, vomiting, and lack of sleep. She also has a swollen R eye and tingling extending down the R side of her face and into her R finger tips. She reports becoming fatigued at work and being unable to keep food down. She also reported stumbling while at work and feeling dizzy. She denies any diarrhea or bowel movements since 03/21/19 in the morning. The pt also has extreme pain in her abdomen and her flanks. Her boss recommended going to the ED earlier this week and eventually called EMS today. The pt reports a history of Heroin use but stated quitting and being clean from substances for the past 7 years. She also reports a stroke at 27 due to an overdose. - History Of Current Complaint Chief Complaint: EDGeneral Time Seen by Provider: 03/26/19 20:00 Hx Obtained From: Patient, EMS - Gave history, confirmed by the pt Onset/Duration: Gradual Onset, Lasting Days - since 03/21/19 for ABD and flank pain, Monday for neuro deficits and dizziness Timing: Constant, Days Severity Currently: None Location: Pain At: - abdomen and flanks Aggravating Factor(s): Eating and drinking food, caused vomiting and nausea Alleviating Factor(s): nothing Associated Signs And Symptoms: Positive: Dizziness, Nausea, Vomiting, Abdominal Pain - abdomen and flanks, Other - POSITIVE: constipation, R sided numbness and tingles. R face is swollen, lack of sleep, fatigue. Negative: Diarrhea - Allergies/Home Medications Allergies/Adverse Reactions: Allergies Allergy/AdvReac Type Severity Reaction Status Date / Time buprenorphine [From Suboxone] Allergy Swelling Verified 03/13/19 00:08 cephalexin [From Keflex] Allergy Difficulty Verified 03/13/19 00:08 Breathing/Wheezing ketorolac [From Toradol] Allergy Hives/Diff. Verified 03/13/19 00:08 Breathing/I tching naloxone [From Suboxone] Allergy Swelling Verified 03/13/19 00:08 nitrofurantoin Allergy Difficulty Verified 03/13/19 00:08 [From Macrobid] Breathing orange juice Allergy Difficulty Verified 03/13/19 00:08 Breathing tramadol [From Ultram] Allergy Rash Verified 03/13/19 00:08 trazodone Allergy Difficulty Verified 03/13/19 00:08 Breathing/Wheezing fluoxetine [From Prozac] AdvReac Hallucinati Verified 03/13/19 00:08 ons PMH/Surg Hx/FS Hx/Imm Hx Previously Healthy: No Endocrine/Hematology History: Reports: Hx Thyroid Disease - LUMP SHE IS SEEING SONYA FOR, Hx Anemia Denies: Hx Anticoagulant Therapy, Hx Diabetes Cardiovascular History: Reports: Hx Angina Denies: Hx Congestive Heart Failure, Hx Deep Vein Thrombosis, Hx Hypercholesterolemia, Hx Hypertension, Hx Myocardial Infarction, Hx Pacemaker/ ICD Respiratory History: Reports: Hx Asthma Denies: Hx Chronic Obstructive Pulmonary Disease (COPD), Hx Lung Cancer GI History: Reports: Hx Gastroesophageal Reflux Disease - s/p Kathy Fundoplication, Hx Hiatal Hernia, Other GI Disorders - gerd barretts esophagus Denies: Hx Gall Bladder Disease, Hx Gastrointestinal Bleed, Hx Ulcer, Hx Urosepsis History: Reports: Hx Kidney Stones, Other Problems/Disorders - renal stones Denies: Hx Renal Disease - "decreased right kidney function" per pt. Musculoskeletal History: Reports: Hx Back Problems Denies: Hx Rheumatoid Arthritis, Hx Osteoporosis Sensory History: Denies: Hx Contacts or Glasses, Hx Hearing Aid Opthamlomology History: Denies: Hx Contacts or Glasses Neurological History: Reports: Other Neuro Impairments/Disorders - anxiety and depression Denies: Hx Dementia, Hx Headaches, Hx Migraine, Hx Seizures, Hx Transient Ischemic Attacks (TIA) Psychiatric History: Reports: Hx Anxiety, Hx Depression - She has been off meds x 2 years. She sees a therapist., Hx Inpatient Treatment, Hx Community Mental Health Tx, Hx Bipolar Disorder, Hx Substance Abuse - Narcotics,heroin,cocaine: sober since 05/03 Denies: Hx Eating Disorder, Hx Panic Disorder, Hx of Violent Episodes Against Others - Cancer History Cancer Type, Location and Year: Pre-cancer of espophagus-Tx with oral medication , Barretts Esophagus - RESOLVED WITH KATHY FUNDOPLICATION - Surgical History Surgery Procedure, Year, and Place: CHOLECYSTECTOMY, L5 DISC REMOVAL, APPENDECTOMY, TONSILLECTOMY, FULL FACIAL RECONSTRUCTION, LASER SURGERY RENAL STONE recent abd surgery 01/2014 - KATHY FUNDOPLICATION;Hysterectomy 01/11/15; Rt PINKY - AMPUTATED TO [address] [place] [id number] - Immunization History Date of Tetanus Vaccine: 2017 Date of Influenza Vaccine: none Infectious Disease History: No Infectious Disease History: Reports: Hx of Known/Suspected MRSA Denies: Hx Clostridium Difficile, Hx Hepatitis, Hx Human Immunodeficiency Virus (HIV), Hx Shingles, Hx Tuberculosis, History Other Infectious Disease, Traveled Outside the [place] in Last 30 Days - Family History Known Family History: Positive: Cardiac Disease, Hypertension, Diabetes, Other - kidney stones; mom - pancreatic CA - Social History Alcohol Use: Occasionally Hx Substance Use: Yes - Sober since 05/03 Substance Use Type: Reports: Cocaine, Heroin, Marijuana, Other Substance Use Comment - Amount & Last Used: heroin and cocaine-clean x 7 years Hx Tobacco Use: Yes Smoking Status (MU): Heavy Every Day Tobacco Smoker Type: Cigarettes Amount Used/How Often: 1 ppd Length of Time of Smoking/Using Tobacco: >20 years Have You Smoked in the Last Year: Yes Review of Systems Positive: Fatigue Positive: Abdominal Pain - abdominal and flank pain , Vomiting, Nausea. Negative: Diarrhea Genitourinary: Other - constipation Neurological: Other - R sided numbness and tingling, R face swollen, lack of sleep Positive: Anxious All Other Systems Reviewed And Are Negative: Yes Physical Exam - Summary Physical Exam Summary: Appearance: Well-appearing, Well-nourished, lying in bed comfortably Skin: Warm, dry, no obvious rash Eyes: sclera anicteric, no conjunctival pallor ENT: mucous membranes moist, pharynx appears normal Neck: Supple, nontender Respiratory: Clear to auscultation, no signs of respiratory distress Cardiovascular: Normal S1, S2. No murmurs. Normal distal pulses in tibial and radial bilaterally. Abdomen: Soft, nontender, normal active bowel sounds present Musculoskeletal: Normal, Strength/ROM Intact Neurological: A&Ox3, awake and alert, mentation is normal, speech is fluent and appropriate Psychiatric: affect is normal, does not appear anxious or depressed Triage Information Reviewed: Yes Vital Signs On Initial Exam: Initial Vitals Temp Pulse Resp BP Pulse Ox 97.6 F 53 16 132/75 97 03/26/19 19:57 03/26/19 19:57 03/26/19 19:57 03/26/19 19:57 03/26/19 19:57 Vital Signs Reviewed: Yes Diagnostics - Vital Signs Vital Signs Temp Pulse Resp BP Pulse Ox 03/26/19 19:57 97.6 F 53 16 132/75 97 - Laboratory Result Diagrams: 03/26/19 20:37 03/26/19 20:37 Lab Statement: Any lab studies that have been ordered have been reviewed, and results considered in the medical decision making process. - EKG 2006 Cardiac Rate: Bradycardia - 60 BPM EKG Rhythm: Sinus Bradycardia ST Segment: Normal Summary of EKG Findings: Sinus bradycardia at 60 BPM, P waves, QRS complex, and T waves are within normal limits, T waves and intervals are normal, no ischemic changes. This is a normal EKG Re-Evaluation - Re-Evaluation First Eval Re-Evaluation Time: 21:57 Comment: Pt is distraught and stated that he has people out to get her. She has no SI or HI, a female nurse volunteered to talk to her to attempt and help calm her down. Complex Multi-Symp Course/Dx Course Of Treatment: The patient is a 38 year old F brought in by EMS to [facility] with a chief complaint of R sided weakness and tingling since Monday03/23/19. The pt reports being under lots of stress recently due to a break-up with my . The patient stated that since she broke up with him she has had nausea , vomiting, and lack of sleep.The EKG she received showed sinus bradycardia at 60 BPM, P waves, QRS complex, and T waves are within normal limits, T waves and intervals are normal, no ischemic changes. This is a normal EKG. She had an anxiety attack and expressed her need to go home due to her boyfriend having friends over. She will be discharged home with acute nausea and anxiety. She will be informed to return to the ED with any new or wrosening symptoms and to follow up with her PCP in 3 days. - Diagnoses Provider Diagnoses: Nausea, Anxiety Discharge - Sign-Out/Discharge Documenting (check all that apply): Patient Departure - discharge Patient Received Moderate/Deep Sedation with Procedure: No - Discharge Plan Condition: Stable Disposition: HOME Prescriptions: Ondansetron ODT TAB* [Zofran 4 MG Odt TAB*] 8 mg PO Q6H PRN #12 tab.odt PRN Reason: Nausea Patient Education Materials: Acute Nausea and Vomiting (ED), Anxiety (ED) Referrals: Kartik Francisco MD [Primary Care Provider] - 3 Days (if not improving) - Billing Disposition and Condition Condition: STABLE Disposition: Home - Attestation Statements Document Initiated by Kurtibe: Yes Documenting Scribe: Edu Ortiz Provider For Whom Scribe is Documenting (Include Credential): Kaveh Blanco MD Scribe Attestation: IEdu, scribed for Kaveh Blanco MD on 03/27/19 at 0501. Scribe Documentation Reviewed: Yes Provider Attestation: The documentation as recorded by the Edu orozco accurately reflects the service I personally performed and the decisions made by me, Kaveh Blanco MD Status of Scribe Document: Viewed
[2019-03-26 20:49] LABS: ABS Basophils 0.1 10^3/ul (0-0.2); ABS Eosinophils 0.1 10^3/ul (0-0.6); ABS Lymphocytes 2.4 10^3/ul (1.0-4.8); ABS Monocytes 0.9 10^3/ul (0-0.8); ABS Neutrophils 7.1 10^3/ul (1.5-7.7); Eosinophil % 1.3 %; Hematocrit 41 % (35-47); Hemoglobin 13.9 g/dL (12.0-16.0); Lymphocyte % 22.8 %; Mean Corpuscular HGB Conc 34 g/dL (31-36); Mean Corpuscular Hemoglobin 30 pg (27-31); Mean Corpuscular Volume 88 fL (80-97); Mean Platelet Volume 8.2 fL (7.4-10.4); Platelet Count 292 10^3/uL (150-450); Red Blood Count 4.71 10^6 /uL (3.70-4.87); Red Cell Distribution Width 14 % (10.5-15); White Blood Count 10.6 10^3/uL (3.5-10.8)
[2019-03-26 21:03] LABS: ALT 8 U/L (7-52); AST 11 U/L (13-39); Albumin 4.1 g/dL (3.2-5.2); Albumin/Globulin Ratio 1.4 (1-3); Alkaline Phosphatase 66 U/L (34-104); Anion Gap 8 mmol/L (2-11); BUN/Creatinine Ratio 11.2 (8-20); Blood Urea Nitrogen 10 mg/dL (6-24); CO2 Carbon Dioxide 25 mmol/L (22-32); Calcium 9.2 mg/dL (8.6-10.3); Chloride 107 mmol/L (101-111); EGFR Non-African American 70.2 (>60); Globulin 2.9 g/dL (2-4); Glucose 89 mg/dL (70-100); Sodium 140 mmol/L (135-145)
[2019-03-26 21:09] LABS: HCG Pregnancy < 0.60 mIU/mL
[2019-03-26] MEDS ORDERED: hydrOXYzine HCL TAB* 50 MG PO ONE (21:38)
[2019-03-26 22:43] VITALS: BP 123/76
== END 2019-03-26 22:42 | disposition home or self-care (01) ==
LOC: ED 19:52
DX: R11.0 Nausea (principal); F41.9 Anxiety disorder, unspecified; R00.1 Bradycardia, unspecified; Z89.021 Acquired absence of right finger(s); Z88.1 Allergy status to other antibiotic agents; Z88.5 Allergy status to narcotic agent; Z88.8 Allergy status to other drugs, medicaments and biological substances; F17.210 Nicotine dependence, cigarettes, uncomplicated
CPT/HCPCS: 36415; 80053; 84484; 84702; 85025; 93005; 96361; 96374; 99282; A9270-GY; J2405

== ENCOUNTER 2019-04-05 16:18 | Emergency (ER) | payer OTHER ==
--- OUTSIDE RECORDS SUMMARY | 2019-04-05 16:42 | XMS REPORT | Continuity of Care Document ---
:1980 External Reference #:[id number] Author Name Megan Kaye Care Team Providers Name Role Phone Hermilo Boucehr PA Primary Care Physician Unavailable Payers Date Identification Numbers Payment Provider Subscriber Effective: 2011 Policy Number: [id number] Robert Tubbs Group Number: [id number] [address] PayID: [id number] [place] [address] Problems Active Problems Provider Date Body mass index 30+ - obesity Tanisha Roper M.D. Onset: 08/03/2018 Anxiety state Tanisha Roper M.D. Onset: 08/03/2018 Bipolar disorder Christian Segura II, M.D. Onset: 08/02/2018 Chest pain Christian Segura II, M.D. 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 Tobacco Use Start: Unknown Current Cigarette Smoker 1 Pack Daily Smoking Status Reviewed: 03/20/19 Current Cigarette Smoker 1 Pack Daily ETOH Use Denies alcohol use Tobacco Use Start: Unknown Patient is a current for 25 years smoker, smokes every day Recreational Drug Use 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 History Medications Robaxin-750 1-2 po q 8 hrs prn 50tabs Thai M. 08/29/2011 - 750mg muscle spasm Jason Mares 07/09/2014 Tablets Percocet 1-2 po q4h prn pain 40tabs Thai M. 03/30/2011 - 5-325mg Jason Mares 07/08/2014 Tablets [place] 1-2 po q4h prn pain 40tabs Ceres M. 02/09/2011 - 5-325mg Tablets Jason Mares 07/09/2014 Dilaudid 1-3 po q4h prn pain 50tabs Thai M. 02/02/2011 - 2mg Tablets Jason Mares 07/09/2014 Loratadine 1 po qd.. Scarseth, - 10mg Nhan Crews, 01/24/2018 Tablets GASOLINE TESTER Depo-Provera intramuscular q3mon Unknown - 400mg/ml 03/19/2019 Suspension Vital Signs Date Vital Result Comment 03/20/2019 12:53pm Height 67 inches 5'7" Weight 241.00 lb w/o shoes Heart Rate 48 /min BP Systolic 108 mmHg Lue reg cuff BP Diastolic 78 mmHg Lue reg cuff BP Systolic Sitting 110 mmHg Rue lg cuff BP Diastolic Sitting 80 mmHg Rue lg cuff BP Systolic Standing 112 mmHg Rue lg cuff BP Diastolic Standing 74 mmHg Rue lg cuff Respiratory Rate 17 /min BMI (Body Mass Index) 37.7 kg/m2 03/13/2018 11:08am Heart Rate 52 /min BP Systolic 110 mmHg BP Diastolic 76 mmHg Body Temperature 97.9 F Pain Level 6 01/25/2018 2:53pm Height 67 inches 5'7" Weight 250.00 lb BP Systolic 122 mmHg BP Diastolic 76 mmHg Respiratory Rate 20 /min Body Temperature 97.0 F Pain Level 6 BMI (Body Mass Index) 39.2 kg/m2 07/09/2014 11:23am Height 67 inches 5'7" Weight 252.00 lb Heart Rate 58 /min BP Systolic Sitting 114 mmHg BP Diastolic Sitting 72 mmHg BMI (Body Mass Index) 39.5 kg/m2 Results Test Date Facility Test Result H/L Range Note Laboratory test 03/03/2011 [facility] (HCG) NEGATIVE Negative 1, [address] [place] [address] [phone] CBC No Diff 03/03/2011 [facility] White Blood 7.4 CUMM 4.8- 10.[address] [place] [address] [phone] Red Cell Count 4.44 CUMM 4.2-5.4 Hemoglobin 13.5 g/dL 12.0-16.0 Hematocrit 39 % 35-47 Mean Corpuscular Volume 89 um3 79-97 Mean Corpuscular Hemoglob 30 pg 27-31 Mean Corpuscular HGB Cone 34 g/dL 32-36 Redcell Distribution WDTH 15 % 10.5-15 Platelet Count 250 CUMM 150-450 Mean Platelet Volume 8.6 um3 7.4-10.4 Basic Metabolic Panel 03/03/2011 [facility] Sodium 139 mmol/L 135-[address] [place] [address] [phone] Potassium 4.2 mmol/L 3.5-5.0 Chloride 108 mmol/L 101-111 Co2 (Carbon Dioxide) 25.0 mmol/L 22-32 Anion Gap 6.0 mmol/L 2-11 3 Glucose 85 mg/dL 70-100 BUN 11 mg/dL 6-24 Creatinine 0.80 mg/dL 0.50-1.40 One Over Creatinine 1.20 BUN/Creatinine Ratio 13.8 8-20 Calcium 9.2 mg/dL 8.1-9.9 eGFR Non- 83.1 > 60 eGFR 106.9 > 60 4 Protime 03/03/2011 [facility] Inr 1.03 0.82-1.[address] [place] [address] [phone] Protime 12.2 SEC 10.2-14.8 6 Laboratory test 03/03/2011 [facility] PTT (Aptt) 28.7 25.15- 38.[address] [place] [address] [phone] Type And Screen 03/03/2011 [facility] Patient A NEGATIVE (Pre-Adm) [address] Blood Type [place], [place] [id number] [phone] Antibody Screen NEGATIVE Specimen Discard Date 03/17/11 7 Ua Stat 06/20/2009 [facility] Ua Color RED [address] [place] [address] [phone] Appearance-Urine CLOUDY Specific [place]-Ur 1.026 1.010-1.030 Esterase-Urine 1+ Abnormal Negative Nitrite NEGATIVE Negative Jcqytcevmfnm-Rt-NQM NEGATIVE Negative Protein-Urine 3+ Abnormal Negative PH-Urine 5.5 5-9 Blood-Urine 3+ Abnormal Negative Ketones-Urine NEGATIVE Negative Bilirubin-Ur NEGATIVE Negative Glucose-Urine NEGATIVE Negative Urinalysis W/Microscopic Stat 06/20/2009 [facility] Ua Color RED [address] [place], [place] [id number] [phone] Appearance-Urine CLOUDY Specific [place]-Ur 1.026 1.010-1.030 Esterase-Urine 1+ Abnormal Negative Nitrite NEGATIVE Negative Tgqmkckfjohy-Xl-ZTY NEGATIVE Negative Protein-Urine 3+ Abnormal Negative PH-Urine 5.5 5-9 Blood-Urine 3+ Abnormal Negative Ketones-Urine NEGATIVE Negative Bilirubin-Ur NEGATIVE Negative Glucose-Urine NEGATIVE Negative WBC-Urine 5-10 Abnormal 0-5 RBC-Urine TNTC Abnormal 0-2 Epith Cells-Ur RARE Bacteria-Urine 3+ Ua Comments YEAST CBC With 06/20/2009 [facility] White Blood 14.6 CUMM High 4.8- 10.8 Electronic Diff [address] [place] [address] [phone] Red Cell Count 4.83 CUMM 4.2-5.4 Hemoglobin [...] 0.3 High 0-0.2 CMP Panel Stat 06/20/2009 [facility] Sodium 138 mmol/L 135- [address] [place] [address] [phone] Potassium 3.8 mmol/L 3.5-5.0 Chloride 105 mmol/L [...] eGFR 108.3 > 60 12 HCG Qualitative 06/20/2009 [facility] Serum Qual NEGATIVE Negative [address] [place] [address] [phone] Urine Culture & 06/20/2009 [facility] Urine Culture ESCHERICHIA [address] [place] [address] [phone] Ursc-1 06/20/2009 [facility] Ampicillin <=[address] [place] [address] [phone] Amikacin <=2 S Ciprofloxacin <=0.25 S Ceftriaxone <=1 S Cefazolin <=4 S Nitrofurantoin <=16 S Gentamicin <=1 S Imipenem <=1 S Levofloxacin <=0.12 S Trimeth-Sulfa <=20 S Ceftazidime <=1 S Tigecycline <=0.5 S Piperacillin/Tazobactam <=4 S Urine 06/10/2009 [facility] Specific 1.020 1.010- 1.[address] [place] [address] [phone] Urine NEGATIVE Negative 15 Urinalysis W/Microscopic Stat 06/10/2009 [facility] Ua Color YELLOW [address] [place] [address] [phone] Appearance-Urine TURBID Specific [place]-Ur 1.020 1.010-1.030 Esterase-Urine 1+ Abnormal Negative Nitrite NEGATIVE Negative Qsqctzrzczgx-Ge-IBQ NEGATIVE Negative Protein-Urine TRACE Abnormal Negative PH-Urine 7.5 5-9 Blood-Urine 3+ Abnormal Negative Ketones-Urine NEGATIVE Negative Bilirubin-Ur NEGATIVE Negative Glucose-Urine NEGATIVE Negative WBC-Urine 2-5 0-5 RBC-Urine 5-10 Abnormal 0-2 Epith Cells-Ur MODERATE Urine Culture & 06/10/2009 [facility] Urine Culture NF1 [address] [place] [address] [phone] Comp Metabolic 06/08/2009 [facility] Sodium 146 High 135-[address] mmol/L 5 [place] [address] [phone] Potassium 3.9 mmol/L 3.5-5.0 Chloride 114 mmol/L [...] > 60 eGFR 101.0 > 60 21 CBC With 06/08/2009 [facility] White Blood 13.6 CUMM High 4.8- 10.8 Manual Diff [address] [place] [address] [phone] Red Cell Count 4.48 CUMM 4.2-5.4 Hemoglobin [...] 0-6 Absolute Neutrophil Count 10.0 Anisocytosis SLIGHT Urinalysis W/Microscopic Stat 06/08/2009 [facility] Ua Color YELLOW [address] [place] [address] [phone] Appearance-Urine CLEAR Specific [place]-Ur 1.029 1.010-1.030 Esterase-Urine NEGATIVE Negative Nitrite NEGATIVE Negative Fkabphjciwxf-Xi-ZPI NEGATIVE Negative Protein-Urine NEGATIVE Negative PH-Urine 5.5 5-9 Blood-Urine 2+ Abnormal Negative Ketones-Urine TRACE Abnormal Negative Bilirubin-Ur NEGATIVE Negative Glucose-Urine NEGATIVE Negative WBC-Urine 5-10 Abnormal 0-5 RBC-Urine 2-5 0-2 Mucus Urine SMALL Epith Cells-Ur MANY Bacteria-Urine 1+ Amorphous Sed-U TRACE Ua Stat 05/07/2009 [facility] Ua Color YELLOW [address] [place] [address] [phone] Appearance-Urine CLEAR Specific [place]Ur 1.015 1.010-1.030 Esterase-Urine NEGATIVE Negative Nitrite NEGATIVE Negative Kwajghmfsubb-Pb-IYV NEGATIVE Negative Protein-Urine NEGATIVE Negative PH-Urine 6.0 5-9 Blood-Urine TRACE Abnormal Negative Ketones-Urine NEGATIVE Negative Bilirubin-Ur NEGATIVE Negative Glucose-Urine NEGATIVE Negative Urinalysis W/Microscopic Stat 05/07/2009 [facility] Ua Color YELLOW [address] [place] [address] [phone] Appearance-Urine CLEAR Specific [place]Ur 1.015 1.010-1.030 Esterase-Urine NEGATIVE Negative Nitrite NEGATIVE Negative Mfyukffojhim-Tf-NQS NEGATIVE Negative Protein-Urine NEGATIVE Negative PH-Urine 6.0 5-9 Blood-Urine TRACE Abnormal Negative Ketones-Urine NEGATIVE Negative Bilirubin-Ur NEGATIVE Negative Glucose-Urine NEGATIVE Negative WBC-Urine 0-2 0-5 RBC-Urine RARE 0-2 Mucus Urine SMALL Epith Cells-Ur MODERATE Bacteria-Urine 1+ Basic Metabolic Panel 05/07/2009 [facility] Sodium 140 mmol/L 135-[address] [place] [address] [phone] Potassium 3.5 mmol/L 3.5-5.0 Chloride 106 mmol/L 101-111 Co2 (Carbon Dioxide) 26.0 mmol/L 22-32 Anion Gap 8.0 mmol/L 2-11 22 Glucose 103 mg/dL High 70-100 23 BUN 7 mg/dL 6-24 Creatinine 0.80 mg/dL 0.50-1.40 One Over Creatinine 1.20 BUN/Creatinine Ratio 8.8 8-20 Calcium 8.8 mg/dL 8.1-9.9 24 eGFR Non- 89.5 > 60 eGFR 108.3 > 60 25 CBC With 05/07/2009 [facility] White Blood 11.3 CUMM High 4.8- 10.8 Manual Diff [address] [place] [address] [phone] Red Cell Count 4.36 CUMM 4.2-5.4 Hemoglobin [...] 0-6 Absolute Neutrophil Count 9.0 Anisocytosis SLIGHT CBC With Manual 03/29/2009 [facility] White Blood 9.0 CUMM 4.8-10.[address] [place] [address] [phone] Red Cell Count 4.45 CUMM 4.2-5.4 Hemoglobin [...] Count 6.0 RBC Morphology NORMAL P33S 03/29/2009 [facility] Sodium 138 mmol/L 135-[address] [place] [address] [phone] Potassium 4.7 mmol/L 3.5-5.0 Chloride 111 mmol/L [...] (Sgot) 13 U/L 12-42 Ua Stat 03/29/2009 [facility] Ua Color YELLOW [address] [place] [address] [phone] Appearance-Urine CLOUDY Specific [place]Ur 1.016 1.010-1.030 Esterase-Urine 1+ Abnormal Negative Nitrite NEGATIVE Negative Jzzisngkhrbx-Fn-GSU NEGATIVE Negative Protein-Urine NEGATIVE Negative PH-Urine 5.0 5-9 Blood-Urine TRACE Abnormal Negative Ketones-Urine NEGATIVE Negative Bilirubin-Ur NEGATIVE Negative Glucose-Urine NEGATIVE Negative Urinalysis W/Microscopic Stat 03/29/2009 [facility] Ua Color YELLOW [address] [place] [address] [phone] Appearance-Urine CLOUDY Specific [place]Ur 1.016 1.010-1.030 Esterase-Urine 1+ Abnormal Negative Nitrite NEGATIVE Negative Ukfukpahwwcb-Om-CNR NEGATIVE Negative Protein-Urine NEGATIVE Negative PH-Urine 5.0 5-9 Blood-Urine TRACE Abnormal Negative Ketones-Urine NEGATIVE Negative Bilirubin-Ur NEGATIVE Negative Glucose-Urine NEGATIVE Negative WBC-Urine 2-4 0-5 RBC-Urine 1-3 0-2 Mucus Urine SMALL Epith Cells-Ur 1-3 Bacteria-Urine 1+ Urine Culture & 03/29/2009 [facility] Urine Culture NF1 [address] [place] [address] [phone] CBC With 03/24/2009 [facility] White Blood 12.0 CUMM High 4.8- 1 31 Electronic Diff [address] Count 0.8 [place] [address] [phone] Red Cell Count 4.49 CUMM 4.2-5.4 Hemoglobin 12.7 g/dL 12.0-16.0 Hematocrit 38 % 35-47 Mean Corpuscular Volume 84 um3 79-97 Mean Corpuscular Hemoglob 28 pg 27-31 Mean Corpuscular HGB Cone 34 g/dL 32-36 Redcell Distribution WDTH 13 % 10.5-15 Platelet Count 315 CUMM 150-450 Mean Platelet Volume 8.0 um3 7.4-10.4 Gran % 68.3 % 38-83 Lymph % 22.3 % Low 25-47 Mononuclear % 8.1 % 1-9 Eosinophil % 0.9 % 0-6 Basophil % 0.4 % 0-2 Abs Lymphs 2.7 1.0-4.8 Abs Mononuclear 1.0 High 0-0.8 Absolute Neutrophil Count 8.2 High 1.5-7.7 Abs Eosinophils 0.1 0-0.6 Abs Basophils 0 0-0.2 Basic Metabolic Panel 03/24/2009 [facility] Sodium 143 mmol/L 135-145 Stat [address] [place] [address] [phone] Potassium 3.9 mmol/L 3.5-5.0 Chloride 111 mmol/L 101-111 Co2 (Carbon Dioxide) 26.0 mmol/L 22-32 Anion Gap 6.0 mmol/L 2-11 32 Glucose 119 mg/dL High 70-100 33 BUN 10 mg/dL 6-24 Creatinine 0.90 mg/dL 0.50-1.40 One Over Creatinine 1.10 BUN/Creatinine Ratio 11.1 8-20 Calcium 8.6 mg/dL 8.1-9.9 34 Urinalysis W/Microscopic Stat 03/24/2009 [facility] Ua Color RED [address] [place] [address] [phone] Appearance-Urine TURBID Specific [place]-Ur 1.026 1.010-1.030 Esterase-Urine 3+ Abnormal Negative Nitrite POSITIVE Abnormal Negative Cxoihypnzcon-Gm-KUU NEGATIVE Negative Protein-Urine 3+ Abnormal Negative PH-Urine 5.5 5-9 Blood-Urine 3+ Abnormal Negative Ketones-Urine 2+ Abnormal Negative Ictotest-Urine NEGATIVE Glucose-Urine NEGATIVE Negative WBC-Urine TNTC Abnormal 0-5 RBC-Urine TNTC Abnormal 0-2 Epith Cells-Ur FEW Laboratory test 03/24/2009 [facility] Urine Culture ESCHERICHIA COLI finding [address] [facility] [place] [address] [phone] Ursc-1 03/24/2009 [facility] Ampicillin <=2 [address] [place] [address] [phone] Amikacin <=2 S Ciprofloxacin <=0.25 S Cefazolin <=4 S Nitrofurantoin <=16 S Gentamicin <=1 S Imipenem <=1 S Levofloxacin <=0.25 S Meropenem <=0.25 S Trimeth-Sulfa <=20 S Ceftazidime <=1 S Tigecycline <=0.5 S Piperacillin/Tazobactam <=4 S CBC With 12/22/2008 [facility] White Blood 5.3 CUMM 4.8-10.8 Electronic Diff [address] [place] [address] [phone] Red Cell Count 4.68 CUMM 4.2-5.4 Hemoglobin [...] 0-0.6 Abs Basophils 0 0-0.2 P33S 12/22/2008 [facility] Sodium 138 mmol/L 135-[address] [place] [address] [phone] Potassium 3.3 mmol/L Low 3.5-5.0 Chloride 105 [...] (Sgot) 20 U/L 12-42 Amylase Stat 12/22/2008 [facility] Amylase 32 U/L 30-[address] [place] [address] [phone] Laboratory test finding 12/22/2008 [facility] Lipase 24 U/L 22-[address] [place] [address] [phone] Protime Stat 11/16/2008 [facility] Protime 11.8 10.9-13.[address] [place] [address] [phone] Inr 0.95 38 Laboratory test 11/16/2008 [facility] PTT (Aptt) 22.8 20.1- 28.[address] [place] [address] [phone] P33S 11/16/2008 [facility] Sodium 138 mmol/L 135-[address] [place] [address] [phone] Potassium 3.9 mmol/L 3.5-5.0 Chloride 106 mmol/L 101-111 Co2 (Carbon Dioxide) 27.0 mmol/L 22-32 Anion Gap 5.0 mmol/L 2-11 40 Glucose 109 mg/dL High 70-100 41 BUN 14 mg/dL 6-24 Creatinine 0.65 mg/dL 0.50-1.40 One Over Creatinine 1.50 BUN/Creatinine Ratio 21.5 High 8-20 Calcium 8.7 mg/dL 8.1-9.9 42 Total Protein 6.7 GM/DL 6.2-8.1 Albumin 4.0 GM/DL 3.6-5.4 Globulin 2.7 GM/DL 2-4 Albumin/Globulin Ratio 1.5 1-3 Bilirubin Total 0.5 mg/dL 0.4-1.5 Alkaline Phosphatase 61 U/L 30-110 Alt (SGPT) 14 U/L 14-54 Ast (Sgot) 17 U/L 12-42 Laboratory test 11/16/2008 [facility] Troponin-I 0.09 High 0- 0.[address] (TnI) NG/[place] [address] [phone] CBC With Manual 11/16/2008 [facility] White Blood 8.7 CUMM 4.8-10.8 Diff Stat [address] [place] [address] [phone] Red Cell Count 4.49 CUMM 4.2-5.4 Hemoglobin [...] Absolute Neutrophil Count 5.2 RBC Morphology NORMAL CBC With 08/27/2008 [facility] White Blood 9.1 CUMM 4.8-10.8 Electronic Diff [address] [place] [address] [phone] Red Cell Count 4.29 CUMM 4.2-5.4 Hemoglobin [...] 0.1 0-0.6 Abs Basophils 0 0-0.2 P33S 08/27/2008 [facility] Sodium 137 mmol/L 135-[address] [place] [address] [phone] Potassium 3.5 mmol/L 3.5-5.0 Chloride 103 mmol/L [...] U/L 14-54 Ast (Sgot) 18 U/L 12-42 Urinalysis W/Microscopic Stat 08/27/2008 [facility] Ua Color YELLOW [address] [place] [address] [phone] Appearance-Urine CLOUDY Specific [place]-Ur 1.033 High 1.010-1.030 Esterase-Urine NEGATIVE Negative Nitrite NEGATIVE Negative Scifffokphrt-Sd-UFQ NEGATIVE Negative Protein-Urine NEGATIVE Negative PH-Urine 5.0 5-9 Blood-Urine 3+ Abnormal Negative Ketones-Urine NEGATIVE Negative Bilirubin-Ur NEGATIVE Negative Glucose-Urine NEGATIVE Negative WBC-Urine 0-2 0-5 RBC-Urine 10-15 Abnormal 0-2 Epith Cells-Ur FEW Bacteria-Urine 2+ Ua Stat 08/27/2008 [facility] Ua Color YELLOW [address] [place] [address] [phone] Appearance-Urine CLOUDY Specific [place]-Ur 1.033 High 1.010-1.030 Esterase-Urine NEGATIVE Negative Nitrite NEGATIVE Negative Pjzakizvxspn-Tq-DVY NEGATIVE Negative Protein-Urine NEGATIVE Negative PH-Urine 5.0 5-9 Blood-Urine 3+ Abnormal Negative Ketones-Urine NEGATIVE Negative Bilirubin-Ur NEGATIVE Negative Glucose-Urine NEGATIVE Negative Laboratory test 08/27/2008 [facility] Lipase 28 U/L 22-51 finding [address] [place] [address] [phone] CBC With Manual 08/11/2008 [facility] White Blood 11.5 CUMM High 4.8-10.8 Diff Stat [address] [place] [address] [phone] Red Cell Count 4.61 CUMM 4.2-5.4 Hemoglobin [...] RBC Morphology NORMAL Urinalysis W/Microscopic Stat 08/11/2008 [facility] Ua Color YELLOW [address] [place] [address] [phone] Appearance-Urine CLEAR Specific [place]Ur 1.014 1.010-1.030 Esterase-Urine NEGATIVE Negative Nitrite NEGATIVE Negative Upbnotfximty-Ma-KIP NEGATIVE Negative Protein-Urine NEGATIVE Negative PH-Urine 7.0 5-9 Blood-Urine 1+ Abnormal Negative Ketones-Urine NEGATIVE Negative Bilirubin-Ur NEGATIVE Negative Glucose-Urine NEGATIVE Negative WBC-Urine 5-10 Abnormal 0-5 RBC-Urine 0-2 0-2 Epith Cells-Ur MODERATE Bacteria-Urine 2+ Ua Stat 08/11/2008 [facility] Ua Color YELLOW [address] [place] [address] [phone] Appearance-Urine CLEAR Specific [place]Ur 1.014 1.010-1.030 Esterase-Urine NEGATIVE Negative Nitrite NEGATIVE Negative Epwjholpjmut-Ku-MWD NEGATIVE Negative Protein-Urine NEGATIVE Negative PH-Urine 7.0 5-9 Blood-Urine 1+ Abnormal Negative Ketones-Urine NEGATIVE Negative Bilirubin-Ur NEGATIVE Negative Glucose-Urine NEGATIVE Negative Basic Metabolic Panel 08/11/2008 [facility] Sodium 140 mmol/L 135-[address] [place] [address] [phone] Potassium 3.7 mmol/L 3.5-5.0 Chloride 107 mmol/L [...] change was based on recommendations from the [place] [employer]. 10 Please note change in reference range effective 08 . 11 A metabolite of Naproxen, O-desmethylnaproxen, has been shown to interfere with the [place] method for measuring total bilirubin. Samples from [...] change was based on recommendations from the [place] [employer]. 19 Please note change in [...] change was based on recommendations from the [place] [employer]. 24 Please note change in [...] change was based on recommendations from the [place] [employer]. 28 Please note change in reference range effective 08 . 29 A metabolite of Naproxen, O-desmethylnaproxen, has been shown to interfere with the [place] method for measuring total bilirubin. Samples from [...] change was based on recommendations from the [place] [employer]. 34 Please note change in reference range effective 08 . 35 Anion gap measurement may be of limited value in the presence of any alkalosis, especially in a combined acid base disorder. . 36 Note change in reference range as of 06/12/08. The change was based on recommendations from the [place] [employer]. 37 Please note change in reference range effective 08 . 38 JULIANNA VALUE=2.01 ( OF 09/28/07 Recommended INR for Patients on Oral Anticoagulants Prophylaxis 2.0 - 3.0 Treatment of thrombosis 2.0 - 3.0 Prevention of embolism 2.0 - 3.0 Prevention of embolism from prosthetic heart valves 2.5 - 3.5 39 PLEASE NOTE NEW REFERENCE RANGE EFFECTIVE 08. 40 Anion gap measurement may be of limited value in the presence of any alkalosis, especially in a combined acid base disorder. . 41 Note change in reference range as of 06/12/08. The change was based on recommendations from the [place] [employer]. 42 Please note change in reference range effective 08 . 43 RESULTS VERIFIED BY REPEAT ANALYSIS ON THE SAME SAMPLE. REPEATED RESULT IS:0.07 VERBAL TO SHELIA BY LINETTE at 0846 on 11/16/08. Results read back accurately. New Reference Range and Interpretation effective 07/26/02 TnI (ng/ml) INTERPRETATION <0.06 ng/ml NOT SUPPORTIVE OF DIAGNOSIS OF SD 0.06 - 0.50 ng/ml INDETERMINATE: SUGGEST SERIAL STUDIES IF CLINICALLY INDICATED. > 0.5 ng/ml CONSISTENT WITH DIAGNOSIS OF SD . 44 Anion gap measurement may be of limited value in the presence of any alkalosis, especially in a combined acid base disorder. . 45 Note change in reference range as of 06/12/08. The change was based on recommendations from the [place] [employer]. 46 Please note change in reference range effective 08 . 47 Anion gap measurement may be of limited value in the presence of any alkalosis, especially in a combined acid base disorder. . 48 Note change in reference range as of 06/12/08. The change was based on recommendations from the [place] [employer]. 49 Please note change in reference range effective 08 . Procedures Date Code Description Status 03/20/2019 09220 EKG Tracing & Interpretation Completed 08/03/2018 81939 ECHO Transthorasic Realtime 2D W Doppler & Color Flow Hosp Completed 08/03/2018 16103 Treadmill Interp/Report Only Completed 08/03/2018 19271 Stress Test Supervsn W/Out I/R Completed 08/02/2018 17190 EKG, Interpretation Only Completed 12/07/2013 40050 Treadmill Interp/Report Only Completed 12/07/2013 58311 Stress Test Supervsn W/Out I/R Completed 05/09/2013 19331 Nerve Conduction 03-04 Studies Completed 05/09/2013 40047 Needle Electromyography Each Extremity W/Related Completed Paraspinal Areas 03/09/2011 96389 Laminotomy W/Decomp NRV RT,One Interspace,Lumbar Completed Encounters Type Date Location Provider Dx Diagnosis Office Visit 08/03/2018 [facility] Tanisha Roper, R07.9 Chest pain, 9:29a Assarielle camejo M.D. unspecified Hospitalists F41.9 Anxiety disorder, unspecified Z68.38 Body mass index (BMI) 38.0-38.9, adult Office Visit 08/02/2018 [facility] Christian Segura R07.9 Chest pain, 9:28a Assocarielle II, M.D. 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 Office Visit 05/09/2013 [place] 782.0 Skin Sensation 3:00p Neurologic Serv Of Jason Rowley Disturbance [facility] 728.85 Spasm Muscle 723.1 Cervicalgia 346.10 Migraine Common W/O Intractable W/O Status Migrainosus Office 02/28/2013 [facility] Naun Sevilla 346.01 Migraine Visit 10:00a Neurologic Serv Of Amrik W/Aura/Intractable Bijan Gomez Migrain W/O Men Status Migrainos 782.0 Skin Sensation Disturbance Office Visit 11/09/2011 9:15a Neurosurgery Services Thai Mares 724.2 Lumbago Of Bijan Tineo.Daisy 723.1 Cervicalgia 338.4 Chronic Pain Syndrome Office Visit 09/29/2011 10:30a Neurosurgery Services Thai Mares 724.2 Lumbago Of Bijan Gomez 723.1 Cervicalgia Office Visit 08/29/2011 Orthopedic Guerrero Ng 847.2 Sprains & Strains 3:00p Services Of Craig Castaneda C.M.A. RPA-C Office Visit 08/29/2011 Neurosurgery Thai Gil 847.2 Sprains & Strains 10:00a Services Of Bijan Mares M.D. Lumbar Office Visit 08/24/2011 Neurosurgery Thai Gil 724.3 Sciatica 2:30p Services Of Bijan Mares M.D. 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
--- OUTSIDE RECORDS SUMMARY | 2019-04-05 16:42 | XMS REPORT | Continuity of Care Document ---
:1980 External Reference #:[id number] Author Name Amy Wilder Care Team Providers Name Role Phone Hermilo Boucher PA Primary Care Physician Unavailable Payers Date Identification Numbers Payment Provider Subscriber Effective: 2011 Policy Number: [id number] Robert Tubbs Group Number: [id number] [address] PayID: [id number] [place] [address] Problems Active Problems Provider Date Body mass [...] 01/25/2018 Suboxone 01/25/2018 Macrobid Hives Severe 03/20/2019 Medications Active Medications SIG Qnty Indications [...] 03/30/2011 - 5-325mg Jason Mares 07/08/2014 Tablets Baltic 1-2 po q4h prn pain 40tabs [facility]. 02/09/2011 - 5-325mg Tablets Jason Mares 07/09/2014 Dilaudid 1-3 po q4h prn pain 50tabs Thai M. 02/02/2011 - 2mg Tablets Jason Mares 07/09/2014 Loratadine 1 po qd.. 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 Depo-Provera intramuscular q3mon Unknown - 400mg/ml 03/19/2019 [...] Result H/L Range Note Laboratory test 03/03/2011 [facility] (HCG) NEGATIVE Negative 1, [address] [place] [address] [phone] CBC No Diff 03/03/2011 [facility] White Blood 7.4 CUMM 4.8- 10.[address] [place] [address] [phone] Red Cell Count 4.44 CUMM 4.2-5.4 Hemoglobin 13.5 g/dL 12.0-16.0 Hematocrit 39 % 35-47 Mean Corpuscular Volume 89 um3 79-97 Mean Corpuscular Hemoglob 30 pg 27-31 Mean Corpuscular HGB Cone 34 g/dL 32-36 Redcell Distribution WDTH 15 % 10.5-15 Platelet Count 250 CUMM 150-450 Mean Platelet Volume 8.6 um3 7.4-10.4 Basic Metabolic Panel 03/03/2011 [facility] Sodium 139 mmol/L 135-[address] [place] [address] [phone] Potassium 4.2 mmol/L 3.5-5.0 Chloride 108 mmol/L 101-111 Co2 (Carbon Dioxide) 25.0 mmol/L 22-32 Anion Gap 6.0 mmol/L 2-11 3 Glucose 85 mg/dL 70-100 BUN 11 mg/dL 6-24 Creatinine 0.80 mg/dL 0.50-1.40 One Over Creatinine 1.20 BUN/Creatinine Ratio 13.8 8-20 Calcium 9.2 mg/dL 8.1-9.9 eGFR Non- 83.1 > 60 eGFR 106.9 > 60 4 Protime 03/03/2011 [facility] Inr 1.03 0.82-1.[address] [place] [address] [phone] Protime 12.2 SEC 10.2-14.8 6 Laboratory test 03/03/2011 [facility] PTT (Aptt) 28.7 25.15- 38.[address] [place] [address] [phone] Type And Screen 03/03/2011 [facility] Patient A NEGATIVE (Pre-Adm) [address] [facility] [place] [place] [address] [phone] Antibody Screen NEGATIVE Specimen Discard Date 03/17/11 7 Ua Stat 06/20/2009 [facility] Ua Color RED [address] [place], [place] [address] [phone] Appearance-Urine CLOUDY Specific [place]-Ur 1.026 1.010-1.030 Esterase-Urine 1+ Abnormal Negative Nitrite NEGATIVE Negative Satryvqatqar-Yc-WQR NEGATIVE Negative Protein-Urine 3+ Abnormal Negative PH-Urine 5.5 5-9 Blood-Urine 3+ Abnormal Negative Ketones-Urine NEGATIVE Negative Bilirubin-Ur NEGATIVE Negative Glucose-Urine NEGATIVE Negative Urinalysis W/Microscopic Stat 06/20/2009 [facility] Ua Color RED [address] [place] [address] [phone] Appearance-Urine CLOUDY Specific [place]-Ur 1.026 1.010-1.030 Esterase-Urine 1+ Abnormal Negative Nitrite NEGATIVE Negative Tkwmiauguznb-Qw-NSQ NEGATIVE Negative Protein-Urine 3+ Abnormal Negative PH-Urine 5.5 5-9 Blood-Urine 3+ Abnormal Negative Ketones-Urine NEGATIVE Negative Bilirubin-Ur NEGATIVE Negative Glucose-Urine NEGATIVE Negative WBC-Urine 5-10 Abnormal 0-5 RBC-Urine TNTC Abnormal 0-2 Epith Cells-Ur RARE Bacteria-Urine 3+ Ua Comments YEAST CBC With 06/20/2009 [facility] White Blood 14.6 CUMM High 4.8- 10.8 Electronic Diff [address] [place] [address] [phone] Red Cell Count 4.83 CUMM 4.2-5.4 Hemoglobin [...] 0.3 High 0-0.2 CMP Panel Stat 06/20/2009 [facility] Sodium 138 mmol/L 135- [address] [place] [address] [phone] Potassium 3.8 mmol/L 3.5-5.0 Chloride 105 mmol/L [...] 108.3 > 60 12 HCG Qualitative 06/20/2009 [facility] Serum Qual NEGATIVE Negative [address] [place] [address] [phone] Urine Culture & 06/20/2009 [facility] Urine Culture ESCHERICHIA [address] [place] [address] [phone] Ursc-1 06/20/2009 [facility] Ampicillin <=[address] [place] [address] [phone] Amikacin <=2 S Ciprofloxacin <=0.25 S Ceftriaxone <=1 S Cefazolin <=4 S Nitrofurantoin <=16 S Gentamicin <=1 S Imipenem <=1 S Levofloxacin <=0.12 S Trimeth-Sulfa <=20 S Ceftazidime <=1 S Tigecycline <=0.5 S Piperacillin/Tazobactam <=4 S Urine 06/10/2009 [facility] Specific 1.020 1.010- 1.[address] [place] [address] [phone] Urine NEGATIVE Negative 15 Urinalysis W/Microscopic Stat 06/10/2009 [facility] Ua Color YELLOW [address] [place] [address] [phone] Appearance-Urine TURBID Specific [place]-Ur 1.020 1.010-1.030 Esterase-Urine 1+ Abnormal Negative Nitrite NEGATIVE Negative Kqqcixtfndzt-Wh-MJL NEGATIVE Negative Protein-Urine TRACE Abnormal Negative PH-Urine 7.5 5-9 Blood-Urine 3+ Abnormal Negative Ketones-Urine NEGATIVE Negative Bilirubin-Ur NEGATIVE Negative Glucose-Urine NEGATIVE Negative WBC-Urine 2-5 0-5 RBC-Urine 5-10 Abnormal 0-2 Epith Cells-Ur MODERATE Urine Culture & 06/10/2009 [facility] Urine Culture NF1 [address] [place] [address] [phone] Comp Metabolic 06/08/2009 [facility] Sodium 146 High 135-[address] mmol/L 5 [place] [address] [phone] Potassium 3.9 mmol/L 3.5-5.0 Chloride 114 mmol/L [...] 101.0 > 60 21 CBC With 06/08/2009 [facility] White Blood 13.6 CUMM High 4.8- 10.8 Manual Diff [address] [place] [address] [phone] Red Cell Count 4.48 CUMM 4.2-5.4 Hemoglobin [...] 10.0 Anisocytosis SLIGHT Urinalysis W/Microscopic Stat 06/08/2009 [facility] Ua Color YELLOW [address] [place] [address] [phone] Appearance-Urine CLEAR Specific [place]-Ur 1.029 1.010-1.030 Esterase-Urine NEGATIVE Negative Nitrite NEGATIVE Negative Sfxbrucfuxgk-Ar-GFZ NEGATIVE Negative Protein-Urine NEGATIVE Negative PH-Urine 5.5 5-9 Blood-Urine 2+ Abnormal Negative Ketones-Urine TRACE Abnormal Negative Bilirubin-Ur NEGATIVE Negative Glucose-Urine NEGATIVE Negative WBC-Urine 5-10 Abnormal 0-5 RBC-Urine 2-5 0-2 Mucus Urine SMALL Epith Cells-Ur MANY Bacteria-Urine 1+ Amorphous Sed-U TRACE Ua Stat 05/07/2009 [facility] Ua Color YELLOW [address] [place] [address] [phone] Appearance-Urine CLEAR Specific [place]-Ur 1.015 1.010-1.030 Esterase-Urine NEGATIVE Negative Nitrite NEGATIVE Negative Pmkibhbpgjmt-Xg-XFP NEGATIVE Negative Protein-Urine NEGATIVE Negative PH-Urine 6.0 5-9 Blood-Urine TRACE Abnormal Negative Ketones-Urine NEGATIVE Negative Bilirubin-Ur NEGATIVE Negative Glucose-Urine NEGATIVE Negative Urinalysis W/Microscopic Stat 05/07/2009 [facility] Ua Color YELLOW [address] [place] [address] [phone] Appearance-Urine CLEAR Specific [place]-Ur 1.015 1.010-1.030 Esterase-Urine NEGATIVE Negative Nitrite NEGATIVE Negative Gpxxxfoqhlfm-Xi-CRV NEGATIVE Negative Protein-Urine NEGATIVE Negative PH-Urine 6.0 5-9 Blood-Urine TRACE Abnormal Negative Ketones-Urine NEGATIVE Negative Bilirubin-Ur NEGATIVE Negative Glucose-Urine NEGATIVE Negative WBC-Urine 0-2 0-5 RBC-Urine RARE 0-2 Mucus Urine SMALL Epith Cells-Ur MODERATE Bacteria-Urine 1+ Basic Metabolic Panel 05/07/2009 [facility] Sodium 140 mmol/L 135-[address] [place] [address] [phone] Potassium 3.5 mmol/L 3.5-5.0 Chloride 106 mmol/L 101-111 Co2 (Carbon Dioxide) 26.0 mmol/L 22-32 Anion Gap 8.0 mmol/L 2-11 22 Glucose 103 mg/dL High 70-100 23 BUN 7 mg/dL 6-24 Creatinine 0.80 mg/dL 0.50-1.40 One Over Creatinine 1.20 BUN/Creatinine Ratio 8.8 8-20 Calcium 8.8 mg/dL 8.1-9.9 24 eGFR Non- 89.5 > 60 eGFR 108.3 > 60 25 CBC With 05/07/2009 [facility] White Blood 11.3 CUMM High 4.8- 10.8 Manual Diff [address] [place] [address] [phone] Red Cell Count 4.36 CUMM 4.2-5.4 Hemoglobin [...] 9.0 Anisocytosis SLIGHT CBC With Manual 03/29/2009 [facility] White Blood 9.0 CUMM 4.8-10.[address] [place] [address] [phone] Red Cell Count 4.45 CUMM 4.2-5.4 Hemoglobin [...] Count 6.0 RBC Morphology NORMAL P33S 03/29/2009 [facility] Sodium 138 mmol/L 135-[address] [place] [address] [phone] Potassium 4.7 mmol/L 3.5-5.0 Chloride 111 mmol/L [...] (Sgot) 13 U/L 12-42 Ua Stat 03/29/2009 [facility] Ua Color YELLOW [address] [place] [address] [phone] Appearance-Urine CLOUDY Specific [place]-Ur 1.016 1.010-1.030 Esterase-Urine 1+ Abnormal Negative Nitrite NEGATIVE Negative Ragbevpraacp-Qf-YZS NEGATIVE Negative Protein-Urine NEGATIVE Negative PH-Urine 5.0 5-9 Blood-Urine TRACE Abnormal Negative Ketones-Urine NEGATIVE Negative Bilirubin-Ur NEGATIVE Negative Glucose-Urine NEGATIVE Negative Urinalysis W/Microscopic Stat 03/29/2009 [facility] Ua Color YELLOW [address] [place] [address] [phone] Appearance-Urine CLOUDY Specific [place]-Ur 1.016 1.010-1.030 Esterase-Urine 1+ Abnormal Negative Nitrite NEGATIVE Negative Bamffmyxshtv-Jd-CEY NEGATIVE Negative Protein-Urine NEGATIVE Negative PH-Urine 5.0 5-9 Blood-Urine TRACE Abnormal Negative Ketones-Urine NEGATIVE Negative Bilirubin-Ur NEGATIVE Negative Glucose-Urine NEGATIVE Negative WBC-Urine 2-4 0-5 RBC-Urine 1-3 0-2 Mucus Urine SMALL Epith Cells-Ur 1-3 Bacteria-Urine 1+ Urine Culture & 03/29/2009 [facility] Urine Culture NF1 [address] [place] [place] [address] [phone] CBC With 03/24/2009 [facility] White Blood 12.0 CUMM High 4.8- 1 31 Electronic Diff [address] Count 0.8 [place] [address] [phone] Red Cell Count 4.49 CUMM 4.2-5.4 Hemoglobin [...] Basophils 0 0-0.2 Basic Metabolic Panel 03/24/2009 [facility] Sodium 143 mmol/L 135-145 Stat [address] [place] [address] [phone] Potassium 3.9 mmol/L 3.5-5.0 Chloride 111 mmol/L 101-111 Co2 (Carbon Dioxide) 26.0 mmol/L 22-32 Anion Gap 6.0 mmol/L 2-11 32 Glucose 119 mg/dL High 70-100 33 BUN 10 mg/dL 6-24 Creatinine 0.90 mg/dL 0.50-1.40 One Over Creatinine 1.10 BUN/Creatinine Ratio 11.1 8-20 Calcium 8.6 mg/dL 8.1-9.9 34 Urinalysis W/Microscopic Stat 03/24/2009 [facility] Ua Color RED [address] [place] [address] [phone] Appearance-Urine TURBID Specific [place]-Ur 1.026 1.010-1.030 Esterase-Urine 3+ Abnormal Negative Nitrite POSITIVE Abnormal Negative Ccmsropfqwqx-Zi-RRD NEGATIVE Negative Protein-Urine 3+ Abnormal Negative PH-Urine 5.5 5-9 Blood-Urine 3+ Abnormal Negative Ketones-Urine 2+ Abnormal Negative Ictotest-Urine NEGATIVE Glucose-Urine NEGATIVE Negative WBC-Urine TNTC Abnormal 0-5 RBC-Urine TNTC Abnormal 0-2 Epith Cells-Ur FEW Laboratory test 03/24/2009 [facility] Urine Culture ESCHERICHIA COLI finding [address] [facility] [place] [address] [phone] Ursc-1 03/24/2009 [facility] Ampicillin <=2 S [address] [place] [address] [phone] Amikacin <=2 S Ciprofloxacin <=0.25 S Cefazolin <=4 S Nitrofurantoin <=16 S Gentamicin <=1 S Imipenem <=1 S Levofloxacin <=0.25 S Meropenem <=0.25 S Trimeth-Sulfa <=20 S Ceftazidime <=1 S Tigecycline <=0.5 S Piperacillin/Tazobactam <=4 S CBC With 12/22/2008 [facility] White Blood 5.3 CUMM 4.8-10.8 Electronic Diff [address] [place] [address] [phone] Red Cell Count 4.68 CUMM 4.2-5.4 Hemoglobin [...] 0-0.6 Abs Basophils 0 0-0.2 P33S 12/22/2008 [facility] Sodium 138 mmol/L 135-[address] [place] [address] [phone] Potassium 3.3 mmol/L Low 3.5-5.0 Chloride 105 [...] (Sgot) 20 U/L 12-42 Amylase Stat 12/22/2008 [facility] Amylase 32 U/L 30-[address] [place] [address] [phone] Laboratory test finding 12/22/2008 [facility] Lipase 24 U/L 22-[address] [place] [address] [phone] Protime Stat 11/16/2008 [facility] Protime 11.8 10.9-13.[address] [place] [address] [phone] Inr 0.95 38 Laboratory test 11/16/2008 [facility] PTT (Aptt) 22.8 20.1- 28.[address] [place] [address] [phone] P33S 11/16/2008 [facility] Sodium 138 mmol/L 135-145 [place] [address] [phone] Potassium 3.9 mmol/L 3.5-5.0 Chloride 106 mmol/L [...] (Sgot) 17 U/L 12-42 Laboratory test 11/16/2008 [facility] Troponin-I 0.09 High 0- 0.[address] (TnI) NG/[place] [address] [phone] CBC With Manual 11/16/2008 [facility] White Blood 8.7 CUMM 4.8-10.8 Diff Stat [address] [place] [address] [phone] Red Cell Count 4.49 CUMM 4.2-5.4 Hemoglobin [...] 5.2 RBC Morphology NORMAL CBC With 08/27/2008 [facility] White Blood 9.1 CUMM 4.8-10.8 Electronic Diff [address] [place] [address] [phone] Red Cell Count 4.29 CUMM 4.2-5.4 Hemoglobin [...] 0-0.6 Abs Basophils 0 0-0.2 P33S 08/27/2008 [facility] Sodium 137 mmol/L 135-[address] [place] [address] [phone] Potassium 3.5 mmol/L 3.5-5.0 Chloride 103 mmol/L [...] 18 U/L 12-42 Urinalysis W/Microscopic Stat 08/27/2008 [facility] Ua Color YELLOW [address] [place] [address] [phone] Appearance-Urine CLOUDY Specific [place]-Ur 1.033 High 1.010-1.030 Esterase-Urine NEGATIVE Negative Nitrite NEGATIVE Negative Jkpvprwstzin-Gw-OWJ NEGATIVE Negative Protein-Urine NEGATIVE Negative PH-Urine 5.0 5-9 Blood-Urine 3+ Abnormal Negative Ketones-Urine NEGATIVE Negative Bilirubin-Ur NEGATIVE Negative Glucose-Urine NEGATIVE Negative WBC-Urine 0-2 0-5 RBC-Urine 10-15 Abnormal 0-2 Epith Cells-Ur FEW Bacteria-Urine 2+ Ua Stat 08/27/2008 [facility] Ua Color YELLOW [address] [place] [address] [phone] Appearance-Urine CLOUDY Specific [place]-Ur 1.033 High 1.010-1.030 Esterase-Urine NEGATIVE Negative Nitrite NEGATIVE Negative Wzychgxarofi-Wj-EEI NEGATIVE Negative Protein-Urine NEGATIVE Negative PH-Urine 5.0 5-9 Blood-Urine 3+ Abnormal Negative Ketones-Urine NEGATIVE Negative Bilirubin-Ur NEGATIVE Negative Glucose-Urine NEGATIVE Negative Laboratory test 08/27/2008 [facility] Lipase 28 U/L 22-[address] [place] [address] [phone] CBC With Manual 08/11/2008 [facility] White Blood 11.5 CUMM High 4.8-10.8 Diff Stat [address] [place] [address] [phone] Red Cell Count 4.61 CUMM 4.2-5.4 Hemoglobin [...] RBC Morphology NORMAL Urinalysis W/Microscopic Stat 08/11/2008 [facility] [place] [address] [phone] Appearance-Urine CLEAR Specific [place]-Ur 1.014 1.010-1.030 Esterase-Urine NEGATIVE Negative Nitrite NEGATIVE Negative Nnfoceyieahq-Wn-NQE NEGATIVE Negative Protein-Urine NEGATIVE Negative PH-Urine 7.0 5-9 Blood-Urine 1+ Abnormal Negative Ketones-Urine NEGATIVE Negative Bilirubin-Ur NEGATIVE Negative Glucose-Urine NEGATIVE Negative WBC-Urine 5-10 Abnormal 0-5 RBC-Urine 0-2 0-2 Epith Cells-Ur MODERATE Bacteria-Urine 2+ Ua Stat 08/11/2008 [facility] Color YELLOW [address] [place] [address] [phone] Appearance-Urine CLEAR Specific [place]-Ur 1.014 1.010-1.030 Esterase-Urine NEGATIVE Negative Nitrite NEGATIVE Negative Gmwyqgrqzaew-Ur-IMX NEGATIVE Negative Protein-Urine NEGATIVE Negative PH-Urine 7.0 5-9 Blood-Urine 1+ Abnormal Negative Ketones-Urine NEGATIVE Negative Bilirubin-Ur NEGATIVE Negative Glucose-Urine NEGATIVE Negative Basic Metabolic Panel 08/11/2008 [facility] Sodium 140 mmol/L 135-145 [place] [address] [phone] Potassium 3.7 mmol/L 3.5-5.0 Chloride 107 mmol/L 101-111 Co2 (Carbon Dioxide) 25.0 mmol/L 22-32 Anion Gap 8.0 mmol/L 2-11 47 Glucose 98 mg/dL 70-100 48 BUN 10 mg/dL 6-24 Creatinine 1.0 mg/dL 0.5-1.4 One Over Creatinine 1.00 BUN/Creatinine Ratio 10.0 8-20 Calcium 8.6 mg/dL 8.1-9.9 49 1 SDS 5/18 2 If is still suspected, please repeat [...] change was based on recommendations from the [place] [employer]. 10 Please note change in [...] change was based on recommendations from the [place] [employer]. 19 Please note change in [...] change was based on recommendations from the [place] [employer]. 24 Please note change in [...] change was based on recommendations from the [place] [employer]. 28 Please note change in [...] change was based on recommendations from the [place] [employer]. 34 Please note change in reference range effective 08 . 35 Anion gap measurement may be of limited value in the presence of any alkalosis, especially in a combined acid base disorder. . 36 Note change in reference range as of 06/12/08. The change was based on recommendations from the [place] [employer]. 37 Please note change in [...] change was based on recommendations from the [place] [employer]. 42 Please note change in reference range effective 08 . 43 RESULTS VERIFIED BY REPEAT ANALYSIS ON THE SAME SAMPLE. REPEATED RESULT IS:0.07 VERBAL TO SHELIA BY LINETTE at 0846 on 11/16/08. Results read back accurately. New Reference Range and Interpretation effective 07/26/02 TnI (ng/ml) INTERPRETATION <0.06 ng/ml NOT SUPPORTIVE OF DIAGNOSIS OF IN 0.06 - 0.50 ng/ml INDETERMINATE: SUGGEST SERIAL STUDIES IF CLINICALLY INDICATED. > 0.5 ng/ml CONSISTENT WITH DIAGNOSIS OF IN . 44 Anion gap measurement may be of limited value in the presence of any alkalosis, especially in a combined acid base disorder. . 45 Note change in reference range as of 06/12/08. The change was based on recommendations from the [place] [employer]. 46 Please note change in reference range effective 08 . 47 Anion gap measurement may be of limited value in the presence of any alkalosis, especially in a combined acid base disorder. . 48 Note change in reference range as of 06/12/08. The change was based on recommendations from the [place] [employer]. 49 Please note change in reference range effective 08 . Procedures Date Code Description Status 03/20/2019 57375 EKG Tracing & Interpretation Completed 08/03/2018 95206 ECHO Transthorasic Realtime 2D W Doppler & Color Flow Hosp Completed 08/03/2018 10075 Treadmill Interp/Report Only Completed 08/03/2018 67750 Stress Test Supervsn W/Out I/R Completed 08/02/2018 04899 EKG, Interpretation Only Completed 12/07/2013 27578 Treadmill Interp/Report Only Completed 12/07/2013 60622 Stress Test Supervsn W/Out I/R Completed 05/09/2013 26955 Nerve Conduction 03-04 Studies Completed 05/09/2013 44864 Needle Electromyography Each Extremity W/Related Completed Paraspinal Areas 03/09/2011 57232 Laminotomy W/Decomp NRV RT,One Interspace,Lumbar Completed Encounters Type Date Location Provider Dx Diagnosis Office Visit 08/03/2018 [facility] Tanisha Roper, R07.9 Chest pain, 9:29a Assarielle camejo M.D. unspecified Hospitalists F41.9 Anxiety disorder, unspecified Z68.38 Body mass index (BMI) 38.0-38.9, adult Office Visit 08/02/2018 [facility] Christiancinda Segura R07.9 Chest pain, 9:28a Assocarielle II MJatin unspecified Hospitalists F31.9 Bipolar disorder, unspecified Office Visit 03/13/2018 11:15a Orthopedic Ros Yo, S83.241A Oth tear of Services Of MD melinda Casillas meniscus, current injury, r knee, init M25.561 Pain in right knee S83.241D Oth tear of medial meniscus, current injury, r knee, subs Office Visit 01/25/2018 2:30p Orthopedic Ros Yo, S83.241A Oth tear of Services Of MD melinda Casillas meniscus, current injury, r knee, init M25.561 Pain in right knee M25.461 Effusion, right knee Office Visit 07/09/2014 Neurosurgery Naun 722.52 Intervertebral Disc 11:30a Services Of Bijan Cuenca M.D. Degeneration Lumbar [place] Office Visit 12/07/2013 [facility] Werner 786.50 Pain Chest Unspec 10:47a Assoc,[facility], Hospitalists N.P. 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 Office Visit 05/09/2013 [place] Naun [place] 782.0 Skin Sensation 3:00p Neurologic Serv Of Jason Rowley Disturbance [facility] 728.85 Spasm Muscle 723.1 Cervicalgia 346.10 Migraine Common W/O Intractable W/O Status Migrainosus Office 02/28/2013 [facility] Naun Sev[place] 346.01 Migraine Visit 10:00a Neurologic Serv Of Dandre Rowley/Aura/Intractable Bijan Gomez Migrain W/O Men Status Migrainos 782.0 Skin Sensation Disturbance Office Visit 11/09/2011 9:15a Neurosurgery Services Thai Mares 724.2 Lumbago Of Bijan Gomez 723.1 Cervicalgia 338.4 Chronic Pain Syndrome Office Visit 09/29/2011 10:30a Neurosurgery Services Thai Mares 724.2 Lumbago Of Bijan Gomez 723.1 Cervicalgia Office Visit 08/29/2011 Orthopedic Guerrero Ng 847.2 Sprains & Strains 3:00p Services Of Craig Castaneda C.M.A. RPA-C Office Visit 08/29/2011 Neurosurgery Thai Gil 847.2 Sprains & Strains 10:00a Services Of Bijan Mares M.D. Lumbar Office Visit 08/24/2011 Neurosurgery Thai Gli 724.3 Sciatica 2:30p Services Of Bijan Mares [...] 724.4 Neuritis Or Services Of Jason Radiculitis C.M.A. Thoracic Or Lumbosacral Unspec
[2019-04-05 18:33] LABS: ABS Basophils 0.1 10^3/ul (0-0.2); ABS Eosinophils 0.1 10^3/ul (0-0.6); ABS Lymphocytes 2.4 10^3/ul (1.0-4.8); ABS Monocytes 0.7 10^3/ul (0-0.8); ABS Neutrophils 6.4 10^3/ul (1.5-7.7); Eosinophil % 0.8 %; Hematocrit 39 % (35-47); Hemoglobin 13.2 g/dL (12.0-16.0); Lymphocyte % 24.8 %; Mean Corpuscular HGB Conc 34 g/dL (31-36); Mean Corpuscular Hemoglobin 29 pg (27-31); Mean Corpuscular Volume 86 fL (80-97); Mean Platelet Volume 8.5 fL (7.4-10.4); Platelet Count 260 10^3/uL (150-450); Red Blood Count 4.53 10^6 /uL (3.70-4.87); Red Cell Distribution Width 14 % (10-15); White Blood Count 9.7 10^3/uL (3.5-10.8)
[2019-04-05 18:51] LABS: Albumin 3.8 g/dL (3.2-5.2); Albumin/Globulin Ratio 1.4 (1-3); BUN/Creatinine Ratio 11.4 (8-20); C Reactive Protein 17.33 mg/L (<8.01); Calcium 8.9 mg/dL (8.6-10.3); EGFR African American 86.1 (>60); EGFR Non-African American 71.2 (>60); Globulin 2.7 g/dL (2-4); Potassium 3.9 mmol/L (3.5-5.0); Total Bilirubin 0.3 mg/dL (0.2-1.0); Total Protein 6.5 g/dL (6.4-8.9)
[2019-04-05 18:53] LABS: HCG Pregnancy 1.87 mIU/mL
[2019-04-05 19:10] LABS: Urine Appearance Cloudy; Urine Bacteria Absent (Absent); Urine Bilirubin Negative (Negative); Urine Blood 1+ (Negative); Urine Color Yellow; Urine Glucose Negative (Negative); Urine Ketones Negative (Negative); Urine Nitrite Negative (Negative); Urine Protein Negative (Negative); Urine Red Blood Cell Trace(0-2/hpf) (Absent); Urine Specific Gravity 1.013 (1.010-1.030); Urine Squamous Epithelial Cell Present (Absent); Urine Urobilinogen Negative (Negative); Urine White Blood Cell Trace(0-5/hpf) (Absent)
[2019-04-05] MEDS ORDERED: oxyCODONE TAB* 5 MG TAB PO ONE (19:25)
--- NOTE | 2019-04-05 19:29 | ED ---
Nausea/Vomiting/Diarrhea HPI - HPI Summary HPI Summary: Patient with history of endoscopy yesterday complains of 3 episodes of intermittent vomiting blood and progressive epigastric pain. States bright red blood. Sent by PCP to ED for further evaluation. Patient had endoscopy for evaluation of Pravin fundoplication performed in 2012. Patient states she was told her Pravin fundoplication had "slipped". Denies fever, cough, sore throat , CP, SOB, change in urine, change in BM, vaginal symptoms. Medical history is asthma. - History of Current Complaint Chief Complaint: EDAbdPain Stated Complaint: "VOMITING BLOOD PER PT" Time Seen by Provider: 04/05/19 18:00 Hx Obtained From: Patient Hx Last Menstrual Period: hysterectomy Onset/Duration: Sudden Onset Timing: Intermittent Episodes Lasting: Severity Initially: Severe Severity Currently: Severe Pain Intensity: 9 Pain Scale Used: 0-10 Numeric Location: Epigastric Character: Cramping Aggravating Factor(s): Nothing Alleviating Factor(s): Nothing Vomiting Characteristics: Bloody Diarrhea Characteristics: Bright Red - Allergies/Home Medications Allergies/Adverse Reactions: Allergies Allergy/AdvReac Type Severity Reaction Status Date / Time buprenorphine [From Suboxone] Allergy Swelling Verified 04/05/19 16:23 cephalexin [From Keflex] Allergy Difficulty Verified 04/05/19 16:23 Breathing/Wheezing ketorolac [From Toradol] Allergy Hives/Diff. Verified 04/05/19 16:23 Breathing/I tching naloxone [From Suboxone] Allergy Swelling Verified 04/05/19 16:23 nitrofurantoin Allergy Difficulty Verified 04/05/19 16:23 [From Macrobid] Breathing orange juice Allergy Difficulty Verified 04/05/19 16:23 Breathing tramadol [From Ultram] Allergy Rash Verified 04/05/19 16:23 trazodone Allergy Difficulty Verified 04/05/19 16:23 Breathing/Wheezing fluoxetine [From Prozac] AdvReac Hallucinati Verified 04/05/19 16:23 ons Home Medications: Home Medications Prilosec CAP* 20 MG 20 mg PO DAILY 04/05/19 [History Confirmed 04/05/19] PMH/Surg Hx/FS Hx/Imm Hx Endocrine/Hematology History: Reports: Hx Thyroid Disease - LUMP SHE IS SEEING SONYA FOR, Hx Anemia Denies: Hx Anticoagulant Therapy, Hx Diabetes Cardiovascular History: Reports: Hx Angina Denies: Hx Congestive Heart Failure, Hx Deep Vein Thrombosis, Hx Hypercholesterolemia, Hx Hypertension, Hx Myocardial Infarction, Hx Pacemaker/ ICD Respiratory History: Reports: Hx Asthma Denies: Hx Chronic Obstructive Pulmonary Disease (COPD), Hx Lung Cancer GI History: Reports: Hx Gastroesophageal Reflux Disease - s/p Kathy Fundoplication, Hx Hiatal Hernia, Other GI Disorders - gerd barretts esophagus Denies: Hx Gall Bladder Disease, Hx Gastrointestinal Bleed, Hx Ulcer, Hx Urosepsis History: Reports: Hx Kidney Stones, Other Problems/Disorders - renal stones Denies: Hx Renal Disease - "decreased right kidney function" per pt. Musculoskeletal History: Reports: Hx Back Problems Denies: Hx Rheumatoid Arthritis, Hx Osteoporosis Sensory History: Denies: Hx Contacts or Glasses, Hx Hearing Aid Opthamlomology History: Denies: Hx Contacts or Glasses Neurological History: Reports: Other Neuro Impairments/Disorders - anxiety and depression Denies: Hx Dementia, Hx Headaches, Hx Migraine, Hx Seizures, Hx Transient Ischemic Attacks (TIA) Psychiatric History: Reports: Hx Anxiety, Hx Depression - She has been off meds x 2 years. She sees a therapist., Hx Inpatient Treatment, Hx Community Mental Health Tx, Hx Bipolar Disorder, Hx Substance Abuse - Narcotics,heroin,cocaine: sober since 05/03 Denies: Hx Eating Disorder, Hx Panic Disorder, Hx of Violent Episodes Against Others - Cancer History Cancer Type, Location and Year: Pre-cancer of espophagus-Tx with oral medication , Barretts Esophagus - RESOLVED WITH KATHY FUNDOPLICATION - Surgical History Surgery Procedure, Year, and Place: CHOLECYSTECTOMY, L5 DISC REMOVAL, APPENDECTOMY, TONSILLECTOMY, FULL FACIAL RECONSTRUCTION, LASER SURGERY RENAL STONE recent abd surgery 01/2014 - KATHY FUNDOPLICATION;Hysterectomy 01/11/15; Rt PINKY - AMPUTATED TO [address] [place] [address] - Immunization History Date of Tetanus Vaccine: 2018 Date of Influenza Vaccine: none Immunizations Up to Date: Yes Infectious Disease History: No Infectious Disease History: Reports: Hx of Known/Suspected MRSA Denies: Hx Clostridium Difficile, Hx Hepatitis, Hx Human Immunodeficiency Virus (HIV), Hx Shingles, Hx Tuberculosis, History Other Infectious Disease, Traveled Outside the [place] in Last 30 Days - Family History Known Family History: Positive: Cardiac Disease, Hypertension, Diabetes, Other - kidney stones; mom - pancreatic CA - Social History Alcohol Use: Occasionally Hx Substance Use: Yes - Sober since 05/03 Substance Use Type: Reports: Cocaine, Heroin, Marijuana, Other Substance Use Comment - Amount & Last Used: heroin and cocaine-clean x 7 years Hx Tobacco Use: Yes Smoking Status (MU): Heavy Every Day Tobacco Smoker Type: Cigarettes Amount Used/How Often: 1 ppd Length of Time of Smoking/Using Tobacco: >20 years Have You Smoked in the Last Year: Yes Review of Systems Constitutional: Negative Eyes: Negative ENT: Negative Cardiovascular: Negative Respiratory: Negative Positive: Abdominal Pain, Vomiting, Nausea Genitourinary: Negative Musculoskeletal: Negative Skin: Negative Neurological: Negative Psychological: Normal All Other Systems Reviewed And Are Negative: Yes Physical Exam - Summary Physical Exam Summary: Tenderness to palpation of upper quadrant and epigastric area. Abdominal exam otherwise unremarkable. Lung sounds clear to auscultation bilaterally. RRR. Triage Information Reviewed: Yes Vital Signs On Initial Exam: Initial Vitals Temp Pulse Resp BP Pulse Ox 97.9 F 66 15 158/91 95 04/05/19 16:20 04/05/19 16:20 04/05/19 16:20 04/05/19 16:20 04/05/19 16:20 Vital Signs Reviewed: Yes Appearance: Positive: Well-Appearing Skin: Positive: Warm Head/Face: Positive: Normal Head/Face Inspection Eyes: Positive: Normal Neck: Positive: Supple Respiratory/Lung Sounds: Positive: Clear to Auscultation Cardiovascular: Positive: Normal Abdomen Description: Positive: Other: Musculoskeletal: Positive: Normal Neurological: Positive: Normal Psychiatric: Positive: Normal AVPU Assessment: Alert - Sigrid Coma Scale Best Eye Response: 4 - Spontaneous Best Motor Response: 6 - Obeys Commands Best Verbal Response: 5 - Oriented Coma Scale Total: 15 Diagnostics - Vital Signs Vital Signs Temp Pulse Resp BP Pulse Ox 04/05/19 16:20 97.9 F 66 15 158/91 95 - Laboratory Lab Results: Lab Results 04/05/19 04/05/19 04/05/19 Range/Units 18:16 18:16 18:54 WBC 9.7 (3.5-10.8) 10^3/uL RBC 4.53 (3.70-4.87) 10^6 /uL Hgb 13.2 (12.0-16.0) g/dL Hct 39 (35-47) % MCV 86 (80-97) fL MCH 29 (27-31) pg MCHC 34 (31-36) g/dL RDW 14 (10-15) % Plt Count 260 (150-450) 10^3/uL MPV 8.5 (7.4-10.4) fL Neut % (Auto) 65.7 % Lymph % (Auto) 24.8 % Warrick % (Auto) 7.4 % Eos % (Auto) 0.8 % Baso % (Auto) 1.3 % Absolute Neuts (auto) 6.4 (1.5-7.7) 10^3/ul Absolute Lymphs (auto) 2.4 (1.0-4.8) 10^3/ul Absolute Monos (auto) 0.7 (0-0.8) 10^3/ul Absolute Eos (auto) 0.1 (0-0.6) 10^3/ul Absolute Basos (auto) 0.1 (0-0.2) 10^3/ul Absolute Nucleated RBC 0.0 10^3/ul Nucleated RBC % 0.0 Sodium 141 (135-145) mmol/L Potassium 3.9 (3.5-5.0) mmol/L Chloride 109 (101-111) mmol/L Carbon Dioxide 26 (22-32) mmol/L Anion Gap 6 (2-11) mmol/L BUN 10 (6-24) mg/dL Creatinine 0.88 (0.51-0.95) mg/dL Est GFR ( Amer) 86.1 (>60) Est GFR (Non-Af Amer) 71.2 (>60) BUN/Creatinine Ratio 11.4 (8-20) Glucose 90 (70-100) mg/dL Calcium 8.9 (8.6-10.3) mg/dL Total Bilirubin 0.30 (0.2-1.0) mg/dL AST 18 (13-39) U/L ALT 10 (7-52) U/L Alkaline Phosphatase 59 (34-104) U/L C-Reactive Protein 17.33 H (<8.01) mg/L Total Protein 6.5 (6.4-8.9) g/dL Albumin 3.8 (3.2-5.2) g/dL Globulin 2.7 (2-4) g/dL Albumin/Globulin Ratio 1.4 (1-3) Lipase 20 (11.0-82.0) U/L Beta HCG, Quant 1.87 mIU/mL Urine Color Yellow Urine Appearance Cloudy Urine pH 8.0 (5-9) Ur Specific Goodrich 1.013 (1.010-1.030) Urine Protein Negative (Negative) Urine Ketones Negative (Negative) Urine Blood 1+ A (Negative) Urine Nitrate Negative (Negative) Urine Bilirubin Negative (Negative) Urine Urobilinogen Negative (Negative) Ur Leukocyte Esterase Negative (Negative) Urine WBC (Auto) Trace(0-5/hpf) (Absent) Urine RBC (Auto) Trace(0-2/hpf) (Absent) Ur Squamous Epith Cells Present A (Absent) Urine Bacteria Absent (Absent) Urine Glucose Negative (Negative) Result Diagrams: 04/05/19 18:16 04/05/19 18:16 Lab Statement: Any lab studies that have been ordered have been reviewed, and results considered in the medical decision making process. Naus/Vom/Diarrhea Course/Dx - Course Course Of Treatment: Patient with history of endoscopy yesterday complains of 3 episodes of intermittent vomiting blood and progressive epigastric pain. States bright red blood. Sent by PCP to ED for further evaluation. Patient had endoscopy for evaluation of Pravin fundoplication performed in 2012. Patient states she was told her Pravin fundoplication had "slipped". Denies fever, cough, sore throat, CP, SOB, change in urine, change in BM, vaginal symptoms. Medical history is asthma. Physical exam:Tenderness to palpation of upper quadrant and epigastric area. Abdominal exam otherwise unremarkable. Lung sounds clear to auscultation bilaterally. RRR. Vital signs within normal limits. Labs unremarkable. No active nausea or vomiting here in the ED. Chest x-ray negative.Discussed patient with Dr Ramos who recommended discharge and follow-up with GI. Patient understands and approves of plan. - Differential Dx/Diagnosis Provider Diagnosis: Epigastric pain Condition At Discharge: Stable Discharge - Sign-Out/Discharge Documenting (check all that apply): Patient Departure Patient Received Moderate/Deep Sedation with Procedure: No - Discharge Plan Condition: Stable Disposition: HOME Prescriptions: Oxycodone HCl 5 mg PO Q6H 2 Days #5 tablet MDD 4 tabs Patient Education Materials: Epigastric Pain (ED) Referrals: Kartik Francisco MD [Primary Care Provider] - Additional Instructions: Follow-up with. GI doc for further evaluation. Return to the ED for any new or worsening symptoms. - Billing Disposition and Condition Condition: STABLE Disposition: Home
[2019-04-05 19:45] VITALS: BP 152/82
== END 2019-04-05 19:41 | disposition home or self-care (01) ==
LOC: ED 16:18
DX: R10.13 Epigastric pain (principal); F17.210 Nicotine dependence, cigarettes, uncomplicated; F11.11 Opioid abuse, in remission; Z88.1 Allergy status to other antibiotic agents; Z88.5 Allergy status to narcotic agent; Z88.8 Allergy status to other drugs, medicaments and biological substances; Z79.899 Other long term (current) drug therapy
CPT/HCPCS: 36415; 71045; 80053; 81003; 81015; 83690; 84702; 85025; 86140; 87086; 99282; A9270-GY

== ENCOUNTER 2019-04-18 00:22 | Emergency (ER) | payer OTHER ==
--- NOTE | 2019-04-18 03:30 | ED ---
Back Pain - HPI Summary HPI Summary: A 38 y/o female presents to [facility] with a chief complaint of back pain. She has had an L4-L5 disc removed in 2011 and had a love removed and ever since then she has had intermittent back pain. She has been doing heavy lifting and cleaning which has aggravated her pain. She states that her back pain radiates to her shoulders. She normally takes ibuprofen, but that has not alleviated her pain. At triage she rated her pain as an 8/10 in severity. She denies any fall. - History of Current Complaint Chief Complaint: EDBackInjuryPain Stated Complaint: PAIN IN BACK PER PT Time Seen by Provider: 04/18/19 03:09 Hx Obtained From: Patient Hx Last Menstrual Period: hysterectomy Onset/Duration: Gradual Onset, Lasting Weeks, Still Present Onset/Duration: Started Weeks Ago, Still Present Timing: Intermittent Severity Initially: Moderate Severity Currently: Severe Pain Intensity: 8 Pain Scale Used: 0-10 Numeric Character: Spasmodic Aggravating Symptom(s): Lifting Alleviating Symptom(s): Nothing Associated Signs And Symptoms: Negative: Fever - Allergies/Home Medications Allergies/Adverse Reactions: Allergies Allergy/AdvReac Type Severity Reaction Status Date / Time buprenorphine [From Suboxone] Allergy Swelling Verified 04/18/19 00:25 cephalexin [From Keflex] Allergy Difficulty Verified 04/18/19 00:25 Breathing/Wheezing ketorolac [From Toradol] Allergy Hives/Diff. Verified 04/18/19 00:25 Breathing/I tching naloxone [From Suboxone] Allergy Swelling Verified 04/18/19 00:25 nitrofurantoin Allergy Difficulty Verified 04/18/19 00:25 [From Macrobid] Breathing orange juice Allergy Difficulty Verified 04/18/19 00:25 Breathing tramadol [From Ultram] Allergy Rash Verified 04/18/19 00:25 trazodone Allergy Difficulty Verified 04/18/19 00:25 Breathing/Wheezing fluoxetine [From Prozac] AdvReac Hallucinati Verified 04/18/19 00:25 ons PMH/Surg Hx/FS Hx/Imm Hx Endocrine/Hematology History: Reports: Hx Thyroid Disease - LUMP SHE IS SEEING SONYA FOR, Hx Anemia Denies: Hx Anticoagulant Therapy, Hx Diabetes Cardiovascular History: Reports: Hx Angina Denies: Hx Congestive Heart Failure, Hx Deep Vein Thrombosis, Hx Hypercholesterolemia, Hx Hypertension, Hx Myocardial Infarction, Hx Pacemaker/ ICD Respiratory History: Reports: Hx Asthma Denies: Hx Chronic Obstructive Pulmonary Disease (COPD), Hx Lung Cancer GI History: Reports: Hx Gastroesophageal Reflux Disease - s/p Kathy Fundoplication, Hx Hiatal Hernia, Other GI Disorders - gerd barretts esophagus Denies: Hx Gall Bladder Disease, Hx Gastrointestinal Bleed, Hx Ulcer, Hx Urosepsis History: Reports: Hx Kidney Stones, Other Problems/Disorders - renal stones Denies: Hx Renal Disease - "decreased right kidney function" per pt. Musculoskeletal History: Reports: Hx Back Problems Denies: Hx Rheumatoid Arthritis, Hx Osteoporosis Sensory History: Denies: Hx Contacts or Glasses, Hx Hearing Aid Opthamlomology History: Denies: Hx Contacts or Glasses Neurological History: Reports: Other Neuro Impairments/Disorders - anxiety and depression Denies: Hx Dementia, Hx Headaches, Hx Migraine, Hx Seizures, Hx Transient Ischemic Attacks (TIA) Psychiatric History: Reports: Hx Anxiety, Hx Depression - She has been off meds x 2 years. She sees a therapist., Hx Inpatient Treatment, Hx Community Mental Health Tx, Hx Bipolar Disorder, Hx Substance Abuse - Narcotics,heroin,cocaine: sober since 05/03 Denies: Hx Eating Disorder, Hx Panic Disorder, Hx of Violent Episodes Against Others - Cancer History Cancer Type, Location and Year: Pre-cancer of espophagus-Tx with oral medication , Barretts Esophagus - RESOLVED WITH KATHY FUNDOPLICATION - Surgical History Surgery Procedure, Year, and Place: CHOLECYSTECTOMY, L5 DISC REMOVAL, APPENDECTOMY, TONSILLECTOMY, FULL FACIAL RECONSTRUCTION, LASER SURGERY RENAL STONE recent abd surgery 01/2014 - KATHY FUNDOPLICATION;Hysterectomy 01/11/15; Rt PINKY - AMPUTATED TO [address] [place] [address] - Immunization History Date of Tetanus Vaccine: 2018 Date of Influenza Vaccine: none Infectious Disease History: No Infectious Disease History: Reports: Hx of Known/Suspected MRSA Denies: Hx Clostridium Difficile, Hx Hepatitis, Hx Human Immunodeficiency Virus (HIV), Hx Shingles, Hx Tuberculosis, History Other Infectious Disease, Traveled Outside the [place] in Last 30 Days - Family History Known Family History: Positive: Cardiac Disease, Hypertension, Diabetes, Other - kidney stones; mom - pancreatic CA - Social History Alcohol Use: Occasionally Hx Substance Use: Yes - Sober since 05/03 Substance Use Type: Reports: Cocaine, Heroin, Marijuana, Other Substance Use Comment - Amount & Last Used: heroin and cocaine-clean x 7 years Hx Tobacco Use: Yes Smoking Status (MU): Heavy Every Day Tobacco Smoker Type: Cigarettes Amount Used/How Often: 1 ppd Length of Time of Smoking/Using Tobacco: >20 years Have You Smoked in the Last Year: Yes Review of Systems Negative: Fever Positive: Arthralgia - shoulder pain radiating from back, Myalgia - back pain All Other Systems Reviewed And Are Negative: Yes Physical Exam - Summary Physical Exam Summary: Constitutional: Well-developed, Well-nourished, Alert. (-) Distressed Skin: Warm, Dry, midline surgical scar that is well healed HENT: Normocephalic; Atraumatic Eyes: Conjunctiva normal Neck: Musculoskeletal ROM normal neck. (-) JVD, (-) Stridor, (-) Tracheal deviation Cardio: Rhythm regular, rate normal, Heart sounds normal; Intact distal pulses; symmetric. Pulmonary/Chest wall: Effort normal. (-) Respiratory distress, (-) Wheezes, (-) Rales Abd: Soft, (-) tenderness, (-) Distension, (-) Guarding, (-) Rebound Musculoskeletal: (-) Edema, no midline tenderness on spine, paraspinal tenderness in thoracic spine Neuro: Alert, Oriented x3 Psych: Mood and affect Normal Triage Information Reviewed: Yes Vital Signs On Initial Exam: Initial Vitals Temp Pulse Resp BP Pulse Ox 98.1 F 63 15 148/93 95 04/18/19 00:23 04/18/19 00:23 04/18/19 00:23 04/18/19 00:23 04/18/19 00:23 Vital Signs Reviewed: Yes Diagnostics - Vital Signs Vital Signs Temp Pulse Resp BP Pulse Ox 04/18/19 00:23 98.1 F 63 15 148/93 95 - Laboratory Lab Statement: Any lab studies that have been ordered have been reviewed, and results considered in the medical decision making process. Re-Evaluation - Re-Evaluation First Eval Re-Evaluation Time: 04:09 Change: Improved Comment: back pain is better Back Pain Course/Dx - Course Course Of Treatment: A 38 y/o female presents to [facility] with a chief complaint of back pain. The physical exam revealed a midline surgical scar that is well healed, no midline tenderness on spine, paraspinal tenderness in thoracic spine. In the ED course the patient was given Tylenol PO, Tobias PO and Flexeril PO. Upon re-eval the patient reports that her back pain is better. The patient will be discharged and follow up with her PCP. The patient is agreeable with this plan. - Diagnoses Provider Diagnoses: Back strain Discharge - Sign-Out/Discharge Documenting (check all that apply): Patient Departure - DC Patient Received Moderate/Deep Sedation with Procedure: No - Discharge Plan Condition: Improved Disposition: HOME Patient Education Materials: Thoracic Back Strain (ED) Referrals: Kartik Francisco MD [Primary Care Provider] - - Billing Disposition and Condition Condition: IMPROVED Disposition: Home - Attestation Statements Document Initiated by Kurtibe: Yes Documenting Scribe: Fabiano Leigh Provider For Whom Paco is Documenting (Include Credential): Rogelio Song MD Scribe Attestation: Fabiano Charles, scribed for Rogelio Song MD on 04/18/19 at 0618. Scribe Documentation Reviewed: Yes Provider Attestation: The documentation as recorded by the Fabiano orozco accurately reflects the service I personally performed and the decisions made by Rogelio cardenas MD Status of Scribe Document: Viewed
[2019-04-18] MEDS ORDERED: Acetaminophen TAB* 325 MG PO ONE (03:34)
[2019-04-18] MEDS ORDERED: HYDROcodone/ACETAMIN 5-325 MG* 1 TAB PO ONE (03:34)
[2019-04-18] MEDS ORDERED: Cyclobenzaprine TAB* 10 MG PO ONE (03:34)
[2019-04-18 04:16] VITALS: BP 143/91
== END 2019-04-18 04:15 | disposition home or self-care (01) ==
LOC: ED 00:22
DX: S39.012A Strain of muscle, fascia and tendon of lower back, initial encounter (principal); X58.XXXA Exposure to other specified factors, initial encounter; F17.210 Nicotine dependence, cigarettes, uncomplicated
CPT/HCPCS: 99282; A9270-GY

== ENCOUNTER 2019-04-22 00:29 | Inpatient (IN) | payer OTHER ==
[2019-04-22 01:42] LABS: ABS Basophils 0.1 10^3/ul (0-0.2); ABS Eosinophils 0.1 10^3/ul (0-0.6); ABS Lymphocytes 2.4 10^3/ul (1.0-4.8); ABS Monocytes 0.7 10^3/ul (0-0.8); ABS Neutrophils 5.1 10^3/ul (1.5-7.7); Eosinophil % 1.5 %; Hematocrit 40 % (35-47); Hemoglobin 13.6 g/dL (12.0-16.0); Lymphocyte % 28.5 %; Mean Corpuscular HGB Conc 34 g/dL (31-36); Mean Corpuscular Hemoglobin 30 pg (27-31); Mean Corpuscular Volume 87 fL (80-97); Mean Platelet Volume 8.4 fL (7.4-10.4); Nucleated Red Blood Cells % 0.1; Platelet Count 259 10^3/uL (150-450); Red Blood Count 4.56 10^6 /uL (3.70-4.87); Red Cell Distribution Width 14 % (10-15); White Blood Count 8.4 10^3/uL (3.5-10.8)
[2019-04-22 01:44] LABS: Urine Appearance Turbid; Urine Bacteria Absent (Absent); Urine Bilirubin Negative (Negative); Urine Blood 1+ (Negative); Urine Color Yellow; Urine Glucose Negative (Negative); Urine Ketones Negative (Negative); Urine Nitrite Negative (Negative); Urine Protein Negative (Negative); Urine Red Blood Cell 3+(>10/hpf) (Absent); Urine Specific Gravity 1.024 (1.010-1.030); Urine Squamous Epithelial Cell Present (Absent); Urine Urobilinogen Negative (Negative); Urine White Blood Cell 3+(>20/hpf) (Absent)
[2019-04-22 01:54] LABS: Urine Benzodiazepine Screen None Detected (None Detect); Urine Opiates Screen None Detected (None Detect)
[2019-04-22 01:56] LABS: ALT 8 U/L (7-52); AST 10 U/L (13-39); Albumin 3.8 g/dL (3.2-5.2); Albumin/Globulin Ratio 1.4 (1-3); Alkaline Phosphatase 60 U/L (34-104); Anion Gap 6 mmol/L (2-11); BUN/Creatinine Ratio 10.2 (8-20); Blood Urea Nitrogen 9 mg/dL (6-24); CO2 Carbon Dioxide 25 mmol/L (22-32); Calcium 9.1 mg/dL (8.6-10.3); Chloride 109 mmol/L (101-111); EGFR African American 86.1 (>60); EGFR Non-African American 71.2 (>60); Globulin 2.7 g/dL (2-4); Glucose 100 mg/dL (70-100); Potassium 3.7 mmol/L (3.5-5.0); Sodium 140 mmol/L (135-145); Total Protein 6.5 g/dL (6.4-8.9)
[2019-04-22 02:02] LABS: HCG Pregnancy < 0.60 mIU/mL
[2019-04-22 02:05] LABS: Acetaminophen < 15 mcg/mL; Alcohol < 10 mg/dL (<10); Salicylate < 2.50 mg/dL (<30)
--- NOTE | 2019-04-22 02:05 | ED ---
Psychiatric Complaint - HPI Summary HPI Summary: This patient is a 38 year old F presenting to ED with a chief complaint of intermittent SI for a while. PMHx of depression, schizophrenia, and bipolar but she has not been taking her medications since they made her suicidal. She has a plan. Patient also has back problems and asthma. The patient rates the pain 0/ 10 in severity. Symptoms aggravated by nothing. Symptoms alleviated by nothing. Patient denies fever. - History Of Current Complaint Chief Complaint: EDSuicidal Time Seen by Provider: 04/22/19 01:21 Hx Obtained From: Patient Hx Last Menstrual Period: hysterectomy Onset/Duration: Lasting Weeks - A while, Still Present Timing: Intermittent Episode Lasting Severity Initially: Moderate Severity Currently: Mild Character: Depressed Aggravating Factor(s): Nothing Alleviating Factor(s): Nothing Associated Signs And Symptoms: Positive: Negative - Fever Related History: Positive For: Prior Psychiatric Issues Has Suicidal: Reports: Thoughts, With A Plan - Allergies/Home Medications Allergies/Adverse Reactions: Allergies Allergy/AdvReac Type Severity Reaction Status Date / Time buprenorphine [From Suboxone] Allergy Swelling Verified 04/22/19 00:35 cephalexin [From Keflex] Allergy Difficulty Verified 04/22/19 00:35 Breathing/Wheezing ketorolac [From Toradol] Allergy Hives/Diff. Verified 04/22/19 00:35 Breathing/I tching naloxone [From Suboxone] Allergy Swelling Verified 04/22/19 00:35 nitrofurantoin Allergy Difficulty Verified 04/22/19 00:35 [From Macrobid] Breathing orange juice Allergy Difficulty Verified 04/22/19 00:35 Breathing tramadol [From Ultram] Allergy Rash Verified 04/22/19 00:35 trazodone Allergy Difficulty Verified 04/22/19 00:35 Breathing/Wheezing fluoxetine [From Prozac] AdvReac Hallucinati Verified 04/22/19 00:35 ons Home Medications: Home Medications hydrOXYzine HCL TAB* 50 mg PO DAILY 04/22/19 [History Confirmed 04/22/19] PMH/Surg Hx/FS Hx/Imm Hx Endocrine/Hematology History: Reports: Hx Thyroid Disease - LUMP SHE IS SEEING SONYA FOR, Hx Anemia Denies: Hx Anticoagulant Therapy, Hx Diabetes Cardiovascular History: Reports: Hx Angina Denies: Hx Congestive Heart Failure, Hx Deep Vein Thrombosis, Hx Hypercholesterolemia, Hx Hypertension, Hx Myocardial Infarction, Hx Pacemaker/ ICD Respiratory History: Reports: Hx Asthma Denies: Hx Chronic Obstructive Pulmonary Disease (COPD), Hx Lung Cancer GI History: Reports: Hx Gastroesophageal Reflux Disease - s/p Kathy Fundoplication, Hx Hiatal Hernia, Other GI Disorders - gerd barretts esophagus Denies: Hx Gall Bladder Disease, Hx Gastrointestinal Bleed, Hx Ulcer, Hx Urosepsis History: Reports: Hx Kidney Stones, Other Problems/Disorders - renal stones Denies: Hx Renal Disease - "decreased right kidney function" per pt. Musculoskeletal History: Reports: Hx Back Problems Denies: Hx Rheumatoid Arthritis, Hx Osteoporosis Sensory History: Denies: Hx Contacts or Glasses, Hx Hearing Aid Opthamlomology History: Denies: Hx Contacts or Glasses Neurological History: Reports: Other Neuro Impairments/Disorders - anxiety and depression Denies: Hx Dementia, Hx Headaches, Hx Migraine, Hx Seizures, Hx Transient Ischemic Attacks (TIA) Psychiatric History: Reports: Hx Anxiety, Hx Depression - She has been off meds x 2 years. She sees a therapist., Hx Inpatient Treatment, Hx Community Mental Health Tx, Hx Bipolar Disorder, Hx Substance Abuse - Narcotics,heroin,cocaine: sober since 05/03 Denies: Hx Eating Disorder, Hx Panic Disorder, Hx of Violent Episodes Against Others - Cancer History Cancer Type, Location and Year: Pre-cancer of espophagus-Tx with oral medication , Barretts Esophagus - RESOLVED WITH KATHY FUNDOPLICATION - Surgical History Surgery Procedure, Year, and Place: CHOLECYSTECTOMY, L5 DISC REMOVAL, APPENDECTOMY, TONSILLECTOMY, FULL FACIAL RECONSTRUCTION, LASER SURGERY RENAL STONE recent abd surgery 01/2014 - KATHY FUNDOPLICATION;Hysterectomy 01/11/15; Rt PINKY - AMPUTATED TO [address] [place] [address] - Immunization History Date of Tetanus Vaccine: 2018 Date of Influenza Vaccine: none Infectious Disease History: No Infectious Disease History: Reports: Hx of Known/Suspected MRSA Denies: Hx Clostridium Difficile, Hx Hepatitis, Hx Human Immunodeficiency Virus (HIV), Hx Shingles, Hx Tuberculosis, History Other Infectious Disease, Traveled Outside the [place] in Last 30 Days - Family History Known Family History: Positive: Cardiac Disease, Hypertension, Diabetes, Other - kidney stones; mom - pancreatic CA - Social History Alcohol Use: Occasionally Hx Substance Use: Yes - Sober since 05/03 Substance Use Type: Reports: Cocaine, Heroin, Marijuana, Other Substance Use Comment - Amount & Last Used: heroin and cocaine-clean x 7 years Hx Tobacco Use: Yes Smoking Status (MU): Heavy Every Day Tobacco Smoker Type: Cigarettes Amount Used/How Often: 1 ppd Length of Time of Smoking/Using Tobacco: >20 years Have You Smoked in the Last Year: Yes Review of Systems Negative: Fever Psychological: Other - SI with a plan All Other Systems Reviewed And Are Negative: Yes Physical Exam - Summary Physical Exam Summary: Appearance: Well appearing, no pain distress Skin: warm, dry, reflects adequate perfusion Head/face: normal Eyes: EOMI, DOMINGO ENT: normal Neck: supple, non-tender Respiratory: CTA, breath sounds present Cardiovascular: RRR, pulses symmetrical Abdomen: non-tender, soft Musculoskeletal: normal, strength/ROM intact Neuro: normal, sensory motor intact, A&Ox3 Psychiatric: depressed affect, SI with a plan Triage Information Reviewed: Yes Vital Signs On Initial Exam: Initial Vitals Temp Pulse Resp BP Pulse Ox 98.5 F 57 16 138/98 98 04/22/19 00:30 04/22/19 00:30 04/22/19 00:30 04/22/19 00:30 04/22/19 00:30 Vital Signs Reviewed: Yes Diagnostics - Vital Signs Vital Signs Temp Pulse Resp BP Pulse Ox 04/22/19 00:30 98.5 F 57 16 138/98 98 - Laboratory Lab Results: Lab Results 04/22/19 04/22/19 04/22/19 Range/Units 01:15 01:15 01:33 WBC 8.4 (3.5-10.8) 10^3/uL RBC 4.56 (3.70-4.87) 10^6 /uL Hgb 13.6 (12.0-16.0) g/dL Hct 40 (35-47) % MCV 87 (80-97) fL MCH 30 (27-31) pg MCHC 34 (31-36) g/dL RDW 14 (10-15) % Plt Count 259 (150-450) 10^3/uL MPV 8.4 (7.4-10.4) fL Neut % (Auto) 60.0 % Lymph % (Auto) 28.5 % [place] % (Auto) 8.9 % Eos % (Auto) 1.5 % Baso % (Auto) 1.1 % Absolute Neuts (auto) 5.1 (1.5-7.7) 10^3/ul Absolute Lymphs (auto) 2.4 (1.0-4.8) 10^3/ul Absolute Monos (auto) 0.7 (0-0.8) 10^3/ul Absolute Eos (auto) 0.1 (0-0.6) 10^3/ul Absolute Basos (auto) 0.1 (0-0.2) 10^3/ul Absolute Nucleated RBC 0.0 10^3/ul Nucleated RBC % 0.1 Sodium (135-145) mmol/L Potassium (3.5-5.0) mmol/L Chloride (101-111) mmol/L Carbon Dioxide (22-32) mmol/L Anion Gap (2-11) mmol/L BUN (6-24) mg/dL Creatinine (0.51-0.95) mg/dL Est GFR ( Amer) (>60) Est GFR (Non-Af Amer) (>60) BUN/Creatinine Ratio (8-20) Glucose (70-100) mg/dL Calcium (8.6-10.3) mg/dL Total Bilirubin (0.2-1.0) mg/dL AST (13-39) U/L ALT (7-52) U/L Alkaline Phosphatase (34-104) U/L Total Protein (6.4-8.9) g/dL Albumin (3.2-5.2) g/dL Globulin (2-4) g/dL Albumin/Globulin Ratio (1-3) TSH Beta HCG, Quant Urine Color Yellow Urine Appearance Turbid Urine pH 5.0 (5-9) Ur Specific [place] 1.024 (1.010-1.030) Urine Protein Negative (Negative) Urine Ketones Negative (Negative) Urine Blood 1+ A (Negative) Urine Nitrate Negative (Negative) Urine Bilirubin Negative (Negative) Urine Urobilinogen Negative (Negative) Ur Leukocyte Esterase 3+ A (Negative) Urine WBC (Auto) 3+(>20/hpf) A (Absent) Urine RBC (Auto) 3+(>10/hpf) A (Absent) Ur Squamous Epith Cells Present A (Absent) Urine Bacteria Absent (Absent) Urine Glucose Negative (Negative) Salicylates Urine Opiates Screen None detected (None Detect) Acetaminophen Ur Barbiturates Screen None detected (None Detect) Ur Phencyclidine Scrn None detected (None Detect) Ur Amphetamines Screen None detected (None Detect) U Benzodiazepines Scrn None detected (None Detect) Urine Cocaine Screen None detected (None Detect) U Cannabinoids Screen None detected (None Detect) Serum Alcohol 04/22/19 Range/Units 01:33 WBC (3.5-10.8) 10^3/uL RBC (3.70-4.87) 10^6 /uL Hgb (12.0-16.0) g/dL Hct (35-47) % MCV (80-97) fL MCH (27-31) pg MCHC (31-36) g/dL RDW (10-15) % Plt Count (150-450) 10^3/uL MPV (7.4-10.4) fL Neut % (Auto) % Lymph % (Auto) % [place] % (Auto) % Eos % (Auto) % Baso % (Auto) % Absolute Neuts (auto) (1.5-7.7) 10^3/ul Absolute Lymphs (auto) (1.0-4.8) 10^3/ul Absolute Monos (auto) (0-0.8) 10^3/ul Absolute Eos (auto) (0-0.6) 10^3/ul Absolute Basos (auto) (0-0.2) 10^3/ul Absolute Nucleated RBC 10^3/ul Nucleated RBC % Sodium 140 (135-145) mmol/L Potassium 3.7 (3.5-5.0) mmol/L Chloride 109 (101-111) mmol/L Carbon Dioxide 25 (22-32) mmol/L Anion Gap 6 (2-11) mmol/L BUN 9 (6-24) mg/dL Creatinine 0.88 (0.51-0.95) mg/dL Est GFR ( Amer) 86.1 (>60) Est GFR (Non-Af Amer) 71.2 (>60) BUN/Creatinine Ratio 10.2 (8-20) Glucose 100 (70-100) mg/dL Calcium 9.1 (8.6-10.3) mg/dL Total Bilirubin 0.30 (0.2-1.0) mg/dL AST 10 L (13-39) U/L ALT 8 (7-52) U/L Alkaline Phosphatase 60 (34-104) U/L Total Protein 6.5 (6.4-8.9) g/dL Albumin 3.8 (3.2-5.2) g/dL Globulin 2.7 (2-4) g/dL Albumin/Globulin Ratio 1.4 (1-3) TSH Pending Beta HCG, Quant Pending Urine Color Urine Appearance Urine pH (5-9) Ur Specific [place] (1.010-1.030) Urine Protein (Negative) Urine Ketones (Negative) Urine Blood (Negative) Urine Nitrate (Negative) Urine Bilirubin (Negative) Urine Urobilinogen (Negative) Ur Leukocyte Esterase (Negative) Urine WBC (Auto) (Absent) Urine RBC (Auto) (Absent) Ur Squamous Epith Cells (Absent) Urine Bacteria (Absent) Urine Glucose (Negative) Salicylates Pending Urine Opiates Screen (None Detect) Acetaminophen Pending Ur Barbiturates Screen (None Detect) Ur Phencyclidine Scrn (None Detect) Ur Amphetamines Screen (None Detect) U Benzodiazepines Scrn (None Detect) Urine Cocaine Screen (None Detect) U Cannabinoids Screen (None Detect) Serum Alcohol Pending Result Diagrams: 04/22/19 01:33 04/22/19 01:33 Lab Statement: Any lab studies that have been ordered have been reviewed, and results considered in the medical decision making process. Course/Dx - Course Course Of Treatment: This patient is a 38 year old F presenting to ED with a chief complaint of intermittent SI for a while. Blood work and UA obtained. At 0315 patient is medically cleared for MHE. Patient will be signed out to Dr. Caceres at 0700 on 04/22/19 at shift change pending MHE. - Differential Dx/Clinical Impression Provider Diagnosis: Depression, Suicide ideation Discharge - Sign-Out/Discharge Documenting (check all that apply): Sign-Out Patient Signing out patient TO: Pritesh Caceres Patient Received Moderate/Deep Sedation with Procedure: No - Discharge Plan Condition: Fair Referrals: Kartik Francisco MD [Primary Care Provider] - - Billing Disposition and Condition Condition: FAIR - Attestation Statements Document Initiated by Scribe: Yes Documenting Scribe: Virgilio Foss Provider For Whom Scribe is Documenting (Include Credential): Christofer Abraham MD Scribe Attestation: I, Virgilio Foss, scribed for Christofer Abraham MD on 04/22/19 at 0632. Scribe Documentation Reviewed: Yes Provider Attestation: The documentation as recorded by the scribe, Virgilio Foss accurately reflects the service I personally performed and the decisions made by me, Christofer Abraham MD Status of Scribe Document: Viewed
[2019-04-22 02:20] LABS: TSH (Thyroid Stimulating Horm) 1.67 mcIU/mL (0.34-5.60)
--- NOTE | 2019-04-22 07:04 | ED ---
Progress - Progress Note Progress Note: This pt was signed out from Dr. Abraham to Dr. Caceres, pending disposition, awaiting mental health evaluation. Pt had a mental health evaluation and her case was reviewed by Dr. Capone, psychiatrist. Dr. Capone will admit the pt on a voluntary status with dx: adjustment disorder. Course/Dx - Diagnoses Provider Diagnoses: Adjustment disorder Discharge - Sign-Out/Discharge Documenting (check all that apply): Patient Departure - Admit to [facility], Receiving Sign-Out Receiving patient FROM: Christofer Abraham Patient Received Moderate/Deep Sedation with Procedure: No - Discharge Plan Condition: Stable Disposition: PSYCHIATRIC FACILITY-[facility] Referrals: Kartik Francisco MD [Primary Care Provider] - - Billing Disposition and Condition Condition: STABLE Disposition: Psychiatric Facility [facility] - Attestation Statements Document Initiated by Kurtibe: Yes Documenting Scribe: Kelsey Levi Provider For Whom Scribe is Documenting (Include Credential): Pritesh Caceres MD Scribe Attestation: IKelsey, scribed for Pritesh Caceres MD on 04/22/19 at 1200. Scribe Documentation Reviewed: Yes Provider Attestation: The documentation as recorded by the Kelsey orozco accurately reflects the service I personally performed and the decisions made by , Pritesh Caceres MD Status of Scribe Document: Viewed
[2019-04-22] MEDS ORDERED: Acetaminophen TAB* 325 MG PO PRN (09:00)
[2019-04-22] MEDS ORDERED: Al Hydrox/Mg Hydrox/Simet LIQ* 30 ML UDC PO PRN (09:00)
[2019-04-22] MEDS ORDERED: Albuterol HFA INHALER* 8 gm MDI INH PRN (09:01)
[2019-04-22] MEDS ORDERED: hydrOXYzine HCL TAB* 50 MG PO PRN ×2 (09:01→18:29)
[2019-04-22] MEDS ORDERED: Nicotine PATCH 21 MG/24 HR* PATCH ONE (13:06)
[2019-04-22] MEDS: Nicotine PATCH 21 MG/24 HR* PATCH TRANSDERM SCH (13:08)
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
[2019-04-22] MEDS ORDERED: LORazepam TAB(*) 1 MG PO ONE (21:00)
[2019-04-23 07:08] LABS: HDL Cholesterol 27.1 mg/dL
[2019-04-23] MEDS: Nicotine Patch Removal NOTE PATCH OFF SCH ×2 (08:25→22:44)
[2019-04-23] MEDS: Nicotine PATCH 21 MG/24 HR* PATCH TRANSDERM SCH (09:37)
--- NOTE | 2019-04-23 13:04 | PN ---
BSU: Group Therapy Note - Service Type Service Type: 52112 Group Psychotherapy - Cognitive Behavioral Group Therapy ( CBT):Patient was attentive and participatory in CBT programming this morning, and remained in good behavioral control. Patient expressed positive insights regarding relevant treatment interventions and goals.
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
[2019-04-23] MEDS: hydrOXYzine HCL TAB* 25 MG PO PRN ×2 (13:57→20:29)
[2019-04-23] MEDS: Pantoprazole TAB * 40 MG TAB PO SCH (13:57)
[2019-04-23] MEDS: Ibuprofen TAB* 600 MG PO PRN ×2 (13:57→20:28)
[2019-04-23] MEDS: Mirtazapine TAB* 15 MG PO PRN (20:30)
[2019-04-23] MEDS ORDERED: Tenofovir/Emtricitab 200/300 * TAB PO ONE (23:00)
[2019-04-23] MEDS ORDERED: Raltegravir* 400 MG TAB PO ONE (23:00)
[2019-04-23] MEDS ORDERED: cefTRIAXone VIAL(*) 250 MG VIAL IM ONE (23:00)
[2019-04-24] MEDS: hydrOXYzine HCL TAB* 25 MG PO PRN ×4 (00:07→21:14)
[2019-04-24] MEDS: Nicotine Patch Removal NOTE PATCH OFF SCH ×2 (00:10→21:16)
[2019-04-24 00:35] LABS: HIV 4th Generation Negative (Negative)
[2019-04-24 00:50] LABS: Hepatitis B Surface Ab Not Immune (Immune); Hepatitis C Antibody Negative (Negative)
[2019-04-24] MEDS ORDERED: metroNIDAZOLE * 500 MG TABLET PO ONE (09:00)
[2019-04-24] MEDS ORDERED: Azithromycin TAB* 250 MG PO ONE (09:00)
[2019-04-24] MEDS: Pantoprazole TAB * 40 MG TAB PO SCH (09:09)
[2019-04-24] MEDS: Nicotine PATCH 21 MG/24 HR* PATCH TRANSDERM SCH (09:10)
[2019-04-24] MEDS: Ibuprofen TAB* 600 MG PO PRN (09:11)
[2019-04-24] MEDS ORDERED: Ondansetron ODT TAB* 4 MG SL PRN (10:26)
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
[2019-04-24] MEDS ORDERED: ALPRAZolam TAB* 0.5 MG PO ONE (21:00)
[2019-04-24] MEDS ORDERED: Prazosin CAP* 1 MG PO SCH (21:00)
[2019-04-25] MEDS: hydrOXYzine HCL TAB* 25 MG PO PRN ×3 (12:48→21:20)
[2019-04-25] MEDS: Nicotine PATCH 21 MG/24 HR* PATCH TRANSDERM SCH (12:48)
[2019-04-25] MEDS: Pantoprazole TAB * 40 MG TAB PO SCH (12:49)
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
[2019-04-25] MEDS: Ibuprofen TAB* 600 MG PO PRN (17:36)
[2019-04-25] MEDS ORDERED: Prazosin CAP* 1 MG PO SCH ×2 (21:00)
[2019-04-25] MEDS: Mirtazapine TAB* 15 MG PO PRN (21:20)
[2019-04-25] MEDS: Nicotine Patch Removal NOTE PATCH OFF SCH (21:23)
[2019-04-26 08:30] VITALS: BP 104/59
[2019-04-26] MEDS: Nicotine PATCH 21 MG/24 HR* PATCH TRANSDERM SCH (10:16)
[2019-04-26] MEDS: Ibuprofen TAB* 600 MG PO PRN (10:16)
[2019-04-26] MEDS: Pantoprazole TAB * 40 MG TAB PO SCH (10:16)
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
== END 2019-04-26 13:00 | disposition home or self-care (01) | DRG 756 ==
LOC: ED 00:29 → BSU 09:00
PROVIDERS: ADMIT Psychiatry & Neurology Psychiatry; ATTEND Psychiatry & Neurology Psychiatry
PROC: GZHZZZZ Group Psychotherapy (ICD-10-PCS; principal; 2019-04-23)
DX: F41.1 Generalized anxiety disorder (principal); R45.851 Suicidal ideations; F31.9 Bipolar disorder, unspecified; J45.909 Unspecified asthma, uncomplicated; F17.210 Nicotine dependence, cigarettes, uncomplicated; F60.89 Other specific personality disorders; K21.9 Gastro-esophageal reflux disease without esophagitis; E66.9 Obesity, unspecified; N20.0 Calculus of kidney; Z88.1 Allergy status to other antibiotic agents; Z88.8 Allergy status to other drugs, medicaments and biological substances; Z88.6 Allergy status to analgesic agent; Z90.49 Acquired absence of other specified parts of digestive tract; Z90.710 Acquired absence of both cervix and uterus; Z86.14 Personal history of Methicillin resistant Staphylococcus aureus infection; Z72.89 Other problems related to lifestyle; Z82.49 Family history of ischemic heart disease and other diseases of the circulatory system; Z83.3 Family history of diabetes mellitus; Z80.0 Family history of malignant neoplasm of digestive organs; Z68.38 Body mass index [BMI] 38.0-38.9, adult
CPT/HCPCS: 36415; 80053; 80061; 80307; 80320; 80329; 81003; 81015; 83036; 84443; 84702; 85025; 86706; 86803; 87086; 87389; 90853; 99222; 99231; 99232; 99233; 99238; 99285; A9270-GY; G0480; J0696

== ENCOUNTER 2019-06-25 00:24 | Emergency (ER) | payer OTHER ==
[2019-06-25] MEDS ORDERED: oxyCODONE TAB* 5 MG TAB PO ONE (00:41)
[2019-06-25] MEDS ORDERED: NS 0.9% 1000 ML** 1,000 ML IV ONE (00:41)
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
[2019-06-25 01:07] LABS: ABS Basophils 0.1 10^3/ul (0-0.2); ABS Eosinophils 0.1 10^3/ul (0-0.6); ABS Lymphocytes 3.2 10^3/ul (1.0-4.8); ABS Monocytes 1.1 10^3/ul (0-0.8); ABS Neutrophils 7.4 10^3/ul (1.5-7.7); Eosinophil % 1.2 %; Hematocrit 37 % (35-47); Hemoglobin 12.9 g/dL (12.0-16.0); Lymphocyte % 26.8 %; Mean Corpuscular HGB Conc 35 g/dL (31-36); Mean Corpuscular Hemoglobin 30 pg (27-31); Mean Corpuscular Volume 87 fL (80-97); Mean Platelet Volume 8.3 fL (7.4-10.4); Platelet Count 257 10^3/uL (150-450); Red Blood Count 4.31 10^6 /uL (3.70-4.87); Red Cell Distribution Width 14 % (10-15)
[2019-06-25 01:27] LABS: Albumin 3.9 g/dL (3.2-5.2); Albumin/Globulin Ratio 1.6 (1-3); BUN/Creatinine Ratio 15.7 (8-20); EGFR African American 72.6 (>60); Globulin 2.5 g/dL (2-4); Potassium 3.8 mmol/L (3.5-5.0); Total Bilirubin 0.2 mg/dL (0.2-1.0); Total Protein 6.4 g/dL (6.4-8.9)
[2019-06-25] MEDS ORDERED: Iohexol 300* (CONTRAST) 10 ML SDV IV ONE (01:33)
[2019-06-25] MEDS ORDERED: Ondansetron INJ* 2 MG/ML VIAL IV ONE (02:07)
[2019-06-25 02:23] LABS: Urine Appearance Cloudy; Urine Bacteria 1+ (Absent); Urine Bilirubin Negative (Negative); Urine Blood 2+ (Negative); Urine Color Yellow; Urine Glucose Negative (Negative); Urine Ketones Negative (Negative); Urine Nitrite Negative (Negative); Urine Protein Negative (Negative); Urine Red Blood Cell 1+(3-5/hpf) (Absent); Urine Specific Gravity 1.038 (1.010-1.030); Urine Squamous Epithelial Cell Present (Absent); Urine Urobilinogen Negative (Negative); Urine White Blood Cell Trace(0-5/hpf) (Absent)
[2019-06-25 03:22] VITALS: BP 128/86
--- NOTE | 2019-06-27 10:00 | PN ---
Progress Note - Progress Note Date of Service: 06/25/19 Note: Urine culture growing 75-100k e. coli. Attempted to call pt. today at 0958 with no answer. Message left to return call. Based on culture and allergies rx for bactrim sent to pharmacy. Will send letter to return call.
== END 2019-06-25 03:21 | disposition home or self-care (01) ==
LOC: ED 00:24
DX: S06.0X9A Concussion with loss of consciousness of unspecified duration, initial encounter (principal); M54.9 Dorsalgia, unspecified; V86.59XA Driver of other special all-terrain or other off-road motor vehicle injured in nontraffic accident, initial encounter; Y92.9 Unspecified place or not applicable; E07.9 Disorder of thyroid, unspecified; D64.9 Anemia, unspecified; J45.909 Unspecified asthma, uncomplicated; K21.9 Gastro-esophageal reflux disease without esophagitis; F41.9 Anxiety disorder, unspecified; F32.9 Major depressive disorder, single episode, unspecified; F17.210 Nicotine dependence, cigarettes, uncomplicated; Z79.899 Other long term (current) drug therapy; Z88.6 Allergy status to analgesic agent; Z88.1 Allergy status to other antibiotic agents; Z88.5 Allergy status to narcotic agent; Z88.8 Allergy status to other drugs, medicaments and biological substances
CPT/HCPCS: 36415; 70450; 71260; 72125; 74177; 80053; 81003; 81015; 85025; 87077; 87086; 87186; 96361; 96374; 99283; A9270-GY; J2405; Q9967

== ENCOUNTER 2019-06-28 20:18 | Emergency (ER) | payer OTHER ==
[2019-06-28] MEDS ORDERED: Ondansetron INJ* 2 MG/ML VIAL IV ONE (21:46)
[2019-06-28] MEDS ORDERED: NS 0.9% 1000 ML** 1,000 ML IV ONE (21:46)
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
[2019-06-28 22:17] LABS: ABS Basophils 0.1 10^3/ul (0-0.2); ABS Eosinophils 0.1 10^3/ul (0-0.6); ABS Lymphocytes 2.9 10^3/ul (1.0-4.8); ABS Monocytes 0.8 10^3/ul (0-0.8); ABS Neutrophils 7.7 10^3/ul (1.5-7.7); Hematocrit 37 % (35-47); Hemoglobin 12.4 g/dL (12.0-16.0); Lymphocyte % 24.5 %; Mean Corpuscular HGB Conc 33 g/dL (31-36); Mean Corpuscular Hemoglobin 29 pg (27-31); Mean Corpuscular Volume 87 fL (80-97); Mean Platelet Volume 8.6 fL (7.4-10.4); Platelet Count 247 10^3/uL (150-450); Red Blood Count 4.26 10^6 /uL (3.70-4.87); Red Cell Distribution Width 14 % (10-15); White Blood Count 11.7 10^3/uL (3.5-10.8)
[2019-06-28] MEDS ORDERED: Morphine 4 MG/ML VIAL (1 ml) 4 MG/ML VIAL IV ONE (22:19)
[2019-06-28 22:33] LABS: Albumin 3.9 g/dL (3.2-5.2); Albumin/Globulin Ratio 1.5 (1-3); BUN/Creatinine Ratio 15.7 (8-20); Calcium 8.4 mg/dL (8.6-10.3); EGFR Non-African American 70.2 (>60); Globulin 2.6 g/dL (2-4); Potassium 3.7 mmol/L (3.5-5.0); Total Bilirubin 0.3 mg/dL (0.2-1.0); Total Protein 6.5 g/dL (6.4-8.9)
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
[2019-06-29] MEDS ORDERED: Iohexol 300* (CONTRAST) 10 ML SDV IV ONE (00:01)
[2019-06-29 01:26] VITALS: BP 152/84
== END 2019-06-29 01:16 | disposition home or self-care (01) ==
LOC: ED 20:18
DX: S06.0X9A Concussion with loss of consciousness of unspecified duration, initial encounter (principal); R55 Syncope and collapse; R10.31 Right lower quadrant pain; K76.9 Liver disease, unspecified; K44.9 Diaphragmatic hernia without obstruction or gangrene; V86.59XA Driver of other special all-terrain or other off-road motor vehicle injured in nontraffic accident, initial encounter; Y92.89 Other specified places as the place of occurrence of the external cause; F17.210 Nicotine dependence, cigarettes, uncomplicated; E07.9 Disorder of thyroid, unspecified; J45.909 Unspecified asthma, uncomplicated; K21.9 Gastro-esophageal reflux disease without esophagitis; F41.9 Anxiety disorder, unspecified; F32.9 Major depressive disorder, single episode, unspecified; Z90.49 Acquired absence of other specified parts of digestive tract; Z90.710 Acquired absence of both cervix and uterus; Z79.899 Other long term (current) drug therapy; Z88.1 Allergy status to other antibiotic agents; Z88.5 Allergy status to narcotic agent; Z88.8 Allergy status to other drugs, medicaments and biological substances
CPT/HCPCS: 36415; 70450; 74177; 80053; 83690; 84484; 85025; 93005; 96361; 96374; 96375; 99282; J2270; J2405; Q9967

== ENCOUNTER 2019-07-11 00:02 | Emergency (ER) | payer OTHER ==
--- NOTE | 2019-07-11 01:00 | ED ---
Back Pain - HPI Summary HPI Summary: Patient complains of back pain after mechanical fall yesterday with numbness and tingling in right arm and right leg. Denies head injury, LOC, JO, vision change, N/V, AMS, fever, cough, sore throat, CP, SOB, N/C/D, abdominal pain, change in urine, change in BM. Medical history is asthma, Gray's esophagus. - History of Current Complaint Chief Complaint: EDBackInjuryPain Stated Complaint: BACK PAIN PER PT Time Seen by Provider: 07/11/19 00:34 Hx Obtained From: Patient Hx Last Menstrual Period: hysterectomy Onset/Duration: Sudden Onset, Lasting Days Onset/Duration: Started Days Ago Timing: Constant Back Pain Location: Is Discrete @ Severity Initially: Severe Severity Currently: Severe Pain Intensity: 9 Pain Scale Used: 0-10 Numeric Character: Dull, Throbbing Aggravating Symptom(s): Movement, Bending Alleviating Symptom(s): Rest, Position Associated Signs And Symptoms: Positive: Numbness, Tingling - Allergies/Home Medications Allergies/Adverse Reactions: Allergies Allergy/AdvReac Type Severity Reaction Status Date / Time buprenorphine [From Suboxone] Allergy Swelling Verified 06/25/19 00:28 cephalexin [From Keflex] Allergy Difficulty Verified 06/25/19 00:28 Breathing/Wheezing ketorolac [From Toradol] Allergy Hives/Diff. Verified 06/25/19 00:28 Breathing/I tching naloxone [From Suboxone] Allergy Swelling Verified 06/25/19 00:28 nitrofurantoin Allergy Difficulty Verified 06/25/19 00:28 [From Macrobid] Breathing orange juice Allergy Difficulty Verified 06/25/19 00:28 Breathing tramadol [From Ultram] Allergy Rash Verified 06/25/19 00:28 trazodone Allergy Difficulty Verified 06/25/19 00:28 Breathing/Wheezing fluoxetine [From Prozac] AdvReac Hallucinati Verified 06/25/19 00:28 ons PMH/Surg Hx/FS Hx/Imm Hx Endocrine/Hematology History: Reports: Hx Thyroid Disease - LUMP SHE IS SEEING SONYA FOR, Hx Anemia Denies: Hx Anticoagulant Therapy, Hx Diabetes Cardiovascular History: Reports: Other Cardiovascular Problems/Disorders - Bradycardia Denies: Hx Congestive Heart Failure, Hx Deep Vein Thrombosis, Hx Hypercholesterolemia, Hx Hypertension, Hx Myocardial Infarction, Hx Pacemaker/ ICD Respiratory History: Reports: Hx Asthma Denies: Hx Chronic Obstructive Pulmonary Disease (COPD), Hx Lung Cancer GI History: Reports: Hx Gastroesophageal Reflux Disease - s/p Kathy Fundoplication, Hx Hiatal Hernia, Other GI Disorders - gerd barretts esophagus Denies: Hx Gall Bladder Disease, Hx Gastrointestinal Bleed, Hx Ulcer, Hx Urosepsis History: Reports: Hx Kidney Stones, Other Problems/Disorders - renal stones/ frequent diarrhea from gag reflex Denies: Hx Renal Disease - "decreased right kidney function" per pt. 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 She sees a therapist., Hx Inpatient Treatment, Hx Community Mental Health Tx, Hx Bipolar Disorder, Hx Suicide Attempt - yesterday took 30 Hydroxyzine pills+ "a concoction", Hx Substance Abuse - Narcotics,heroin,cocaine : sober since 05/03, Other Psychiatric Issues/Disorders - Borderline personality disorder Denies: Hx Eating Disorder, Hx Panic Disorder, Hx of Violent Episodes Against Others - Cancer History Cancer Type, Location and Year: Pre-cancer of espophagus-Tx with oral medication , Barretts Esophagus - RESOLVED WITH KATHY FUNDOPLICATION - Surgical History Surgery Procedure, Year, and Place: CHOLECYSTECTOMY, L5 DISC REMOVAL, APPENDECTOMY, TONSILLECTOMY, FULL FACIAL RECONSTRUCTION, LASER SURGERY RENAL STONE recent abd surgery 01/2014 - KATHY FUNDOPLICATION;Hysterectomy 01/11/15; [facility] - Immunization History Date of Tetanus Vaccine: 2018 Date of Influenza Vaccine: none Infectious Disease History: Yes Infectious Disease History: Reports: Hx of Known/Suspected MRSA - 7 years ago, when got clean from drugs, and 4-5 years ago, in urine Denies: Hx Clostridium Difficile, Hx Hepatitis, Hx Human Immunodeficiency Virus (HIV), Hx Shingles, Hx Tuberculosis, History Other Infectious Disease, Traveled Outside the [place] in Last 30 Days - Family History Known Family History: Positive: Cardiac Disease, Hypertension, Diabetes, Other - kidney stones; mom - pancreatic CA - Social History Alcohol Use: Rare Hx Substance Use: Yes - Sober since 05/03 Substance Use Type: Reports: None Substance Use Comment - Amount & Last Used: heroin and cocaine-clean x 7 years Hx Tobacco Use: Yes Smoking Status (MU): Current Every Day Smoker Type: Cigarettes Amount Used/How Often: 1 ppd Length of Time of Smoking/Using Tobacco: >20 years Have You Smoked in the Last Year: Yes Review of Systems Constitutional: Negative Eyes: Negative ENT: Negative Cardiovascular: Negative Respiratory: Negative Gastrointestinal: Negative Genitourinary: Negative Musculoskeletal: Other Skin: Negative Positive: Paresthesia Psychological: Normal All Other Systems Reviewed And Are Negative: Yes Physical Exam - Summary Physical Exam Summary: Neuro exam normal. 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 Normal function of right foot and leg. PMS intact distally in both extremities. Bony point Tenderness with palpation of bilateral lower and mid back. No ecchymosis, erythema, deformity, swelling, mass noted to back. No trauma noted to right upper extremity or right lower extremity. Patient ambulatory. Triage Information Reviewed: Yes Vital Signs On Initial Exam: Initial Vitals Temp Pulse Resp BP Pulse Ox 97.5 F 66 18 134/82 98 07/11/19 00:05 07/11/19 00:05 07/11/19 00:05 07/11/19 00:05 07/11/19 00:05 Vital Signs Reviewed: Yes Appearance: Positive: Well-Appearing Skin: Positive: Warm Head/Face: Positive: Normal Head/Face Inspection Eyes: Positive: Normal ENT: Positive: Normal ENT inspection Dental: Negative: Dental Fracture @, Bleeding Neck: Positive: Supple Respiratory/Lung Sounds: Positive: Clear to Auscultation Cardiovascular: Positive: Normal Abdomen Description: Positive: Nontender Musculoskeletal: Positive: Normal Neurological: Positive: Normal Psychiatric: Positive: Normal AVPU Assessment: Alert - Sigrid Coma Scale Best Eye Response: 4 - Spontaneous Best Motor Response: 6 - Obeys Commands Best Verbal Response: 5 - Oriented Coma Scale Total: 15 Diagnostics - Vital Signs Vital Signs Temp Pulse Resp BP Pulse Ox 07/11/19 00:05 97.5 F 66 18 134/82 98 - Laboratory Result Diagrams: 07/11/19 01:10 07/11/19 01:10 Lab Statement: Any lab studies that have been ordered have been reviewed, and results considered in the medical decision making process. Back Pain Course/Dx - Course Course Of Treatment: Patient complains of back pain after mechanical fall yesterday with numbness and tingling in right arm and right leg. Denies head injury, LOC, JO, vision change, N/V, AMS, fever, cough, sore throat, CP, SOB, N/ C/D, abdominal pain, change in urine, change in BM. Medical history is asthma, Gray's esophagus. Vital signs within normal limits. WBC 12.1. Labs otherwise unremarkable. CAT scan of the C-spine, T-spine and L-spine negative for acute process. - Diagnoses Provider Diagnoses: Acute back pain, Radicular pain of right lower extremity, Radicular pain in right arm Discharge ED - Sign-Out/Discharge Documenting (check all that apply): Patient Departure Patient Received Moderate/Deep Sedation with Procedure: No - Discharge Plan Condition: Stable Disposition: HOME Prescriptions: Diazepam TAB(*) [Valium TAB(*)] 5 mg PO TID PRN 2 Days #6 tab MDD 3 tabs PRN Reason: Spasms Lidocaine PATCH 5%* [Lidoderm 5% Patch*] 1 patch TRANSDERM DAILY 6 Days #6 patch Patient Education Materials: Lumbar Radiculopathy (ED), Cervical Radiculopathy (ED), Muscle Spasm (ED) Forms: *Work Release Referrals: Kartik Francisco MD [Primary Care Provider] - Additional Instructions: Valium as directed for muscle spasm pain is lidocaine patches for back pain as directed. Return to the ED for any new or worsening symptoms. - Billing Disposition and Condition Condition: STABLE Disposition: Home - Attestation Statements Provider Attestation: I was available for consult. This patient was seen by the HOLLY. The patient was not presented to, seen by, or examined by me. Ken Millan MD
[2019-07-11] MEDS ORDERED: Diazepam TAB(*) 5 MG PO ONE ×2 (01:08→03:11)
[2019-07-11 01:17] LABS: ABS Basophils 0.1 10^3/ul (0-0.2); ABS Eosinophils 0.1 10^3/ul (0-0.6); ABS Lymphocytes 2.9 10^3/ul (1.0-4.8); ABS Monocytes 0.9 10^3/ul (0-0.8); Eosinophil % 1.1 %; Hematocrit 40 % (35-47); Hemoglobin 13.5 g/dL (12.0-16.0); Lymphocyte % 24.1 %; Mean Corpuscular HGB Conc 34 g/dL (31-36); Mean Corpuscular Hemoglobin 29 pg (27-31); Mean Corpuscular Volume 88 fL (80-97); Mean Platelet Volume 8.2 fL (7.4-10.4); Platelet Count 268 10^3/uL (150-450); Red Blood Count 4.58 10^6 /uL (3.70-4.87); Red Cell Distribution Width 15 % (10-15); White Blood Count 12.1 10^3/uL (3.5-10.8)
[2019-07-11 01:37] LABS: Urine Appearance Cloudy; Urine Bacteria Absent (Absent); Urine Bilirubin Negative (Negative); Urine Blood 1+ (Negative); Urine Color Yellow; Urine Glucose Negative (Negative); Urine Ketones Negative (Negative); Urine Nitrite Negative (Negative); Urine Protein Negative (Negative); Urine Red Blood Cell Trace(0-2/hpf) (Absent); Urine Specific Gravity 1.013 (1.010-1.030); Urine Squamous Epithelial Cell Present (Absent); Urine Urobilinogen Negative (Negative); Urine White Blood Cell Absent (Absent)
[2019-07-11 01:44] LABS: ALT 8 U/L (7-52); AST 12 U/L (13-39); Albumin 3.9 g/dL (3.2-5.2); Albumin/Globulin Ratio 1.4 (1-3); Alkaline Phosphatase 63 U/L (34-104); Anion Gap 4 mmol/L (2-11); BUN/Creatinine Ratio 15.7 (8-20); Blood Urea Nitrogen 14 mg/dL (6-24); C Reactive Protein 14.03 mg/L (<8.01); CO2 Carbon Dioxide 27 mmol/L (22-32); Calcium 8.6 mg/dL (8.6-10.3); Chloride 108 mmol/L (101-111); EGFR Non-African American 70.2 (>60); Globulin 2.8 g/dL (2-4); Glucose 113 mg/dL (70-100); Potassium 4.2 mmol/L (3.5-5.0); Sodium 139 mmol/L (135-145); Total Protein 6.7 g/dL (6.4-8.9)
[2019-07-11 01:50] LABS: HCG Pregnancy < 0.60 mIU/mL
[2019-07-11] MEDS ORDERED: Ondansetron ODT TAB* 4 MG PO ONE (02:12)
[2019-07-11] MEDS ORDERED: Lidocaine PATCH 5%* 1 PATCH ONE (03:16)
[2019-07-11 03:28] VITALS: BP 140/81
[2019-07-11] MEDS ORDERED: Lidocaine PATCH 5%* 1 PATCH TRANSDERM SCH (03:30)
[2019-07-11] MEDS ORDERED: Lidocaine Patch REMOVE* 1 NOTE MISC SCH (21:00)
== END 2019-07-11 03:28 | disposition home or self-care (01) ==
LOC: ED 00:02
DX: M54.9 Dorsalgia, unspecified (principal); M54.10 Radiculopathy, site unspecified; E04.1 Nontoxic single thyroid nodule; D64.9 Anemia, unspecified; J45.909 Unspecified asthma, uncomplicated; K21.9 Gastro-esophageal reflux disease without esophagitis; F41.9 Anxiety disorder, unspecified; F32.9 Major depressive disorder, single episode, unspecified; F17.210 Nicotine dependence, cigarettes, uncomplicated; Z90.49 Acquired absence of other specified parts of digestive tract; Z88.1 Allergy status to other antibiotic agents; Z88.5 Allergy status to narcotic agent; Z88.8 Allergy status to other drugs, medicaments and biological substances; M48.8X2 Other specified spondylopathies, cervical region; M48.8X6 Other specified spondylopathies, lumbar region; Z79.899 Other long term (current) drug therapy
CPT/HCPCS: 36415; 72125; 72128; 72131; 80053; 81003; 81015; 83735; 84702; 85025; 86140; 99283; A9270-GY

== ENCOUNTER 2019-07-22 17:41 | Emergency (ER) | payer OTHER ==
[2019-07-22] MEDS ORDERED: Ondansetron INJ* 2 MG/ML VIAL IV ONE (20:22)
[2019-07-22] MEDS ORDERED: NS 0.9% 1000 ML** 1,000 ML IV ONE (20:22)
[2019-07-22] MEDS ORDERED: Morphine 4 MG/ML VIAL (1 ml) 4 MG/ML VIAL IV ONE ×2 (20:23→22:26)
[2019-07-22 21:11] LABS: ABS Basophils 0.2 10^3/ul (0-0.2); ABS Eosinophils 0.1 10^3/ul (0-0.6); ABS Lymphocytes 2.5 10^3/ul (1.0-4.8); Eosinophil % 1.1 %; Hematocrit 40 % (35-47); Hemoglobin 13.3 g/dL (12.0-16.0); Lymphocyte % 21.3 %; Mean Corpuscular HGB Conc 34 g/dL (31-36); Mean Corpuscular Hemoglobin 30 pg (27-31); Mean Corpuscular Volume 88 fL (80-97); Mean Platelet Volume 8.2 fL (7.4-10.4); Nucleated Red Blood Cells % 0.1; Platelet Count 296 10^3/uL (150-450); Red Cell Distribution Width 14 % (10-15); White Blood Count 11.9 10^3/uL (3.5-10.8)
[2019-07-22 21:28] LABS: Albumin 3.7 g/dL (3.2-5.2); Albumin/Globulin Ratio 1.4 (1-3); BUN/Creatinine Ratio 15.7 (8-20); C Reactive Protein 13.39 mg/L (<8.01); Calcium 8.5 mg/dL (8.6-10.3); EGFR Non-African American 70.2 (>60); Globulin 2.7 g/dL (2-4); Total Bilirubin 0.2 mg/dL (0.2-1.0); Total Protein 6.4 g/dL (6.4-8.9)
[2019-07-22 21:29] LABS: Urine Appearance Cloudy; Urine Bacteria Absent (Absent); Urine Bilirubin Negative (Negative); Urine Blood 1+ (Negative); Urine Color Yellow; Urine Glucose Negative (Negative); Urine Ketones Negative (Negative); Urine Nitrite Negative (Negative); Urine Protein Negative (Negative); Urine Red Blood Cell 1+(3-5/hpf) (Absent); Urine Specific Gravity 1.021 (1.010-1.030); Urine Squamous Epithelial Cell Present (Absent); Urine Urobilinogen Negative (Negative); Urine White Blood Cell Trace(0-5/hpf) (Absent)
[2019-07-22 21:56] LABS: TSH (Thyroid Stimulating Horm) 1.12 mcIU/mL (0.34-5.60)
[2019-07-22 22:10] LABS: Potassium 4.4 mmol/L (3.5-5.0)
--- NOTE | 2019-07-22 22:56 | ED ---
GI/ HPI - HPI Summary HPI Summary: 38-year-old female presents with abdominal pain for the past couple days. States that she hasn't been feeling very well. States they took her kidney function and was told it was low and to come here. She admits to flank pain. She has a history of kidney stones. States it feels the same. She admits to some potential dysuria. Denies any chest pain or shortness of breath. Admits to generalized bowel pain. She states that she is feels very fatigued and weak. Has had gallbladder and appendix removed in the past. - History of Current Complaint Chief Complaint: EDAbdPain Time Seen by Provider: 07/22/19 20:11 Stated Complaint: KIDNEY FUNCTIONS LOW PER PT Hx Last Menstrual Period: hysterectomy Pain Intensity: 8 - Additional Pertinent History Primary Care Physician: [id number] - Allergy/Home Medications Allergies/Adverse Reactions: Allergies Allergy/AdvReac Type Severity Reaction Status Date / Time buprenorphine [From Suboxone] Allergy Swelling Verified 07/22/19 20:40 cephalexin [From Keflex] Allergy Difficulty Verified 07/22/19 20:40 Breathing/Wheezing ketorolac [From Toradol] Allergy Hives/Diff. Verified 07/22/19 20:40 Breathing/I tching naloxone [From Suboxone] Allergy Swelling Verified 07/22/19 20:40 nitrofurantoin Allergy Difficulty Verified 07/22/19 20:40 [From Macrobid] Breathing orange juice Allergy Difficulty Verified 07/22/19 20:40 Breathing tramadol [From Ultram] Allergy Rash Verified 07/22/19 20:40 trazodone Allergy Difficulty Verified 07/22/19 20:40 Breathing/Wheezing fluoxetine [From Prozac] AdvReac Hallucinati Verified 07/22/19 20:40 ons PMH/Surg Hx/FS Hx/Imm Hx Endocrine/Hematology History: Reports: Hx Thyroid Disease - LUMP SHE IS SEEING SONYA FOR, Hx Anemia Denies: Hx Anticoagulant Therapy, Hx Diabetes Cardiovascular History: Reports: Other Cardiovascular Problems/Disorders - Bradycardia Denies: Hx Congestive Heart Failure, Hx Deep Vein Thrombosis, Hx Hypercholesterolemia, Hx Hypertension, Hx Myocardial Infarction, Hx Pacemaker/ ICD Respiratory History: Reports: Hx Asthma Denies: Hx Chronic Obstructive Pulmonary Disease (COPD), Hx Lung Cancer GI History: Reports: Hx Gastroesophageal Reflux Disease - s/p Kathy Fundoplication, Hx Hiatal Hernia, Other GI Disorders - gerd barretts esophagus Denies: Hx Gall Bladder Disease, Hx Gastrointestinal Bleed, Hx Ulcer, Hx Urosepsis History: Reports: Hx Kidney Stones, Other Problems/Disorders - renal stones/ frequent diarrhea from gag reflex Denies: Hx Renal Disease - "decreased right kidney function" per pt. 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 She sees a therapist., Hx Inpatient Treatment, Hx Community Mental Health Tx, Hx Bipolar Disorder, Hx Suicide Attempt - yesterday took 30 Hydroxyzine pills+ "a concoction", Hx Substance Abuse - Narcotics,heroin,cocaine : sober since 05/03, Other Psychiatric Issues/Disorders - Borderline personality disorder Denies: Hx Eating Disorder, Hx Panic Disorder, Hx of Violent Episodes Against Others - Cancer History Cancer Type, Location and Year: Pre-cancer of espophagus-Tx with oral medication , Barretts Esophagus - RESOLVED WITH KATHY FUNDOPLICATION - Surgical History Surgery Procedure, Year, and Place: CHOLECYSTECTOMY, L5 DISC REMOVAL, APPENDECTOMY, TONSILLECTOMY, FULL FACIAL RECONSTRUCTION, LASER SURGERY RENAL STONE recent abd surgery 01/2014 - KATHY FUNDOPLICATION;Hysterectomy 01/11/15; Rt PINKY - AMPUTATED TO [address] [place] [address] - Immunization History Date of Tetanus Vaccine: 2018 Date of Influenza Vaccine: none Infectious Disease History: No Infectious Disease History: Reports: Hx of Known/Suspected MRSA - 7 years ago, when got clean from drugs, and 4-5 years ago, in urine Denies: Hx Clostridium Difficile, Hx Hepatitis, Hx Human Immunodeficiency Virus (HIV), Hx Shingles, Hx Tuberculosis, History Other Infectious Disease, Traveled Outside the [place] in Last 30 Days - Family History Known Family History: Positive: Cardiac Disease, Hypertension, Diabetes, Other - kidney stones; mom - pancreatic CA - Social History Alcohol Use: Rare Hx Substance Use: Yes - Sober since 05/03 Substance Use Type: Reports: None Substance Use Comment - Amount & Last Used: heroin and cocaine-clean x 7 years Hx Tobacco Use: Yes Smoking Status (MU): Current Every Day Smoker Type: Cigarettes Amount Used/How Often: 1 ppd Length of Time of Smoking/Using Tobacco: >20 years Have You Smoked in the Last Year: Yes Review of Systems Negative: Fever Negative: Chest Pain Negative: Shortness Of Breath Positive: Abdominal Pain, Vomiting, Nausea All Other Systems Reviewed And Are Negative: Yes Physical Exam Triage Information Reviewed: Yes Vital Signs On Initial Exam: Initial Vitals Temp Pulse Resp BP Pulse Ox 97.4 F 75 18 147/100 97 07/22/19 17:47 07/22/19 17:47 07/22/19 17:47 07/22/19 17:47 07/22/19 17:47 Vital Signs Reviewed: Yes Appearance: Positive: Well-Appearing Skin: Positive: Warm, Dry Head/Face: Positive: Normal Head/Face Inspection Eyes: Positive: Normal, Conjunctiva Clear ENT: Positive: Pharynx normal Respiratory/Lung Sounds: Positive: Clear to Auscultation, Breath Sounds Present Cardiovascular: Positive: Normal, RRR Abdomen Description: Positive: Soft, Other: - tenderness right flank and RUQ Bowel Sounds: Positive: Present Musculoskeletal: Positive: Normal Neurological: Positive: Normal Psychiatric: Positive: Normal Diagnostics - Vital Signs Vital Signs Temp Pulse Resp BP Pulse Ox 07/22/19 22:31 16 07/22/19 21:02 58 97 07/22/19 20:54 18 07/22/19 20:53 56 133/79 94 07/22/19 20:18 57 96 07/22/19 20:17 68 137/77 96 07/22/19 17:47 97.4 F 75 18 147/100 97 - Laboratory Lab Results: Lab Results 07/22/19 07/22/19 07/22/19 Range/Units 21:02 21:03 21:03 WBC 11.9 H (3.5-10.8) 10^3/uL RBC 4.50 (3.70-4.87) 10^6 /uL Hgb 13.3 (12.0-16.0) g/dL Hct 40 (35-47) % MCV 88 (80-97) fL MCH 30 (27-31) pg MCHC 34 (31-36) g/dL RDW 14 (10-15) % Plt Count 296 (150-450) 10^3/uL MPV 8.2 (7.4-10.4) fL Neut % (Auto) 67.7 % Lymph % (Auto) 21.3 % Hart % (Auto) 8.6 % Eos % (Auto) 1.1 % Baso % (Auto) 1.3 % Absolute Neuts (auto) 8.0 H (1.5-7.7) 10^3/ul Absolute Lymphs (auto) 2.5 (1.0-4.8) 10^3/ul Absolute Monos (auto) 1.0 H (0-0.8) 10^3/ul Absolute Eos (auto) 0.1 (0-0.6) 10^3/ul Absolute Basos (auto) 0.2 (0-0.2) 10^3/ul Absolute Nucleated RBC 0.0 10^3/ul Nucleated RBC % 0.1 Sodium 139 (135-145) mmol/L Potassium 4.4 (3.5-5.0) mmol/L Chloride 108 (101-111) mmol/L Carbon Dioxide 24 (22-32) mmol/L Anion Gap 7 (2-11) mmol/L BUN 14 (6-24) mg/dL Creatinine 0.89 (0.51-0.95) mg/dL Est GFR ( Amer) 85.0 (>60) Est GFR (Non-Af Amer) 70.2 (>60) BUN/Creatinine Ratio 15.7 (8-20) Glucose 93 (70-100) mg/dL Lactic Acid (0.5-2.0) mmol/L Calcium 8.5 L (8.6-10.3) mg/dL Magnesium 2.0 (1.9-2.7) mg/dL Total Bilirubin 0.20 (0.2-1.0) mg/dL AST 8 L (13-39) U/L ALT 8 (7-52) U/L Alkaline Phosphatase 65 (34-104) U/L Troponin I 0.00 (<0.04) ng/mL C-Reactive Protein 13.39 H (<8.01) mg/L Total Protein 6.4 (6.4-8.9) g/dL Albumin 3.7 (3.2-5.2) g/dL Globulin 2.7 (2-4) g/dL Albumin/Globulin Ratio 1.4 (1-3) TSH 1.12 (0.34-5.60) mcIU/mL Urine Color Yellow Urine Appearance Cloudy Urine pH 5.0 (5-9) Ur Specific [place] 1.021 (1.010-1.030) Urine Protein Negative (Negative) Urine Ketones Negative (Negative) Urine Blood 1+ A (Negative) Urine Nitrate Negative (Negative) Urine Bilirubin Negative (Negative) Urine Urobilinogen Negative (Negative) Ur Leukocyte Esterase Negative (Negative) Urine WBC (Auto) Trace(0-5/hpf) (Absent) Urine RBC (Auto) 1+(3-5/hpf) A (Absent) Ur Squamous Epith Cells Present A (Absent) Urine Bacteria Absent (Absent) Urine Glucose Negative (Negative) 07/22/19 Range/Units 21:03 WBC (3.5-10.8) 10^3/uL RBC (3.70-4.87) 10^6 /uL Hgb (12.0-16.0) g/dL Hct (35-47) % MCV (80-97) fL MCH (27-31) pg MCHC (31-36) g/dL RDW (10-15) % Plt Count (150-450) 10^3/uL MPV (7.4-10.4) fL Neut % (Auto) % Lymph % (Auto) % Hart % (Auto) % Eos % (Auto) % Baso % (Auto) % Absolute Neuts (auto) (1.5-7.7) 10^3/ul Absolute Lymphs (auto) (1.0-4.8) 10^3/ul Absolute Monos (auto) (0-0.8) 10^3/ul Absolute Eos (auto) (0-0.6) 10^3/ul Absolute Basos (auto) (0-0.2) 10^3/ul Absolute Nucleated RBC 10^3/ul Nucleated RBC % Sodium (135-145) mmol/L Potassium (3.5-5.0) mmol/L Chloride (101-111) mmol/L Carbon Dioxide (22-32) mmol/L Anion Gap (2-11) mmol/L BUN (6-24) mg/dL Creatinine (0.51-0.95) mg/dL Est GFR ( Amer) (>60) Est GFR (Non-Af Amer) (>60) BUN/Creatinine Ratio (8-20) Glucose (70-100) mg/dL Lactic Acid 0.6 (0.5-2.0) mmol/L Calcium (8.6-10.3) mg/dL Magnesium (1.9-2.7) mg/dL Total Bilirubin (0.2-1.0) mg/dL AST (13-39) U/L ALT (7-52) U/L Alkaline Phosphatase (34-104) U/L Troponin I (<0.04) ng/mL C-Reactive Protein (<8.01) mg/L Total Protein (6.4-8.9) g/dL Albumin (3.2-5.2) g/dL Globulin (2-4) g/dL Albumin/Globulin Ratio (1-3) TSH (0.34-5.60) mcIU/mL Urine Color Urine Appearance Urine pH (5-9) Ur Specific [place] (1.010-1.030) Urine Protein (Negative) Urine Ketones (Negative) Urine Blood (Negative) Urine Nitrate (Negative) Urine Bilirubin (Negative) Urine Urobilinogen (Negative) Ur Leukocyte Esterase (Negative) Urine WBC (Auto) (Absent) Urine RBC (Auto) (Absent) Ur Squamous Epith Cells (Absent) Urine Bacteria (Absent) Urine Glucose (Negative) Result Diagrams: 07/22/19 21:03 07/22/19 21:03 Lab Statement: Any lab studies that have been ordered have been reviewed, and results considered in the medical decision making process. - CT abd CT Interpretation Completed By: Radiologist Summary of CT Findings: IMPRESSION: 1. No CT findings to correlate with patient' s symptomatology. Specifically no obstructing renal or ureteral calculi. 2. Moderate hiatal hernia. 3. Left ovarian simple cyst. No followup imaging indicated per ACR guidelines. - EKG No standard instances Cardiac Rate: Bradycardia EKG Rhythm: Sinus Bradycardia Re-Evaluation - Re-Evaluation First Eval Change: Improved Comment: pain is now returning Second Eval Re-Evaluation Time: 23:16 Change: Improved Comment: feels good GIGU Course/Dx - Course Course Of Treatment: 38-year-old female presents with abdominal pain for the past couple days. States that she hasn't been feeling very well. States they took her kidney function and was told it was low and to come here. She admits to flank pain. She has a history of kidney stones. States it feels the same. She admits to some potential dysuria. Denies any chest pain or shortness of breath. Admits to generalized bowel pain. She states that she is feels very fatigued and weak. Has had gallbladder and appendix removed in the past. On exam lungs clear to auscultation. Tenderness in her upper quadrant and right flank. CT shows no abnormality. white blood cell count normal. liver function normal. Kidney function normal. Gave pain became medication and feeling better. urine likely contaminant. will wait for final culture to treat if needed. Told to follow up with primary. Patient understands and agrees the plan. - Diagnoses Differential Diagnoses - Female: Pyelonephritis, Urinary Tract Infection, Ureteral Calculi Provider Diagnoses: Flank pain Discharge ED - Sign-Out/Discharge Documenting (check all that apply): Patient Departure Patient Received Moderate/Deep Sedation with Procedure: No - Discharge Plan Condition: Good Disposition: HOME Patient Education Materials: Flank Pain (ED) Referrals: Kartik Francisco MD [Primary Care Provider] - Additional Instructions: Drink small amounts of fluid as tolerated When able to eat follow BRAT diet: Bananas, rice, applesauce, toast Take Tylenol for pain as needed every 6 hours Follow up with primary within 5 days Return to ED if develop any new or worsening symptoms - Billing Disposition and Condition Condition: GOOD Disposition: Home - Attestation Statements Provider Attestation: I was available for consultation for this patient. I did not evaluate the patient or participate in any medical decision making or disposition decisions unless I am specifically named in the chart as having consulted on the patient. If I have consulted on the patient, please see my own ED note on the patient encounter. Jeremi Garcia MD
[2019-07-22 23:15] VITALS: BP 122/67
== END 2019-07-22 23:16 | disposition home or self-care (01) ==
LOC: ED 17:41
DX: R10.84 Generalized abdominal pain (principal); E03.9 Hypothyroidism, unspecified; R00.1 Bradycardia, unspecified; K21.9 Gastro-esophageal reflux disease without esophagitis; Z87.442 Personal history of urinary calculi; F17.210 Nicotine dependence, cigarettes, uncomplicated; R11.2 Nausea with vomiting, unspecified
CPT/HCPCS: 36415; 74176; 80053; 81003; 81015; 83605; 83735; 84443; 84484; 85025; 86140; 87086; 93005; 96361; 96374; 96375; 96376; 99283; J2270; J2405

== ENCOUNTER 2019-07-23 16:48 | Emergency (ER) | payer OTHER ==
[2019-07-23] MEDS: NS 0.9% 1000 ML** 2,000 ML IV ONE (17:20)
[2019-07-23] MEDS: diPHENhydraMINE IV* 50 MG/ML 1 ml VIAL (BENADRYL) IV ONE (17:21)
[2019-07-23] MEDS: methylPREDNISolone 125 MG* 2 ML VIAL IV ONE (17:27)
[2019-07-23] MEDS: Famotidine IV* 10 MG/ML 2 ML (20 mg) IV SLOW PU ONE (17:27)
[2019-07-23 17:37] LABS: ABS Basophils 0.1 10^3/ul (0-0.2); ABS Eosinophils 0.1 10^3/ul (0-0.6); ABS Neutrophils 5.3 10^3/ul (1.5-7.7); Eosinophil % 0.9 %; Hematocrit 37 % (35-47); Hemoglobin 12.5 g/dL (12.0-16.0); Lymphocyte % 23.6 %; Mean Corpuscular HGB Conc 33 g/dL (31-36); Mean Corpuscular Hemoglobin 29 pg (27-31); Mean Corpuscular Volume 88 fL (80-97); Mean Platelet Volume 8.1 fL (7.4-10.4); Nucleated Red Blood Cells % 0.1; Platelet Count 288 10^3/uL (150-450); Red Blood Count 4.26 10^6 /uL (3.70-4.87); Red Cell Distribution Width 14 % (10-15); White Blood Count 8.5 10^3/uL (3.5-10.8)
[2019-07-23 17:43] LABS: INR 1.02 (0.82-1.09)
[2019-07-23 18:00] LABS: Albumin 3.6 g/dL (3.2-5.2); Albumin/Globulin Ratio 1.6 (1-3); BUN/Creatinine Ratio 14.3 (8-20); C Reactive Protein 14.31 mg/L (<8.01); Calcium 8.1 mg/dL (8.6-10.3); EGFR African American 90.9 (>60); EGFR Non-African American 75.1 (>60); Globulin 2.3 g/dL (2-4); Magnesium 1.9 mg/dL (1.9-2.7); Potassium 3.8 mmol/L (3.5-5.0); Total Bilirubin 0.2 mg/dL (0.2-1.0); Total Protein 5.9 g/dL (6.4-8.9)
[2019-07-23 19:13] LABS: Urine Appearance Cloudy; Urine Bacteria 1+ (Absent); Urine Bilirubin Negative (Negative); Urine Blood 1+ (Negative); Urine Color Yellow; Urine Glucose Negative (Negative); Urine Ketones Negative (Negative); Urine Nitrite Negative (Negative); Urine Protein Negative (Negative); Urine Red Blood Cell Trace(0-2/hpf) (Absent); Urine Specific Gravity 1.011 (1.010-1.030); Urine Squamous Epithelial Cell Present (Absent); Urine Urobilinogen Negative (Negative); Urine White Blood Cell Absent (Absent)
--- NOTE | 2019-07-23 21:34 | ED ---
Allergic Reaction/Systemic - HPI Summary HPI Summary: Pt is a 38 y/o F presenting to the ED via EMS with a chief complaint of allergic reaction after bee and wasp stings. Pt woke up with on 07/23/19 with a suspected bee sting and swelling above the left eye. 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 Pt was dizzy in the bathroom with the person she cares for, and she suddenly felt stinging on her arm and on several points on her back. When she looked at her arm, she noticed saw a wasp and felt she would have a syncopal episode, but recovered. At that time, pt also reports CP, SOB, voice hoarseness, tongue swelling, and throat discomfort. She promptly called EMS at around 16:13. [place] [facility] [place] kidney function problems. Pts symptoms have since resolved after Benadryl 50mg IV from EMS and being given 0.3 mg of an EpiPen injection by EMS, but pt reports itchiness in the areas she was stung. Pt has prior hx allergy to beestings and she keeps an EpiPen with her, but could not locate the EpiPen when stung for the second time. Pt was called on 07/22/19 and told she had low kidney function and was told to go to the ED where she was told she was dehydrated. Pt has a FMHx of heart failure, kidney failure, and her father passed one year ago from sepsis. Pt smokes cigarettes. 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 Pt has a PSHx of hysterectomy and no longer has menstrual periods. Allergies noted. - History of Current Complaint Chief Complaint: EDAllergicReaction Time Seen by Provider: 07/23/19 17:07 Hx Obtained From: Patient, EMS Hx Last Menstrual Period: hysterectomy Onset/Duration: Sudden Onset, Gradual Onset, Started hours ago Timing: Constant Severity Initially: Moderate Severity Currently: Mild Pain Intensity: 0 Pain Scale Used: 0-10 Numeric Location: Diffuse Character: Pruritus - Areas of wasp and bee stings Aggravating Factor(s): Nothing Alleviating Factor(s): Antihistamines - Benadryl, Epinephrine - 0.3 mg Associated Signs And Symptoms: Positive: Chest Pain, Difficulty Breathing, Hoarseness, Lightheadedness, Throat Tightening, Other: - Positive pre-syncope, dizziness, drowsiness, SOB, tongue swelling, throat discomfort, pruritis at sites of stings. - Related Hx Possible Reaction To: Insect - bees and wasps - Allergies/Home Medications Allergies/Adverse Reactions: Allergies Allergy/AdvReac Type Severity Reaction Status Date / Time buprenorphine [From Suboxone] Allergy Swelling Verified 07/22/19 20:40 cephalexin [From Keflex] Allergy Difficulty Verified 07/22/19 20:40 Breathing/Wheezing ketorolac [From Toradol] Allergy Hives/Diff. Verified 07/22/19 20:40 Breathing/I tching naloxone [From Suboxone] Allergy Swelling Verified 07/22/19 20:40 nitrofurantoin Allergy Difficulty Verified 07/22/19 20:40 [From Macrobid] Breathing orange juice Allergy Difficulty Verified 07/22/19 20:40 Breathing tramadol [From Ultram] Allergy Rash Verified 07/22/19 20:40 trazodone Allergy Difficulty Verified 07/22/19 20:40 Breathing/Wheezing fluoxetine [From Prozac] AdvReac Hallucinati Verified 07/22/19 20:40 ons Home Medications: Home Medications Albuterol HFA INHALER* [Ventolin HFA Inhaler*] 1 puff INH Q4H PRN 07/23/19 [ History Confirmed 07/23/19] PMH/Surg Hx/FS Hx/Imm Hx Previously Healthy: No Endocrine/Hematology History: Reports: Hx Thyroid Disease, Hx Anemia Denies: Hx Anticoagulant Therapy, Hx Diabetes Cardiovascular History: Reports: Other Cardiovascular Problems/Disorders - Bradycardia Denies: Hx Congestive Heart Failure, Hx Deep Vein Thrombosis, Hx Hypercholesterolemia, Hx Hypertension, Hx Myocardial Infarction, Hx Pacemaker/ ICD Respiratory History: Reports: Hx Asthma Denies: Hx Chronic Obstructive Pulmonary Disease (COPD), Hx Lung Cancer GI History: Reports: Hx Gastroesophageal Reflux Disease - s/p Pravin Fundoplication, Hx Hiatal Hernia, Other GI Disorders - Gray's esophagus Denies: Hx Gall Bladder Disease, Hx Gastrointestinal Bleed, Hx Ulcer, Hx Urosepsis History: Reports: Hx Kidney Stones, Hx Renal Disease - "decreased right kidney function" per pt. 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 She sees a therapist., Hx Inpatient Treatment, Hx Community Mental Health Tx, Hx Bipolar Disorder, Hx Suicide Attempt, Hx Substance Abuse - Narcotics,heroin,cocaine: sober since 05/03, Other Psychiatric Issues/Disorders - Borderline personality disorder Denies: Hx Eating Disorder, Hx Panic Disorder, Hx of Violent Episodes Against Others - Cancer History Cancer Type, Location and Year: Pre-cancer of espophagus-Tx with oral medication , Gray's Esophagus - RESOLVED WITH PRAVIN FUNDOPLICATION - Surgical History Surgical History: Yes Surgery Procedure, Year, and Place: CHOLECYSTECTOMY, L5 DISC REMOVAL, APPENDECTOMY, TONSILLECTOMY, FULL FACIAL RECONSTRUCTION, LASER SURGERY RENAL STONE recent abd surgery 01/2014 - PRAVIN FUNDOPLICATION;Hysterectomy 01/11/15; Rt PINKY - AMPUTATED TO [address] [place] [address] - Immunization History Date of Tetanus Vaccine: 2017 Date of Influenza Vaccine: none Infectious Disease History: Yes Infectious Disease History: Reports: Hx of Known/Suspected MRSA - 7 years ago, when got clean from drugs, and 4-5 years ago, in urine Denies: Hx Clostridium Difficile, Hx Hepatitis, Hx Human Immunodeficiency Virus (HIV), Hx Shingles, Hx Tuberculosis, History Other Infectious Disease, Traveled Outside the [place] in Last 30 Days - Family History Known Family History: Positive: Cardiac Disease, Hypertension, Diabetes, Other - kidney stones; mom - pancreatic CA - Social History 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, 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 Lives: With Family - Alcohol Use: Occasionally Hx Substance Use: Yes - Sober since 05/03 Substance Use Type: Reports: None Substance Use Comment - Amount & Last Used: heroin and cocaine-clean x 7 years Hx Tobacco Use: Yes Smoking Status (MU): Heavy Every Day Tobacco Smoker Type: Cigarettes Amount Used/How Often: 1 ppd Length of Time of Smoking/Using Tobacco: >20 years Have You Smoked in the Last Year: Yes Review of Systems Constitutional: Negative Positive: Other - Positive tongue swelling, voice hoarseness, throat discomfort Positive: Chest Pain Positive: Shortness Of Breath Gastrointestinal: Negative Musculoskeletal: Negative Positive: Other - Pruritis in sites of insect stings Neurological: Other - Positive pre-syncope, dizziness, drowsiness Psychological: Normal All Other Systems Reviewed And Are Negative: Yes Physical Exam - Summary Physical Exam Summary: Appearance: Ill-appearing, no acute pain distress, obese Skin: Warm, color reflects adequate perfusion, dry, facial redness, swelling above left eye, redness of entire back, no urticaria, bee sting site in left shoulder and right lower ribs. Head: Normal Head/Face inspection, atraumatic, swelling above left eyelid as above Eyes: Conjunctiva clear ENT: Normal inspection, no pharyngeal edema or uvula edema Neck: Supple, no nodes, no JVD Respiratory: Lungs clear, normal breath sounds, no respiratory distress Cardio: RRR, No murmur, pulses normal, brisk capillary refill Abdomen: Soft, nontender Bowel sounds: Present Musculoskeletal: Strength Intact/ROM intact, no calf tenderness, no edema. Psychological: Normal Neuro: Alert, muscle tone normal, no focal deficit Triage Information Reviewed: Yes Vital Signs On Initial Exam: Initial Vitals BP 101/69 07/23/19 16:56 Vital Signs Reviewed: Yes Procedures - Sedation Patient Received Moderate/Deep Sedation with Procedure: No Diagnostics - Vital Signs Vital Signs Temp Pulse Resp BP Pulse Ox 07/23/19 19:56 59 17 128/85 97 07/23/19 19:26 57 20 112/54 98 07/23/19 19:00 58 13 98 07/23/19 18:26 61 15 105/62 97 07/23/19 18:00 56 16 98 07/23/19 17:56 59 18 105/55 98 07/23/19 17:26 50 14 107/69 98 07/23/19 17:08 62 13 96 07/23/19 17:06 14 113/60 07/23/19 16:57 98.7 F 58 18 101/69 99 07/23/19 16:56 101/69 - Laboratory Lab Results: Lab Results 07/23/19 07/23/19 07/23/19 Range/Units 17:30 17:30 17:30 WBC 8.5 (3.5-10.8) 10^3/uL RBC 4.26 (3.70-4.87) 10^6 /uL Hgb 12.5 (12.0-16.0) g/dL Hct 37 (35-47) % MCV 88 (80-97) fL MCH 29 (27-31) pg MCHC 33 (31-36) g/dL RDW 14 (10-15) % Plt Count 288 (150-450) 10^3/uL MPV 8.1 (7.4-10.4) fL Neut % (Auto) 62.8 % Lymph % (Auto) 23.6 % [place] % (Auto) 11.8 % Eos % (Auto) 0.9 % Baso % (Auto) 0.9 % Absolute Neuts (auto) 5.3 (1.5-7.7) 10^3/ul Absolute Lymphs (auto) 2.0 (1.0-4.8) 10^3/ul Absolute Monos (auto) 1.0 H (0-0.8) 10^3/ul Absolute Eos (auto) 0.1 (0-0.6) 10^3/ul Absolute Basos (auto) 0.1 (0-0.2) 10^3/ul Absolute Nucleated RBC 0.0 10^3/ul Nucleated RBC % 0.1 INR (Anticoag Therapy) 1.02 (0.82-1.09) Sodium (135-145) mmol/L Potassium (3.5-5.0) mmol/L Chloride (101-111) mmol/L Carbon Dioxide (22-32) mmol/L Anion Gap (2-11) mmol/L BUN (6-24) mg/dL Creatinine (0.51-0.95) mg/dL Est GFR ( Amer) (>60) Est GFR (Non-Af Amer) (>60) BUN/Creatinine Ratio (8-20) Glucose (70-100) mg/dL Lactic Acid 0.9 (0.5-2.0) mmol/L Calcium (8.6-10.3) mg/dL Magnesium (1.9-2.7) mg/dL Total Bilirubin (0.2-1.0) mg/dL AST (13-39) U/L ALT (7-52) U/L Alkaline Phosphatase (34-104) U/L Troponin I (<0.04) ng/mL C-Reactive Protein (<8.01) mg/L Total Protein (6.4-8.9) g/dL Albumin (3.2-5.2) g/dL Globulin (2-4) g/dL Albumin/Globulin Ratio (1-3) Urine Color Urine Appearance Urine pH (5-9) Ur Specific [place] (1.010-1.030) Urine Protein (Negative) Urine Ketones (Negative) Urine Blood (Negative) Urine Nitrate (Negative) Urine Bilirubin (Negative) Urine Urobilinogen (Negative) Ur Leukocyte Esterase (Negative) Urine WBC (Auto) (Absent) Urine RBC (Auto) (Absent) Ur Squamous Epith Cells (Absent) Urine Bacteria (Absent) Urine Glucose (Negative) 07/23/19 07/23/19 Range/Units 17:30 19:00 WBC (3.5-10.8) 10^3/uL RBC (3.70-4.87) 10^6 /uL Hgb (12.0-16.0) g/dL Hct (35-47) % MCV (80-97) fL MCH (27-31) pg MCHC (31-36) g/dL RDW (10-15) % Plt Count (150-450) 10^3/uL MPV (7.4-10.4) fL Neut % (Auto) % Lymph % (Auto) % [place] % (Auto) % Eos % (Auto) % Baso % (Auto) % Absolute Neuts (auto) (1.5-7.7) 10^3/ul Absolute Lymphs (auto) (1.0-4.8) 10^3/ul Absolute Monos (auto) (0-0.8) 10^3/ul Absolute Eos (auto) (0-0.6) 10^3/ul Absolute Basos (auto) (0-0.2) 10^3/ul Absolute Nucleated RBC 10^3/ul Nucleated RBC % INR (Anticoag Therapy) (0.82-1.09) Sodium 140 (135-145) mmol/L Potassium 3.8 (3.5-5.0) mmol/L Chloride 110 (101-111) mmol/L Carbon Dioxide 24 (22-32) mmol/L Anion Gap 6 (2-11) mmol/L BUN 12 (6-24) mg/dL Creatinine 0.84 (0.51-0.95) mg/dL Est GFR ( Amer) 90.9 (>60) Est GFR (Non-Af Amer) 75.1 (>60) BUN/Creatinine Ratio 14.3 (8-20) Glucose 101 H (70-100) mg/dL Lactic Acid (0.5-2.0) mmol/L Calcium 8.1 L (8.6-10.3) mg/dL Magnesium 1.9 (1.9-2.7) mg/dL Total Bilirubin 0.20 (0.2-1.0) mg/dL AST 8 L (13-39) U/L ALT 8 (7-52) U/L Alkaline Phosphatase 60 (34-104) U/L Troponin I 0.00 (<0.04) ng/mL C-Reactive Protein 14.31 H (<8.01) mg/L Total Protein 5.9 L (6.4-8.9) g/dL Albumin 3.6 (3.2-5.2) g/dL Globulin 2.3 (2-4) g/dL Albumin/Globulin Ratio 1.6 (1-3) Urine Color Yellow Urine Appearance Cloudy Urine pH 5.0 (5-9) Ur Specific [place] 1.011 (1.010-1.030) Urine Protein Negative (Negative) Urine Ketones Negative (Negative) Urine Blood 1+ A (Negative) Urine Nitrate Negative (Negative) Urine Bilirubin Negative (Negative) Urine Urobilinogen Negative (Negative) Ur Leukocyte Esterase Negative (Negative) Urine WBC (Auto) Absent (Absent) Urine RBC (Auto) Trace(0-2/hpf) (Absent) Ur Squamous Epith Cells Present A (Absent) Urine Bacteria 1+ A (Absent) Urine Glucose Negative (Negative) Result Diagrams: 07/23/19 17:30 07/23/19 17:30 Lab Statement: Any lab studies that have been ordered have been reviewed, and results considered in the medical decision making process. - Radiology Chest X-ray Radiology Interpretation Completed By: Radiologist Summary of Radiographic Findings: Chest x-ray IMPRESSION: No radiographic evidence of acute cardiopulmonary disease. Reviewed by ED physician. - EKG 18:34 Cardiac Rate: Bradycardia - 57 BPM EKG Rhythm: Sinus Bradycardia ST Segment: Non-Specific Ectopy: None Summary of EKG Findings: EKG at 18:34 shows 57 BPM with sinus bradycardia, normal AVIVCT, normal QTc, no ectopy, no change compared with 07/22/19, no acute changes. Reviewed and interpreted by ED physician. Re-Evaluation - Re-Evaluation First Eval Re-Evaluation Time: 19:35 Change: Unchanged Comment: Patient states she still has some itching. Redness has improved. Patient was able to ambulate to the bathroom unassisted. Will continue to observe. Second Eval Re-Evaluation Time: 21:05 Change: Improved Comment: Patient feels well. Itching is controlled. Redness is gone. Patient still has some left upper eyelid swelling. Patient denies chest pain, shortness of breath, and throat tightness. Patient states she still has EpiPens at home and does not need a new prescription. States she is ready for discharge. Third Eval Re-Evaluation Time: 21:25 Change: Unchanged Comment: While awaiting final discharge, and unidentified male called and stated that patient "pulled out her IV and was leaving and was going to commit suicide." I went to reevaluate patient at this time, and patient was sitting calmly on the stretcher. There was no bleeding at her IV site and patient had not discontinued her own IV. When asked about this phone call and whether she was suicidal, patient states that she had a disagreement with her . Patient told her , "I'm done". Patient states that she meant she was done with her tonight, and that she wanted to go home and be alone and get some sleep after the Benadryl. Patient states that her called her boss, Rogelio Braden, who is the patient's boss for being a home health aide. Rogelio Braden's phone number is [phone]. Patient states it was her boss that called the emergency department with the concern of whether patient was suicidal. Patient states her texted her about this, and she just called her boss and explained that she was not suicidal. Patient's boss was satisfied with this response, according to the patient. Patient states that she has mental health medications and that she has been taking them. Patient states she has had prior suicidal gestures. Patient states that she is not suicidal or homicidal at this time. Patient states that she feels safe going home. Patient states her will not be there tonight. Patient states she has a contract for safety with mental health. Patient contracts with [facility] for safety. Patient states she is ready for discharge. She does not wish a mental health evaluation at this time. Patient states she would not need mental health admission for any acute mental health evaluation at this time. Patient states all of this is a result of a disagreement with her and a misunderstanding by him of her words. Pt is mentally competent to describe this incident and to contract for safety. She states that after she spoke with her boss, he was not concerned anymore. Allergic Reaction Course/Dx - Course Course Of Treatment: Pt is a 38 y/o F presenting to the ED via EMS with a chief complaint of allergic reaction after bee and wasp stings. Pt woke up with on 11/10 with a suspected bee sting and swelling above the left eye. 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 Pt was dizzy in the bathroom with the person she cares for, and she suddenly felt stinging on her arm and on several points on her back. When she looked at her arm, she noticed saw a wasp and felt she would have a syncopal episode, but recovered. At that time, pt also reports CP, SOB, voice hoarseness, tongue swelling, and throat discomfort. She promptly called EMS at around 16:13. [place] [facility] [place] for kidney function problems. Pts symptoms have since resolved after she was given Benadryl 50mg IV and being given 0.3 mg of an EpiPen injection by EMS, but pt reports itchiness in the areas she was stung. EKG at 18:34 shows 57 BPM with sinus bradycardia, normal AVIVCT, normal QTc, no ectopy, no change compared with 07/22/19,no acute changes. In the ED course, pt was given diphenhydramine 50 mg IV, famotidine 40 mg IV, methylprednisolone 125 mg IV, and fluids. Laboratory abnormal findings: absolute monos 1.0, glucose 101, calcium 8.1, AST 8, C-reactive protein 14.31, total protein 5.9, urine blood 1+, urine squamous epith cells present, urine bacteria 1+. Chest x-ray IMPRESSION: No radiographic evidence of acute cardiopulmonary disease. Pt will be discharged hon[facility] with a diagnosis of anaphylaxis. Follow up with Dr. Francisco within 2 days. - Diagnoses Differential Diagnosis/HQI/PQRI: Positive: Anaphylaxis, Angioedema, Bronchospasm , Local Allergic Reaction, Urticaria Provider Diagnoses: Anaphylaxis - Critical Care Time Critical Care Time: 30-74 min - 30 mins Discharge ED - Sign-Out/Discharge Documenting (check all that apply): Patient Departure - Discharge - Discharge Plan Condition: Stable Disposition: HOME Prescriptions: Famotidine TAB* [Pepcid 20 MG TAB*] 40 mg PO DAILY #10 tab predniSONE TAB* [Deltasone 20 MG TAB*] 40 mg PO DAILY #10 tab Patient Education Materials: Anaphylaxis (ED) Referrals: Kartik Francisco MD [Primary Care Provider] - 2 Days Additional Instructions: You were prescribed Pepcid and prednisone, please take them as directed. Additionally, take Benadryl 50 mg, four times a day, for the next 48 hours, and as needed afterwards. Follow up with your primary care physician within two days. Return to ED for any new or worsening symptoms. - Billing Disposition and Condition Condition: STABLE Disposition: Home - Attestation Statements Document Initiated by Kurtibe: Yes Documenting Scribe: Shavon Best Provider For Whom Paco is Documenting (Include Credential): Kajal Hernandez MD. Scribe Attestation: Shavon Charles scribed for Kajal Hernandez MD. on 07/24/19 at 0101. Scribe Documentation Reviewed: Yes Provider Attestation: The documentation as recorded by the Shavon orozco accurately reflects the service I personally performed and the decisions made by , Kajal Hernandez MD. Status of Scribe Document: Viewed
[2019-07-23 21:42] VITALS: BP 109/88
== END 2019-07-23 21:15 | disposition home or self-care (01) ==
LOC: ED 16:48
DX: T78.2XXA Anaphylactic shock, unspecified, initial encounter (principal); E07.9 Disorder of thyroid, unspecified; D64.9 Anemia, unspecified; J45.909 Unspecified asthma, uncomplicated; K21.9 Gastro-esophageal reflux disease without esophagitis; F41.9 Anxiety disorder, unspecified; F32.9 Major depressive disorder, single episode, unspecified; F17.210 Nicotine dependence, cigarettes, uncomplicated; Z90.49 Acquired absence of other specified parts of digestive tract; Z88.6 Allergy status to analgesic agent; Z88.1 Allergy status to other antibiotic agents; Z88.5 Allergy status to narcotic agent; Z88.8 Allergy status to other drugs, medicaments and biological substances
CPT/HCPCS: 36415; 71046; 80053; 81003; 83605; 83735; 84484; 85025; 85610; 86140; 93005; 96361; 96374; 96375; 99282; J1200; J2930

== ENCOUNTER 2019-08-04 22:56 | Emergency (ER) | payer SELFPAY ==
[2019-08-04] MEDS ORDERED: NS 0.9% 1000 ML** 3,000 ML IV ONE (23:39)
[2019-08-04] MEDS ORDERED: Ondansetron INJ* 2 MG/ML VIAL IV ONE (23:39)
[2019-08-04] MEDS ORDERED: Morphine 4 MG/ML VIAL (1 ml) 4 MG/ML VIAL IV ONE (23:39)
[2019-08-04 23:55] LABS: ABS Basophils 0.1 10^3/ul (0-0.2); ABS Eosinophils 0.2 10^3/ul (0-0.6); ABS Lymphocytes 2.8 10^3/ul (1.0-4.8); ABS Neutrophils 6.7 10^3/ul (1.5-7.7); Eosinophil % 1.4 %; Hematocrit 40 % (35-47); Hemoglobin 13.4 g/dL (12.0-16.0); Mean Corpuscular HGB Conc 34 g/dL (31-36); Mean Corpuscular Hemoglobin 29 pg (27-31); Mean Corpuscular Volume 87 fL (80-97); Mean Platelet Volume 8.1 fL (7.4-10.4); Nucleated Red Blood Cells % 0.1; Platelet Count 259 10^3/uL (150-450); Red Cell Distribution Width 14 % (10-15); White Blood Count 10.7 10^3/uL (3.5-10.8)
[2019-08-05 00:13] LABS: ALT 8 U/L (7-52); Albumin 3.8 g/dL (3.2-5.2); Albumin/Globulin Ratio 1.4 (1-3); Alkaline Phosphatase 60 U/L (34-104); BUN/Creatinine Ratio 20.2 (8-20); Blood Urea Nitrogen 17 mg/dL (6-24); C Reactive Protein 17.16 mg/L (<8.01); CO2 Carbon Dioxide 22 mmol/L (22-32); Calcium 8.7 mg/dL (8.6-10.3); EGFR African American 90.9 (>60); EGFR Non-African American 75.1 (>60); Globulin 2.7 g/dL (2-4); Glucose 121 mg/dL (70-100); Sodium 140 mmol/L (135-145); Total Protein 6.5 g/dL (6.4-8.9)
[2019-08-05 00:14] LABS: Chloride 112 mmol/L (101-111)
[2019-08-05 00:19] LABS: HCG Pregnancy < 0.60 mIU/mL
[2019-08-05 00:28] LABS: AST 9 U/L (13-39); Anion Gap 6 mmol/L (2-11); Potassium 4.1 mmol/L (3.5-5.0)
--- NOTE | 2019-08-05 00:32 | ED ---
GI/ HPI - HPI Summary HPI Summary: Patient is a 38 y/o F presenting to [facility] with complaints of abdominal pain, N/V /D, decreased appetite, and subjective fever. Sx have been present for the past week. Abdominal pain is diffuse and waxes and wanes in intensity. She denies hematemesis and blood in stool. PMHx of thyroid disease, anemia, asthma, kidney stones, GERD, bipolar disorder, substance abuse, anxiety and depression. PSHx of appendectomy, cholecystectomy, hysterectomy. On triage, pain is rated 8/10, nothing is noted to aggravate/alleviate Sx. Home medications and allergies are reviewed. - History of Current Complaint Chief Complaint: EDNauseaVomitDiarrh Time Seen by Provider: 08/04/19 23:34 Stated Complaint: VOMITING, DIARRHEA Hx Obtained From: Patient Hx Last Menstrual Period: hysterectomy Onset/Duration: Started Weeks Ago, Still Present Timing: Lasting Weeks Severity: Severe Pain Intensity: 8 Location of Pain: Diffuse Associated Signs and Symptoms: Positive: Nausea, Vomiting, Diarrhea, Change in Appetite, Abdominal Pain Aggravating Factor(s): Nothing Alleviating Factor(s): Nothing - Additional Pertinent History Primary Care Physician: [id number] - Allergy/Home Medications Allergies/Adverse Reactions: Allergies Allergy/AdvReac Type Severity Reaction Status Date / Time buprenorphine [From Suboxone] Allergy Swelling Verified 08/04/19 23:02 cephalexin [From Keflex] Allergy Difficulty Verified 08/04/19 23:02 Breathing/Wheezing ketorolac [From Toradol] Allergy Hives/Diff. Verified 08/04/19 23:02 Breathing/I tching naloxone [From Suboxone] Allergy Swelling Verified 08/04/19 23:02 nitrofurantoin Allergy Difficulty Verified 08/04/19 23:02 [From Macrobid] Breathing orange juice Allergy Difficulty Verified 08/04/19 23:02 Breathing tramadol [From Ultram] Allergy Rash Verified 08/04/19 23:02 trazodone Allergy Difficulty Verified 08/04/19 23:02 Breathing/Wheezing fluoxetine [From Prozac] AdvReac Hallucinati Verified 08/04/19 23:02 ons PMH/Surg Hx/FS Hx/Imm Hx Endocrine/Hematology History: Reports: Hx Thyroid Disease, Hx Anemia Denies: Hx Anticoagulant Therapy, Hx Diabetes Cardiovascular History: Reports: Other Cardiovascular Problems/Disorders - Bradycardia Denies: Hx Congestive Heart Failure, Hx Deep Vein Thrombosis, Hx Hypercholesterolemia, Hx Hypertension, Hx Myocardial Infarction, Hx Pacemaker/ ICD Respiratory History: Reports: Hx Asthma Denies: Hx Chronic Obstructive Pulmonary Disease (COPD), Hx Lung Cancer GI History: Reports: Hx Gastroesophageal Reflux Disease - s/p Pravin Fundoplication, Hx Hiatal Hernia, Other GI Disorders - Gray's esophagus Denies: Hx Gall Bladder Disease, Hx Gastrointestinal Bleed, Hx Ulcer, Hx Urosepsis History: Reports: Hx Kidney Stones, Hx Renal Disease - "decreased right kidney function" per pt., Other Problems/Disorders - renal stones/ frequent diarrhea from gag reflex Musculoskeletal History: Reports: Hx Back Problems, Other Musculoskeletal History - spinal dysplasia, 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 She sees a therapist., Hx Inpatient Treatment, Hx Community Mental Health Tx, Hx Bipolar Disorder, Hx Suicide Attempt, Hx Substance Abuse - Narcotics,heroin,cocaine: sober since 05/03, Other Psychiatric Issues/Disorders - Borderline personality disorder Denies: Hx Eating Disorder, Hx Panic Disorder, Hx of Violent Episodes Against Others - Cancer History Cancer Type, Location and Year: Pre-cancer of espophagus-Tx with oral medication , Gray's Esophagus - RESOLVED WITH PRAVIN FUNDOPLICATION - Surgical History Surgery Procedure, Year, and Place: CHOLECYSTECTOMY, L5 DISC REMOVAL, APPENDECTOMY, TONSILLECTOMY, FULL FACIAL RECONSTRUCTION, LASER SURGERY RENAL STONE recent abd surgery 01/2014 - PRAVIN FUNDOPLICATION;Hysterectomy 01/11/15; Rt PINKY - AMPUTATED TO [address] [place] [address] - Immunization History Date of Tetanus Vaccine: 2018 Date of Influenza Vaccine: none Infectious Disease History: Yes Infectious Disease History: Reports: Hx of Known/Suspected MRSA - 7 years ago, when got clean from drugs, and 4-5 years ago, in urine Denies: Hx Clostridium Difficile, Hx Hepatitis, Hx Human Immunodeficiency Virus (HIV), Hx Shingles, Hx Tuberculosis, History Other Infectious Disease, Traveled Outside the [place] in Last 30 Days - Family History Known Family History: Positive: Cardiac Disease, Hypertension, Diabetes, Other - kidney stones; mom - pancreatic CA - Social History Alcohol Use: Occasionally Hx Substance Use: Yes - Sober since 05/03 Substance Use Type: Reports: None Substance Use Comment - Amount & Last Used: heroin and cocaine-clean x 7 years Hx Tobacco Use: Yes Smoking Status (MU): Heavy Every Day Tobacco Smoker Type: Cigarettes Amount Used/How Often: 1 ppd Length of Time of Smoking/Using Tobacco: >20 years Have You Smoked in the Last Year: Yes Review of Systems Positive: Fever - subjective, on vitals, temp is 98 F Gastrointestinal: Other - positive - decreased appetite; negative - hematemsis, blood in stool Positive: Abdominal Pain, Vomiting, Diarrhea, Nausea All Other Systems Reviewed And Are Negative: Yes Physical Exam - Summary Physical Exam Summary: Appearance: Well-appearing, obese, lying in bed comfortably Skin: Warm, dry, no obvious rash Eyes: sclera anicteric, no conjunctival pallor ENT: mucous membranes moist, pharynx appears normal Neck: Supple, nontender Respiratory: Clear to auscultation, no signs of respiratory distress Cardiovascular: Normal S1, S2. No murmurs. Normal distal pulses in tibial and radial bilaterally. Abdomen: Upper abdominal tenderness with no peritoneal signs. Soft, normal active bowel sounds present Musculoskeletal: Normal, Strength/ROM Intact Neurological: A&Ox3, awake and alert, mentation is normal, speech is fluent and appropriate Psychiatric: affect is normal, does not appear anxious or depressed Triage Information Reviewed: Yes Vital Signs On Initial Exam: Initial Vitals Temp Pulse Resp BP Pulse Ox 98.0 F 83 15 149/75 98 08/04/19 23:00 08/04/19 23:00 08/04/19 23:00 08/04/19 23:00 08/04/19 23:00 Vital Signs Reviewed: Yes Procedures - Sedation Patient Received Moderate/Deep Sedation with Procedure: No Diagnostics - Vital Signs Vital Signs Temp Pulse Resp BP Pulse Ox 08/05/19 00:24 20 08/04/19 23:00 98.0 F 83 15 149/75 98 - Laboratory Lab Results: Lab Results 08/04/19 08/04/19 08/04/19 Range/Units 23:48 23:48 23:48 WBC 10.7 (3.5-10.8) 10^3/uL RBC 4.60 (3.70-4.87) 10^6 /uL Hgb 13.4 (12.0-16.0) g/dL Hct 40 (35-47) % MCV 87 (80-97) fL MCH 29 (27-31) pg MCHC 34 (31-36) g/dL RDW 14 (10-15) % Plt Count 259 (150-450) 10^3/uL MPV 8.1 (7.4-10.4) fL Neut % (Auto) 62.1 % Lymph % (Auto) 26.0 % [place] % (Auto) 9.2 % Eos % (Auto) 1.4 % Baso % (Auto) 1.3 % Absolute Neuts (auto) 6.7 (1.5-7.7) 10^3/ul Absolute Lymphs (auto) 2.8 (1.0-4.8) 10^3/ul Absolute Monos (auto) 1.0 H (0-0.8) 10^3/ul Absolute Eos (auto) 0.2 (0-0.6) 10^3/ul Absolute Basos (auto) 0.1 (0-0.2) 10^3/ul Absolute Nucleated RBC 0.0 10^3/ul Nucleated RBC % 0.1 Sodium 140 (135-145) mmol/L Potassium Pending Chloride 112 H (101-111) mmol/L Carbon Dioxide 22 (22-32) mmol/L Anion Gap Pending BUN 17 (6-24) mg/dL Creatinine 0.84 (0.51-0.95) mg/dL Est GFR ( Amer) 90.9 (>60) Est GFR (Non-Af Amer) 75.1 (>60) BUN/Creatinine Ratio 20.2 H (8-20) Glucose 121 H (70-100) mg/dL Lactic Acid 1.0 (0.5-2.0) mmol/L Calcium 8.7 (8.6-10.3) mg/dL Total Bilirubin 0.20 (0.2-1.0) mg/dL AST Pending ALT 8 (7-52) U/L Alkaline Phosphatase 60 (34-104) U/L C-Reactive Protein 17.16 H (<8.01) mg/L Total Protein 6.5 (6.4-8.9) g/dL Albumin 3.8 (3.2-5.2) g/dL Globulin 2.7 (2-4) g/dL Albumin/Globulin Ratio 1.4 (1-3) Lipase 37 (11.0-82.0) U/L Beta HCG, Quant < 0.60 mIU/mL Result Diagrams: 08/04/19 23:48 08/04/19 23:48 Lab Statement: Any lab studies that have been ordered have been reviewed, and results considered in the medical decision making process. GIGU Course/Dx - Course Course Of Treatment: Patient is a 38 y/o F presenting to [facility] with complaints of abdominal pain, N/V/D, decreased appetite, and subjective fever. Sx have been present for the past week. Abdominal pain is diffuse and waxes and wanes in intensity. She denies hematemesis and blood in stool. PMHx of thyroid disease , anemia, asthma, kidney stones, GERD, bipolar disorder, substance abuse, anxiety and depression. PSHx of appendectomy, cholecystectomy, hysterectomy. Patient is a 38 y/o F presenting to [facility] with complaints of abdominal pain, N/V /D, decreased appetite, and subjective fever. Sx have been present for the past week. Abdominal pain is diffuse and waxes and wanes in intensity. She denies hematemesis and blood in stool. PMHx of thyroid disease, anemia, asthma, kidney stones, GERD, bipolar disorder, substance abuse, anxiety and depression. PSHx of appendectomy, cholecystectomy, hysterectomy. Patient has upper abdominal tenderness with no peritoneal signs. Bloodwork was obtained and WNL with exception of absolute monos 1, glucose 112, BUN/creatinine ratio 20.2, glucose 121, AST 9, CRP 17.16. During ED course, patient received Zofran 8 mg IV, morphine 4 mg IV, bentyl 10 mg PO, and fluids. Patient reported improvement of Sx after medications, she was discharged to home with PCP follow up as well as prescriptions for Zofran and Bentyl. - Diagnoses Provider Diagnoses: Gastroenteritis Discharge ED - Sign-Out/Discharge Documenting (check all that apply): Patient Departure - discharge - Discharge Plan Condition: Good Disposition: HOME Prescriptions: Dicyclomine CAP* [Bentyl CAP*] 10 mg PO ACHS PRN #12 cap PRN Reason: Pain - Moderate Ondansetron ODT TAB* [Zofran 4 MG Odt TAB*] 8 mg PO Q6H PRN #12 tab.odt PRN Reason: Nausea Patient Education Materials: Gastroenteritis (ED) Referrals: Kartik Francisco MD [Primary Care Provider] - - Billing Disposition and Condition Condition: GOOD Disposition: Home - Attestation Statements Document Initiated by Paco: Yes Documenting Scribe: DIMA TOLEDO Provider For Whom Paco is Documenting (Include Credential): LUIS STALLWORTH MD Scribe Attestation: DIMA Charles, ludyed for LUIS STALLWORTH MD on 08/06/19 at 0323. Scribe Documentation Reviewed: Yes Provider Attestation: The documentation as recorded by the DIMA orozco accurately reflects the service I personally performed and the decisions made by me, LUIS STALLWORTH MD Status of Scribe Document: Viewed
[2019-08-05] MEDS ORDERED: Dicyclomine CAP* 10 MG PO ONE (00:54)
[2019-08-05 02:03] VITALS: BP 101/45
== END 2019-08-05 02:03 | disposition home or self-care (01) ==
LOC: ED 22:56
DX: K52.9 Noninfective gastroenteritis and colitis, unspecified (principal); R10.84 Generalized abdominal pain; Z90.89 Acquired absence of other organs; Z90.49 Acquired absence of other specified parts of digestive tract; Z90.710 Acquired absence of both cervix and uterus; Z89.021 Acquired absence of right finger(s); Z88.1 Allergy status to other antibiotic agents; Z88.5 Allergy status to narcotic agent; Z88.8 Allergy status to other drugs, medicaments and biological substances; F17.200 Nicotine dependence, unspecified, uncomplicated
CPT/HCPCS: 36415; 80053; 83605; 83690; 84702; 85025; 86140; 96361; 96374; 96375; 99283; A9270-GY; J2270; J2405

== ENCOUNTER 2019-08-19 22:39 | Emergency (ER) | payer SELFPAY ==
[2019-08-20 00:29] LABS: ABS Basophils 0.1 10^3/ul (0-0.2); ABS Eosinophils 0.2 10^3/ul (0-0.6); ABS Lymphocytes 3.2 10^3/ul (1.0-4.8); ABS Monocytes 0.9 10^3/ul (0-0.8); ABS Neutrophils 6.2 10^3/ul (1.5-7.7); Eosinophil % 1.5 %; Hematocrit 38 % (35-47); Hemoglobin 12.6 g/dL (12.0-16.0); Lymphocyte % 30.2 %; Mean Corpuscular HGB Conc 34 g/dL (31-36); Mean Corpuscular Hemoglobin 29 pg (27-31); Mean Corpuscular Volume 86 fL (80-97); Mean Platelet Volume 7.9 fL (7.4-10.4); Nucleated Red Blood Cells % 0.1; Platelet Count 269 10^3/uL (150-450); Red Blood Count 4.35 10^6 /uL (3.70-4.87); Red Cell Distribution Width 14 % (10-15); White Blood Count 10.6 10^3/uL (3.5-10.8)
[2019-08-20 00:47] LABS: Albumin 3.7 g/dL (3.2-5.2); Albumin/Globulin Ratio 1.4 (1-3); BUN/Creatinine Ratio 12.1 (8-20); C Reactive Protein 17.27 mg/L (<8.01); Calcium 8.8 mg/dL (8.6-10.3); EGFR African American 68.7 (>60); EGFR Non-African American 56.8 (>60); Globulin 2.7 g/dL (2-4); Potassium 4.1 mmol/L (3.5-5.0); Total Bilirubin 0.3 mg/dL (0.2-1.0); Total Protein 6.4 g/dL (6.4-8.9)
[2019-08-20 00:53] LABS: HCG Pregnancy 4.49 mIU/mL
--- NOTE | 2019-08-20 01:01 | ED ---
Abdominal Pain/Female - HPI Summary HPI Summary: This patient is a 38 year old F presenting to [facility] accompanied by a male bar gauger and lubricator tender with a chief complaint of ABD pain since 2129 yesterday. The ABD pain is in the suprapubic area and more in the left than right lower ABD. Pt states she was fine all day until the symptoms came. She says it feels like she is in labor. Pt had a hysterectomy. She did not take any medications for the pain. She also notes pressure in her vaginal area. The patient rates the pain 9/10 in severity. Symptoms aggravated by nothing. Symptoms alleviated by nothing. Patient denies fever, nausea, dysuria, vaginal bleeding and discharge. - History of Current Complaint Chief Complaint: EDAbdPain Stated Complaint: ABD PAIN PER EMS Time Seen by Provider: 08/20/19 00:38 Hx Obtained From: Patient Hx Last Menstrual Period: hysterectomy ?: No Onset/Duration: Sudden Onset, Lasting Hours - since 2129 yesterday Timing: Constant Severity Initially: Severe Severity Currently: Severe Pain Intensity: 9 Pain Scale Used: 0-10 Numeric Location: Suprapubic, Other - more left than right lower ABD Radiates: No Character: Other: - pt describes the pain as if being in labor Aggravating Factor(s): Nothing Alleviating Factor(s): Nothing Associated Signs and Symptoms: Positive: Other: - positive - ABD pain. negative - dysuria, vaginal discharge.. Negative: Fever, Vaginal Bleeding, Nausea Allergies/Adverse Reactions: Allergies Allergy/AdvReac Type Severity Reaction Status Date / Time buprenorphine [From Suboxone] Allergy Swelling Verified 08/19/19 22:58 cephalexin [From Keflex] Allergy Difficulty Verified 08/19/19 22:58 Breathing/Wheezing ketorolac [From Toradol] Allergy Hives/Diff. Verified 08/19/19 22:58 Breathing/I tching naloxone [From Suboxone] Allergy Swelling Verified 08/19/19 22:58 nitrofurantoin Allergy Difficulty Verified 08/19/19 22:58 [From Macrobid] Breathing orange juice Allergy Difficulty Verified 08/19/19 22:58 Breathing tramadol [From Ultram] Allergy Rash Verified 08/19/19 22:58 trazodone Allergy Difficulty Verified 08/19/19 22:58 Breathing/Wheezing fluoxetine [From Prozac] AdvReac Hallucinati Verified 08/19/19 22:58 ons PMH/Surg Hx/FS Hx/Imm Hx Previously Healthy: No Endocrine/Hematology History: Reports: Hx Thyroid Disease, Hx Anemia Denies: Hx Anticoagulant Therapy, Hx Diabetes Cardiovascular History: Reports: Other Cardiovascular Problems/Disorders - Bradycardia Denies: Hx Congestive Heart Failure, Hx Deep Vein Thrombosis, Hx Hypercholesterolemia, Hx Hypertension, Hx Myocardial Infarction, Hx Pacemaker/ ICD Respiratory History: Reports: Hx Asthma Denies: Hx Chronic Obstructive Pulmonary Disease (COPD), Hx Lung Cancer GI History: Reports: Hx Gastroesophageal Reflux Disease - s/p Pravin Fundoplication, Hx Hiatal Hernia, Other GI Disorders - Gray's esophagus Denies: Hx Gall Bladder Disease, Hx Gastrointestinal Bleed, Hx Ulcer, Hx Urosepsis History: Reports: Hx Kidney Stones, Hx Renal Disease - "decreased right kidney function" per pt., Other Problems/Disorders - renal stones/ frequent diarrhea from gag reflex Musculoskeletal History: Reports: Hx Back Problems, Other Musculoskeletal History - spinal dysplasia, 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 She sees a therapist., Hx Inpatient Treatment, Hx Community Mental Health Tx, Hx Bipolar Disorder, Hx Suicide Attempt, Hx Substance Abuse - Narcotics,heroin,cocaine: sober since 05/03, Other Psychiatric Issues/Disorders - Borderline personality disorder Denies: Hx Eating Disorder, Hx Panic Disorder, Hx of Violent Episodes Against Others - Cancer History Cancer Type, Location and Year: Pre-cancer of espophagus-Tx with oral medication , Gray's Esophagus - RESOLVED WITH RPAVIN FUNDOPLICATION - Surgical History Surgical History: Yes Surgery Procedure, Year, and Place: CHOLECYSTECTOMY, L5 DISC REMOVAL, APPENDECTOMY, TONSILLECTOMY, FULL FACIAL RECONSTRUCTION, LASER SURGERY RENAL STONE recent abd surgery 01/2014 - PRAVIN FUNDOPLICATION;Hysterectomy 01/11/15; Rt PINKY - AMPUTATED TO [address] [place] [address] - Immunization History Date of Tetanus Vaccine: 2018 Date of Influenza Vaccine: none Infectious Disease History: No Infectious Disease History: Reports: Hx of Known/Suspected MRSA - 7 years ago, when got clean from drugs, and 4-5 years ago, in urine Denies: Hx Clostridium Difficile, Hx Hepatitis, Hx Human Immunodeficiency Virus (HIV), Hx Shingles, Hx Tuberculosis, History Other Infectious Disease, Traveled Outside the [place] in Last 30 Days - Family History Known Family History: Positive: Cardiac Disease, Hypertension, Diabetes, Other - kidney stones; mom - pancreatic CA - Social History Alcohol Use: Occasionally Hx Substance Use: Yes - Sober since 05/03 Substance Use Type: Reports: None Substance Use Comment - Amount & Last Used: heroin and cocaine-clean x 7 years Hx Tobacco Use: Yes Smoking Status (MU): Heavy Every Day Tobacco Smoker Type: Cigarettes Amount Used/How Often: 1 ppd Length of Time of Smoking/Using Tobacco: >20 years Have You Smoked in the Last Year: Yes Review of Systems Negative: Fever Positive: Abdominal Pain. Negative: Nausea Genitourinary: Other - negative - vaginal bleeding and discharge. Negative: dysuria All Other Systems Reviewed And Are Negative: Yes Physical Exam - Summary Physical Exam Summary: General: Well-developed, Morbidly obese FEMALE. No acute distress. HEENT: Normocephalic, Atraumatic. Eyes: Conjuctiva normal, PERRL. Ears: TMs within normal limits. Nares: (-) discharge, (-) erythema. Oropharynx: Clear, mucous membranes moist, (-) exudates. Neck: Soft, FROM, (-) lymphadenopathy, (-) thyromegaly, (-) JVD. Cardiovascular: Normal sinus rhythm, (-) murmur. Lungs: Clear to auscultation bilaterally (-) wheezes, (-) rales, (-) rhonchi. Abdomen: Soft, Mild suprapubic tenderness and LLQ tenderness, non-distended, (- ) organomegaly, normal bowel sounds. Back: (-) CVA tenderness Extremities: No edema. Skin: Warm, dry, (-) rash. Neuro: Alert and oriented x3, no focal deficits. Psychiatric: Mood normal, affect normal. Triage Information Reviewed: Yes Vital Signs On Initial Exam: Initial Vitals Temp Pulse Resp BP Pulse Ox 99.1 F 75 18 168/99 97 10/28/19 22:51 08/19/19 22:51 08/19/19 22:51 08/19/19 22:51 08/19/19 22:51 Vital Signs Reviewed: Yes Procedures - Sedation Patient Received Moderate/Deep Sedation with Procedure: No Diagnostics - Vital Signs Vital Signs Temp Pulse Resp BP Pulse Ox 08/19/19 22:51 99.1 F 75 18 168/99 97 - Laboratory Lab Results: Lab Results 08/20/19 08/20/19 08/20/19 Range/Units 00:23 00:23 00:23 WBC 10.6 (3.5-10.8) 10^3/uL RBC 4.35 (3.70-4.87) 10^6 /uL Hgb 12.6 (12.0-16.0) g/dL Hct 38 (35-47) % MCV 86 (80-97) fL MCH 29 (27-31) pg MCHC 34 (31-36) g/dL RDW 14 (10-15) % Plt Count 269 (150-450) 10^3/uL MPV 7.9 (7.4-10.4) fL Neut % (Auto) 58.4 % Lymph % (Auto) 30.2 % [place] % (Auto) 8.8 % Eos % (Auto) 1.5 % Baso % (Auto) 1.1 % Absolute Neuts (auto) 6.2 (1.5-7.7) 10^3/ul Absolute Lymphs (auto) 3.2 (1.0-4.8) 10^3/ul Absolute Monos (auto) 0.9 H (0-0.8) 10^3/ul Absolute Eos (auto) 0.2 (0-0.6) 10^3/ul Absolute Basos (auto) 0.1 (0-0.2) 10^3/ul Absolute Nucleated RBC 0.0 10^3/ul Nucleated RBC % 0.1 Sodium 138 (135-145) mmol/L Potassium 4.1 (3.5-5.0) mmol/L Chloride 110 (101-111) mmol/L Carbon Dioxide 23 (22-32) mmol/L Anion Gap 5 (2-11) mmol/L BUN 13 (6-24) mg/dL Creatinine 1.07 H (0.51-0.95) mg/dL Est GFR ( Amer) 68.7 (>60) Est GFR (Non-Af Amer) 56.8 (>60) BUN/Creatinine Ratio 12.1 (8-20) Glucose 96 (70-100) mg/dL Lactic Acid 0.7 (0.5-2.0) mmol/L Calcium 8.8 (8.6-10.3) mg/dL Total Bilirubin 0.30 (0.2-1.0) mg/dL AST 10 L (13-39) U/L ALT 8 (7-52) U/L Alkaline Phosphatase 62 (34-104) U/L C-Reactive Protein 17.27 H (<8.01) mg/L Total Protein 6.4 (6.4-8.9) g/dL Albumin 3.7 (3.2-5.2) g/dL Globulin 2.7 (2-4) g/dL Albumin/Globulin Ratio 1.4 (1-3) Lipase 29 (11.0-82.0) U/L Beta HCG, Quant 4.49 mIU/mL Result Diagrams: 08/20/19 00:23 08/20/19 00:23 Lab Statement: Any lab studies that have been ordered have been reviewed, and results considered in the medical decision making process. - CT Abd/Pel CT Interpretation Completed By: Radiologist Summary of CT Findings: Impression: 1. No CT findings to correlate with patient 's symptomatology. 2. Left ovarian and right parovarian cysts. No followup imaging indicated per. ACR guidelines. 3. Hepatic hemangioma. No followup imaging indicated per ACR guidelines. 4. Small hiatal hernia. These findings were reviewed by Dr. Sanders. Abdominal Pain Fem Course/Dx - Course Course Of Treatment: 38-year-old female complaining of suprapubic pain. Patient requesting pain meds immediately. Notes multiple allergies including Suboxone, naloxone, Toradol and tramadol. Blood work and CAT scan were essentially negative. Although nondiagnostic. Patient discharged to home. Follow-up with PCP. Follow-up sooner for any worsening symptoms. - Diagnoses Provider Diagnoses: Abdominal pain Discharge ED - Sign-Out/Discharge Documenting (check all that apply): Patient Departure - discharge - Discharge Plan Condition: Stable Disposition: HOME Patient Education Materials: Abdominal Pain (ED) Referrals: Kartik Francisco MD [Primary Care Provider] - 3 Days Additional Instructions: Follow up with your primary care provider within 3 days. Return to the ED for any new or worsening symptoms. - Billing Disposition and Condition Condition: STABLE Disposition: Home - Attestation Statements Document Initiated by Kurtibe: Yes Documenting Scribe: Reji Escudero Provider For Whom Kurtibe is Documenting (Include Credential): Dr. Ladonna Sanders MD Scribe Attestation: Reji Charles, scribed for Dr. Ladonna Sanders MD on 08/20/19 at 0444. Scribe Documentation Reviewed: Yes Provider Attestation: The documentation as recorded by the Reji orozco accurately reflects the service I personally performed and the decisions made by me, Dr. Ladonna Sanders MD Status of Scribe Document: Viewed
[2019-08-20 01:11] LABS: Urine Appearance Turbid; Urine Bacteria Absent (Absent); Urine Bilirubin Negative (Negative); Urine Blood 1+ (Negative); Urine Color Yellow; Urine Glucose Negative (Negative); Urine Ketones Negative (Negative); Urine Nitrite Negative (Negative); Urine Protein Negative (Negative); Urine Red Blood Cell 1+(3-5/hpf) (Absent); Urine Specific Gravity 1.017 (1.010-1.030); Urine Squamous Epithelial Cell Present (Absent); Urine Urobilinogen Negative (Negative); Urine White Blood Cell Absent (Absent)
[2019-08-20] MEDS ORDERED: Iodixanol* (CONTRAST) 320 MG/ML 100 ML SDV IV ONE (01:37)
[2019-08-20] MEDS ORDERED: NS 0.9% 1000 ML** 1,000 ML IV ONE (01:42)
[2019-08-20 03:08] VITALS: BP 166/78
== END 2019-08-20 03:07 | disposition home or self-care (01) ==
LOC: ED 22:39
DX: R10.31 Right lower quadrant pain (principal); R10.32 Left lower quadrant pain; N83.202 Unspecified ovarian cyst, left side; D18.09 Hemangioma of other sites; K44.9 Diaphragmatic hernia without obstruction or gangrene; Z90.710 Acquired absence of both cervix and uterus; Z90.89 Acquired absence of other organs; Z89.021 Acquired absence of right finger(s); Z88.1 Allergy status to other antibiotic agents; Z88.5 Allergy status to narcotic agent; Z88.8 Allergy status to other drugs, medicaments and biological substances; F17.210 Nicotine dependence, cigarettes, uncomplicated
CPT/HCPCS: 36415; 74177; 80053; 81003; 81015; 83605; 83690; 84702; 85025; 86140; 99283; Q9967

== ENCOUNTER 2019-08-21 16:38 | Emergency (ER) | payer SELFPAY ==
[2019-08-21 20:57] VITALS: BP 142/80
== END 2019-08-21 22:33 | disposition left against medical advice (07) ==
LOC: ED 16:38
DX: Z53.21 Procedure and treatment not carried out due to patient leaving prior to being seen by health care provider (principal); R10.9 Unspecified abdominal pain; R11.10 Vomiting, unspecified
CPT/HCPCS: 99281

== ENCOUNTER 2019-08-25 08:15 | Emergency (ER) | payer SELFPAY ==
--- NOTE | 2019-08-25 09:40 | ED ---
GI/ HPI - HPI Summary HPI Summary: Patient is a 38 y/o F presenting to [facility] with chief complaint of pelvic pain. She has been evaluated at [facility] multiple times in the past several days for the same issue. CT ABD/PEL was done and negative. Pelvic pain first onset several days ago. She also notes that she had onset of N/V a few days ago as well. Patient states that she has pain with urination and bowel movements, noting that she has to "strain" to produce urine. Patient is sexually active but notes that she has not had any sex in the past month. Vaginal bleeding and discharge denied. PSHx of hysterectomy noted. Hx of bladder prolapse is reported. Patient has not been seen by OBGYN yet. She notes that she does not have health insurance currently. On triage, pain is rated 9/10, standing is noted to aggravate Sx. Home medications and allergies are reviewed. - History of Current Complaint Chief Complaint: EDAbdPain Time Seen by Provider: 08/25/19 09:28 Stated Complaint: PELVIC PAIN Hx Obtained From: Patient Hx Last Menstrual Period: hysterectomy Onset/Duration: Started Days Ago, Still Present Timing: Constant, Lasting Days Current Severity: Severe Pain Intensity: 9 Location of Pain: Other - pelvis Associated Signs and Symptoms: Positive: Nausea, Vomiting, Dysuria, Abdominal Pain - pelvic pain, Other: - has to "strain" to urinate, pain with bowel movements Additional Signs & Symptoms: Negative: Vaginal Bleeding, Vaginal Discharge Aggravating Factor(s): Nothing Alleviating Factor(s): Nothing - Additional Pertinent History Primary Care Physician: [id number] - Allergy/Home Medications Allergies/Adverse Reactions: Allergies Allergy/AdvReac Type Severity Reaction Status Date / Time buprenorphine [From Suboxone] Allergy Swelling Verified 08/25/19 08:22 cephalexin [From Keflex] Allergy Difficulty Verified 08/25/19 08:22 Breathing/Wheezing ketorolac [From Toradol] Allergy Hives/Diff. Verified 08/25/19 08:22 Breathing/I tching naloxone [From Suboxone] Allergy Swelling Verified 08/25/19 08:22 nitrofurantoin Allergy Difficulty Verified 08/25/19 08:22 [From Macrobid] Breathing orange juice Allergy Difficulty Verified 08/25/19 08:22 Breathing Sulfa (Sulfonamide Allergy Difficulty Verified 08/25/19 08:22 Antibiotics) Breathing tramadol [From Ultram] Allergy Rash Verified 08/25/19 08:22 trazodone Allergy Difficulty Verified 08/25/19 08:22 Breathing/Wheezing fluoxetine [From Prozac] AdvReac Hallucinati Verified 08/25/19 08:22 ons PMH/Surg Hx/FS Hx/Imm Hx Previously Healthy: Yes Endocrine/Hematology History: Reports: Hx Thyroid Disease, Hx Anemia Denies: Hx Anticoagulant Therapy, Hx Diabetes Cardiovascular History: Reports: Other Cardiovascular Problems/Disorders - Bradycardia Denies: Hx Congestive Heart Failure, Hx Deep Vein Thrombosis, Hx Hypercholesterolemia, Hx Hypertension, Hx Myocardial Infarction, Hx Pacemaker/ ICD Respiratory History: Reports: Hx Asthma Denies: Hx Chronic Obstructive Pulmonary Disease (COPD), Hx Lung Cancer GI History: Reports: Hx Gastroesophageal Reflux Disease - s/p Pravin Fundoplication, Hx Hiatal Hernia, Other GI Disorders - Gray's esophagus Denies: Hx Gall Bladder Disease, Hx Gastrointestinal Bleed, Hx Ulcer, Hx Urosepsis History: Reports: Hx Kidney Stones, Hx Renal Disease - "decreased right kidney function" per pt., Other Problems/Disorders - renal stones/ frequent diarrhea from gag reflex Musculoskeletal History: Reports: Hx Back Problems, Other Musculoskeletal History - spinal dysplasia, 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 Denies: Hx Rheumatoid Arthritis, Hx Osteoporosis Sensory History: Denies: Hx Contacts or Glasses, Hx Legally Blind, Hx Deafness, Hx Hearing Aid Opthamlomology History: Denies: Hx Contacts or Glasses, Hx Legally Blind EENT History: Denies: Hx Deafness Neurological History: Reports: 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 She sees a therapist., Hx Inpatient Treatment, Hx Community Mental Health Tx, Hx Bipolar Disorder, Hx Suicide Attempt, Hx Substance Abuse - Narcotics,heroin,cocaine: sober since 05/03, Other Psychiatric Issues/Disorders - Borderline personality disorder Denies: Hx Eating Disorder, Hx Panic Disorder, Hx of Violent Episodes Against Others - Cancer History Cancer Type, Location and Year: Pre-cancer of espophagus-Tx with oral medication , Gray's Esophagus - RESOLVED WITH PRAVIN FUNDOPLICATION - Surgical History Surgical History: Yes Surgery Procedure, Year, and Place: CHOLECYSTECTOMY, L5 DISC REMOVAL, APPENDECTOMY, TONSILLECTOMY, FULL FACIAL RECONSTRUCTION, LASER SURGERY RENAL STONE recent abd surgery 01/2014 - PRAVIN FUNDOPLICATION;Hysterectomy 01/11/15; Rt PINKY - AMPUTATED TO [address] [place] [address] - Immunization History Date of Tetanus Vaccine: 2018 Date of Influenza Vaccine: none Infectious Disease History: No Infectious Disease History: Reports: Hx of Known/Suspected MRSA - 7 years ago, when got clean from drugs, and 4-5 years ago, in urine Denies: Hx Clostridium Difficile, Hx Hepatitis, Hx Human Immunodeficiency Virus (HIV), Hx Shingles, Hx Tuberculosis, History Other Infectious Disease, Traveled Outside the [place] in Last 30 Days - Family History Known Family History: Positive: Cardiac Disease, Hypertension, Diabetes, Other - kidney stones; mom - pancreatic CA - Social History Occupation: Employed Full-time Lives: With Family Alcohol Use: Occasionally Hx Substance Use: Yes - Sober since 05/03 Substance Use Type: Reports: None Substance Use Comment - Amount & Last Used: heroin and cocaine-clean x 7 years Hx Tobacco Use: Yes Smoking Status (MU): Heavy Every Day Tobacco Smoker Type: Cigarettes Amount Used/How Often: 1 ppd Length of Time of Smoking/Using Tobacco: >20 years Have You Smoked in the Last Year: Yes Review of Systems Gastrointestinal: Other - pelvic pain Positive: Vomiting, Nausea Genitourinary: Other - negative - vaginal bleeding; positive - pain with BMs, has to "strain" to urinate Positive: dysuria. Negative: discharge - vaginal All Other Systems Reviewed And Are Negative: Yes Physical Exam - Summary Physical Exam Summary: Appearance: The patient is well-nourished in no acute distress and in no acute pain. Skin: The skin is warm and dry, and skin color reflects adequate perfusion. HEENT: The head is normocephalic and atraumatic. The pupils are equal and reactive. The conjunctivae are clear and without drainage. Nares are patent and without drainage. Mouth reveals moist mucous membranes, and the throat is without erythema and exudate. The external ears are intact. The ear canals are patent and without drainage. The tympanic membranes are intact. Neck: The neck is supple with full range of motion and non-tender. There are no carotid bruits. There is no neck vein distension. Respiratory: Chest is non-tender. Lungs are clear to auscultation and breath sounds are symmetrical and equal. Cardiovascular: Heart is regular rate and rhythm. There is no murmur or rub auscultated. There is no peripheral edema and pulses are symmetrical and equal. Abdomen: The abdomen is soft and non-tender. There are normal bowel sounds heard in all four quadrants and there is no organomegaly palpated. Musculoskeletal: There is no back tenderness noted. Extremities are non-tender with full range of motion. There is good capillary refill. There is no peripheral edema or calf tenderness elicited. Neurological: Patient is alert and oriented to person, place and time. The patient has symmetrical motor strength in all four extremities. Cranial nerves are grossly intact. Deep tendon reflexes are symmetrical and equal in all four extremities. Psychiatric: The patient has an appropriate affect and does not exhibit any anxiety or depression. Triage Information Reviewed: Yes Vital Signs On Initial Exam: Initial Vitals Temp Pulse Resp BP Pulse Ox 97.5 F 56 16 125/76 99 08/25/19 08:16 08/25/19 08:16 08/25/19 08:16 08/25/19 08:16 08/25/19 08:16 Vital Signs Reviewed: Yes Procedures - Sedation Patient Received Moderate/Deep Sedation with Procedure: No Diagnostics - Vital Signs Vital Signs Temp Pulse Resp BP Pulse Ox 08/25/19 08:16 97.5 F 56 16 125/76 99 - Laboratory Lab Statement: Any lab studies that have been ordered have been reviewed, and results considered in the medical decision making process. - Ultrasound Transvaginal US Ultrasound Interpretation Completed By: Radiologist Summary of Ultrasound Findings: Transvaginal US IMPRESSION: 1. BILATERAL OVARIAN vs PARAOVARIAN CYSTS MEASURE UP TO 4 CM ON THE RIGHT. THESE ARE. STATISTICALLY BENIGN BUT COULD BE REIMAGED IN 6 MONTHS TO DOCUMENT EXPECTED EVOLUTION. 2. OVARIAN ARTERIAL AND VENOUS WAVEFORMS ARE DETECTED BILATERALLY. 3. HYSTERECTOMY. Reviewed by ED physician. GIGU Course/Dx - Course Course Of Treatment: Ms. Tubbs has had thorough workup for this pelvic pain she's had for about a week. She hasn't had an ultrasound and I obtained one here today. She was nontoxic in appearance with stable vital signs. I recommended [facility] follow-up. She's had a hysterectomy and has not had intercourse for over a month. She is . - Diagnoses Provider Diagnoses: Pelvic pain Discharge ED - Sign-Out/Discharge Documenting (check all that apply): Patient Departure - Discharge - Discharge Plan Condition: Stable Disposition: HOME Patient Education Materials: Pelvic Pain in Women (ED) Referrals: Kartik Francisco MD [Primary Care Provider] - [facility] [Outside] Additional Instructions: Follow up with an [facility] provider in 2-3 days. Return to the Emergency Department for any new or worsening symptoms. - Billing Disposition and Condition Condition: STABLE Disposition: Home - Attestation Statements Document Initiated by Scribe: Yes Documenting Scribe: Shavon BUSTAMANTE Provider For Whom Paco is Documenting (Include Credential): LUIS CHAKRABORTY MD Scribe Attestation: DIMA Charles Susan Amquy, scribed for LUIS CHAKRABORTY MD on 08/25/19 at 1459. Scribe Documentation Reviewed: Yes Provider Attestation: The documentation as recorded by the DIMA orozco Susan Amquy accurately reflects the service I personally performed and the decisions made by LUIS cardenas MD Status of Scribjaylan Document: Viewed
[2019-08-25] MEDS ORDERED: Fluconazole 150 MG TAB PO ONE (12:53)
[2019-08-25 13:32] VITALS: BP 97/84
== END 2019-08-25 13:31 | disposition home or self-care (01) ==
LOC: ED 08:15
DX: R10.2 Pelvic and perineal pain (principal); E07.9 Disorder of thyroid, unspecified; D64.9 Anemia, unspecified; K21.9 Gastro-esophageal reflux disease without esophagitis; F41.9 Anxiety disorder, unspecified; F32.9 Major depressive disorder, single episode, unspecified; F17.210 Nicotine dependence, cigarettes, uncomplicated; Z90.710 Acquired absence of both cervix and uterus; Z90.49 Acquired absence of other specified parts of digestive tract; Z88.1 Allergy status to other antibiotic agents; Z88.5 Allergy status to narcotic agent; Z88.2 Allergy status to sulfonamides; Z88.8 Allergy status to other drugs, medicaments and biological substances
CPT/HCPCS: 76830; 99282; A9270-GY

== ENCOUNTER 2019-09-21 17:48 | Emergency (ER) | payer SELFPAY ==
[2019-09-21] MEDS ORDERED: NS 0.9% 1000 ML** 1,000 ML IV ONE (18:42)
[2019-09-21] MEDS ORDERED: Ondansetron INJ* 2 MG/ML VIAL IV ONE (18:42)
[2019-09-21 19:04] LABS: ABS Basophils 0.1 10^3/ul (0-0.2); ABS Eosinophils 0.1 10^3/ul (0-0.6); ABS Lymphocytes 1.9 10^3/ul (1.0-4.8); ABS Neutrophils 5.9 10^3/ul (1.5-7.7); Eosinophil % 1.3 %; Hematocrit 39 % (35-47); Hemoglobin 13.1 g/dL (12.0-16.0); Lymphocyte % 21.5 %; Mean Corpuscular HGB Conc 34 g/dL (31-36); Mean Corpuscular Hemoglobin 29 pg (27-31); Mean Corpuscular Volume 87 fL (80-97); Mean Platelet Volume 8.1 fL (7.4-10.4); Platelet Count 257 10^3/uL (150-450); Red Blood Count 4.48 10^6 /uL (3.70-4.87); Red Cell Distribution Width 14 % (10-15)
--- NOTE | 2019-09-21 19:11 | ED ---
GI/ HPI - HPI Summary HPI Summary: 38 year old female presents with ear pain for the past couple days. States she' s been having sinus congestion and occasional cough. Denies any sore throat currently. states she thought she was coming down with a cold. states ear pain is worst on the left. Denies any chest pressures or shortness of breath. States that today she started developing left flank pain that radiates down to her left lower abdomen. She stats this feels like the kidney stones and urinary tract infections she has had in the past. She admits to dysuria. She denies any urgency or frequency. She does state has been persistently vomiting. She took some ibuprofen without much relief. Has no medical conditions. - History of Current Complaint Chief Complaint: EDNauseaVomitDiarrh Time Seen by Provider: 09/21/19 18:32 Stated Complaint: VOMITING, EARS AND THROAT PER PT Hx Last Menstrual Period: hysterectomy Pain Intensity: 8 - Additional Pertinent History Primary Care Physician: [id number] - Allergy/Home Medications Allergies/Adverse Reactions: Allergies Allergy/AdvReac Type Severity Reaction Status Date / Time buprenorphine [From Suboxone] Allergy Swelling Verified 09/21/19 17:57 cephalexin [From Keflex] Allergy Difficulty Verified 09/21/19 17:57 Breathing/Wheezing ketorolac [From Toradol] Allergy Hives/Diff. Verified 09/21/19 17:57 Breathing/I tching naloxone [From Suboxone] Allergy Swelling Verified 09/21/19 17:57 nitrofurantoin Allergy Difficulty Verified 09/21/19 17:57 [From Macrobid] Breathing orange juice Allergy Difficulty Verified 09/21/19 17:57 Breathing Sulfa (Sulfonamide Allergy Difficulty Verified 09/21/19 17:57 Antibiotics) Breathing tramadol [From Ultram] Allergy Rash Verified 09/21/19 17:57 trazodone Allergy Difficulty Verified 09/21/19 17:57 Breathing/Wheezing fluoxetine [From Prozac] AdvReac Hallucinati Verified 09/21/19 17:57 ons PMH/Surg Hx/FS Hx/Imm Hx Endocrine/Hematology History: Reports: Hx Thyroid Disease, Hx Anemia Denies: Hx Anticoagulant Therapy, Hx Diabetes Cardiovascular History: Reports: Other Cardiovascular Problems/Disorders - Bradycardia Denies: Hx Congestive Heart Failure, Hx Deep Vein Thrombosis, Hx Hypercholesterolemia, Hx Hypertension, Hx Myocardial Infarction, Hx Pacemaker/ ICD Respiratory History: Reports: Hx Asthma Denies: Hx Chronic Obstructive Pulmonary Disease (COPD), Hx Lung Cancer GI History: Reports: Hx Gastroesophageal Reflux Disease - s/p Deysi Fundoplication, Hx Hiatal Hernia, Other GI Disorders - Gray's esophagus Denies: Hx Gall Bladder Disease, Hx Gastrointestinal Bleed, Hx Ulcer, Hx Urosepsis History: Reports: Hx Kidney Stones, Hx Renal Disease - "decreased right kidney function" per pt., Other Problems/Disorders - renal stones/ frequent diarrhea from gag reflex Musculoskeletal History: Reports: Hx Back Problems, Other Musculoskeletal History - spinal dysplasia, 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 She sees a therapist., Hx Inpatient Treatment, Hx Community Mental Health Tx, Hx Bipolar Disorder, Hx Suicide Attempt, Hx Substance Abuse - Narcotics,heroin,cocaine: sober since 05/03, Other Psychiatric Issues/Disorders - Borderline personality disorder Denies: Hx Eating Disorder, Hx Panic Disorder, Hx of Violent Episodes Against Others - Cancer History Cancer Type, Location and Year: Pre-cancer of espophagus-Tx with oral medication , Gray's Esophagus - RESOLVED WITH DEYSI FUNDOPLICATION - Surgical History Surgery Procedure, Year, and Place: CHOLECYSTECTOMY, L5 DISC REMOVAL, APPENDECTOMY, TONSILLECTOMY, FULL FACIAL RECONSTRUCTION, LASER SURGERY RENAL STONE recent abd surgery 01/2014 - DEYSI FUNDOPLICATION;Hysterectomy 01/11/15; Rt PINKY - AMPUTATED TO [address] [place] [address] - Immunization History Date of Tetanus Vaccine: 2017 Date of Influenza Vaccine: none Immunizations Up to Date: Yes Infectious Disease History: No Infectious Disease History: Reports: Hx of Known/Suspected MRSA - 7 years ago, when got clean from drugs, and 4-5 years ago, in urine Denies: Hx Clostridium Difficile, Hx Hepatitis, Hx Human Immunodeficiency Virus (HIV), Hx Shingles, Hx Tuberculosis, History Other Infectious Disease, Traveled Outside the [place] in Last 30 Days - Family History Known Family History: Positive: Cardiac Disease, Hypertension, Diabetes, Other - kidney stones; mom - pancreatic CA - Social History Alcohol Use: Rare Hx Substance Use: Yes - Sober since 05/03 Substance Use Type: Reports: None Substance Use Comment - Amount & Last Used: heroin and cocaine-clean x 7 years Hx Tobacco Use: Yes Smoking Status (MU): Heavy Every Day Tobacco Smoker Type: Cigarettes Amount Used/How Often: 1 ppd Length of Time of Smoking/Using Tobacco: >20 years Have You Smoked in the Last Year: Yes Review of Systems Negative: Fever Positive: Ear Ache, Nasal Discharge Negative: Chest Pain Positive: Cough. Negative: Shortness Of Breath Positive: Abdominal Pain, Vomiting, Nausea All Other Systems Reviewed And Are Negative: Yes Physical Exam Triage Information Reviewed: Yes Vital Signs On Initial Exam: Initial Vitals Temp Pulse Resp BP Pulse Ox 97.4 F 63 18 124/82 99 09/21/19 17:53 09/21/19 17:53 09/21/19 17:53 09/21/19 17:53 09/21/19 17:53 Vital Signs Reviewed: Yes Appearance: Positive: Well-Appearing Skin: Positive: Warm, Dry Head/Face: Positive: Normal Head/Face Inspection Eyes: Positive: Normal, EOMI, DOMINGO, Conjunctiva Clear ENT: Positive: Pharynx normal, TMs normal, Other - left ear canal mild edema and erythema, pain with manipulation of tragus Respiratory/Lung Sounds: Positive: Clear to Auscultation, Breath Sounds Present Cardiovascular: Positive: Normal, RRR Abdomen Description: Positive: Soft, CVA Tenderness (L), Other: - tenderness left side abd Bowel Sounds: Positive: Present Musculoskeletal: Positive: Normal Neurological: Positive: Normal Psychiatric: Positive: Normal Procedures - Sedation Patient Received Moderate/Deep Sedation with Procedure: No Diagnostics - Vital Signs Vital Signs Temp Pulse Resp BP Pulse Ox 09/21/19 17:53 97.4 F 63 18 124/82 99 - Laboratory Lab Results: Lab Results 09/21/19 Range/Units 18:55 WBC 9.0 (3.5-10.8) 10^3/uL RBC 4.48 (3.70-4.87) 10^6 /uL Hgb 13.1 (12.0-16.0) g/dL Hct 39 (35-47) % MCV 87 (80-97) fL MCH 29 (27-31) pg MCHC 34 (31-36) g/dL RDW 14 (10-15) % Plt Count 257 (150-450) 10^3/uL MPV 8.1 (7.4-10.4) fL Neut % (Auto) 65.4 % Lymph % (Auto) 21.5 % [place] % (Auto) 10.8 % Eos % (Auto) 1.3 % Baso % (Auto) 1.0 % Absolute Neuts (auto) 5.9 (1.5-7.7) 10^3/ul Absolute Lymphs (auto) 1.9 (1.0-4.8) 10^3/ul Absolute Monos (auto) 1.0 H (0-0.8) 10^3/ul Absolute Eos (auto) 0.1 (0-0.6) 10^3/ul Absolute Basos (auto) 0.1 (0-0.2) 10^3/ul Absolute Nucleated RBC 0.0 10^3/ul Nucleated RBC % 0.0 Result Diagrams: 09/21/19 18:55 09/21/19 18:55 Lab Statement: Any lab studies that have been ordered have been reviewed, and results considered in the medical decision making process. - Radiology abd Radiology Interpretation Completed By: Radiologist Summary of Radiographic Findings: IMPRESSION: 1. No CT findings to correlate with patient's symptomatology. Specifically no obstructing renal or ureteral calculi. 2. Mild to moderate hiatal hernia. Re-Evaluation - Re-Evaluation First Eval Re-Evaluation Time: 20:04 Change: Improved Comment: feeling better GIGU Course/Dx - Course Course Of Treatment: 38 year old female presents with ear pain for the past couple days. States she's been having sinus congestion and occasional cough. Denies any sore throat currently. states she thought she was coming down with a cold. states ear pain is worst on the left. Denies any chest pressures or shortness of breath. States that today she started developing left flank pain that radiates down to her left lower abdomen. She stats this feels like the kidney stones and urinary tract infections she has had in the past. She admits to dysuria. She denies any urgency or frequency. She does state has been persistently vomiting. She took some ibuprofen without much relief. Has no medical conditions. On exam left TM normal. Mild edema and erythema of the canal with tenderness of tragus. lungs CTA. Abdomen tenderness on left-sided abdomen and left flank. wbc normal. crp 12. urine no infection. CT shows no acute findings. will discharge with ciprodex and zofran. told follow up with primary. patient understand and agrees with plan. - Diagnoses Differential Diagnoses - Female: Pyelonephritis, Urinary Tract Infection, Ureteral Calculi Provider Diagnoses: Otitis externa, Vomiting, Flank pain Discharge ED - Sign-Out/Discharge Documenting (check all that apply): Patient Departure - Discharge Plan Condition: Good Disposition: HOME Prescriptions: Ondansetron ODT TAB* [Zofran 4 MG Odt TAB*] 4 mg PO Q6H PRN #12 tab.odt PRN Reason: Nausea Patient Education Materials: Otitis Externa (ED), Acute Nausea and Vomiting (ED ) Referrals: Kartik Francisco MD [Primary Care Provider] - Additional Instructions: Can take Zofran every 6 hours as needed for nausea take ciprodex 4 drops twice a day for 7 days Drink small amounts of fluid as tolerated When able to eat follow BRAT diet: Bananas, rice, applesauce, toast Take ibuprofen or Tylenol for pain as needed every 6 hours Follow up with primary within 5 days Return to ED if develop any new or worsening symptoms - Billing Disposition and Condition Condition: GOOD Disposition: Home
[2019-09-21 19:20] LABS: ALT 7 U/L (7-52); AST 8 U/L (13-39); Albumin 3.8 g/dL (3.2-5.2); Albumin/Globulin Ratio 1.6 (1-3); Alkaline Phosphatase 59 U/L (34-104); Anion Gap 6 mmol/L (2-11); BUN/Creatinine Ratio 12.5 (8-20); Blood Urea Nitrogen 10 mg/dL (6-24); C Reactive Protein 12.25 mg/L (<8.01); CO2 Carbon Dioxide 26 mmol/L (22-32); Calcium 8.4 mg/dL (8.6-10.3); Chloride 108 mmol/L (101-111); EGFR African American 96.1 (>60); EGFR Non-African American 79.4 (>60); Globulin 2.4 g/dL (2-4); Glucose 95 mg/dL (70-100); Potassium 3.7 mmol/L (3.5-5.0); Sodium 140 mmol/L (135-145); Total Protein 6.2 g/dL (6.4-8.9)
[2019-09-21 19:26] LABS: HCG Pregnancy < 0.60 mIU/mL
[2019-09-21 19:51] LABS: Urine Appearance Clear; Urine Bilirubin Negative (Negative); Urine Blood 1+ (Negative); Urine Color Yellow; Urine Glucose Negative (Negative); Urine Ketones Negative (Negative); Urine Nitrite Negative (Negative); Urine Protein Negative (Negative); Urine Urobilinogen Negative (Negative)
[2019-09-21 19:53] LABS: Urine Bacteria Absent (Absent); Urine Red Blood Cell 2+(6-10/hpf) (Absent); Urine Squamous Epithelial Cell Present (Absent); Urine White Blood Cell Trace(0-5/hpf) (Absent)
[2019-09-21] MEDS ORDERED: Ciproflox/Dexameth OTIC.SUSP* 7.5 ML BTL LEFT EAR ONE (20:05)
[2019-09-21] MEDS ORDERED: O ndansetron ODT 4MG 5TAB PRPK 4 MG PAK PO ONE (20:05)
[2019-09-21] MEDS ORDERED: Ondansetron TAB* 4 MG ONE (20:29)
[2019-09-21 20:36] VITALS: BP 135/78
== END 2019-09-21 20:08 | disposition home or self-care (01) ==
LOC: ED 17:48
DX: H60.92 Unspecified otitis externa, left ear (principal); R11.10 Vomiting, unspecified; R10.32 Left lower quadrant pain; R30.0 Dysuria; K44.9 Diaphragmatic hernia without obstruction or gangrene; Z87.442 Personal history of urinary calculi; Z90.49 Acquired absence of other specified parts of digestive tract; Z90.710 Acquired absence of both cervix and uterus; Z89.021 Acquired absence of right finger(s); Z88.1 Allergy status to other antibiotic agents; Z88.5 Allergy status to narcotic agent; Z88.2 Allergy status to sulfonamides; Z88.8 Allergy status to other drugs, medicaments and biological substances
CPT/HCPCS: 36415; 74176; 80053; 81003; 81015; 83605; 83690; 84702; 85025; 86140; 87086; 96361; 96374; 99283; A9270-GY; J2405

== ENCOUNTER 2019-09-27 14:55 | Emergency (ER) | payer SELFPAY ==
[2019-09-27 18:08] LABS: ABS Basophils 0.1 10^3/ul (0-0.2); ABS Eosinophils 0.1 10^3/ul (0-0.6); ABS Lymphocytes 2.1 10^3/ul (1.0-4.8); ABS Monocytes 0.8 10^3/ul (0-0.8); ABS Neutrophils 4.8 10^3/ul (1.5-7.7); Eosinophil % 1.3 %; Hematocrit 41 % (35-47); Hemoglobin 14.2 g/dL (12.0-16.0); Lymphocyte % 26.9 %; Mean Corpuscular HGB Conc 35 g/dL (31-36); Mean Corpuscular Hemoglobin 30 pg (27-31); Mean Corpuscular Volume 87 fL (80-97); Platelet Count 287 10^3/uL (150-450); Red Blood Count 4.75 10^6 /uL (3.70-4.87); Red Cell Distribution Width 14 % (10-15); White Blood Count 7.9 10^3/uL (3.5-10.8)
[2019-09-27 18:15] LABS: INR 1.02 (0.82-1.09)
[2019-09-27 18:27] LABS: Albumin 4.1 g/dL (3.2-5.2); Albumin/Globulin Ratio 1.3 (1-3); BUN/Creatinine Ratio 13.4 (8-20); Calcium 9.3 mg/dL (8.6-10.3); EGFR African American 93.4 (>60); EGFR Non-African American 77.2 (>60); Globulin 3.1 g/dL (2-4); Potassium 4.2 mmol/L (3.5-5.0); Total Bilirubin 0.3 mg/dL (0.2-1.0); Total Protein 7.2 g/dL (6.4-8.9)
[2019-09-27] MEDS ORDERED: NS 0.9% 1000 ML** 1,000 ML IV ONE (19:41)
[2019-09-27] MEDS ORDERED: Ondansetron INJ* 2 MG/ML VIAL IV ONE (19:41)
--- NOTE | 2019-09-27 19:47 | ED ---
Complex/Multi-Sys Presentation - HPI Summary HPI Summary: This pt is a 38 Y/O F presenting to [facility] with a CC of palpitations and L sided CP that began [employer]. She states that she was at [employer] when she became diaphoresis , N/V, and had an episode of diarrhea. She states that she began walking back to her car and started having L sided chest pain that was rated a 7/10 in severity and had irregular palpitations. She states that she became dizzy and was very lightheaded. She has abdominal pain that is also rated a 7/10. She denies any LOC and recent fevers. She had a stomach bug last week and believed that the nausea and vomiting was a result of that illness until her palpitations and CP started. She states that she has chills which are a recent onset. She has no aggravating or alleviating symptoms. She states that her father of Sepsis and her mother from [place]. She has a PMHx of thyroid disease, anemia, bradycardia, and chronic kidney disease. - History Of Current Complaint Chief Complaint: EDDysrhythmPalp Time Seen by Provider: 09/27/19 19:29 Hx Obtained From: Patient Onset/Duration: Sudden Onset, Still Present Timing: Constant Severity Currently: Moderate - 7/10 Severity Initially: Moderate Aggravating Factor(s): nothing Alleviating Factor(s): nothing Associated Signs And Symptoms: Positive: Dizziness, SOB, Chest Pain, Palpitations, Nausea, Vomiting, Diarrhea, Abdominal Pain, Diaphoresis, Other - lightheadedness. Negative: Fever Related History: Recent Illness - states a stomach bug last week - Allergies/Home Medications Allergies/Adverse Reactions: Allergies Allergy/AdvReac Type Severity Reaction Status Date / Time buprenorphine [From Suboxone] Allergy Swelling Verified 09/27/19 19:44 cephalexin [From Keflex] Allergy Difficulty Verified 09/27/19 19:44 Breathing/Wheezing ketorolac [From Toradol] Allergy Hives/Diff. Verified 09/27/19 19:44 Breathing/I tching naloxone [From Suboxone] Allergy Swelling Verified 09/27/19 19:44 nitrofurantoin Allergy Difficulty Verified 09/27/19 19:44 [From Macrobid] Breathing orange juice Allergy Difficulty Verified 09/27/19 19:44 Breathing Sulfa (Sulfonamide Allergy Difficulty Verified 09/27/19 19:44 Antibiotics) Breathing tramadol [From Ultram] Allergy Rash Verified 09/27/19 19:44 trazodone Allergy Difficulty Verified 09/27/19 19:44 Breathing/Wheezing fluoxetine [From Prozac] AdvReac Hallucinati Verified 09/27/19 19:44 ons PMH/Surg Hx/FS Hx/Imm Hx Previously Healthy: Yes Endocrine/Hematology History: Reports: Hx Thyroid Disease, Hx Anemia Denies: Hx Anticoagulant Therapy, Hx Diabetes Cardiovascular History: Reports: Other Cardiovascular Problems/Disorders - Bradycardia Denies: Hx Congestive Heart Failure, Hx Deep Vein Thrombosis, Hx Hypercholesterolemia, Hx Hypertension, Hx Myocardial Infarction, Hx Pacemaker/ ICD Respiratory History: Reports: Hx Asthma Denies: Hx Chronic Obstructive Pulmonary Disease (COPD), Hx Lung Cancer GI History: Reports: Hx Gastroesophageal Reflux Disease - s/p Pravin Fundoplication, Hx Hiatal Hernia, Other GI Disorders - Gray's esophagus Denies: Hx Gall Bladder Disease, Hx Gastrointestinal Bleed, Hx Ulcer, Hx Urosepsis History: Reports: Hx Kidney Stones, Hx Renal Disease - "decreased right kidney function" per pt., Other Problems/Disorders - renal stones/ frequent diarrhea from gag reflex Musculoskeletal History: Reports: Hx Back Problems, Other Musculoskeletal History - spinal dysplasia, 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 She sees a therapist., Hx Inpatient Treatment, Hx Community Mental Health Tx, Hx Bipolar Disorder, Hx Suicide Attempt, Hx Substance Abuse - Narcotics,heroin,cocaine: sober since 05/03, Other Psychiatric Issues/Disorders - Borderline personality disorder Denies: Hx Eating Disorder, Hx Panic Disorder, Hx of Violent Episodes Against Others - Cancer History Cancer Type, Location and Year: Pre-cancer of espophagus-Tx with oral medication , Gray's Esophagus - RESOLVED WITH PRAVIN FUNDOPLICATION - Surgical History Surgical History: Yes Surgery Procedure, Year, and Place: CHOLECYSTECTOMY, L5 DISC REMOVAL, APPENDECTOMY, TONSILLECTOMY, FULL FACIAL RECONSTRUCTION, LASER SURGERY RENAL STONE recent abd surgery 01/2014 - PRAVIN FUNDOPLICATION;Hysterectomy 01/11/15; Rt PINKY - AMPUTATED TO [address] [place] [address] - Immunization History Date of Tetanus Vaccine: 2018 Date of Influenza Vaccine: none Immunizations Up to Date: Yes Infectious Disease History: No Infectious Disease History: Reports: Hx of Known/Suspected MRSA - 7 years ago, when got clean from drugs, and 4-5 years ago, in urine Denies: Hx Clostridium Difficile, Hx Hepatitis, Hx Human Immunodeficiency Virus (HIV), Hx Shingles, Hx Tuberculosis, History Other Infectious Disease, Traveled Outside the [place] in Last 30 Days - Family History Known Family History: Positive: Cardiac Disease, Hypertension, Diabetes, Other - kidney stones; mom - pancreatic [place] - Social History Occupation: Employed Full-time Lives: With Family Alcohol Use: Rare Hx Substance Use: Yes - Sober since 05/03 Substance Use Type: Reports: None Substance Use Comment - Amount & Last Used: heroin and cocaine-clean x 7 years Hx Tobacco Use: Yes Smoking Status (MU): Heavy Every Day Tobacco Smoker Type: Cigarettes Amount Used/How Often: 1 ppd Length of Time of Smoking/Using Tobacco: >20 years Have You Smoked in the Last Year: Yes Review of Systems - ROS Summary Review of Systems Summary: Home Medications Medication Instructions Recorded Confirmed Type Albuterol HFA INHALER* [Ventolin 1 puff INH Q4H PRN 07/23/19 09/21/19 History HFA Inhaler*] Constitutional: Other - Lightheadedness Positive: Chills, Skin Diaphoresis. Negative: Fever Positive: Palpitations, Chest Pain - left sided Positive: Shortness Of Breath Positive: Abdominal Pain, Vomiting, Diarrhea, Nausea Neurological: Negative - LOC, Other - POSITIVE: dizziness All Other Systems Reviewed And Are Negative: Yes Physical Exam - Summary Physical Exam Summary: General: Well-developed, obese female. No acute distress. HEENT: Normocephalic, Atraumatic. Eyes: Conjuctiva normal, PERRL. Ears: TMs within normal limits. Nares: (-) discharge, (-) erythema. Oropharynx: Clear, Dry mucous membranes, (-) exudates. Neck: Soft, FROM, (-) lymphadenopathy, (-) thyromegaly, (-) JVD. Cardiovascular: Normal sinus rhythm, (-) murmur. Lungs: Clear to auscultation bilaterally (-) wheezes, (-) rales, (-) rhonchi. Abdomen: Soft, Mild diffuse abdominal tenderness. non-distended, (-) organomegaly, normal bowel sounds. Back: (-) CVA tenderness Extremities: No edema. Skin: Warm, dry, (-) rash. Neuro: Alert and oriented x3, no focal deficits. Psychiatric: Mood normal, affect normal. Triage Information Reviewed: Yes Vital Signs On Initial Exam: Initial Vitals Temp Pulse Resp BP Pulse Ox 97.0 F 59 20 159/81 97 09/27/19 15:03 09/27/19 15:03 09/27/19 15:03 09/27/19 15:03 09/27/19 15:03 Vital Signs Reviewed: Yes Procedures - Sedation Patient Received Moderate/Deep Sedation with Procedure: No Diagnostics - Vital Signs Vital Signs Temp Pulse Resp BP Pulse Ox 09/27/19 19:04 97.8 F 48 18 128/69 98 09/27/19 16:59 98.3 F 56 18 128/80 97 09/27/19 15:03 97.0 F 59 20 159/81 97 - Laboratory Lab Results: Lab Results 09/27/19 09/27/19 09/27/19 Range/Units 18:00 18:00 18:00 WBC 7.9 (3.5-10.8) 10^3/uL RBC 4.75 (3.70-4.87) 10^6 /uL Hgb 14.2 (12.0-16.0) g/dL Hct 41 (35-47) % MCV 87 (80-97) fL MCH 30 (27-31) pg MCHC 35 (31-36) g/dL RDW 14 (10-15) % Plt Count 287 (150-450) 10^3/uL MPV 8.0 (7.4-10.4) fL Neut % (Auto) 60.5 % Lymph % (Auto) 26.9 % [place] % (Auto) 10.2 % Eos % (Auto) 1.3 % Baso % (Auto) 1.1 % Absolute Neuts (auto) 4.8 (1.5-7.7) 10^3/ul Absolute Lymphs (auto) 2.1 (1.0-4.8) 10^3/ul Absolute Monos (auto) 0.8 (0-0.8) 10^3/ul Absolute Eos (auto) 0.1 (0-0.6) 10^3/ul Absolute Basos (auto) 0.1 (0-0.2) 10^3/ul Absolute Nucleated RBC 0.0 10^3/ul Nucleated RBC % 0.0 INR (Anticoag Therapy) 1.02 (0.82-1.09) Sodium 138 (135-145) mmol/L Potassium 4.2 (3.5-5.0) mmol/L Chloride 108 (101-111) mmol/L Carbon Dioxide 24 (22-32) mmol/L Anion Gap 6 (2-11) mmol/L BUN 11 (6-24) mg/dL Creatinine 0.82 (0.51-0.95) mg/dL Est GFR ( Amer) 93.4 (>60) Est GFR (Non-Af Amer) 77.2 (>60) BUN/Creatinine Ratio 13.4 (8-20) Glucose 82 (70-100) mg/dL Calcium 9.3 (8.6-10.3) mg/dL Total Bilirubin 0.30 (0.2-1.0) mg/dL AST 9 L (13-39) U/L ALT 9 (7-52) U/L Alkaline Phosphatase 66 (34-104) U/L Troponin I 0.00 (<0.03) ng/mL Total Protein 7.2 (6.4-8.9) g/dL Albumin 4.1 (3.2-5.2) g/dL Globulin 3.1 (2-4) g/dL Albumin/Globulin Ratio 1.3 (1-3) Result Diagrams: 09/27/19 18:00 09/27/19 18:00 Lab Statement: Any lab studies that have been ordered have been reviewed, and results considered in the medical decision making process. Re-Evaluation - Re-Evaluation First Eval Re-Evaluation Time: 21:23 Change: Improved Comment: Pt stated that she was feeling better and will be discharged home. Complex Multi-Symp Course/Dx Course Of Treatment: 38-year-old female presents with abrupt onset of dizziness nausea and abdominal discomfort. Workup essentially negative. Patient was given Zofran and Tylenol. Orestes much better after period time. Able to tolerate by mouth. Discharged to home. Off work for 24 hours. Follow with PCP. Follow-up sooner for any worsening symptoms. - Diagnoses Provider Diagnoses: Tobacco use, Abdominal pain, Chest pain Discharge ED - Sign-Out/Discharge Documenting (check all that apply): Patient Departure - discharge - Discharge Plan Condition: Stable Disposition: HOME Patient Education Materials: Chest Pain (ED), Abdominal Pain (ED) Forms: *Work Release Referrals: Kartik Francisco MD [Primary Care Provider] - 2 Days Additional Instructions: PLEASE FOLLOW UP WITH YOUR PRIMARY CARE PROVIDER IN 1-3 DAYS AND RETURN TO THE EMERGENCY DEPARTMENT FOR ANY NEW OR WROSENING SYMPTOMS. - Billing Disposition and Condition Condition: STABLE Disposition: Home - Attestation Statements Document Initiated by Scribe: Yes Documenting Scribe: Edu Ortiz Provider For Whom Paco is Documenting (Include Credential): Ladonna Sanders MD Scribe Attestation: Edu Charles, scribed for Ladonna Sanders MD on 09/28/19 at 2018. Scribe Documentation Reviewed: Yes Provider Attestation: The documentation as recorded by the Edu orozco accurately reflects the service I personally performed and the decisions made by Ladonna cardenas MD Status of Scribe Document: Viewed
[2019-09-27 20:46] LABS: HCG Pregnancy < 0.60 mIU/mL
[2019-09-27] MEDS ORDERED: Acetaminophen TAB* 325 MG PO ONE (20:54)
[2019-09-27 21:12] LABS: Amylase 25 U/L (29-103); C Reactive Protein 16.18 mg/L (<8.01)
[2019-09-27 21:45] VITALS: BP 140/57
== END 2019-09-27 21:35 | disposition home or self-care (01) ==
LOC: ED 14:55
DX: R07.9 Chest pain, unspecified (principal); R10.9 Unspecified abdominal pain; F17.210 Nicotine dependence, cigarettes, uncomplicated; E07.9 Disorder of thyroid, unspecified; D64.9 Anemia, unspecified; J45.909 Unspecified asthma, uncomplicated; K21.9 Gastro-esophageal reflux disease without esophagitis; F41.9 Anxiety disorder, unspecified; F32.9 Major depressive disorder, single episode, unspecified; Z87.442 Personal history of urinary calculi; Z90.49 Acquired absence of other specified parts of digestive tract; Z90.89 Acquired absence of other organs; Z88.1 Allergy status to other antibiotic agents; Z88.5 Allergy status to narcotic agent; Z88.2 Allergy status to sulfonamides; Z88.8 Allergy status to other drugs, medicaments and biological substances
CPT/HCPCS: 36415; 80053; 82150; 83605; 83690; 84443; 84484; 84702; 85025; 85610; 86140; 87040; 96361; 96374; 99282; A9270-GY; J2405

== ENCOUNTER 2019-10-13 19:42 | Emergency (ER) | payer SELFPAY ==
[2019-10-13] MEDS ORDERED: Morphine 4 MG/ML VIAL (1 ml) 4 MG/ML VIAL IV ONE (21:44)
[2019-10-13] MEDS ORDERED: Ondansetron INJ* 2 MG/ML VIAL IV ONE (21:44)
--- NOTE | 2019-10-13 21:51 | ED ---
Abdominal Pain/Female - HPI Summary HPI Summary: 38-year-old female with significant past medical history of multiple kidney stones, appendectomy, cholecystectomy, Deysi fundoplication for Gray's esophagus, hysterectomy presents to the emergency department today complaining of lower abdominal pain which began this morning. Patient endorses 10 out of 10 diffuse lower abdominal pain which she describes as a "pressure" and she feels the urge to have a bowel movement. Patient states "it felt like I was peeing blood from my butt". Patient states she believes she had a fever this morning but denies chest pain, shortness breath, rash, pain with urination, vaginal discharge, joint pain, lightheadedness. - History of Current Complaint Chief Complaint: EDAbdPain Stated Complaint: LOWER ABD PAIN/BLOODY STOOL PER PT Time Seen by Provider: 10/13/19 21:36 Hx Obtained From: Patient Hx Last Menstrual Period: hysterectomy Onset/Duration: Gradual Onset, Lasting Hours Timing: Constant Severity Initially: Severe Severity Currently: Severe Pain Intensity: 8 Pain Scale Used: 0-10 Numeric Location: Diffuse Radiates: No Character: Cramping Aggravating Factor(s): Nothing Alleviating Factor(s): Nothing Associated Signs and Symptoms: Positive: Nausea. Negative: Fever, Cough, Chest Pain, Back Pain, Constipation, Urinary Symptoms, Decreased Appetite, Vaginal Bleeding, Vaginal Discharge, Vomiting, Diarrhea Allergies/Adverse Reactions: Allergies Allergy/AdvReac Type Severity Reaction Status Date / Time buprenorphine [From Suboxone] Allergy Swelling Verified 10/13/19 19:46 cephalexin [From Keflex] Allergy Difficulty Verified 10/13/19 19:46 Breathing/Wheezing ketorolac [From Toradol] Allergy Hives/Diff. Verified 10/13/19 19:46 Breathing/I tching naloxone [From Suboxone] Allergy Swelling Verified 10/13/19 19:46 nitrofurantoin Allergy Difficulty Verified 10/13/19 19:46 [From Macrobid] Breathing orange juice Allergy Difficulty Verified 10/13/19 19:46 Breathing Sulfa (Sulfonamide Allergy Difficulty Verified 10/13/19 19:46 Antibiotics) Breathing tramadol [From Ultram] Allergy Rash Verified 10/13/19 19:46 trazodone Allergy Difficulty Verified 10/13/19 19:46 Breathing/Wheezing fluoxetine [From Prozac] AdvReac Hallucinati Verified 10/13/19 19:46 ons PMH/Surg Hx/FS Hx/Imm Hx Endocrine/Hematology History: Reports: Hx Thyroid Disease, Hx Anemia Denies: Hx Anticoagulant Therapy, Hx Diabetes Cardiovascular History: Reports: Other Cardiovascular Problems/Disorders - Bradycardia Denies: Hx Congestive Heart Failure, Hx Deep Vein Thrombosis, Hx Hypercholesterolemia, Hx Hypertension, Hx Myocardial Infarction, Hx Pacemaker/ ICD Respiratory History: Reports: Hx Asthma Denies: Hx Chronic Obstructive Pulmonary Disease (COPD), Hx Lung Cancer GI History: Reports: Hx Gastroesophageal Reflux Disease - s/p Deysi Fundoplication, Hx Hiatal Hernia, Other GI Disorders - Gray's esophagus Denies: Hx Gall Bladder Disease, Hx Gastrointestinal Bleed, Hx Ulcer, Hx Urosepsis History: Reports: Hx Kidney Stones, Hx Renal Disease - "decreased right kidney function" per pt., Other Problems/Disorders - renal stones/ frequent diarrhea from gag reflex Musculoskeletal History: Reports: Hx Back Problems, Other Musculoskeletal History - spinal dysplasia, 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 She sees a therapist., Hx Inpatient Treatment, Hx Community Mental Health Tx, Hx Bipolar Disorder, Hx Suicide Attempt, Hx Substance Abuse - Narcotics,heroin,cocaine: sober since 05/03, Other Psychiatric Issues/Disorders - Borderline personality disorder Denies: Hx Eating Disorder, Hx Panic Disorder, Hx of Violent Episodes Against Others - Cancer History Cancer Type, Location and Year: Pre-cancer of espophagus-Tx with oral medication , Gray's Esophagus - RESOLVED WITH DEYSI FUNDOPLICATION - Surgical History Surgery Procedure, Year, and Place: CHOLECYSTECTOMY, L5 DISC REMOVAL, APPENDECTOMY, TONSILLECTOMY, FULL FACIAL RECONSTRUCTION, LASER SURGERY RENAL STONE recent abd surgery 01/2014 - DEYSI FUNDOPLICATION;Hysterectomy 01/11/15; Rt PINKY - AMPUTATED TO [facility] - Immunization History Date of Tetanus Vaccine: 2018 Date of Influenza Vaccine: none Infectious Disease History: Yes Infectious Disease History: Reports: Hx of Known/Suspected MRSA - 7 years ago, when got clean from drugs, and 4-5 years ago, in urine Denies: Hx Clostridium Difficile, Hx Hepatitis, Hx Human Immunodeficiency Virus (HIV), Hx Shingles, Hx Tuberculosis, History Other Infectious Disease, Traveled Outside the [place] in Last 30 Days - Family History Known Family History: Positive: Cardiac Disease, Hypertension, Diabetes, Other - kidney stones; mom - pancreatic [place] - Social History Alcohol Use: Rare Hx Substance Use: Yes - Sober since 05/03 Substance Use Type: Reports: None Substance Use Comment - Amount & Last Used: heroin and cocaine-clean x 7 years Hx Tobacco Use: Yes Smoking Status (MU): Heavy Every Day Tobacco Smoker Type: Cigarettes Amount Used/How Often: 1 ppd Length of Time of Smoking/Using Tobacco: >20 years Have You Smoked in the Last Year: Yes Review of Systems Constitutional: Negative Eyes: Negative ENT: Negative Cardiovascular: Negative Respiratory: Negative Positive: Abdominal Pain, Nausea. Negative: Vomiting, Diarrhea Genitourinary: Negative Musculoskeletal: Negative Skin: Negative Neurological: Negative Psychological: Normal All Other Systems Reviewed And Are Negative: Yes Physical Exam - Summary Physical Exam Summary: Multiple surgical scars are appreciated to the abdomen. Abdomen shows no signs of masses or ecchymosis. Auscultation reveals normoactive bowel sounds. Patient complains of diffuse tenderness to palpation of the abdomen. Negative Chun sign. Negative peritoneal signs. Abdominal exam is done with significant guarding but no rigidity. Patient refused rectal exam Triage Information Reviewed: Yes Vital Signs On Initial Exam: Initial Vitals Temp Pulse Resp BP Pulse Ox 98.3 F 71 15 132/87 98 10/13/19 19:44 10/13/19 19:44 10/13/19 19:44 10/13/19 19:44 10/13/19 19:44 Vital Signs Reviewed: Yes Appearance: Positive: Well-Appearing, No Pain Distress, Well-Nourished Skin: Positive: Warm, Skin Color Reflects Adequate Perfusion Eyes: Positive: EOMI, DOMINGO ENT: Positive: Hearing grossly normal Respiratory/Lung Sounds: Positive: Clear to Auscultation, Breath Sounds Present Cardiovascular: Positive: RRR, S1, S2 Abdomen Description: Positive: Nontender, Soft, Guarding. Negative: Distended, McBurney's Point Tenderness Bowel Sounds: Positive: Present Musculoskeletal: Positive: Normal, Strength/ROM Intact Neurological: Positive: Sensory/Motor Intact, Alert, Oriented to Person Place, Time Psychiatric: Positive: Normal AVPU Assessment: Alert Procedures - Sedation Patient Received Moderate/Deep Sedation with Procedure: No Diagnostics - Vital Signs Vital Signs Temp Pulse Resp BP Pulse Ox 10/13/19 19:44 98.3 F 71 15 132/87 98 - Laboratory Result Diagrams: 10/13/19 21:52 10/13/19 21:46 Lab Statement: Any lab studies that have been ordered have been reviewed, and results considered in the medical decision making process. Abdominal Pain Fem Course/Dx - Course Course Of Treatment: Patient was evaluated in the emergency department for abdominal pain. Patient seen and examined her vital signs are stable and she is afebrile. Laboratory studies were drawn which returned within normal limits with no evidence of leukocytosis. Only significant abnormality was C-reactive protein at 19.11. Patient was given 4 mg of morphine and 4 g of Zofran IV. Urine returned negative for UTI. After being in the emergency department patient stated her pain was gone and she is to go home. Patient refused rectal exam for fecal occult blood. Patient was told to follow up with her primary care provider in 5 days for further evaluation and management as her symptoms are most likely caused by viral gastronteritis. - Diagnoses Differential Diagnosis: Positive: Appendicitis, Bowel Obstruction, Constipation , Diverticulitis, Ovarian Cyst, Pancreatitis Provider Diagnoses: Abdominal pain Discharge ED - Sign-Out/Discharge Documenting (check all that apply): Patient Departure - Discharge Plan Condition: Stable Disposition: HOME Patient Education Materials: Acute Abdominal Pain (ED) Referrals: Kartik Francisco MD [Primary Care Provider] - 5 Days Additional Instructions: You were seen in the emergency department today for abdominal pain. There is no evidence that your symptoms are due to a life-threatening or infectious process requiring intervention at this time. Please follow up with your primary care provider or remote broadcast engineer in 3 days for further evaluation and management of your symptoms. Please return to the emergency department immediately if you develop any new or worsening symptoms. - Billing Disposition and Condition Condition: STABLE Disposition: Home
[2019-10-13 21:58] LABS: ABS Basophils 0.1 10^3/ul (0-0.2); ABS Eosinophils 0.1 10^3/ul (0-0.6); ABS Lymphocytes 2.8 10^3/ul (1.0-4.8); ABS Monocytes 0.8 10^3/ul (0-0.8); ABS Neutrophils 6.2 10^3/ul (1.5-7.7); Eosinophil % 1.3 %; Hematocrit 41 % (35-47); Hemoglobin 14.1 g/dL (12.0-16.0); Lymphocyte % 27.6 %; Mean Corpuscular HGB Conc 35 g/dL (31-36); Mean Corpuscular Hemoglobin 30 pg (27-31); Mean Corpuscular Volume 87 fL (80-97); Mean Platelet Volume 8.2 fL (7.4-10.4); Platelet Count 277 10^3/uL (150-450); Red Blood Count 4.64 10^6 /uL (3.70-4.87); Red Cell Distribution Width 14 % (10-15); White Blood Count 10.1 10^3/uL (3.5-10.8)
[2019-10-13] MEDS ORDERED: Lactated Ringers 1000 ML Bag* 1,000 ML IV ONE (22:00)
[2019-10-13 22:15] LABS: Albumin 4.4 g/dL (3.2-5.2); Albumin/Globulin Ratio 1.4 (1-3); BUN/Creatinine Ratio 10.5 (8-20); C Reactive Protein 19.11 mg/L (<8.01); Calcium 9.1 mg/dL (8.6-10.3); EGFR African American 78.8 (>60); EGFR Non-African American 65.2 (>60); Globulin 3.1 g/dL (2-4); Potassium 4.1 mmol/L (3.5-5.0); Total Bilirubin 0.3 mg/dL (0.2-1.0); Total Protein 7.5 g/dL (6.4-8.9)
[2019-10-13 22:33] LABS: Urine Appearance Cloudy; Urine Bilirubin Negative (Negative); Urine Blood 2+ (Negative); Urine Color Yellow; Urine Glucose Negative (Negative); Urine Ketones Negative (Negative); Urine Nitrite Negative (Negative); Urine Protein Negative (Negative); Urine Specific Gravity 1.013 (1.010-1.030); Urine Urobilinogen Negative (Negative)
[2019-10-13 22:36] LABS: Urine Bacteria Absent (Absent); Urine Red Blood Cell Trace(0-2/hpf) (Absent); Urine Squamous Epithelial Cell Present (Absent); Urine White Blood Cell Trace(0-5/hpf) (Absent)
[2019-10-13 23:55] VITALS: BP 119/70
== END 2019-10-13 23:55 | disposition home or self-care (01) ==
LOC: ED 19:42
DX: R10.9 Unspecified abdominal pain (principal); E07.9 Disorder of thyroid, unspecified; D64.9 Anemia, unspecified; J45.909 Unspecified asthma, uncomplicated; K21.9 Gastro-esophageal reflux disease without esophagitis; F41.9 Anxiety disorder, unspecified; F32.9 Major depressive disorder, single episode, unspecified; F17.210 Nicotine dependence, cigarettes, uncomplicated; Z87.442 Personal history of urinary calculi; Z90.49 Acquired absence of other specified parts of digestive tract; Z90.710 Acquired absence of both cervix and uterus; Z90.89 Acquired absence of other organs; Z88.1 Allergy status to other antibiotic agents; Z88.5 Allergy status to narcotic agent; Z88.2 Allergy status to sulfonamides; Z88.8 Allergy status to other drugs, medicaments and biological substances
CPT/HCPCS: 36415; 80053; 81003; 81015; 83690; 85025; 86140; 87086; 96361; 96374; 96375; 99283; J2270; J2405

== ENCOUNTER 2019-11-06 10:24 | Emergency (ER) | payer SELFPAY ==
[2019-11-06 11:24] LABS: Influenza A Molecular NEGATIVE (Negative); Influenza B Molecular NEGATIVE (Negative)
[2019-11-06] MEDS ORDERED: Ondansetron INJ* 2 MG/ML VIAL IV ONE (12:00)
[2019-11-06] MEDS ORDERED: Al Hydrox/Mg Hydrox/Simet LIQ* 30 ML UDC PO ONE (12:00)
[2019-11-06] MEDS ORDERED: Acetaminophen TAB* 325 MG PO ONE (12:03)
[2019-11-06 12:31] LABS: ABS Basophils 0.1 10^3/ul (0-0.2); ABS Eosinophils 0.1 10^3/ul (0-0.6); ABS Lymphocytes 1.8 10^3/ul (1.0-4.8); ABS Monocytes 0.6 10^3/ul (0-0.8); ABS Neutrophils 4.3 10^3/ul (1.5-7.7); Hematocrit 38 % (35-47); Hemoglobin 13.2 g/dL (12.0-16.0); Lymphocyte % 26.7 %; Mean Corpuscular HGB Conc 35 g/dL (31-36); Mean Corpuscular Hemoglobin 30 pg (27-31); Mean Corpuscular Volume 86 fL (80-97); Mean Platelet Volume 7.7 fL (7.4-10.4); Platelet Count 255 10^3/uL (150-450); Red Blood Count 4.45 10^6 /uL (3.70-4.87); Red Cell Distribution Width 14 % (10-15); White Blood Count 6.9 10^3/uL (3.5-10.8)
[2019-11-06 12:49] LABS: Albumin 3.9 g/dL (3.2-5.2); Albumin/Globulin Ratio 1.5 (1-3); BUN/Creatinine Ratio 11.9 (8-20); C Reactive Protein 15.08 mg/L (<8.01); Calcium 8.7 mg/dL (8.6-10.3); EGFR African American 90.9 (>60); EGFR Non-African American 75.1 (>60); Globulin 2.6 g/dL (2-4); Magnesium 1.9 mg/dL (1.9-2.7); Total Bilirubin 0.4 mg/dL (0.2-1.0); Total Protein 6.5 g/dL (6.4-8.9)
[2019-11-06] MEDS ORDERED: Morphine 4 MG/ML VIAL (1 ml) 4 MG/ML VIAL IV ONE (13:19)
[2019-11-06] MEDS ORDERED: Iohexol 300* (CONTRAST) 10 ML SDV IV ONE (13:29)
[2019-11-06] MEDS ORDERED: Lactated Ringers 1000 ML Bag* 1,000 ML IV SCH (14:00)
[2019-11-06] MEDS ORDERED: Dicyclomine CAP* 10 MG PO ONE (15:00)
[2019-11-06] MEDS ORDERED: Magnesium Hydroxide LIQ* 30 ML UDC PO ONE (15:00)
[2019-11-06 15:39] VITALS: BP 115/56
--- NOTE | 2019-11-06 17:06 | ED ---
Abdominal Pain/Female - HPI Summary HPI Summary: This patient is a 38-year-old female presenting to the ED with right-sided lower quadrant pain. History of appendectomy, cholecystectomy, hysterectomy. Patient states symptoms began approximately 2 days ago. Last bowel movement 4 days ago. She states this is abnormal for her as she is very regular. She also endorses "coffee ground emesis." She states this started yesterday and has continued. She has not been able to eat or drink. Endorses fevers at home at 102, denies any sweats or chills. Denies any weakness. Pain is rated at 10/ 10, most notably to the right side. Has never had this pain before. Denies any BRB in vomit, denies any melena or hematochezia. Endorses cough and congestion, sweats and chills. - History of Current Complaint Chief Complaint: EDAbdPain Stated Complaint: FLU SYMPTOMS PER PT Time Seen by Provider: 11/06/19 10:53 Hx Obtained From: Patient Hx Last Menstrual Period: hysterectomy ?: No Onset/Duration: Sudden Onset Severity Initially: Moderate Severity Currently: Moderate Pain Intensity: 5 Pain Scale Used: 0-10 Numeric Location: Other - right sided pain Allergies/Adverse Reactions: Allergies Allergy/AdvReac Type Severity Reaction Status Date / Time buprenorphine [From Suboxone] Allergy Swelling Verified 11/06/19 10:29 cephalexin [From Keflex] Allergy Difficulty Verified 11/06/19 10:29 Breathing/Wheezing ketorolac [From Toradol] Allergy Hives/Diff. Verified 11/06/19 10:29 Breathing/I tching naloxone [From Suboxone] Allergy Swelling Verified 11/06/19 10:29 nitrofurantoin Allergy Difficulty Verified 11/06/19 10:29 [From Macrobid] Breathing orange juice Allergy Difficulty Verified 11/06/19 10:29 Breathing Sulfa (Sulfonamide Allergy Difficulty Verified 11/06/19 10:29 Antibiotics) Breathing tramadol [From Ultram] Allergy Rash Verified 11/06/19 10:29 trazodone Allergy Difficulty Verified 11/06/19 10:29 Breathing/Wheezing fluoxetine [From Prozac] AdvReac Hallucinati Verified 11/06/19 10:29 ons Home Medications: Home Medications Nyquil Liqui Caps 2 cap PO Q6H PRN 11/06/19 [History Confirmed 11/06/19] PMH/Surg Hx/FS Hx/Imm Hx Previously Healthy: Yes Endocrine/Hematology History: Reports: Hx Thyroid Disease, Hx Anemia Denies: Hx Anticoagulant Therapy, Hx Diabetes Cardiovascular History: Reports: Other Cardiovascular Problems/Disorders - Bradycardia Denies: Hx Congestive Heart Failure, Hx Deep Vein Thrombosis, Hx Hypercholesterolemia, Hx Hypertension, Hx Myocardial Infarction, Hx Pacemaker/ ICD Respiratory History: Reports: Hx Asthma Denies: Hx Chronic Obstructive Pulmonary Disease (COPD), Hx Lung Cancer GI History: Reports: Hx Gastroesophageal Reflux Disease - s/p Pravin Fundoplication, Hx Hiatal Hernia, Other GI Disorders - Gray's esophagus Denies: Hx Gall Bladder Disease, Hx Gastrointestinal Bleed, Hx Ulcer, Hx Urosepsis History: Reports: Hx Kidney Stones, Hx Renal Disease - "decreased right kidney function" per pt., Other Problems/Disorders - renal stones/ frequent diarrhea from gag reflex Musculoskeletal History: Reports: Hx Back Problems, Other Musculoskeletal History - spinal dysplasia, 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 She sees a therapist., Hx Inpatient Treatment, Hx Community Mental Health Tx, Hx Bipolar Disorder, Hx Suicide Attempt, Hx Substance Abuse - Narcotics,heroin,cocaine: sober since 05/03, Other Psychiatric Issues/Disorders - Borderline personality disorder Denies: Hx Eating Disorder, Hx Panic Disorder, Hx of Violent Episodes Against Others - Cancer History Cancer Type, Location and Year: Pre-cancer of espophagus-Tx with oral medication , Gray's Esophagus - RESOLVED WITH PRAVIN FUNDOPLICATION - Surgical History Surgery Procedure, Year, and Place: CHOLECYSTECTOMY, L5 DISC REMOVAL, APPENDECTOMY, TONSILLECTOMY, FULL FACIAL RECONSTRUCTION, LASER SURGERY RENAL STONE recent abd surgery 01/2014 - PRAVIN FUNDOPLICATION;Hysterectomy 01/11/15; Rt PINKY - AMPUTATED TO [address] [place] [address] - Immunization History Date of Tetanus Vaccine: 2017 Date of Influenza Vaccine: none Hx Pertussis Vaccination: No Immunizations Up to Date: Yes Infectious Disease History: No Infectious Disease History: Reports: Hx of Known/Suspected MRSA - 7 years ago, when got clean from drugs, and 4-5 years ago, in urine Denies: Hx Clostridium Difficile, Hx Hepatitis, Hx Human Immunodeficiency Virus (HIV), Hx Shingles, Hx Tuberculosis, History Other Infectious Disease, Traveled Outside the [place] in Last 30 Days - Family History Known Family History: Positive: Cardiac Disease, Hypertension, Diabetes, Other - kidney stones; mom - pancreatic CA - Social History Occupation: Unemployed Lives: With Family Alcohol Use: Rare Hx Substance Use: Yes - Sober since 05/03 Substance Use Type: Reports: None Substance Use Comment - Amount & Last Used: heroin and cocaine-clean x 7 years Hx Tobacco Use: Yes Smoking Status (MU): Heavy Every Day Tobacco Smoker Type: Cigarettes Amount Used/How Often: 1 ppd Length of Time of Smoking/Using Tobacco: >20 years Have You Smoked in the Last Year: Yes Review of Systems Positive: Fever - 102, Chills, Skin Diaphoresis. Negative: Fatigue Negative: Palpitations, Chest Pain Negative: Shortness Of Breath, Cough Positive: Abdominal Pain, Vomiting, Nausea Genitourinary: Negative Positive: no symptoms reported, see HPI Negative: Arthralgia, Myalgia Skin: Negative Neurological: Negative All Other Systems Reviewed And Are Negative: Yes Physical Exam Triage Information Reviewed: Yes Vital Signs On Initial Exam: Initial Vitals Temp Pulse Resp BP Pulse Ox 97.8 F 68 14 146/70 98 11/06/19 10:26 11/06/19 10:26 11/06/19 10:26 11/06/19 10:11/06/19 10:26 Vital Signs Reviewed: Yes Appearance: Positive: Well-Appearing, Well-Nourished Skin: Positive: Warm, Skin Color Reflects Adequate Perfusion Head/Face: Positive: Normal Head/Face Inspection Eyes: Positive: EOMI, Conjunctiva Clear Neck: Positive: Supple, Nontender, No Lymphadenopathy Respiratory/Lung Sounds: Positive: Clear to Auscultation, Breath Sounds Present Cardiovascular: Positive: RRR, Pulses are Symmetrical in both Upper and Lower Extremities Abdomen Description: Positive: Other: - right sided pain Bowel Sounds: Positive: Present Musculoskeletal: Positive: Normal, Strength/ROM Intact Neurological: Positive: Normal, Sensory/Motor Intact, Alert, Oriented to Person Place, Time, CN Intact II-III Psychiatric: Positive: Normal, Affect/Mood Appropriate AVPU Assessment: Alert Procedures - Sedation Patient Received Moderate/Deep Sedation with Procedure: No Diagnostics - Vital Signs Vital Signs Temp Pulse Resp BP Pulse Ox 11/06/19 15:36 53 115/56 96 11/06/19 15:35 97.6 F 54 20 115/56 97 11/06/19 14:00 47 96 11/06/19 13:29 16 11/06/19 13:00 52 97 11/06/19 12:00 51 96 11/06/19 11:00 64 96 11/06/19 10:57 55 97 11/06/19 10:26 97.8 F 68 14 146/70 98 - Laboratory Lab Results: Lab Results 11/06/19 11/06/19 11/06/19 Range/Units 10:57 12:23 12:23 WBC 6.9 (3.5-10.8) 10^3/uL RBC 4.45 (3.70-4.87) 10^6 /uL Hgb 13.2 (12.0-16.0) g/dL Hct 38 (35-47) % MCV 86 (80-97) fL MCH 30 (27-31) pg MCHC 35 (31-36) g/dL RDW 14 (10-15) % Plt Count 255 (150-450) 10^3/uL MPV 7.7 (7.4-10.4) fL Neut % (Auto) 62.1 % Lymph % (Auto) 26.7 % Lanier % (Auto) 8.8 % Eos % (Auto) 1.0 % Baso % (Auto) 1.4 % Absolute Neuts (auto) 4.3 (1.5-7.7) 10^3/ul Absolute Lymphs (auto) 1.8 (1.0-4.8) 10^3/ul Absolute Monos (auto) 0.6 (0-0.8) 10^3/ul Absolute Eos (auto) 0.1 (0-0.6) 10^3/ul Absolute Basos (auto) 0.1 (0-0.2) 10^3/ul Absolute Nucleated RBC 0.0 10^3/ul Nucleated RBC % 0.0 Sodium 138 (135-145) mmol/L Potassium 4.0 (3.5-5.0) mmol/L Chloride 108 (101-111) mmol/L Carbon Dioxide 24 (22-32) mmol/L Anion Gap 6 (2-11) mmol/L BUN 10 (6-24) mg/dL Creatinine 0.84 (0.51-0.95) mg/dL Est GFR ( Amer) 90.9 (>60) Est GFR (Non-Af Amer) 75.1 (>60) BUN/Creatinine Ratio 11.9 (8-20) Glucose 97 (70-100) mg/dL Lactic Acid (0.5-2.0) mmol/L Calcium 8.7 (8.6-10.3) mg/dL Magnesium 1.9 (1.9-2.7) mg/dL Total Bilirubin 0.40 (0.2-1.0) mg/dL AST 10 L (13-39) U/L ALT 10 (7-52) U/L Alkaline Phosphatase 59 (34-104) U/L C-Reactive Protein 15.08 H (<8.01) mg/L Total Protein 6.5 (6.4-8.9) g/dL Albumin 3.9 (3.2-5.2) g/dL Globulin 2.6 (2-4) g/dL Albumin/Globulin Ratio 1.5 (1-3) Lipase 16 (11.0-82.0) U/L Influenza A (Rapid) Negative (Negative) Influenza B (Rapid) Negative (Negative) 11/06/19 Range/Units 12:23 WBC (3.5-10.8) 10^3/uL RBC (3.70-4.87) 10^6 /uL Hgb (12.0-16.0) g/dL Hct (35-47) % MCV (80-97) fL MCH (27-31) pg MCHC (31-36) g/dL RDW (10-15) % Plt Count (150-450) 10^3/uL MPV (7.4-10.4) fL Neut % (Auto) % Lymph % (Auto) % Lanier % (Auto) % Eos % (Auto) % Baso % (Auto) % Absolute Neuts (auto) (1.5-7.7) 10^3/ul Absolute Lymphs (auto) (1.0-4.8) 10^3/ul Absolute Monos (auto) (0-0.8) 10^3/ul Absolute Eos (auto) (0-0.6) 10^3/ul Absolute Basos (auto) (0-0.2) 10^3/ul Absolute Nucleated RBC 10^3/ul Nucleated RBC % Sodium (135-145) mmol/L Potassium (3.5-5.0) mmol/L Chloride (101-111) mmol/L Carbon Dioxide (22-32) mmol/L Anion Gap (2-11) mmol/L BUN (6-24) mg/dL Creatinine (0.51-0.95) mg/dL Est GFR ( Amer) (>60) Est GFR (Non-Af Amer) (>60) BUN/Creatinine Ratio (8-20) Glucose (70-100) mg/dL Lactic Acid 0.9 (0.5-2.0) mmol/L Calcium (8.6-10.3) mg/dL Magnesium (1.9-2.7) mg/dL Total Bilirubin (0.2-1.0) mg/dL AST (13-39) U/L ALT (7-52) U/L Alkaline Phosphatase (34-104) U/L C-Reactive Protein (<8.01) mg/L Total Protein (6.4-8.9) g/dL Albumin (3.2-5.2) g/dL Globulin (2-4) g/dL Albumin/Globulin Ratio (1-3) Lipase (11.0-82.0) U/L Influenza A (Rapid) (Negative) Influenza B (Rapid) (Negative) Result Diagrams: 11/06/19 12:23 11/06/19 12:23 Lab Statement: Any lab studies that have been ordered have been reviewed, and results considered in the medical decision making process. Abdominal Pain Fem Course/Dx - Course Course Of Treatment: This patient is evaluated for right-sided pain. Labs obtained which are unremarkable. Pt states she is allergic to many medications. Given maalox and pt continues to request more medications endorsing 10/10 pain. Pt has noted opioid abuse in the past. X-ray obtained which is mild proximal small bowel obstruction. Nonspecific although may indicate a small bowel instruction. At this time, she was given 2mg morphine and a CT was obtained. This shows: Mild proximal small bowel distention, likely incidental less likely a mild partial small bowel obstruction. Discussed case with surgery, Dr Vega who agrees this is likely distension. Pt re -evaluated and pt improved. Given bentyl and zofran as well as milk of magnesia. Pt states she is OK for home at this time and will return if she develops any other symptoms. During her stay, she had no emesis and appeared well. VS remained stable. - Diagnoses Differential Diagnosis: Positive: Bowel Obstruction, Constipation Provider Diagnoses: Gastric distention - Provider Notifications Discussed Care Of Patient With: Marlene Vega Discharge ED - Sign-Out/Discharge Documenting (check all that apply): Patient Departure - Discharge Plan Condition: Stable Disposition: HOME Prescriptions: Dicyclomine CAP* [Bentyl CAP*] 10 mg PO TID PRN #12 cap PRN Reason: Pain - Mild Magnesium Hydroxide LIQ* [Milk of Magnesia LIQ*] 30 ml PO Q6H PRN #1 btl MDD 120 PRN Reason: Constipation Ondansetron ODT TAB* [Zofran 4 MG Odt TAB*] 4 mg PO Q6H PRN #12 tab.odt MDD 4 PRN Reason: Nausea Patient Education Materials: Constipation (ED), Gas and Bloating (ED) Referrals: Kartik Francisco MD [Primary Care Provider] - Additional Instructions: Please return to the ED for any worsening or changing symptoms Bentyl as needed for gas-like symptoms Milk of magnesia up to 4 times daily as needed for constipation - Billing Disposition and Condition Condition: STABLE Disposition: Home - Attestation Statements Provider Attestation: I was available for consultation for this patient. I did not evaluate the patient, or participate in any medical decision making or disposition decisions unless I am specifically named in the chart as having consulted on the patient. If I have consulted on the patient, please see my own ED note on the patient encounter. Jeremi Garcia MD
== END 2019-11-06 15:35 | disposition home or self-care (01) ==
LOC: ED 10:24
DX: K31.89 Other diseases of stomach and duodenum (principal); E07.9 Disorder of thyroid, unspecified; D64.9 Anemia, unspecified; J45.909 Unspecified asthma, uncomplicated; K21.9 Gastro-esophageal reflux disease without esophagitis; F41.9 Anxiety disorder, unspecified; F32.9 Major depressive disorder, single episode, unspecified; F17.210 Nicotine dependence, cigarettes, uncomplicated; Z87.442 Personal history of urinary calculi; Z90.49 Acquired absence of other specified parts of digestive tract; Z90.710 Acquired absence of both cervix and uterus; Z89.021 Acquired absence of right finger(s); Z90.89 Acquired absence of other organs; Z88.1 Allergy status to other antibiotic agents; Z88.2 Allergy status to sulfonamides; Z88.5 Allergy status to narcotic agent; Z88.8 Allergy status to other drugs, medicaments and biological substances
CPT/HCPCS: 36415; 74019; 74177; 80053; 83605; 83690; 83735; 85025; 86140; 96361; 96374; 96375; 99283; A9270-GY; J2270; J2405; Q9967

== ENCOUNTER 2019-12-04 16:39 | Emergency (ER) | payer OTHER ==
[2019-12-04] MEDS ORDERED: Dicyclomine CAP* 10 MG PO ONE (17:51)
[2019-12-04] MEDS ORDERED: Acetaminophen TAB* 325 MG PO ONE (17:51)
[2019-12-04] MEDS ORDERED: Ondansetron ODT TAB* 4 MG PO ONE (17:51)
--- NOTE | 2019-12-04 17:51 | ED ---
Abdominal Pain/Female - HPI Summary HPI Summary: Patient complains of constipation, lower abdominal pain, nausea and vomiting 3 days. Symptoms have been recurrent for months. Has been evaluated here multiple times for same symptoms. Multiple CAT scans, x-rays, ultrasounds all negative. Patient states no insurance, has not followed up with GI. Denies any other pain, injury or symptoms. Abdominal surgical history is appendectomy , cholecystectomy, Deysi fundoplication, total hysterectomy. - History of Current Complaint Chief Complaint: EDAbdPain Stated Complaint: NASUEA/ABD PAIN PER PT Time Seen by Provider: 12/04/19 17:41 Hx Obtained From: Patient, Family/Family Consumer Scientist Hx Last Menstrual Period: hysterectomy Onset/Duration: Gradual Onset, Lasting Days Timing: Hours Severity Initially: Moderate Severity Currently: Severe Pain Intensity: 9 Pain Scale Used: 0-10 Numeric Location: Discrete At: RLQ, Discrete At: LLQ, Suprapubic Radiates: No Aggravating Factor(s): Nothing Alleviating Factor(s): Nothing Associated Signs and Symptoms: Positive: Negative Allergies/Adverse Reactions: Allergies Allergy/AdvReac Type Severity Reaction Status Date / Time buprenorphine [From Suboxone] Allergy Swelling Verified 11/06/19 10:29 cephalexin [From Keflex] Allergy Difficulty Verified 11/06/19 10:29 Breathing/Wheezing ketorolac [From Toradol] Allergy Hives/Diff. Verified 11/06/19 10:29 Breathing/I tching naloxone [From Suboxone] Allergy Swelling Verified 11/06/19 10:29 nitrofurantoin Allergy Difficulty Verified 11/06/19 10:29 [From Macrobid] Breathing orange juice Allergy Difficulty Verified 11/06/19 10:29 Breathing Sulfa (Sulfonamide Allergy Difficulty Verified 11/06/19 10:29 Antibiotics) Breathing tramadol [From Ultram] Allergy Rash Verified 11/06/19 10:29 trazodone Allergy Difficulty Verified 11/06/19 10:29 Breathing/Wheezing fluoxetine [From Prozac] AdvReac Hallucinati Verified 11/06/19 10:29 ons PMH/Surg Hx/FS Hx/Imm Hx Endocrine/Hematology History: Reports: Hx Thyroid Disease, Hx Anemia Denies: Hx Anticoagulant Therapy, Hx Diabetes Cardiovascular History: Reports: Other Cardiovascular Problems/Disorders - Bradycardia Denies: Hx Congestive Heart Failure, Hx Deep Vein Thrombosis, Hx Hypercholesterolemia, Hx Hypertension, Hx Myocardial Infarction, Hx Pacemaker/ ICD Respiratory History: Reports: Hx Asthma Denies: Hx Chronic Obstructive Pulmonary Disease (COPD), Hx Lung Cancer GI History: Reports: Hx Gastroesophageal Reflux Disease - s/p Deysi Fundoplication, Hx Hiatal Hernia, Other GI Disorders - Gray's esophagus Denies: Hx Gall Bladder Disease, Hx Gastrointestinal Bleed, Hx Ulcer, Hx Urosepsis History: Reports: Hx Kidney Stones, Hx Renal Disease - "decreased right kidney function" per pt., Other Problems/Disorders - renal stones/ frequent diarrhea from gag reflex Musculoskeletal History: Reports: Hx Back Problems, Other Musculoskeletal History - spinal dysplasia, 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 She sees a therapist., Hx Inpatient Treatment, Hx Community Mental Health Tx, Hx Bipolar Disorder, Hx Suicide Attempt, Hx Substance Abuse - Narcotics,heroin,cocaine: sober since 05/03, Other Psychiatric Issues/Disorders - Borderline personality disorder Denies: Hx Eating Disorder, Hx Panic Disorder, Hx of Violent Episodes Against Others - Cancer History Cancer Type, Location and Year: Pre-cancer of espophagus-Tx with oral medication , Gray's Esophagus - RESOLVED WITH DEYSI FUNDOPLICATION - Surgical History Surgery Procedure, Year, and Place: CHOLECYSTECTOMY, L5 DISC REMOVAL, APPENDECTOMY, TONSILLECTOMY, FULL FACIAL RECONSTRUCTION, LASER SURGERY RENAL STONE recent abd surgery 01/2014 - DEYSI FUNDOPLICATION;Hysterectomy 01/11/15; Rt PINKY - AMPUTATED TO [address] [place] [address] - Immunization History Date of Tetanus Vaccine: 2018 Date of Influenza Vaccine: none Infectious Disease History: No Infectious Disease History: Reports: Hx of Known/Suspected MRSA - 7 years ago, when got clean from drugs, and 4-5 years ago, in urine Denies: Hx Clostridium Difficile, Hx Hepatitis, Hx Human Immunodeficiency Virus (HIV), Hx Shingles, Hx Tuberculosis, History Other Infectious Disease, Traveled Outside the [place] in Last 30 Days - Family History Known Family History: Positive: Cardiac Disease, Hypertension, Diabetes, Other - kidney stones; mom - pancreatic CA - Social History Alcohol Use: Rare Hx Substance Use: Yes - Sober since 05/03 Substance Use Type: Reports: None Substance Use Comment - Amount & Last Used: heroin and cocaine-clean x 7 years Hx Tobacco Use: Yes Smoking Status (MU): Heavy Every Day Tobacco Smoker Type: Cigarettes Amount Used/How Often: 1 ppd Length of Time of Smoking/Using Tobacco: >20 years Have You Smoked in the Last Year: Yes Review of Systems Constitutional: Negative Eyes: Negative ENT: Negative Cardiovascular: Negative Respiratory: Negative Positive: Abdominal Pain, Vomiting, Nausea Genitourinary: Negative Musculoskeletal: Negative Skin: Negative Neurological/Mental Status: Negative Psychological: Normal All Other Systems Reviewed And Are Negative: Yes Physical Exam Triage Information Reviewed: Yes Vital Signs On Initial Exam: Initial Vitals Temp Pulse Resp BP Pulse Ox 96.1 F 75 18 157/94 98 12/04/19 16:40 12/04/19 16:40 12/04/19 16:40 12/04/19 16:40 12/04/19 16:40 Vital Signs Reviewed: Yes Appearance: Positive: Well-Appearing Skin: Positive: Warm Head/Face: Positive: Normal Head/Face Inspection Eyes: Positive: Normal Neck: Positive: Supple Respiratory/Lung Sounds: Positive: Clear to Auscultation Cardiovascular: Positive: Normal Abdomen Description: Positive: Other: - Tenderness in all lower quadrants. Abdominal exam otherwise unremarkable. Musculoskeletal: Positive: Normal Neurological: Positive: Normal Psychiatric: Positive: Normal AVPU Assessment: Alert - [place] Coma Scale Best Eye Response: 4 - Spontaneous Best Motor Response: 6 - Obeys Commands Best Verbal Response: 5 - Oriented Coma Scale Total: 15 Procedures - Sedation Patient Received Moderate/Deep Sedation with Procedure: No Diagnostics - Vital Signs Vital Signs Temp Pulse Resp BP Pulse Ox 12/04/19 16:40 96.1 F 75 18 157/94 98 - Laboratory Result Diagrams: 12/04/19 17:58 12/04/19 17:58 Lab Statement: Any lab studies that have been ordered have been reviewed, and results considered in the medical decision making process. Abdominal Pain Fem Course/Dx - Course Course Of Treatment: Patient complains of constipation, lower abdominal pain, nausea and vomiting 3 days. Symptoms have been recurrent for months. Has been evaluated here multiple times for same symptoms. Multiple CAT scans, x- rays, ultrasounds all negative. Patient states no insurance, has not followed up with GI. Denies any other pain, injury or symptoms. Abdominal surgical history is appendectomy, cholecystectomy, Deysi fundoplication, total hysterectomy. Vital signs within normal limits. Labs unremarkable. KUB positive for stool, negative for air-fluid levels. - Diagnoses Provider Diagnoses: Constipation, Nausea & vomiting, Abdominal pain Discharge ED - Sign-Out/Discharge Documenting (check all that apply): Patient Departure - Discharge Plan Condition: Stable Disposition: HOME Prescriptions: Magnesium CITRATE* [Citrate of Magnesia*] 150 ml PO ONCE #1 btl Ondansetron ODT TAB* [Zofran 4 MG Odt TAB*] 4 mg PO Q8H PRN 4 Days #14 tab.odt PRN Reason: Nausea Patient Education Materials: Constipation (ED), Acute Nausea and Vomiting (ED) Referrals: Kartik Francisco MD [Primary Care Provider] - Dominique Ramirez MD [Medical Doctor] - Additional Instructions: Take 150 mL of magnesium citrate. If no results within 2 hours, take another 150 ML's. Continue to take MiraLAX and Zofran as directed. Follow up with GI Dr Ramirez for further evaluation of recurrent constipation, nausea and vomiting. - Billing Disposition and Condition Condition: STABLE Disposition: Home
[2019-12-04] MEDS ORDERED: NS 0.9% 1000 ML** 1,000 ML IV ONE (18:04)
[2019-12-04 18:06] LABS: ABS Basophils 0.1 10^3/ul (0-0.2); ABS Eosinophils 0.1 10^3/ul (0-0.6); ABS Lymphocytes 2.5 10^3/ul (1.0-4.8); ABS Monocytes 0.9 10^3/ul (0-0.8); ABS Neutrophils 6.6 10^3/ul (1.5-7.7); Hematocrit 40 % (35-47); Hemoglobin 13.7 g/dL (12.0-16.0); Lymphocyte % 24.8 %; Mean Corpuscular HGB Conc 34 g/dL (31-36); Mean Corpuscular Hemoglobin 30 pg (27-31); Mean Corpuscular Volume 87 fL (80-97); Mean Platelet Volume 8.1 fL (7.4-10.4); Nucleated Red Blood Cells % 0.1; Platelet Count 302 10^3/uL (150-450); Red Blood Count 4.64 10^6 /uL (3.70-4.87); Red Cell Distribution Width 14 % (10-15); White Blood Count 10.3 10^3/uL (3.5-10.8)
[2019-12-04 18:23] LABS: ALT 8 U/L (7-52); Albumin/Globulin Ratio 1.3 (1-3); Alkaline Phosphatase 62 U/L (34-104); BUN/Creatinine Ratio 11.3 (8-20); Blood Urea Nitrogen 11 mg/dL (6-24); C Reactive Protein 9.49 mg/L (<8.01); CO2 Carbon Dioxide 22 mmol/L (22-32); Calcium 8.7 mg/dL (8.6-10.3); Chloride 109 mmol/L (101-111); EGFR African American 76.6 (>60); EGFR Non-African American 63.3 (>60); Globulin 3.1 g/dL (2-4); Glucose 87 mg/dL (70-100); Sodium 138 mmol/L (135-145); Total Protein 7.1 g/dL (6.4-8.9)
[2019-12-04 18:30] LABS: HCG Pregnancy < 0.60 mIU/mL
[2019-12-04 19:09] LABS: Anion Gap 7 mmol/L (2-11)
[2019-12-04 19:47] LABS: Urine Appearance Clear; Urine Bilirubin Negative (Negative); Urine Blood 2+ (Negative); Urine Color Yellow; Urine Glucose Negative (Negative); Urine Ketones Negative (Negative); Urine Nitrite Negative (Negative); Urine Protein Negative (Negative); Urine Specific Gravity 1.023 (1.010-1.030); Urine Urobilinogen Negative (Negative)
[2019-12-04 19:51] VITALS: BP 139/80
[2019-12-04 19:55] LABS: Urine Bacteria 1+ (Absent); Urine Red Blood Cell 2+(6-10/hpf) (Absent); Urine Squamous Epithelial Cell Present (Absent); Urine White Blood Cell Trace(0-5/hpf) (Absent)
== END 2019-12-04 19:49 | disposition home or self-care (01) ==
LOC: ED 16:39
DX: K59.00 Constipation, unspecified (principal); R11.2 Nausea with vomiting, unspecified; E07.9 Disorder of thyroid, unspecified; D64.9 Anemia, unspecified; J45.909 Unspecified asthma, uncomplicated; K21.9 Gastro-esophageal reflux disease without esophagitis; Z87.442 Personal history of urinary calculi; F41.9 Anxiety disorder, unspecified; F31.9 Bipolar disorder, unspecified; F17.210 Nicotine dependence, cigarettes, uncomplicated; Z90.89 Acquired absence of other organs; Z90.49 Acquired absence of other specified parts of digestive tract; Z88.1 Allergy status to other antibiotic agents; Z88.2 Allergy status to sulfonamides; Z88.5 Allergy status to narcotic agent; Z88.8 Allergy status to other drugs, medicaments and biological substances
CPT/HCPCS: 36415; 74018; 80053; 81003; 81015; 83605; 83690; 84702; 85025; 86140; 87086; 96360; 99282; A9270-GY

== ENCOUNTER 2019-12-16 11:14 | Emergency (ER) | payer OTHER ==
[2019-12-16 11:35] VITALS: BP 139/75
[2019-12-16] MEDS ORDERED: Ibuprofen TAB* 600 MG PO ONE (12:20)
--- NOTE | 2019-12-16 12:38 | UC ---
Upper Extremity HPI - HPI Summary HPI Summary: 39 year old female with multiple PMH, meds- albuterol, presents after fall this AM at 9:30am, FOOSH injury. Patient had multiple fracture to wrist in past, ~ 4 fractures, from childhood to 20's. Sensation intact, able to move all fingers, however painful over 5th knuckle, diffuse wrist. NO head injury, no LOC, no shoulder, neck pain, no other injuries. - History of Current Complaint Chief Complaint: UCUpperExtremity Stated Complaint: HAND INJURY Time Seen by Provider: 12/16/19 12:08 Hx Obtained From: Patient Hx Last Menstrual Period: hysterectomy ?: No Onset/Duration: Sudden Onset, Lasting Hours Severity Initially: Moderate Severity Currently: Moderate Pain Intensity: 7 Pain Scale Used: 0-10 Numeric Location Of Pain: Is Discrete @ - right wrist, right hand Aggravating Factor(s): Movement, Lifting Alleviating Factor(s): Rest Associated Signs And Symptoms: Negative: Swelling, Redness, Bruising, Weakness, Numbness/Tingling Related History: Similar Episode/Dx As - multiple fracture to right wrist, elbow in past - Allergies/Home Medications Allergies/Adverse Reactions: Allergies Allergy/AdvReac Type Severity Reaction Status Date / Time buprenorphine [From Suboxone] Allergy Swelling Verified 12/16/19 11:36 cephalexin [From Keflex] Allergy Difficulty Verified 12/16/19 11:36 Breathing/Wheezing ketorolac [From Toradol] Allergy Hives/Diff. Verified 12/16/19 11:36 Breathing/I tching naloxone [From Suboxone] Allergy Swelling Verified 12/16/19 11:36 nitrofurantoin Allergy Difficulty Verified 12/16/19 11:36 [From Macrobid] Breathing orange juice Allergy Difficulty Verified 12/16/19 11:36 Breathing Sulfa (Sulfonamide Allergy Difficulty Verified 12/16/19 11:36 Antibiotics) Breathing tramadol [From Ultram] Allergy Rash Verified 12/16/19 11:36 trazodone Allergy Difficulty Verified 12/16/19 11:36 Breathing/Wheezing fluoxetine [From Prozac] AdvReac Hallucinati Verified 12/16/19 11:36 ons Home Medications: Home Medications Albuterol HFA INHALER* [Ventolin HFA Inhaler*] 2 puff INH Q4H PRN 07/23/19 [ History Confirmed 12/16/19] Ibuprofen TAB* [Motrin TAB* 600 MG] 600 mg PO Q8H PRN #30 tab 12/16/19 [Rx] PMH/Surg Hx/FS Hx/Imm Hx Previously Healthy: No Other History Of: Negative For: HIV, Hepatitis B, Hepatitis C, Anticoagulant Therapy - Surgical History Surgical History: None Surgery Procedure, Year, and Place: CHOLECYSTECTOMY, L5 DISC REMOVAL, APPENDECTOMY, TONSILLECTOMY, FULL FACIAL RECONSTRUCTION, LASER SURGERY RENAL STONE recent abd surgery 01/2014 - DEYSI FUNDOPLICATION;Hysterectomy 01/11/15; Rt PINKY - AMPUTATED TO [address] [place] [address] - Family History Known Family History: Positive: Cardiac Disease, Hypertension, Diabetes, Other - kidney stones; mom - pancreatic CA - Social History Alcohol Use: Rare Substance Use Type: None Substance Use Comment - 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 Negative: Fever, Chills, Fatigue Skin: Negative: Rash, Bruising ENT: Positive: Negative Respiratory: Positive: Negative Cardiovascular: Positive: Negative Motor: Positive: Negative Musculoskeletal: Positive: Arthralgia, Decreased ROM - due to pain, Myalgia. Negative: Edema Neurological/Mental Status: Negative: Headache Is Patient Immunocompromised?: No Physical Exam Triage Information Reviewed: Yes Appearance: Well-Appearing, No Pain Distress, Well-Nourished Vital Signs: Initial Vital Signs Temp 98.2 F 12/16/19 11:33 Pulse 52 12/16/19 11:33 Resp 12 12/16/19 11:33 BP 139/75 12/16/19 11:33 Pulse Ox 98 12/16/19 11:33 Eyes: Positive: Conjunctiva Clear ENT: Positive: Hearing grossly normal Musculoskeletal: Positive: Strength Intact - R elbow, shouler with good AROM. neg spurling, full ROM cervical spine. R wrist with full PROM with mild pain with fullflexion/ extension. full AROM of thumb against resistence, no TTP over scaphoid. mild TTP over all MCP, worse over 5th, and over 3-5 metacarpals. no TTP over wrist, negative squeeze test. Neurological: Positive: Alert, Other: - SITLT distal to R elbow. rad/ ulnar pulses 2+ R Psychological: Positive: Normal Response To Family Skin Exam: Normal Skin: Positive: Other - no open wounds, sores, possible minimal swelling around wrist, although difficult to tell due to body habitus. no ecchymosis. Upper Extremity Course/Dx - Course Course Of Treatment: R wrist sprain, contusion - Keep wrist splint on at all times other than bathing for next 2-5 days - May remove splint after this for light activity for next 1 week, then all together after this if feeling well. Continue to wear when doing stressful activities/ outdoor activities. - Follow up with orthopedics if no improvement within 3-5 days for possible fracture evaluation - Ice 20 mins on, 20mins off as much as possible for next 2-3 days, then as needed for pain, keep elevated - Motrin 600mg every 8 hours as needed for pain, take with food. - GO to ER with numbness, tingling, decreased range of motion, cool/ blue fingers. - Differential Dx/Diagnosis Provider Diagnosis: Right wrist sprain Discharge ED - Sign-Out/Discharge Documenting (check all that apply): Patient Departure All imaging exams completed and their final reports reviewed: Yes - Discharge Plan Condition: Good Disposition: HOME Prescriptions: Ibuprofen TAB* [Motrin TAB* 600 MG] 600 mg PO Q8H PRN #30 tab PRN Reason: Pain - Mild Patient Education Materials: Wrist Sprain (ED) Forms: *Work Release Referrals: Kartik Francisco MD [Primary Care Provider] - Sonali Juárez MD [Medical Doctor] - Additional Instructions: - Keep wrist splint on at all times other than bathing for next 2-5 days - May remove splint after this for light activity for next 1 week, then all together after this if feeling well. Continue to wear when doing stressful activities/ outdoor activities. - Follow up with orthopedics if no improvement within 3-5 days for possible fracture evaluation - Ice 20 mins on, 20mins off as much as possible for next 2-3 days, then as needed for pain, keep elevated - Motrin 600mg every 8 hours as needed for pain, take with food. - GO to ER with numbness, tingling, decreased range of motion, cool/ blue fingers. - Billing Disposition and Condition Condition: GOOD Disposition: Home
== END 2019-12-16 12:55 | disposition home or self-care (01) ==
LOC: UCEAST 11:14
DX: S63.501A Unspecified sprain of right wrist, initial encounter (principal); F17.210 Nicotine dependence, cigarettes, uncomplicated; W18.30XA Fall on same level, unspecified, initial encounter; Y92.9 Unspecified place or not applicable; Z88.1 Allergy status to other antibiotic agents; Z88.2 Allergy status to sulfonamides; Z88.5 Allergy status to narcotic agent; Z88.6 Allergy status to analgesic agent; Z91.018 Allergy to other foods; Z88.8 Allergy status to other drugs, medicaments and biological substances
CPT/HCPCS: 99211; A9270-GY; G0463

== ENCOUNTER 2024-01-17 17:00 | Inpatient (IN) ==
[2024-01-17 18:21] LABS: ABS Basophils 0.1 10^3/uL (0.0-0.1); ABS Eosinophils 0.2 10^3/uL (0.0-0.5); ABS Lymphocytes 3.1 10^3/uL (1.0-4.8); ABS Monocytes 0.9 10^3/uL (0.0-0.9); ABS Nucleated RBC 0.01 10^3/ul; Eosinophil % 1.5 %; Hematocrit 38.5 % (35-45); Hemoglobin 12.9 g/dL (11.5-14.3); Lymphocyte % 25.5 %; Mean Corpuscular Hemoglobin 28.4 pg (27-33); Mean Corpuscular Hgb Conc 33.6 g/dL (31-36); Mean Corpuscular Volume 84.5 fL (80-97); Mean Platelet Volume 7.7 fL (7.5-11.2); Nucleated Red Blood Cells % 0.1 %/100WBC (0.0-0.8); Platelet Count 303 10^3/uL (150-450); Red Blood Count 4.56 10^6/uL (3.63-4.92); Red Cell Distribution Width 14.7 % (12-17); White Blood Count 12.3 10^3/uL (3.8-11.8)
[2024-01-17 18:24] LABS: Urine Appearance Clear; Urine Bilirubin Negative (Negative); Urine Blood 1+ (Negative); Urine Color Yellow; Urine Glucose Negative (Negative); Urine Ketones Negative (Negative); Urine Nitrite Negative (Negative); Urine Protein Negative (Negative); Urine Specific Gravity 1.024 (1.002-1.030); Urine Urobilinogen Negative (Negative); Urine pH 5.5 (5.0-8.0)
[2024-01-17 18:35] LABS: Urine Bacteria 1+ /HPF (Absent); Urine Red Blood Cell 1+(3-5/hpf) /HPF (0-Trace); Urine Squamous Epithelial Cell Present /HPF (Absent); Urine White Blood Cell Trace(0-5/hpf) /HPF (0-Trace)
[2024-01-17 18:40] LABS: Urine Benzodiazepine Screen None Detected (None Detect); Urine Cannabinoids Screen None Detected (None Detect); Urine Opiates Screen None Detected (None Detect)
[2024-01-17 19:07] LABS: ALT 10 U/L (7-52); AST 10 U/L (13-39); Acetaminophen < 15 mcg/mL; Albumin/Globulin Ratio 1.7 (1-3); Alcohol, S < 13 mg/dL (<13); Alkaline Phosphatase 70 U/L (35-149); Anion Gap 8 mmol/L (2-16); Blood Urea Nitrogen 13 mg/dL (6-24); CO2 Carbon Dioxide 24 mmol/L (22-32); Calcium 8.9 mg/dL (8.6-10.3); Chloride 108 mmol/L (101-111); Creatinine, Serum 0.93 mg/dL (0.51-0.95); Globulin 2.4 g/dL (2-4); Glucose 87 mg/dL (70-100); Potassium 3.8 mmol/L (3.5-5.0); Salicylate < 2.50 mg/dL (<30); Sodium 140 mmol/L (135-145); Total Bilirubin 0.3 mg/dL (0.2-1.0); Total Protein 6.4 g/dL (6.4-8.9); eGFR CKD-EPI 77.2 (>60)
[2024-01-17 19:10] LABS: HCG Pregnancy 0.99 mIU/mL
[2024-01-17 19:19] LABS: TSH Ultra Thyroid Stim Horm 1.17 mcIU/mL (0.34-5.60)
[2024-01-17] MEDS ORDERED: Al Hydrox/Mg Hydrox/Simet LIQ 30 ML UDC PO PRN (20:46)
[2024-01-18 08:03] LABS: HDL Cholesterol 24.3 mg/dL
[2024-01-18] MEDS: Vitamin THERAPEUTIC TAB PO SCH (08:31)
[2024-01-19] MEDS: Nicotine PATCH 21 MG/24 HR PATCH TRANSDERM SCH (08:24)
[2024-01-19] MEDS: Nicotine GUM 4MG FRUIT FLAVOR PO PRN (16:54)
[2024-01-22] MEDS: Albuterol HFA INHALER 8 gm MDI INH PRN (19:12)
[2024-01-23 08:00] VITALS: BP 129/64
== END 2024-01-24 11:40 | disposition home or self-care (01) | DRG 752 ==
LOC: ED 17:00 → EDHOLD 21:09 → BSU 21:30
PROVIDERS: ADMIT Psychiatry & Neurology Psychiatry; ATTEND Student in an Organized Health Care Education/Training Program